=== PATIENT | female | born 1975 | race Caucasian/White ===

== ENCOUNTER → 2016-09-19 | Outpatient (CLI) | payer OTHER ==
--- NOTE | 2016-09-19 12:21 | CT ---
EXAMINATION TYPE: CT abdomen pelvis wo con DATE OF EXAM: 09/19/2016 11:56 AM HISTORY: Lt flank and left lower quadrant pain CT DLP: 2683.7 mGycm. Automated Exposure Control for Dose Reduction was Utilized. TECHNIQUE: CT scan of the abdomen and pelvis is performed without oral or IV contrast. COMPARISON: CT scan of the abdomen and pelvis dated July 28, 2015. FINDINGS: Within the limitations of a non-contrast study, the following observations are made. Exam is slightly suboptimal secondary to patient's large body habitus. LUNG BASES: Dependent atelectasis in both lung bases is present. LIVER/GB: Liver is hypodense consistent with diffuse fatty infiltration. Hepatomegaly is redemonstrat ed. There is interval cholecystectomy with clips now present. PANCREAS: No significant abnormality is seen. SPLEEN: No significant abnormality is seen. ADRENALS: No significant abnormality is seen. KIDNEYS: No renal stones or hydronephrosis is evident bilaterally. Scattered pelvic phleboliths are r edemonstrated. BOWEL: No suspicious small or large bowel dilatation is seen. Normal-appearing appendix is seen from the cecum. Occasional diverticula are identified. There is no convincing CT evidence for acute divert iculitis. GENITAL ORGANS: No gross abnormality seen. LYMPH NODES: No greater than 1cm abdominal or pelvic lymph nodes are appreciated. OSSEOUS STRUCTURES: No significant abnormality is seen. OTHER: Vertical scar from the umbilicus extending inferiorly is redemonstrated. There is suspected sm all to moderate-sized fat-containing umbilical hernia felt stable. Some skin thickening overlying the anterior lower pelvis remains present. IMPRESSION: No renal stones or hydronephrosis is seen bilaterally. No significant new or acute findin g is seen to account for patient's symptoms.
== END | disposition home or self-care (01) ==
LOC: RADCTMAIN 10:59
PROVIDERS: ATTEND Family Medicine
DX: R10.32 Left lower quadrant pain (principal)
CPT/HCPCS: 74176

== ENCOUNTER 2016-12-07 13:43 | Emergency (ER) | payer OTHER ==
[2016-12-07 13:48] VITALS: RESP 20
[2016-12-07] MEDS ORDERED: IPRATROPIUM-ALBUTEROL 3 ML NEB INHALATION STA (15:57)
--- NOTE | 2016-12-07 16:03 | ED ---
General Adult HPI - General Chief complaint: Recheck/Abnormal Lab/Rx Stated complaint: GABBY Time Seen by Provider: 12/07/16 15:35 Source: patient Mode of arrival: ambulatory Limitations: no limitations - History of Present Illness Initial comments: Patient is a 41-year-old female with past medical history of alcohol abuse, oxygen dependent COPD, sleep apnea and uncontrolled diabetes. Patient presents to the emergency department today for evaluation of worsening shortness of breath and productive cough for one week duration. Patient reports she began one week ago with upper respiratory infection symptoms, including congestion and nonproductive cough. Over the course of the week she has developed a worsening productive cough. She reports she has to strain to cough of dark green phlegm. She also reports that she feels short of breath throughout the day and at night despite wearing her CPAP. She reports she has been using her albuterol nebulizer 3 times daily, she reports she doesn't always get in the fourth treatment as prescribed because she sleeping. Patient is on 2 L of oxygen at all times at baseline, she has not increased her oxygen demand but does feel short of breath spite being compliant with wearing her oxygen and CPAP at night. Patient reports that last night she had to sit straight up to sleep because she felt short of breath upon lying down. These symptoms are new to her. Patient has no cardiac history or history of congestive heart failure. She has no history of DVT or PE. Patient also complains of a rash on her buttock for which she saw her primary care doctor recently. She was devised that she has a yeast infection similar to diaper rash and was given a topical cream. Patient reports that despite being compliant with using the cream the rash has continued to worsen. Patient does admit that her diabetes is very poorly controlled her last A1c being greater than 11. However she states that for the past 3 days she's been able to maintain her blood glucose in the 100 level. - Related Data Home Medications Medication Instructions Recorded Confirmed hydrALAZINE HCL [Apresoline] 50 mg PO TID 10/07/13 12/07/16 Atenolol/Chlorthalidone 1 tab PO QAM 06/25/15 12/07/16 [Atenolol-Chlorthalidone 100-25] Divalproex [Depakote] 1,000 mg PO BID 06/25/15 12/07/16 Gabapentin [Neurontin] 300 mg PO TID 06/25/15 12/07/16 Levothyroxine Sodium [Levoxyl] 75 mcg PO QAM 06/25/15 12/07/16 amLODIPine BESYLATE/BENAZEPRIL 1 cap PO QAM 06/26/15 12/07/16 [Lotrel 10-40 mg Capsule] Atorvastatin [Lipitor] 40 mg PO QAM 10/21/15 12/07/16 Cetirizine HCl 10 mg PO HS 10/21/15 12/07/16 Insulin Glargine [Lantus] 80 unit SQ HS 10/21/15 12/07/16 Insulin Glulisine [Apidra Solostar] See Protocol SQ QID 10/21/15 12/07/16 Multivitamins, Thera [Multivitamin 1 tab PO DAILY 10/21/15 12/07/16 (formulary)] metFORMIN HCL [Glucophage] 1,000 mg PO BID-W/MEALS 10/21/15 12/07/16 [place]-3 Fatty Acids/Fish Oil [Fish 2 tab PO BID 12/01/15 12/07/16 Oil 1,000 mg Softgel] Meclizine [Antivert] 25 mg PO DAILY PRN 05/17/16 12/07/16 Nystatin 100,000 Unit/gm Powd 1 applic TOPICAL BID PRN 05/17/16 12/07/16 [Mycostatin Powder] Omeprazole [PriLOSEC] 20 mg PO DAILY 05/17/16 12/07/16 SUMAtriptan SUCCINATE [Imitrex] 100 mg PO BID PRN MDD 200mg 05/17/16 12/07/16 Fenofibrate [Lofibra] 160 mg PO HS 12/07/16 12/07/16 Liraglutide [Victoza 2-Don] 0.6 mg SQ DAILY 12/07/16 12/07/16 Montelukast [Singulair] 10 mg PO HS 12/07/16 12/07/16 Previous Rx's Medication Instructions Recorded Oxymetazoline 0.05% Nasl [place] 2 spray EA NOSTRIL BID PRN 10 Days 05/17/16 [Afrin 0.05% Nasal [place]] Nystatin 100,000 Unit/gm Powd 1 applic TOPICAL BID #30 gm 12/07/16 [Mycostatin Powder] predniSONE 20 mg PO DAILY #5 tab 12/07/16 Allergies Allergy/AdvReac Type Severity Reaction Status Date / Time Iodinated Contrast Media - Allergy Mild Rash/Hives Verified 12/07/16 16:08 Oral and [Iodinated Contrast Media - IV Dye] enalapril Allergy Rash/Hives Verified 12/07/16 16:08 levofloxacin Allergy Rash/Hives Verified 12/07/16 16:08 Review of Systems ROS Statement: Those systems with pertinent positive or pertinent negative responses have been documented in the HPI. ROS Other: All systems not noted in ROS Statement are negative. Constitutional: Denies: fever, chills Eyes: Denies: vision change ENT: Reports: congestion Respiratory: Reports: cough, dyspnea. Denies: wheezes, hemoptysis Cardiovascular: Reports: chest pain, palpitations, dyspnea on exertion, orthopnea, paroxysmal nocturnal dyspnea. Denies: edema Endocrine: Reports: fatigue Gastrointestinal: Reports: nausea, diarrhea (Diarrhea for a number of years). Denies: abdominal pain, vomiting Genitourinary: Denies: urgency, dysuria, frequency Musculoskeletal: Reports: back pain Skin: Reports: rash Neurological: Denies: weakness Psychiatric: Denies: anxiety, depression Hematological/Lymphatic: Denies: easy bleeding, easy bruising Past Medical History Past Medical History: Asthma, COPD, Diabetes Mellitus, Hyperlipidemia, Hypertension, Sleep Apnea/CPAP/BIPAP, Thyroid Disorder Additional Past Medical History / Comment(s): chronic venous insufficiency, neuropathy, migraines, IBS, fatty liver History of Any Multi-Drug Resistant Organisms: None Reported Past Surgical History: Section, Cholecystectomy, Tubal Ligation Additional Past Surgical History / Comment(s): recent colonoscopy Past Anesthesia/Blood Transfusion Reactions: No Reported Reaction Past Psychological History: Bipolar, Depression Smoking Status: Former smoker Past Alcohol Use History: None Reported Past Drug Use History: None Reported - Past Family History Mother Family Medical History: Hypertension Father Family Medical History: Hyperlipidemia General Exam Limitations: no limitations General appearance: alert Head exam: Present: atraumatic, normocephalic Eye exam: Present: normal appearance, PERRL ENT exam: Present: mucous membranes moist Neck exam: Absent: tenderness, full ROM Respiratory exam: Present: wheezes Cardiovascular Exam: Present: regular rate, normal rhythm. Absent: systolic murmur, diastolic murmur, rubs, gallop GI/Abdominal exam: Present: soft. Absent: distended, tenderness, guarding, rebound, rigid Rectal exam: Present: deferred Extremities exam: Present: normal inspection, full ROM, normal capillary refill. Absent: tenderness, pedal edema, joint swelling, calf tenderness Back exam: Present: normal inspection Neurological exam: Present: alert, oriented X3, CN II-XII intact Psychiatric exam: Present: normal affect, normal mood Skin exam: Present: warm, dry, rash (Rash on buttock, erythematous with satellite lesions consistent with candidal infection. Rash has a white cream on top of it. There is no evidence of cellulitis or abscess.) Course Vital Signs 12/07/16 12/07/16 12/07/16 13:45 16:46 16:54 Temperature 97.3 F L Pulse Rate 98 96 97 Respiratory 20 Rate Blood Pressure 143/67 O2 Sat by Pulse 96 Oximetry 12/07/16 17:17 Temperature Pulse Rate 93 Respiratory 20 Rate Blood Pressure 138/63 O2 Sat by Pulse 95 Oximetry - Reevaluation(s) Reevaluation #1: Patient reports feeling significantly better after a DuoNeb. Reports that she feels she can breathe well and that her tightness and discomfort has resolved. She reports she was only using her albuterol nebulizer up to 3 times daily, has not been on steroids recently. 12/07/16 18:39 Medical Decision Making - Medical Decision Making She was seen and evaluated History is obtained from the patient, patient with recent URI and now a productive cough and persistent shortness of breath is concern for pneumonia Physical exam with scant wheezing Physical exam also reveals a severe candidal infection on the buttocks Labs, chest x-ray and urinalysis were ordered Lab with no leukocytosis, no electrolyte abnormalities Chest x-ray no acute findings solid instructions or evidence of pneumonia Patient reports significant improvement after single DuoNeb therapy Physical exam with improvement in wheezing Results were discussed with the patient who states she came here because she wanted an antibiotic but that if she doesn't have pneumonia she doesn't feel like she needs an antibiotic and she feels well enough to go home at this time Was concerned the patient has a COPD exacerbation, IV Solu-Medrol was ordered advised the patient that I will discharge her home with oral steroids for treatment of COPD exacerbation. Discussed with the patient the possibility of steroids were cause hyperglycemia and that she needs to monitor her glucose very closely. Patient expressed understanding of this. Patient has follow-up appointment scheduled with her PCP for the of this month. Advised her to return to the emergency department if she develops any worsening shortness breath, fever, productive cough or any signs or symptoms she finds concerning. All questions pertaining to care were answered to the best of my ability and the patient was discharged home with prescription for prednisone as well as nystatin powder for her perirectal candidiasis. I advised the patient that she should use her albuterol as prescribed - Lab Data Result diagrams: 12/07/16 16:50 12/07/16 16:50 Lab Results 12/07/16 12/07/16 12/07/16 Range/Units 16:50 16:50 16:50 WBC 10.3 (3.8-10.6) k/uL RBC 4.32 (3.80-5.40) m/uL Hgb 12.7 (11.4-16.0) gm/dL Hct 36.4 (34.0-46.0) % MCV 84.2 (80.0-100.0) fL MCH 29.4 (25.0-35.0) pg MCHC 34.8 (31.0-37.0) g/dL RDW 14.2 (11.5-15.5) % Plt Count 271 (150-450) k/uL Neutrophils % 69 % Lymphocytes % 18 % Monocytes % 5 % Eosinophils % 7 % Basophils % 0 % Neutrophils # 7.1 (1.3-7.7) k/uL Lymphocytes # 1.8 (1.0-4.8) k/uL Monocytes # 0.5 (0-1.0) k/uL Eosinophils # 0.7 (0-0.7) k/uL Basophils # 0.0 (0-0.2) k/uL PT 10.5 (9.0-12.0) sec INR 1.0 (<1.1) APTT 18.8 L (22.0-30.0) sec Sodium (137-145) mmol/L Potassium (3.5-5.1) mmol/L Chloride (98-107) mmol/L Carbon Dioxide (22-30) mmol/L Anion Gap mmol/L BUN (7-17) mg/dL Creatinine (0.52-1.04) mg/dL Est GFR (MDRD) Af Amer (>60 ml/min/1.73 sqM) Est GFR (MDRD) Non-Af (>60 ml/min/1.73 sqM) Glucose (74-99) mg/dL Calcium (8.4-10.2) mg/dL Total Bilirubin (0.2-1.3) mg/dL AST (14-36) U/L ALT (9-52) U/L Alkaline Phosphatase (38-126) U/L Troponin I (0.000-0.034) ng/mL NT-Pro-B Natriuret Pep 77 pg/mL Total Protein (6.3-8.2) g/dL Albumin (3.5-5.0) g/dL 12/07/16 12/07/16 Range/Units 16:50 16:50 WBC (3.8-10.6) k/uL RBC (3.80-5.40) m/uL Hgb (11.4-16.0) gm/dL Hct (34.0-46.0) % MCV (80.0-100.0) fL MCH (25.0-35.0) pg MCHC (31.0-37.0) g/dL RDW (11.5-15.5) % Plt Count (150-450) k/uL Neutrophils % % Lymphocytes % % Monocytes % % Eosinophils % % Basophils % % Neutrophils # (1.3-7.7) k/uL Lymphocytes # (1.0-4.8) k/uL Monocytes # (0-1.0) k/uL Eosinophils # (0-0.7) k/uL Basophils # (0-0.2) k/uL PT (9.0-12.0) sec INR (<1.1) APTT (22.0-30.0) sec Sodium 143 (137-145) mmol/L Potassium 4.0 (3.5-5.1) mmol/L Chloride 101 (98-107) mmol/L Carbon Dioxide 26 (22-30) mmol/L Anion Gap 16 mmol/L BUN 12 (7-17) mg/dL Creatinine 0.60 (0.52-1.04) mg/dL Est GFR (MDRD) Af Amer >60 (>60 ml/min/1.73 sqM) Est GFR (MDRD) Non-Af >60 (>60 ml/min/1.73 sqM) Glucose 109 H (74-99) mg/dL Calcium 9.8 (8.4-10.2) mg/dL Total Bilirubin 0.3 (0.2-1.3) mg/dL AST 30 (14-36) U/L ALT 40 (9-52) U/L Alkaline Phosphatase 79 (38-126) U/L Troponin I <0.012 (0.000-0.034) ng/mL NT-Pro-B Natriuret Pep pg/mL Total Protein 7.3 (6.3-8.2) g/dL Albumin 4.5 (3.5-5.0) g/dL Disposition Clinical Impression: COPD exacerbation, Obstructive sleep apnea Disposition: HOME SELF-CARE Condition: Good Instructions: COPD (Chronic Obstructive Pulmonary Disease) (ED) Prescriptions: predniSONE 20 mg PO DAILY #5 tab Referrals: Dany Mcrae MD [Primary Care Provider] - 12/13/16
[2016-12-07 17:02] LABS: Basophils % (A) 0 %; CH 28.8; CHCM 34.4; Eosinophils # (A) 0.7 k/uL (0-0.7); Eosinophils % (A) 7 %; HCT 36.4 % (34.0-46.0); HDW 2.97; HGB 12.7 gm/dL (11.4-16.0); Luc # (Auto) 0.14; Luc % (Auto) 1; Lymphocytes # (A) 1.8 k/uL (1.0-4.8); Lymphocytes % (A) 18 %; MCH 29.4 pg (25.0-35.0); MCHC 34.8 g/dL (31.0-37.0); MCV 84.2 fL (80.0-100.0); Mean Platelet Volume 7.4; Monocytes # (A) 0.5 k/uL (0-1.0); Monocytes % (A) 5 %; Neutrophils # (A) 7.1 k/uL (1.3-7.7); Neutrophils % (A) 69 %; RBC 4.32 m/uL (3.80-5.40); RDW 14.2 % (11.5-15.5); WBC 10.3 k/uL (3.8-10.6); WBC (Perox) 10.84
[2016-12-07 17:17] LABS: Prothrombin Time 10.5 sec (9.0-12.0)
--- NOTE | 2016-12-07 17:23 | XR ---
EXAMINATION TYPE: XR chest 2V DATE OF EXAM: 12/07/2016 COMPARISON: NONE HISTORY: Dyspnea TECHNIQUE: Frontal and lateral views of the chest are obtained. FINDINGS: There is no focal air space opacity, pleural effusion, or pneumothorax seen. The cardiac silhouette size is within normal limits. The osseous structures are intact. IMPRESSION: No acute cardiopulmonary process.
[2016-12-07 17:25] LABS: Partial Thromboplastin Time 18.8 sec (22.0-30.0)
[2016-12-07 17:26] LABS: ALT 40 U/L (9-52); AST 30 U/L (14-36); Alkaline Phosphatase 79 U/L (38-126); Anion Gap 16 mmol/L; Blood Urea Nitrogen 12 mg/dL (7-17); Calcium 9.8 mg/dL (8.4-10.2); Carbon Dioxide 26 mmol/L (22-30); Chloride 101 mmol/L (98-107); Glucose 109 mg/dL (74-99); Non-African American GFR(MDRD) >60 (>60 ml/min/1.73 sqM); Sodium 143 mmol/L (137-145); Total Bilirubin 0.3 mg/dL (0.2-1.3); Total Protein 7.3 g/dL (6.3-8.2)
[2016-12-07] MEDS ORDERED: methylPREDNISolone SOD SUCCI 125 MG/2 ML VIAL IV STA (18:30)
[2016-12-07 19:07] VITALS: BP 142/69; PULSE 100; TEMP 97.8
== END 2016-12-07 19:06 | disposition home or self-care (01) ==
LOC: EC 13:43
DX: J44.1 Chronic obstructive pulmonary disease with (acute) exacerbation (principal); G47.33 Obstructive sleep apnea (adult) (pediatric); I10 Essential (primary) hypertension; E11.9 Type 2 diabetes mellitus without complications; E78.5 Hyperlipidemia, unspecified; E07.9 Disorder of thyroid, unspecified; F31.9 Bipolar disorder, unspecified; Z99.81 Dependence on supplemental oxygen; Z88.1 Allergy status to other antibiotic agents; Z88.8 Allergy status to other drugs, medicaments and biological substances; Z91.041 Radiographic dye allergy status; Z79.4 Long term (current) use of insulin; Z79.84 Long term (current) use of oral hypoglycemic drugs; Z79.899 Other long term (current) drug therapy
CPT/HCPCS: 99285; 96374; 36415; 94640; 93005; 83880; 80053; 84484; 85025; 85610; 85730; 71020; J2930

== ENCOUNTER 2018-07-15 11:23 | Inpatient (IN) | payer OTHER ==
[2018-07-15] MEDS ORDERED: SODIUM CHLORIDE 0.9% 1,000 ML IV ONE (11:57)
--- NOTE | 2018-07-15 11:59 | ED ---
General Adult HPI - General Chief complaint: Upper Respiratory Infection Stated complaint: hyperglycemia and cold/flu symptoms Time Seen by Provider: 07/15/18 11:35 Source: patient, RN notes reviewed Mode of arrival: wheelchair Limitations: no limitations - History of Present Illness Initial comments: This is a 42-year-old female who presents to the emergency department from an urgent care. Patient states she has been having a lot of upper respiratory symptoms recently some congestion as well as a cough with a little bit of sputum production. Patient denies difficult breathing or shortness of breath per patient states her throat a little sore too. Patient states she has had the feeling that she's been warm but has not taken her temperature. Patient denies any chest pain or palpitations. Patient denies any abdominal pain patient is not vomiting diarrhea. Patient states she went to the urgent care and they noted her sugar to be almost 600. Patient states is to be on a sliding scale but she doesn't do it because she doesn't have a meter at home. Patient states received a meter from the urgent care today so she has a meter at this time. - Related Data Home Medications Medication Instructions Recorded Confirmed hydrALAZINE HCL [Apresoline] 50 mg PO TID 10/07/13 07/15/18 Atenolol/Chlorthalidone 1 tab PO QAM 06/25/15 07/15/18 [Atenolol-Chlorthalidone 100-25] Divalproex [Depakote] 1,000 mg PO BID 06/25/15 07/15/18 Gabapentin [Neurontin] 300 mg PO TID 06/25/15 07/15/18 amLODIPine BESYLATE/BENAZEPRIL 1 cap PO QAM 06/26/15 07/15/18 [Lotrel 10-40 MG] Cetirizine HCl 10 mg PO HS 10/21/15 07/15/18 Insulin Glargine [Lantus] 60 unit SQ DAILY 10/21/15 07/15/18 Insulin Glulisine [Apidra Solostar] See Protocol SQ ACHS 10/21/15 07/15/18 Multivitamins, Thera [Multivitamin 1 tab PO DAILY 10/21/15 07/15/18 (formulary)] metFORMIN HCL [Glucophage] 1,000 mg PO BID-W/MEALS 10/21/15 07/15/18 [place]-3 Fatty Acids/Fish Oil [Fish 2 tab PO BID 12/01/15 07/15/18 Oil 1,000 mg Softgel] Meclizine [Antivert] 25 mg PO DAILY PRN 05/17/16 07/15/18 Omeprazole [PriLOSEC] 20 mg PO DAILY 05/17/16 07/15/18 SUMAtriptan SUCCINATE [Imitrex] 100 mg PO BID PRN 05/17/16 07/15/18 Fenofibrate [Lofibra] 160 mg PO HS 12/07/16 07/15/18 Liraglutide [Victoza 2-Don] 1.8 mg SQ DAILY 12/07/16 07/15/18 Montelukast [Singulair] 10 mg PO HS 12/07/16 07/15/18 Albuterol Inhaler [Ventolin Hfa 2 puff INHALATION RT-Q6H PRN 07/15/18 07/15/18 Inhaler] Atorvastatin [Lipitor] 40 mg PO DAILY 07/15/18 07/15/18 Cyclobenzaprine [Flexeril] 10 mg PO TID PRN 07/15/18 07/15/18 Dicyclomine [Bentyl] 20 mg PO QID PRN 07/15/18 07/15/18 Diphenox-Atrop 2.5-0.025 mg 2 tab PO 5XD PRN 07/15/18 07/15/18 [Lomotil] Levothyroxine Sodium [Synthroid] 88 mcg PO DAILY 07/15/18 07/15/18 Topiramate [Topamax] 50 mg PO BID 07/15/18 07/15/18 traMADol HCL [Ultram] 50 - 100 mg PO Q6H PRN 07/15/18 07/15/18 Previous Rx's Medication Instructions Recorded Oxymetazoline 0.05% Nasl [place] 2 spray EA NOSTRIL BID PRN 10 Days 05/17/16 [Afrin 0.05% Nasal [place]] spray Allergies Allergy/AdvReac Type Severity Reaction Status Date / Time Iodinated Contrast- Oral and Allergy Mild Rash/Hives Verified 07/15/18 11:35 IV Dye [Iodinated Contrast Media - IV Dye] enalapril Allergy Rash/Hives Verified 07/15/18 11:35 levofloxacin Allergy Rash/Hives Verified 07/15/18 11:35 Review of Systems ROS Statement: Those systems with pertinent positive or pertinent negative responses have been documented in the HPI. ROS Other: All systems not noted in ROS Statement are negative. Past Medical History Past Medical History: Asthma, COPD, Diabetes Mellitus, Hyperlipidemia, Hypertension, Sleep Apnea/CPAP/BIPAP, Thyroid Disorder Additional Past Medical History / Comment(s): chronic venous insufficiency, neuropathy, migraines, IBS, fatty liver History of Any Multi-Drug Resistant Organisms: None Reported Past Surgical History: Section, Cholecystectomy, Tubal Ligation Additional Past Surgical History / Comment(s): recent colonoscopy Past Anesthesia/Blood Transfusion Reactions: No Reported Reaction Past Psychological History: Bipolar, Depression Smoking Status: Former smoker Past Alcohol Use History: None Reported Past Drug Use History: None Reported - Past Family History Mother Family Medical History: Hypertension Father Family Medical History: Hyperlipidemia General Exam - General Exam Comments Initial Comments: GENERAL: Patient is well-developed and well-nourished. Patient is nontoxic and well- hydrated and is in mild distress. ENT: Neck is soft and supple. No significant lymphadenopathy is noted. Oropharynx is clear. Moist mucous membranes. Neck has full range of motion without eliciting any pain. EYES: The sclera were anicteric and conjunctiva were pink and moist. Extraocular movements were intact and pupils were equal round and reactive to light. Eyelids were unremarkable. PULMONARY: Unlabored respirations. Good breath sounds bilaterally. No audible rales rhonchi or wheezing was noted. CARDIOVASCULAR: There is a regular rate and rhythm without any murmurs gallops or rubs. ABDOMEN: Soft and nontender with normal bowel sounds. SKIN: Skin is clear with no lesions or rashes and otherwise unremarkable. NEUROLOGIC: Patient is alert and oriented x3. Cranial nerves II through XII are grossly intact. Motor and sensory are also intact. Normal speech, volume and content. Symmetrical smile. MUSCULOSKELETAL: Normal extremities with adequate strength and full range of motion. No lower extremity swelling or edema. No calf tenderness. LYMPHATICS: No significant lymphadenopathy is noted PSYCHIATRIC: Normal psychiatric evaluation. Limitations: no limitations Course Vital Signs 07/15/18 07/15/18 07/15/18 11:33 12:12 13:23 Temperature 97.3 F L Pulse Rate 110 H 107 H 77 Respiratory 22 18 18 Rate Blood Pressure 135/83 126/75 O2 Sat by Pulse 95 97 98 Oximetry 07/15/18 14:10 Temperature Pulse Rate 102 H Respiratory 18 Rate Blood Pressure 122/61 O2 Sat by Pulse 99 Oximetry Medical Decision Making - Medical Decision Making Patient's sugar was almost 600. I started patient on an insulin drip as well as given the patient insulin bolus. I also started the patient with some normal saline fluid boluses. I spoke with Dr. Mohsen lopez to admit the patient admitted the patient I wrote admitting orders and I continued the insulin and fluid on the floor. - Lab Data Result diagrams: 07/15/18 12:09 07/15/18 12:09 Lab Results 07/15/18 07/15/18 07/15/18 Range/Units 12:09 12:09 12:09 WBC 8.6 (3.8-10.6) k/uL RBC 4.25 (3.80-5.40) m/uL Hgb 12.8 (11.4-16.0) gm/dL Hct 37.4 (34.0-46.0) % MCV 87.8 (80.0-100.0) fL MCH 30.1 (25.0-35.0) pg MCHC 34.3 (31.0-37.0) g/dL RDW 14.5 (11.5-15.5) % Plt Count 218 (150-450) k/uL Neutrophils % 70 % Lymphocytes % 18 % Monocytes % 6 % Eosinophils % 4 % Basophils % 0 % Neutrophils # 6.0 (1.3-7.7) k/uL Lymphocytes # 1.5 (1.0-4.8) k/uL Monocytes # 0.6 (0-1.0) k/uL Eosinophils # 0.3 (0-0.7) k/uL Basophils # 0.0 (0-0.2) k/uL Sodium 133 L (137-145) mmol/L Potassium 3.9 (3.5-5.1) mmol/L Chloride 91 L (98-107) mmol/L Carbon Dioxide 24 (22-30) mmol/L Anion Gap 18 mmol/L BUN 11 (7-17) mg/dL Creatinine 0.46 L (0.52-1.04) mg/dL Est GFR (CKD-EPI)AfAm >90 (>60 ml/min/1.73 sqM) Est GFR (CKD-EPI)NonAf >90 (>60 ml/min/1.73 sqM) Glucose 567 H* (74-99) mg/dL POC Glucose (mg/dL) (75-99) mg/dL POC Glu Rear Admiral ID Calcium 9.4 (8.4-10.2) mg/dL Total Bilirubin 0.6 (0.2-1.3) mg/dL AST 24 (14-36) U/L ALT 33 (9-52) U/L Alkaline Phosphatase 123 (38-126) U/L NT-Pro-B Natriuret Pep 37 pg/mL Total Protein 7.2 (6.3-8.2) g/dL Albumin 4.0 (3.5-5.0) g/dL Urine Color Urine Appearance (Clear) Urine pH (5.0-8.0) Ur Specific [place] (1.001-1.035) Urine Protein (Negative) Urine Glucose (UA) (Negative) Urine Ketones (Negative) Urine Blood (Negative) Urine Nitrite (Negative) Urine Bilirubin (Negative) Urine Urobilinogen (<2.0) mg/dL Ur Leukocyte Esterase (Negative) Acetone, Qual Positive (Negative) 07/15/18 07/15/18 Range/Units 12:16 13:13 WBC (3.8-10.6) k/uL RBC (3.80-5.40) m/uL Hgb (11.4-16.0) gm/dL Hct (34.0-46.0) % MCV (80.0-100.0) fL MCH (25.0-35.0) pg MCHC (31.0-37.0) g/dL RDW (11.5-15.5) % Plt Count (150-450) k/uL Neutrophils % % Lymphocytes % % Monocytes % % Eosinophils % % Basophils % % Neutrophils # (1.3-7.7) k/uL Lymphocytes # (1.0-4.8) k/uL Monocytes # (0-1.0) k/uL Eosinophils # (0-0.7) k/uL Basophils # (0-0.2) k/uL Sodium (137-145) mmol/L Potassium (3.5-5.1) mmol/L Chloride (98-107) mmol/L Carbon Dioxide (22-30) mmol/L Anion Gap mmol/L BUN (7-17) mg/dL Creatinine (0.52-1.04) mg/dL Est GFR (CKD-EPI)AfAm (>60 ml/min/1.73 sqM) Est GFR (CKD-EPI)NonAf (>60 ml/min/1.73 sqM) Glucose (74-99) mg/dL POC Glucose (mg/dL) 560 H (75-99) mg/dL POC Glu Rear Admiral ID Shannna Esquivel Calcium (8.4-10.2) mg/dL Total Bilirubin (0.2-1.3) mg/dL AST (14-36) U/L ALT (9-52) U/L Alkaline Phosphatase (38-126) U/L NT-Pro-B Natriuret Pep pg/mL Total Protein (6.3-8.2) g/dL Albumin (3.5-5.0) g/dL Urine Color Colorless Urine Appearance Clear (Clear) Urine pH 5.0 (5.0-8.0) Ur Specific [place] 1.028 (1.001-1.035) Urine Protein Negative (Negative) Urine Glucose (UA) 4+ H (Negative) Urine Ketones 1+ H (Negative) Urine Blood Negative (Negative) Urine Nitrite Negative (Negative) Urine Bilirubin Negative (Negative) Urine Urobilinogen <2.0 (<2.0) mg/dL Ur Leukocyte Esterase Negative (Negative) Acetone, Qual (Negative) Critical Care Time Critical Care Time: Yes Total Critical Care Time: 35 Disposition Clinical Impression: DKA (diabetic ketoacidoses), Upper respiratory infection Disposition: ADMITTED IP TO THIS HOSP Referrals: Dany Mcrae MD [Primary Care Provider] - 1-2 days Time of Disposition: 14:51
[2018-07-15 12:18] LABS: Glucose,Whole Blood 560 mg/dL (75-99)
[2018-07-15 12:38] LABS: Basophils % (A) 0 %; Eosinophils # (A) 0.3 k/uL (0-0.7); Eosinophils % (A) 4 %; HCT 37.4 % (34.0-46.0); HGB 12.8 gm/dL (11.4-16.0); Lymphocytes # (A) 1.5 k/uL (1.0-4.8); Lymphocytes % (A) 18 %; MCH 30.1 pg (25.0-35.0); MCHC 34.3 g/dL (31.0-37.0); MCV 87.8 fL (80.0-100.0); Mean Platelet Volume 7.5; Monocytes # (A) 0.6 k/uL (0-1.0); Monocytes % (A) 6 %; Neutrophils % (A) 70 %; Platelet Count 218 k/uL (150-450); RBC 4.25 m/uL (3.80-5.40); RDW 14.5 % (11.5-15.5); WBC 8.6 k/uL (3.8-10.6)
--- NOTE | 2018-07-15 12:52 | XR ---
EXAMINATION TYPE: XR chest 2V DATE OF EXAM: 07/15/2018 COMPARISON: 12/07/2016 HISTORY: 42-year-old female difficulty breathing TECHNIQUE: AP and lateral views FINDINGS: The heart is upper limits of normal in size. Vascular prominence. Hazy lower lung densities related t o overlying soft tissue. There is underpenetration limiting assessment. No tigist consolidation or ple ural effusion seen. IMPRESSION: Portable, under penetrated exam. There is borderline heart size and vascular prominence. Correlate wi th BNP to exclude mild pulmonary vascular congestion.
[2018-07-15 12:55] LABS: ALT 33 U/L (9-52); AST 24 U/L (14-36); Alkaline Phosphatase 123 U/L (38-126); Anion Gap 18 mmol/L; Blood Urea Nitrogen 11 mg/dL (7-17); Calcium 9.4 mg/dL (8.4-10.2); Carbon Dioxide 24 mmol/L (22-30); Chloride 91 mmol/L (98-107); Potassium 3.9 mmol/L (3.5-5.1); Sodium 133 mmol/L (137-145); Total Bilirubin 0.6 mg/dL (0.2-1.3); Total Protein 7.2 g/dL (6.3-8.2)
[2018-07-15 13:04] LABS: Glucose 567 mg/dL (74-99)
[2018-07-15 13:39] LABS: Appearance,Urine Clear (Clear); Bilirubin,Urine Negative (Negative); Blood,Urine Negative (Negative); Color,Urine Colorless; Glucose,Urine (UA) 4+ (Negative); Ketones,Urine 1+ (Negative); Leukocyte Esterase,Urine Negative (Negative); Nitrite,Urine Negative (Negative); Protein,Urine Negative (Negative); Specific Gravity,Urine 1.028 (1.001-1.035); Urobilinogen,Urine <2.0 mg/dL (<2.0)
[2018-07-15] MEDS ORDERED: INSULIN ASPART (NovoLOG) 100 UNIT/ML VIAL SQ ONE (13:54)
[2018-07-15] MEDS ORDERED: INSULIN REGULAR 100 UNIT/ML VIAL IV ONE (13:55)
[2018-07-15] MEDS ORDERED: INSULIN REGULAR 100 UNIT in SODIUM CHLORIDE 0.9% 100 ML IV SCH (14:00)
[2018-07-15 15:17] LABS: Glucose,Whole Blood 398 mg/dL (75-99)
[2018-07-15] MEDS: ALBUTEROL NEBULIZED 2.5 MG/3 ML INHALATION SCH ×2 (16:10→19:25)
[2018-07-15] MEDS: CYCLOBENZAPRINE 10 MG TAB PO PRN (16:38)
[2018-07-15] MEDS: traMADol 50 MG TAB PO SCH ×2 (16:38→23:46)
[2018-07-15] MEDS: SODIUM CHLORIDE 0.9% 1,000 ML IV SCH (16:39)
[2018-07-15 17:07] LABS: Glucose,Whole Blood 317 mg/dL (75-99)
[2018-07-15 17:30] LABS: Anion Gap 13 mmol/L; Blood Urea Nitrogen 9 mg/dL (7-17); Carbon Dioxide 30 mmol/L (22-30); Chloride 93 mmol/L (98-107); Glucose 322 mg/dL (74-99); Potassium 3.3 mmol/L (3.5-5.1); Sodium 136 mmol/L (137-145)
[2018-07-15 18:13] LABS: Glucose,Whole Blood 261 mg/dL (75-99)
[2018-07-15] MEDS ORDERED: OXYMETAZOLINE 0.05% NASL SPRAY 1 SPRAY BOTTLE EA NOSTRIL PRN (18:36)
[2018-07-15] MEDS ORDERED: ALBUTEROL NEBULIZED 2.5 MG/3 ML INHALATION PRN (18:36)
[2018-07-15] MEDS ORDERED: DIPHENOX-ATROP 2.5-0.025 MG 1 EACH TAB PO PRN ×2 (18:36→18:56)
[2018-07-15] MEDS ORDERED: MECLIZINE 25 MG TAB PO PRN (18:36)
[2018-07-15] MEDS ORDERED: SUMAtriptan SUCCINATE 50 MG TAB PO PRN (18:36)
[2018-07-15] MEDS ORDERED: DICYCLOMINE 10 MG CAP PO PRN (18:36)
[2018-07-15] MEDS ORDERED: ALPRAZolam 0.25 MG TAB PO PRN (18:40)
[2018-07-15] MEDS ORDERED: TEMAZEPAM 15 MG CAP PO PRN (18:40)
[2018-07-15] MEDS ORDERED: HYDROmorphone 0.5 MG/0.5 ML SYRINGE IVP PRN (18:40)
[2018-07-15] MEDS ORDERED: HYDROcodone/APAP 5-325MG 1 EACH TAB PO PRN (18:40)
[2018-07-15 18:48] LABS: Glucose,Whole Blood 202 mg/dL (75-99)
[2018-07-15 20:15] LABS: Glucose,Whole Blood 208 mg/dL (75-99)
[2018-07-15] MEDS ORDERED: DEXTROSE IV SCH ×2 (20:30)
[2018-07-15] MEDS ORDERED: NACL IV SCH ×2 (20:30)
[2018-07-15] MEDS: INSULIN REGULAR 100 UNIT in SODIUM CHLORIDE 0.9% 100 ML IV SCH ×3 (20:30→23:30)
[2018-07-15] MEDS ORDERED: D5 IV SCH ×2 (20:30)
[2018-07-15] MEDS ORDERED: KCL IV SCH ×2 (20:30)
[2018-07-15] MEDS ORDERED: OMEGA PO SCH (21:00)
[2018-07-15] MEDS ORDERED: FATTY ACIDS PO SCH (21:00)
[2018-07-15] MEDS ORDERED: FISH OIL PO SCH (21:00)
[2018-07-15 21:16] LABS: Anion Gap 14 mmol/L; Blood Urea Nitrogen 8 mg/dL (7-17); Carbon Dioxide 28 mmol/L (22-30); Chloride 95 mmol/L (98-107); Glucose 209 mg/dL (74-99); Potassium 3.3 mmol/L (3.5-5.1); Sodium 137 mmol/L (137-145)
[2018-07-15 21:58] LABS: Glucose,Whole Blood 214 mg/dL (75-99)
--- NOTE | 2018-07-15 22:39 | HP ---
HISTORY AND PHYSICAL DATE OF SERVICE: 07/15/2018 I I am covering for Dr. Mcrae. CHIEF COMPLAINT: infection, hypoglycemia. HISTORY OF PRESENT ILLNESS: This 42-year-old woman with a past medical history of multiple medical issues including asthma, COPD, diabetes, hypertension, hyperlipidemia, sleep apnea, hypothyroidism, chronic renal insufficiency, being followed by Dr. Mcrae in the outpatient setting. The patient is not feeling well over the past several days with cough and sputum , some diarrhea in the beginning. Patient not having any difficulty in breathing , but the patient was feeling warm also. The patient came to Urgent Care and was noted to have pressures almost 600. Patient taken to [facility] for further evaluation and treatment. Bicarb is normal, but however, ketones noted, early diabetic ketoacidosis suspected. Patient admitted to the hospital for further evaluation and treatment. The patient also had multiple subcutaneous nodules and as well as significant decubitus ulcer in the gluteal region also. There is no history of fever, rigors or chills. No history of headache, loss of consciousness, seizures. PAST MEDICAL HISTORY: History of asthma, COPD, diabetes, hyperlipidemia, hypertension, sleep apnea, thyroidectomy, chronic venous insufficiency. MEDICATIONS: Prior to admission include home medications include: 1. Ultram 50-100 mg q.6h p.r.n. 2. Glucophage 1000 mg b.i.d. with meals. 3. Lotrel 10/41 p.o. q.a.m. 4. Topamax 50 mg b.i.d. 5. Imitrex 100 mg b.i.d. p.r.n. 6. Afrin 0.05% 2 sprays b.i.d. p.r.n. 7. Prilosec 20 mg daily. 8. Fish oil 2 tabs b.i.d. 9. Multivitamins one p.o. daily. 10.Singular 10 mg q.h.s. 11.Antivert 25 mg daily p.r.n. 12.Victoza 1.8 subcu daily. 13.Synthroid 18 mcg p.o. daily. 14.Apidra a.c. and q.h.s. 15.Lantus 60 units subcu daily. 16.Neurontin 300 mg p.o. t.i.d. 17.Lofibra 160 mg q.h.s. 18.Depakote 1000 mg p.o. b.i.d. 19.Lomotil 2 tablets p.o. 5 times daily p.r.n. 20.Bentyl 20 mg p.o. q.i.d. 21.Flexeril 10 mg p.o. t.i.d. 22.Cetirizine 10 mg q.h.s. 23.Lipitor 40 mg p.o. daily. 24.Atenolol/chlorthalidone 1 tablet p.o. q.a.m. 25.Ventolin HFA 2 puffs q.6h p.r.n. ALLERGIES: IODINATED CONTRAST DYE, AND LEVAQUIN. FAMILY HISTORY: History of hypertension in the family. SOCIAL HISTORY: Previous history of smoking. No history of current smoking or alcohol intake. REVIEW OF SYSTEMS: ENT: No diminished hearing or vision. CARDIOVASCULAR: No angina or palpitations. RESPIRATIONS: No cough. GI no nausea or vomiting. : No dysuria. NERVOUS SYSTEM: No numbness or weakness. ALLERGY/IMMUNOLOGY: No asthma or hayfever. Musculoskeletal: As mentioned earlier. HEMATOLOGY/ONCOLOGY: No history of anemia. ENDOCRINE: Diabetes mellitus, hypothyroidism. CONSTITUTIONAL: As mentioned earlier. DERMATOLOGY: Negative. RHEUMATOLOGY: Negative. PSYCHIATRY: As mentioned. PHYSICAL EXAMINATION: Alert and oriented x3. The pulse is 105. Blood pressure: 111/77. Respiratory rate 18. Temperature normal. Pulse ox 100 percent on 3 L. HEENT is conjunctivae normal. Oral mucosa moist. Neck is obese. Cardiovascular System: S1, S2, muffled. Respirations: Breath sounds diminished in the bases. A few scattered rhonchi. No crackles. ABDOMEN: Soft, obese, nontender. No mass palpable. Legs no edema. No swelling. NERVOUS SYSTEM: Higher functions as mentioned earlier. Moves all 4 limbs. No focal motor or sensory deficits. Lymphatics: No lymph nodes palpable in the neck, axillae or groin. Skin: Multiple subcutaneous nodules present and no decubitus in the gluteal region grade 1-2. Some erythema tenderness and drainage also present. LABS: Sodium 130, potassium 3.3. WBC 8.2, hemoglobin 12.8, INR is 3.3. ASSESSMENT: 1. Acute diabetic ketoacidosis. 2. Gluteal decubitus ulcer stage 1-2. 3. Hyponatremia. 4. Hypokalemia. 5. History of asthma/chronic obstructive pulmonary disease. 6. Diabetes mellitus type 2. 7. Hypertension. 8. Hyperlipidemia. 9. Obstructive sleep apnea. 10.Hypothyroidism. 11.Chronic venous insufficiency. 12.History of cholecystectomy. 13.History of tubal ligation. 14.Bipolar depression. 15.Remote history of nicotine dependence. RECOMMENDATIONS AND DISCUSSION: In this 42-year-old woman who presented with multiple medical issues, at this time, I recommend to continue current medications, management and symptomatic treatment. Otherwise, at this time, DKA protocol. Broad-spectrum IV antibiotics. Cultures. Infectious disease evaluation. Supplement potassium. Replacement protocol. Resume the home medications. DVT prophylaxis prophylaxis. Follow the cultures. Guarded prognosis because of multiple complex medical issues. Further recommendations to follow. A copy of dictation being forwarded to Dr. Mcrae who is the primary care physician. MMPARDEEPL / CARLO: [id number] / MTDD
[2018-07-15] MEDS: HEPARIN SODIUM,PORCINE 5,000 UNIT/ML 1 ML VIAL SQ SCH (23:46)
[2018-07-15] MEDS: GABAPENTIN 300 MG CAP PO SCH (23:46)
[2018-07-15 23:48] LABS: Glucose,Whole Blood 204 mg/dL (75-99)
[2018-07-15] MEDS: PIPERACILLIN-TAZOBACTAM 3.375 GM in SODIUM CHLORIDE 0.9% 100 ML IVPB SCH (23:48)
[2018-07-15] MEDS: LORATADINE 10 MG TAB PO SCH (23:48)
[2018-07-15] MEDS: MONTELUKAST 10 MG TAB PO SCH (23:48)
[2018-07-15] MEDS: FENOFIBRATE 160 MG TAB PO SCH (23:49)
[2018-07-15] MEDS: hydrALAZINE HCL 50 MG TAB PO SCH (23:49)
[2018-07-15] MEDS: DIVALPROEX 500 MG TABLET.DR PO SCH (23:49)
[2018-07-15] MEDS: TOPIRAMATE 25 MG TAB PO SCH (23:50)
[2018-07-16 01:09] LABS: Glucose,Whole Blood 183 mg/dL (75-99)
[2018-07-16 02:33] LABS: Glucose,Whole Blood 163 mg/dL (75-99)
[2018-07-16 03:35] LABS: Glucose,Whole Blood 178 mg/dL (75-99)
[2018-07-16] MEDS: PIPERACILLIN-TAZOBACTAM 3.375 GM in SODIUM CHLORIDE 0.9% 100 ML IVPB SCH ×2 (04:27→12:23)
[2018-07-16 04:39] LABS: Glucose,Whole Blood 188 mg/dL (75-99)
[2018-07-16 05:59] LABS: Glucose,Whole Blood 204 mg/dL (75-99)
[2018-07-16 06:30] LABS: Basophils # (A) 0.1 k/uL (0-0.2); Basophils % (A) 1 %; Eosinophils # (A) 0.4 k/uL (0-0.7); Eosinophils % (A) 5 %; HCT 37.3 % (34.0-46.0); HGB 12.5 gm/dL (11.4-16.0); Lymphocytes # (A) 1.8 k/uL (1.0-4.8); Lymphocytes % (A) 21 %; MCH 29.2 pg (25.0-35.0); MCHC 33.4 g/dL (31.0-37.0); MCV 87.3 fL (80.0-100.0); Mean Platelet Volume 6.9; Monocytes # (A) 0.6 k/uL (0-1.0); Monocytes % (A) 7 %; Neutrophils # (A) 5.8 k/uL (1.3-7.7); Neutrophils % (A) 66 %; Platelet Count 225 k/uL (150-450); RBC 4.27 m/uL (3.80-5.40); RDW 14.4 % (11.5-15.5); WBC 8.8 k/uL (3.8-10.6)
[2018-07-16] MEDS: PANTOPRAZOLE 40 MG TABLET PO SCH (06:48)
[2018-07-16] MEDS: LEVOTHYROXINE 88 MCG TAB PO SCH (06:48)
[2018-07-16 07:13] LABS: Glucose,Whole Blood 253 mg/dL (75-99)
[2018-07-16] MEDS ORDERED: PANTOPRAZOLE 40 MG TABLET PO SCH (07:30)
[2018-07-16 07:34] LABS: ALT 30 U/L (9-52); AST 29 U/L (14-36); Albumin 3.7 g/dL (3.5-5.0); Alkaline Phosphatase 105 U/L (38-126); Anion Gap 12 mmol/L; Blood Urea Nitrogen 5 mg/dL (7-17); Calcium 8.7 mg/dL (8.4-10.2); Carbon Dioxide 28 mmol/L (22-30); Chloride 97 mmol/L (98-107); Glucose 196 mg/dL (74-99); Potassium 3.6 mmol/L (3.5-5.1); Sodium 137 mmol/L (137-145); Total Bilirubin 0.4 mg/dL (0.2-1.3); Total Protein 6.8 g/dL (6.3-8.2)
[2018-07-16 08:26] LABS: Glucose,Whole Blood 337 mg/dL (75-99)
[2018-07-16] MEDS: amLODIPine 10 MG TAB PO SCH (08:27)
[2018-07-16] MEDS: traMADol 50 MG TAB PO SCH ×4 (08:28→21:43)
[2018-07-16] MEDS: ATORVASTATIN 40 MG TAB PO SCH (08:28)
[2018-07-16] MEDS: ATENOLOL 50 MG TAB PO SCH (08:28)
[2018-07-16] MEDS: GABAPENTIN 300 MG CAP PO SCH ×3 (08:28→21:42)
[2018-07-16] MEDS: CHLORTHALIDONE 25 MG TAB PO SCH (08:29)
[2018-07-16] MEDS: LISINOPRIL 20 MG TAB PO SCH (08:29)
[2018-07-16] MEDS: TOPIRAMATE 25 MG TAB PO SCH ×2 (08:29→20:29)
[2018-07-16] MEDS: HEPARIN SODIUM,PORCINE 5,000 UNIT/ML 1 ML VIAL SQ SCH ×2 (08:31→20:31)
[2018-07-16] MEDS: DIVALPROEX 500 MG TABLET.DR PO SCH ×2 (08:31→20:30)
[2018-07-16] MEDS: CYCLOBENZAPRINE 10 MG TAB PO PRN ×2 (08:31→21:42)
[2018-07-16] MEDS: hydrALAZINE HCL 50 MG TAB PO SCH ×3 (08:31→21:44)
[2018-07-16] MEDS: INSULIN REGULAR 100 UNIT in SODIUM CHLORIDE 0.9% 100 ML IV SCH ×2 (08:43→15:49)
[2018-07-16 08:46] LABS: Glucose,Whole Blood 335 mg/dL (75-99)
[2018-07-16] MEDS: ALBUTEROL NEBULIZED 2.5 MG/3 ML INHALATION SCH ×4 (08:57→19:54)
[2018-07-16 09:20] LABS: Glucose,Whole Blood 310 mg/dL (75-99)
[2018-07-16 10:29] LABS: Glucose,Whole Blood 276 mg/dL (75-99)
[2018-07-16] MEDS: SODIUM CHLORIDE 0.9% 1,000 ML IV SCH ×2 (10:34→10:35)
[2018-07-16] MEDS ORDERED: D5-0.45% NACL WITH KCL 20MEQ/L 1,000 ML IV SCH (10:36)
[2018-07-16 11:32] LABS: Glucose,Whole Blood 227 mg/dL (75-99)
[2018-07-16] MEDS: MULTIVITAMINS, THERA 1 EACH TAB PO SCH (12:22)
[2018-07-16 12:28] LABS: Glucose,Whole Blood 213 mg/dL (75-99)
[2018-07-16 13:59] LABS: Glucose,Whole Blood 282 mg/dL (75-99)
[2018-07-16 15:47] LABS: Glucose,Whole Blood 377 mg/dL (75-99)
[2018-07-16 16:43] LABS: Glucose,Whole Blood 384 mg/dL (75-99)
[2018-07-16] MEDS ORDERED: CYCLOBENZAPRINE 10 MG TAB PO PRN (16:55)
[2018-07-16] MEDS ORDERED: NON-FORMULARY DRUG (Liraglutide [Victoza 2-Pak] 1.8 MG) SQ SCH (17:00)
[2018-07-16 17:27] LABS: Glucose,Whole Blood 320 mg/dL (75-99)
[2018-07-16] MEDS: AMPICILLIN-SULBACTAM 3 GM in SODIUM CHLORIDE 0.9% 100 ML IVPB SCH ×2 (17:32→23:09)
[2018-07-16] MEDS: INSULIN ASPART (NovoLOG) 100 UNIT/ML VIAL SQ SCH ×2 (17:32→21:44)
[2018-07-16] MEDS: metFORMIN 500 MG TAB PO SCH (17:32)
[2018-07-16] MEDS: INSULIN DETEMIR (LEVEMIR) 100 UNIT/ML SYR SQ SCH (17:36)
[2018-07-16] MEDS: LORATADINE 10 MG TAB PO SCH (20:29)
[2018-07-16] MEDS: MONTELUKAST 10 MG TAB PO SCH (20:29)
[2018-07-16] MEDS: FENOFIBRATE 160 MG TAB PO SCH (20:30)
--- NOTE | 2018-07-16 20:34 | PN ---
PROGRESS NOTE I am covering for Dr. Mcrae. DATE OF SERVICE: 07/16/2018 This 42-year-old woman who was admitted acute diabetic ketoacidosis also had significant The patient is being closely monitored at this time. Blood sugars are still elevated. Multiple consultants are following the patient closely. The cultures are pending at this time. The patient is also started on broad-spectrum IV antibiotics for decubitus also. The patient is on IV Unasyn at this time. Infectious Disease is following the patient closely. Past medical history reviewed. REVIEW OF SYSTEMS: CARDIOVASCULAR SYSTEM: No angina, palpitations. RESPIRATORY SYSTEM: As mentioned earlier. GI: As mentioned earlier. : No dysuria or retention. NERVOUS SYSTEM: No numbness, weakness. CURRENT MEDICATIONS: Reviewed. They include: 1. [place]on 5 mg q.6 p.r.n. 2. Ventolin q.i.d. and p.r.n. 3. Xanax 0.25 t.i.d. 4. Norvasc. 5. Unasyn. 6. Lipitor 40 mg p.o. daily. 7. Hygroton. 8. Flexeril 10 mg. 9. Bentyl. 10.Lomotil. 11.Depakote. 12.Lofibra. 13.Neurontin. 14.Heparin. 15.Apresoline. 16.Dilaudid. 17.Synthroid 88 mcg. 18.Zestril 40 mg. 19.Claritin. 20.Antivert. 21.Multivitamins. 22.Protonix. 23.Imitrex. 24.Restoril. 25.Topamax. 26.Ultram. PHYSICAL EXAMINATION: Patient is alert, oriented x3. The pulse is 83, blood pressure 110/58, respiration 20, temperature 98.1, pulse ox 96% on 2 L. HEENT: Conjunctivae normal. NECK: No jugular venous distention. CARDIOVASCULAR SYSTEM: S1, S2 muffled. RESPIRATORY SYSTEM: Breath sounds diminished at the bases. A few scattered rhonchi and crackles. ABDOMEN: Soft, obese, non-tender. LEGS: No edema. No swelling. NERVOUS SYSTEM: No focal deficit. LABS: Accu-Cheks 377, 384. WBC 8.8, hemoglobin 12.5, and creatinine is 0.44. ASSESSMENT: 1. Acute diabetic ketoacidosis. 2. Gluteal decubitus ulcer, stage I to II. 3. Hyponatremia. 4. Hypokalemia. 5. History of asthma, chronic obstructive pulmonary disease. 6. Diabetes mellitus, type 2. 7. Hypertension. 8. Hyperlipidemia. 9. History of obstructive sleep apnea. 10.Hypothyroidism. 11.Chronic venous insufficiency. 12.History of cholecystectomy. 13.History of tubal ligation. 14.History of bipolar depression. 15.Remote history of nicotine dependence. RECOMMENDATIONS AND DISCUSSION: I recommend to continue current medications, continue with symptomatic treatment , broad- spectrum IV antibiotics. Continue to monitor closely. Continue to monitor the blood sugars. Otherwise, guarded prognosis because of multiple complex medical issues. Further recommendations to follow. See orders for further details. MMODL / IJN: [id number] / ADY
[2018-07-16] MEDS ORDERED: VANCOMYCIN IV PER PHARMACY 1 EACH MISC MISCELLANE PRN (21:00)
--- NOTE | 2018-07-16 21:19 | P.CONS ---
History of Present Illness - Reason for Consult Consult date: 07/16/18 - Chief Complaint upper respiratory infection - History of Present Illness Patient is a superobese 42-year-old female who presents to her primary care provider's office she was not feeling well for several days with an upper respiratory type infection. She was having cough without much sputum production and no hemoptysis. Because she was feeling poorly she did present and was found evidence of blood sugar greater than 600. The patient relates her meter at home was not working and she cannot afford to buy test strips. She relates that she generally feels quite poorly, poor energy level her adult daughter helps her in the home and with most activities. She does not believe she had a high-grade fever chills or rigors. However she's developed difficulty with ulceration to her left leg as well as to her right buttocks for which the infectious diseases consultation was requested. Review of Systems patient feels poorly HEENT:Denies headache or acute visual change. Denies sinus or mouth discomforts. Denies neck stiffness or pain. Denies significant oral cavity pain. Denies difficulty on swallowing. Lungs: Patient has cough but no new shortness of breath productionorhemoptysis Cardiovascular:No new cardiovascular complaints but does have poor exercise tolerance easily develops dyspnea with exertion has orthopnea but no PND. Gastrointestinal:Denies nausea, vomiting, diarrhea, constipation, hematemesis, melena, hematochezia. No no significant change of bowel habit noticed. Musculoskeletal: denies significant myalgias or arthralgias. No new joint swelling. Denies new back pain. Skin: Denies new rash or lesions. No new ulcers or wounds are related.. Neuro: Denies headache or visual change. Denies any new onset weakness or difficulty with ambulation. Denies falls or seizures. Psychiatric:Denies anxiety or depression. Endocrine: chronic fatigue chronic weight gain Past Medical History Past Medical History: Asthma, COPD, Diabetes Mellitus, Hyperlipidemia, Hypertension, Osteoarthritis (OA), Sleep Apnea/CPAP/BIPAP, Thyroid Disorder Additional Past Medical History / Comment(s): chronic venous insufficiency, neuropathy, migraines, IBS, fatty liver History of Any Multi-Drug Resistant Organisms: None Reported Past Surgical History: Section, Cholecystectomy, Tubal Ligation Additional Past Surgical History / Comment(s): recent colonoscopy Past Anesthesia/Blood Transfusion Reactions: No Reported Reaction Past Psychological History: Bipolar, Depression Additional Psychological History / Comment(s): radha adult daughter lives with her. Does not work outside of the home. No international travel. No experience. no animals in the home. No current Smoking Status: Former smoker Past Alcohol Use History: None Reported Additional Past Alcohol Use History / Comment(s): SMOKED UNTIL 2013 FOR 22 YRS, PPD 3 PPD Past Drug Use History: None Reported - Past Family History Mother Family Medical History: Hypertension Father Family Medical History: Hyperlipidemia Medications and Allergies Home Medications and Allergies Comment(s): Current Medications Hydrocodone Bitart/Acetaminophen ([place] 5-325) 1 each PO Q6HR PRN PRN Reason: Pain Albuterol Sulfate (Ventolin Nebulized) 2.5 mg INHALATION RT-Q6H PRN PRN Reason: Shortness Of Breath Last Admin: 07/15/18 21:11 Dose: 2.5 mg Albuterol Sulfate (Ventolin Nebulized) 2.5 mg INHALATION RT-QID [facility] Last Admin: 07/16/18 19:54 Dose: 2.5 mg Alprazolam (Xanax) 0.25 mg PO TID PRN PRN Reason: Anxiety Last Admin: 07/15/18 23:49 Dose: 0.25 mg [facility]mlodipine Bes[facility]) [facility] Admin: 07/16/18 08:27 Dose: 10 mg Atenolol (Tenormin) 100 mg PO QAM [facility] Last Admin: 07/16/18 08:28 Dose: 100 mg Atorvastatin Calcium (Lipitor) 40 mg PO DAILY [facility] Last Admin: 07/16/18 08:28 Dose: 40 mg Chlorthalidone (Hygroton) 25 mg PO QAM [facility] Last Admin: 07/16/18 08:29 Dose: 25 mg Cyclobenzaprine HCl (Flexeril) 10 mg PO TID PRN PRN Reason: Muscle Spasm Last Admin: 07/16/18 08:31 Dose: 10 mg Dicyclomine HCl (Bentyl) 20 mg PO QID PRN PRN Reason: CRAMPS Diphenoxylate HCl/Atropine (Lomotil) 2 each PO QID PRN PRN Reason: Loose Stool Divalproex Sodium (Depakote) 1,000 mg PO BID [facility] Last Admin: 07/16/18 20:30 Dose: 1,000 mg Fenofibrate (Lofibra) 160 mg PO [facility] Last Admin: 07/16/18 20:30 Dose: 160 mg Gabapentin (Neurontin) 300 mg PO TID [facility] Last Admin: 07/16/18 17:31 Dose: 300 mg Heparin Sodium (Porcine) (Heparin) 5,000 unit SQ Q12HR [facility] Last Admin: 07/16/18 20:31 Dose: 5,000 unit Hydralazine HCl (Apresoline) 50 mg PO TID [facility] Last Admin: 07/16/18 17:31 Dose: 50 mg Hydromorphone HCl (Dilaudid) 0.5 mg IVP Q6HR PRN PRN Reason: Severe Pain Ampicillin Sodium/Sulbactam (Sodium 3 gm/ Sodium Chloride) 100 mls @ 200 mls/ hr IVPB Q6HR [facility] Last Admin: 07/16/18 17:32 Dose: 200 mls/hr Vancomycin HCl 2,000 mg/ (Sodium Chloride) 500 mls @ 167 mls/hr IVPB Q8HR [facility] Insulin Aspart (Novolog) 0 unit SQ ACHS [facility]; Protocol Last Admin: 07/16/18 17:32 Dose: 8 unit Insulin Detemir (Levemir) 60 unit SQ DAILY [facility] Last Admin: 07/16/18 17:36 Dose: 60 unit Levothyroxine Sodium (Synthroid) 88 mcg PO DAILY@0630 [facility] Last Admin: 07/16/18 06:48 Dose: 88 mcg Lisinopril (Zestril) 40 mg PO QAM [facility] Last Admin: 07/16/18 08:29 Dose: 40 mg Loratadine (Claritin) 10 mg PO [facility] Last Admin: 07/16/18 20:29 Dose: 10 mg Meclizine HCl (Antivert) 25 mg PO DAILY PRN PRN Reason: Vertigo Metformin HCl (Glucophage) 1,000 mg PO BID-W/MEALS [facility] Last Admin: 07/16/18 17:32 Dose: 1,000 mg Montelukast Sodium (Singulair) 10 mg PO [facility] Last Admin: 07/16/18 20:29 Dose: 10 mg Multivitamins (Theragran) 1 each PO DAILY@1200 [facility] Last Admin: 07/16/18 12:22 Dose: 1 each Oxymetazoline HCl (Afrin 0.05% Nasal [place]) 2 spray EA NOSTRIL BID PRN PRN Reason: Allergy Symptoms Pantoprazole Sodium (Protonix) 40 mg PO AC-BRKFST [facility] Last Admin: 07/16/18 06:48 Dose: 40 mg Sumatriptan Succinate (Imitrex) 100 mg PO BID PRN PRN Reason: Headache Temazepam (Restoril) 15 mg PO HS PRN PRN Reason: Insomnia Last Admin: 07/15/18 23:49 Dose: 15 mg Topiramate (Topamax) 50 mg PO BID [facility] Last Admin: 07/16/18 20:29 Dose: 50 mg Tramadol HCl (Ultram) 100 mg PO QID [facility] Last Admin: 07/16/18 17:31 Dose: 100 mg Home Medications Medication Instructions Recorded Confirmed Type hydrALAZINE HCL [Apresoline] 50 mg PO TID 10/07/13 07/15/18 History Atenolol/Chlorthalidone 1 tab PO QAM 06/25/15 07/15/18 History [Atenolol-Chlorthalidone 100-25] Divalproex [Depakote] 1,000 mg PO BID 06/25/15 07/15/18 History Gabapentin [Neurontin] 300 mg PO TID 06/25/15 07/15/18 History amLODIPine BESYLATE/BENAZEPRIL 1 cap PO QAM 06/26/15 07/15/18 History [Lotrel 10-40 MG] Cetirizine HCl 10 mg PO HS 10/21/15 07/15/18 History Insulin Glargine [Lantus] 60 unit SQ DAILY 10/21/15 07/15/18 History Insulin Glulisine [Apidra Solostar] See Protocol SQ ACHS 10/21/15 07/15/18 History Multivitamins, Thera [Multivitamin 1 tab PO DAILY 10/21/15 07/15/18 History (formulary)] metFORMIN HCL [Glucophage] 1,000 mg PO BID-W/MEALS 10/21/15 07/15/18 History Etta-3 Fatty Acids/Fish Oil [Fish 2 tab PO BID 12/01/15 07/15/18 History Oil 1,000 mg Softgel] Meclizine [Antivert] 25 mg PO DAILY PRN 05/17/16 07/15/18 History Omeprazole [PriLOSEC] 20 mg PO DAILY 05/17/16 07/15/18 History Oxymetazoline 0.05% Nasl [place] 2 spray EA NOSTRIL BID PRN 10 Days 05/17/1607/15 Rx [Afrin 0.05% Nasal [place]] spray SUMAtriptan SUCCINATE [Imitrex] 100 mg PO BID PRN 05/17/16 07/15/18 History Fenofibrate [Lofibra] 160 mg PO HS 12/07/16 07/15/18 History Liraglutide [Victoza 2-Don] 1.8 mg SQ DAILY 12/07/16 07/15/18 History Montelukast [Singulair] 10 mg PO HS 12/07/16 07/15/18 History Albuterol Inhaler [Ventolin Hfa 2 puff INHALATION RT-Q6H PRN 07/15/18 07/15/18 History Inhaler] Atorvastatin [Lipitor] 40 mg PO DAILY 07/15/18 07/15/18 History Cyclobenzaprine [Flexeril] 10 mg PO TID PRN 07/15/18 07/15/18 History Dicyclomine [Bentyl] 20 mg PO QID PRN 07/15/18 07/15/18 History Diphenox-Atrop 2.5-0.025 mg 2 tab PO 5XD PRN 07/15/18 07/15/18 History [Lomotil] Levothyroxine Sodium [Synthroid] 88 mcg PO DAILY 07/15/18 07/15/18 History Topiramate [Topamax] 50 mg PO BID 07/15/18 07/15/18 History traMADol HCL [Ultram] 50 - 100 mg PO Q6H PRN 07/15/18 07/15/18 History Allergies Allergy/AdvReac Type Severity Reaction Status Date / Time Iodinated Contrast- Oral and Allergy Mild Rash/Hives Verified 07/15/18 11:35 IV Dye [Iodinated Contrast Media - IV Dye] enalapril Allergy Rash/Hives Verified 07/15/18 11:35 levofloxacin Allergy Rash/Hives Verified 07/15/18 11:35 Physical Exam Vitals: Vital Signs Temp Pulse Pulse Resp BP Pulse Ox 07/16/18 20:03 82 07/16/18 19:54 80 07/16/18 16:14 82 07/16/18 16:05 80 07/16/18 16:00 98.1 F 83 20 110/58 96 07/16/18 12:06 84 07/16/18 11:57 98.3 F 79 20 110/55 97 07/16/18 11:55 80 07/16/18 09:07 80 07/16/18 08:57 84 07/16/18 08:00 116 H 20 137/75 100 07/16/18 04:00 98.1 F 101 H 18 134/74 94 L 07/16/18 00:00 98.3 F 100 18 132/67 96 07/15/18 21:19 84 07/15/18 21:12 80 Intake and Output 07/16/18 07/16/18 07/16/18 06:59 14:59 22:59 Intake Total 108.792 041.273 8166.59 Output Total 800 400 Balance 108.792 -176.507 8066.59 Intake: IV 118.6 Insulin Regular 100 unit 118.6 In Sodium Chloride 0.9% 100 ml @ 0.1 UNITS/KG/HR 14.15 mls/hr IV .Q7H9M [facility] Rx#:[id number] Intake, IV Titration 108.792 296.632 4289.99 Amount D5-0.45% NaCl with KCl 1200 20Meq/l 1,000 ml @ 75 mls /hr IV .[id number] [facility] Rx#: [id number] Insulin Regular 100 unit 108.792 119.621 18.99 In Sodium Chloride 0.9% 100 ml @ 0.1 UNITS/KG/HR 14.15 mls/hr IV .Q7H9M [facility] Rx#:[id number] Piperacillin-Tazobactam 3 100 .375 gm In Sodium Chloride 0.9% 100 ml @ 25 mls/hr IVPB Q8H [facility] Rx#: [id number] Oral 480 240 Output: Urine 800 400 Other: Voiding Method Toilet # Voids 1 Weight 146.3 kg 146.3 kg 42year-old woman was superobesity HEENT: Anicteric conjunctiva are pink and moist nasal mucosa grossly intact without significant lesions, there is no thrush.dentition is poor Neck: The neck is supple without significant lymphadenopathy or thyromegaly. Lungs: Symmetrical bilateral air entry with expiratory wheezes throughout the lung schulte no dullness or egophony can be noted Heart: Regular rate and rhythm with an audible S1-S2, no S3 no S4. There is no significant murmur click or rub, PMI was nondisplaced. Abdomen: obesePositive bowel sounds soft and nontender without palpable masses or organomegaly. There was no guarding or rebound. Extremities: The upper extremities have excellent pulses they are symmetric, no significant petechiae or telangiectasia. No splinter hemorrhages were noted. Lower extremities evidence of chronic stasis is evidence of the ulceration to the left leg as well as to the right buttocks please see the nursing documentation photography for the exact sizes of these ulcerations. Neuro: Awake alert oriented to person place and time. There are no acute new gross focal sensory motor deficits. Results CBC & Chem 7: 07/16/18 06:01 07/16/18 06:01 Labs: Abnormal Lab Results - Last 24 Hours (Table) 07/15/18 07/15/18 07/15/18 Range/Units 20:14 21:38 23:28 Potassium 3.3 L (3.5-5.1) mmol/L Chloride 95 L (98-107) mmol/L BUN (7-17) mg/dL Creatinine 0.44 L (0.52-1.04) mg/dL Glucose 209 H (74-99) mg/dL POC Glucose (mg/dL) 214 H 204 H (75-99) mg/dL 07/16/18 07/16/18 07/16/18 Range/Units 00:48 02:31 03:34 Potassium (3.5-5.1) mmol/L Chloride (98-107) mmol/L BUN (7-17) mg/dL Creatinine (0.52-1.04) mg/dL Glucose (74-99) mg/dL POC Glucose (mg/dL) 183 H 163 H 178 H (75-99) mg/dL 07/16/18 07/16/18 07/16/18 Range/Units 04:30 05:57 06:01 Potassium (3.5-5.1) mmol/L Chloride 97 L (98-107) mmol/L BUN 5 L (7-17) mg/dL Creatinine 0.44 L (0.52-1.04) mg/dL Glucose 196 H (74-99) mg/dL POC Glucose (mg/dL) 188 H 204 H (75-99) mg/dL 07/16/18 07/16/18 07/16/18 Range/Units 07:11 08:23 08:41 Potassium (3.5-5.1) mmol/L Chloride (98-107) mmol/L BUN (7-17) mg/dL Creatinine (0.52-1.04) mg/dL Glucose (74-99) mg/dL POC Glucose (mg/dL) 253 H 337 H 335 H (75-99) mg/dL 07/16/18 07/16/18 07/16/18 Range/Units 09:19 10:26 11:30 Potassium (3.5-5.1) mmol/L Chloride (98-107) mmol/L BUN (7-17) mg/dL Creatinine (0.52-1.04) mg/dL Glucose (74-99) mg/dL POC Glucose (mg/dL) 310 H 276 H 227 H (75-99) mg/dL 07/16/18 07/16/18 07/16/18 Range/Units 12:26 13:57 15:45 Potassium (3.5-5.1) mmol/L Chloride (98-107) mmol/L BUN (7-17) mg/dL Creatinine (0.52-1.04) mg/dL Glucose (74-99) mg/dL POC Glucose (mg/dL) 213 H 282 H 377 H (75-99) mg/dL 07/16/18 07/16/18 Range/Units 16:41 17:25 Potassium (3.5-5.1) mmol/L Chloride (98-107) mmol/L BUN (7-17) mg/dL Creatinine (0.52-1.04) mg/dL Glucose (74-99) mg/dL POC Glucose (mg/dL) 384 H 320 H (75-99) mg/dL Microbiology - Last 24 Hours (Table) 07/15/18 19:32 Gram Stain - Preliminary Buttock Wound Culture - Preliminary Presumptive MRSA Strep agalactiae - (group b) 07/15/18 13:33 Urine Culture - Preliminary Urine,Voided Laboratory Results WBC 8.8 k/uL (3.8-10.6) 07/16/18 06:01 RBC 4.27 m/uL (3.80-5.40) 07/16/18 06:01 Hgb 12.5 gm/dL (11.4-16.0) 07/16/18 06:01 Hct 37.3 % (34.0-46.0) 07/16/18 06:01 MCV 87.3 fL (80.0-100.0) 07/16/18 06:01 MCH 29.2 pg (25.0-35.0) 07/16/18 06:01 MCHC 33.4 g/dL (31.0-37.0) 07/16/18 06:01 RDW 14.4 % (11.5-15.5) 07/16/18 06:01 Plt Count 225 k/uL (150-450) 07/16/18 06:01 Neutrophils % 66 % 07/16/18 06:01 Lymphocytes % 21 % 07/16/18 06:01 Monocytes % 7 % 07/16/18 06:01 Eosinophils % 5 % 07/16/18 06:01 Basophils % 1 % 07/16/18 06:01 Neutrophils # 5.8 k/uL (1.3-7.7) 07/16/18 06:01 Lymphocytes # 1.8 k/uL (1.0-4.8) 07/16/18 06:01 Monocytes # 0.6 k/uL (0-1.0) 07/16/18 06:01 Eosinophils # 0.4 k/uL (0-0.7) 07/16/18 06:01 Basophils # 0.1 k/uL (0-0.2) 07/16/18 06:01 Sodium 137 mmol/L (137-145) 07/16/18 06:01 Potassium 3.6 mmol/L (3.5-5.1) 07/16/18 06:01 Chloride 97 mmol/L (98-107) L 07/16/18 06:01 Carbon Dioxide 28 mmol/L (22-30) 07/16/18 06:01 Anion Gap 12 mmol/L 07/16/18 06:01 BUN 5 mg/dL (7-17) L 07/16/18 06:01 Creatinine 0.44 mg/dL (0.52-1.04) L 07/16/18 06:01 Est GFR (CKD-EPI)AfAm >90 (>60 ml/min/1.73 sqM) 07/16/18 06:01 Est GFR (CKD-EPI)NonAf >90 (>60 ml/min/1.73 sqM) 07/16/18 06:01 Glucose 196 mg/dL (74-99) H 07/16/18 06:01 POC Glucose (mg/dL) 320 mg/dL (75-99) H 07/16/18 17:25 POC Glu Reporting Process Consultant ID Ekaterina King 07/16/18 17:25 Calcium 8.7 mg/dL (8.4-10.2) 07/16/18 06:01 Phosphorus 4.4 mg/dL (2.5-4.5) 07/15/18 20:14 Total Bilirubin 0.4 mg/dL (0.2-1.3) 07/16/18 06:01 AST 29 U/L (14-36) 07/16/18 06:01 ALT 30 U/L (9-52) 07/16/18 06:01 Alkaline Phosphatase 105 U/L (38-126) 07/16/18 06:01 NT-Pro-B Natriuret Pep 37 pg/mL 07/15/18 12:09 Total Protein 6.8 g/dL (6.3-8.2) 07/16/18 06:01 Albumin 3.7 g/dL (3.5-5.0) 07/16/18 06:01 Urine Color Colorless 07/15/18 13:13 Urine Appearance Clear (Clear) 07/15/18 13:13 Urine pH 5.0 (5.0-8.0) 07/15/18 13:13 Ur Specific [place] 1.028 (1.001-1.035) 07/15/18 13:13 Urine Protein Negative (Negative) 07/15/18 13:13 Urine Glucose (UA) 4+ (Negative) H 07/15/18 13:13 Urine Ketones 1+ (Negative) H 07/15/18 13:13 Urine Blood Negative (Negative) 07/15/18 13:13 Urine Nitrite Negative (Negative) 07/15/18 13:13 Urine Bilirubin Negative (Negative) 07/15/18 13:13 Urine Urobilinogen <2.0 mg/dL (<2.0) 07/15/18 13:13 Ur Leukocyte Esterase Negative (Negative) 07/15/18 13:13 Acetone, Qual Positive (Negative) 07/15/18 12:09 Microbiology 07/15/18 19:32 Buttock Gram Stain - Preliminary 07/15/18 19:32 Buttock Wound Culture - Preliminary Presumptive MRSA Strep agalactiae - (group b) 07/15/18 13:33 Urine,Voided Urine Culture - Preliminary Assessment and Plan (1) DKA (diabetic ketoacidoses) Current Visit: Yes Status: Acute Code(s): E13.10 - OTH DIABETES MELLITUS WITH KETOACIDOSIS WITHOUT COMA SNOMED Code(s): 192704300 (2) Obesity Current Visit: No Status: Acute Code(s): E66.9 - OBESITY, UNSPECIFIED SNOMED Code(s): 382404985 (3) Diabetic ulcer of left lower leg associated with diabetes mellitus due to underlying condition, with fat layer exposed Current Visit: Yes Status: Acute Code(s): E08.622 - DIABETES DUE TO UNDERLYING CONDITION W OTH SKIN ULCER; L97.922 - NON-PRS CHR ULC UNSP PRT OF L LOW LEG W FAT LAYER EXPOSED SNOMED Code(s): 988822133 (4) Pressure ulcer of right buttock, stage 3 Narrative/Plan: 42-year-old female who has a history of superobesity presents hospital not feeling well having difficulties with respiratory infection with shortness of breath at admission. However is noted at the time of her presentation that she had evidence of diabetic ketoacidosis in this pneumaturia with an insulin drip some improvement. However there is notation of the left leg ulceration as well as the buttock ulceration. Cultures are him process. Antibiotic therapy is initiated with vancomycin as well as Unasyn until we have further data. Wound care is with the operative foam dressings to the ulceration. Diabetology and diabetes education have been requested to ensure the patient has access to a meter, test strips and ongoing treatment to prevent further episodes of DKA. Underlying uncontrolled blood glucose is likely the etiology of the ulcerations of her skin. Cultures will help determine final plans for antibiotic therapy at the time of her discharge. Fortunately she has not in severe pain. probiotic therapy with the yogurt can be added also as protein supplement Current Visit: Yes Status: Acute Code(s): L89.313 - PRESSURE ULCER OF RIGHT BUTTOCK, STAGE 3 SNOMED Code(s): 268955004
[2018-07-16 21:34] LABS: Glucose,Whole Blood 349 mg/dL (75-99)
[2018-07-17] MEDS: VANCOMYCIN 2,000 MG in SODIUM CHLORIDE 0.9% 500 ML 500 ML IVPB SCH ×3 (00:23→16:01)
[2018-07-17 02:03] LABS: Hemoglobin A1C 11.3 % (4.0-6.0)
[2018-07-17 06:14] LABS: Glucose,Whole Blood 379 mg/dL (75-99)
[2018-07-17 06:16] LABS: Basophils % (A) 1 %; Eosinophils # (A) 0.5 k/uL (0-0.7); Eosinophils % (A) 6 %; HCT 35.5 % (34.0-46.0); HGB 12.4 gm/dL (11.4-16.0); Lymphocytes # (A) 1.7 k/uL (1.0-4.8); Lymphocytes % (A) 23 %; MCH 31.4 pg (25.0-35.0); MCV 89.9 fL (80.0-100.0); Monocytes # (A) 0.4 k/uL (0-1.0); Monocytes % (A) 6 %; Neutrophils # (A) 4.5 k/uL (1.3-7.7); Neutrophils % (A) 62 %; Platelet Count 235 k/uL (150-450); RBC 3.94 m/uL (3.80-5.40); RDW 14.7 % (11.5-15.5); WBC 7.3 k/uL (3.8-10.6)
[2018-07-17 06:26] LABS: Anion Gap 14 mmol/L; Blood Urea Nitrogen 8 mg/dL (7-17); Calcium 8.7 mg/dL (8.4-10.2); Carbon Dioxide 23 mmol/L (22-30); Chloride 97 mmol/L (98-107); Glucose 350 mg/dL (74-99); Sodium 134 mmol/L (137-145)
[2018-07-17 06:31] LABS: Potassium 4.4 mmol/L (3.5-5.1)
[2018-07-17] MEDS: metFORMIN 500 MG TAB PO SCH ×2 (06:48→17:28)
[2018-07-17] MEDS: LEVOTHYROXINE 88 MCG TAB PO SCH (06:48)
[2018-07-17] MEDS: AMPICILLIN-SULBACTAM 3 GM in SODIUM CHLORIDE 0.9% 100 ML IVPB SCH ×4 (06:48→23:01)
[2018-07-17] MEDS: PANTOPRAZOLE 40 MG TABLET PO SCH (06:48)
[2018-07-17] MEDS: INSULIN ASPART (NovoLOG) 100 UNIT/ML VIAL SQ SCH ×6 (06:52→21:40)
[2018-07-17] MEDS: ALBUTEROL NEBULIZED 2.5 MG/3 ML INHALATION SCH ×4 (07:51→20:06)
[2018-07-17] MEDS: INSULIN DETEMIR (LEVEMIR) 100 UNIT/ML SYR SQ SCH (08:03)
[2018-07-17] MEDS: HEPARIN SODIUM,PORCINE 5,000 UNIT/ML 1 ML VIAL SQ SCH ×2 (08:03→20:01)
[2018-07-17] MEDS: traMADol 50 MG TAB PO SCH ×4 (08:03→21:38)
[2018-07-17] MEDS: ATENOLOL 50 MG TAB PO SCH (08:04)
[2018-07-17] MEDS: TOPIRAMATE 25 MG TAB PO SCH ×2 (08:04→20:00)
[2018-07-17] MEDS: GABAPENTIN 300 MG CAP PO SCH ×3 (08:05→21:38)
[2018-07-17] MEDS: DIVALPROEX 500 MG TABLET.DR PO SCH ×2 (08:05→20:00)
[2018-07-17] MEDS: hydrALAZINE HCL 50 MG TAB PO SCH ×3 (08:05→21:38)
[2018-07-17] MEDS: ATORVASTATIN 40 MG TAB PO SCH (08:05)
[2018-07-17] MEDS: CYCLOBENZAPRINE 10 MG TAB PO PRN ×3 (08:05→21:38)
[2018-07-17] MEDS: amLODIPine 10 MG TAB PO SCH (08:05)
[2018-07-17] MEDS: CHLORTHALIDONE 25 MG TAB PO SCH (08:05)
[2018-07-17] MEDS: LISINOPRIL 20 MG TAB PO SCH (08:05)
[2018-07-17 11:54] LABS: Glucose,Whole Blood 390 mg/dL (75-99)
[2018-07-17] MEDS ORDERED: INSULIN ASPART (NovoLOG) 100 UNIT/ML VIAL SQ ONE (12:00)
[2018-07-17] MEDS: MULTIVITAMINS, THERA 1 EACH TAB PO SCH (12:07)
[2018-07-17 16:45] LABS: Glucose,Whole Blood 331 mg/dL (75-99)
[2018-07-17] MEDS ORDERED: INSULIN DETEMIR (LEVEMIR) 100 UNIT/ML SYR SQ SCH (19:30)
[2018-07-17] MEDS: LORATADINE 10 MG TAB PO SCH (20:00)
[2018-07-17] MEDS: FENOFIBRATE 160 MG TAB PO SCH (20:00)
[2018-07-17] MEDS: MONTELUKAST 10 MG TAB PO SCH (20:01)
[2018-07-17 20:56] LABS: Glucose,Whole Blood 351 mg/dL (75-99)
--- NOTE | 2018-07-17 21:29 | P.PN ---
Subjective Progress Note Date: 07/17/18 Patient is a superobese 42-year-old female who presents to her primary care provider's office she was not feeling well for several days with an upper respiratory type infection. She was having cough without much sputum production and no hemoptysis. Because she was feeling poorly she did present and was found evidence of blood sugar greater than 600. The patient relates her meter at home was not working and she cannot afford to buy test strips. She relates that she generally feels quite poorly, poor energy level her adult daughter helps her in the home and with most activities. She does not believe she had a high-grade fever chills or rigors. However she's developed difficulty with ulceration to her left leg as well as to her right buttocks for which the infectious diseases consultation was requested. 07/17/2018 patient is feeling somewhat better today. Continues to have significant vagueness. Cultures are finalized and MRSA and strep of the nicely. Is related to to discharge she will be going to extended care facility. Objective - Vital Signs Vital signs: Vital Signs Temp 98.8 F 07/17/18 20:00 Pulse 100 07/17/18 20:18 Resp 19 07/17/18 20:00 BP 114/58 07/17/18 20:00 Pulse Ox 93 L 07/17/18 20:00 Intake & Output 07/17/18 07/17/18 07/18/18 06:59 18:59 06:59 Intake Total 1750 480 240 Output Total 900 Balance 1750 -420 240 Weight 148.8 kg Intake: Intake, IV Titration 950 Amount Ampicillin-Sulbactam 3 gm 200 In Sodium Chloride 0.9% 100 ml @ 200 mls/hr IVPB Q6HR [facility] Rx#:[id number] Dextrose 5%-0.45% NaCl 1, 250 000 ml @ 75 mls/hr IV . Q24H [facility] with D5-0.45% NaCl with KCl 20Meq/l 1, 000 ml Rx#:[id number] Vancomycin 2,000 mg In 500 Sodium Chloride 0.9% 500 ml 500 ml @ 167 mls/hr IVPB Q8HR [facility] Rx#: [id number] Oral 800 480 240 Output: Urine 900 Other: Voiding Method Bedside Commode Bedside Commode Bedside Commode # Voids 1 300 # Bowel Movements 1 - Exam 42year-old woman with superobesity HEENT: Anicteric conjunctiva are pink and moist nasal mucosa grossly intact without significant lesions, there is no thrush.dentition is poor Neck: The neck is supple without significant lymphadenopathy or thyromegaly. Lungs: Symmetrical bilateral air entry with expiratory wheezes throughout the lung schulte no dullness or egophony can be noted Heart: Regular rate and rhythm with an audible S1-S2, no S3 no S4. There is no significant murmur click or rub, PMI was nondisplaced. Abdomen: obesePositive bowel sounds soft and nontender without palpable masses or organomegaly. There was no guarding or rebound. Extremities: The upper extremities have excellent pulses they are symmetric, no significant petechiae or telangiectasia. No splinter hemorrhages were noted. Lower extremities evidence of chronic stasis is evidence of the ulceration to the left leg as well as to the right buttocks please see the nursing documentation photography for the exact sizes of these ulcerations. Neuro: Awake alert oriented to person place and time. There are no acute new gross focal sensory motor deficits. - Labs CBC & Chem 7: 07/17/18 05:42 07/17/18 05:42 Labs: Abnormal Lab Results - Last 24 Hours (Table) 07/16/18 07/16/18 07/17/18 Range/Units 16:58 21:34 05:42 Sodium 134 L (137-145) mmol/L Chloride 97 L (98-107) mmol/L Creatinine 0.47 L (0.52-1.04) mg/dL Glucose 350 H (74-99) mg/dL POC Glucose (mg/dL) 349 H (75-99) mg/dL Hemoglobin A1c 11.3 H (4.0-6.0) % 07/17/18 07/17/18 07/17/18 Range/Units 06:13 11:36 16:43 Sodium (137-145) mmol/L Chloride (98-107) mmol/L Creatinine (0.52-1.04) mg/dL Glucose (74-99) mg/dL POC Glucose (mg/dL) 379 H 390 H 331 H (75-99) mg/dL Hemoglobin A1c (4.0-6.0) % 07/17/18 Range/Units 20:54 Sodium (137-145) mmol/L Chloride (98-107) mmol/L Creatinine (0.52-1.04) mg/dL Glucose (74-99) mg/dL POC Glucose (mg/dL) 351 H (75-99) mg/dL Hemoglobin A1c (4.0-6.0) % Microbiology - Last 24 Hours (Table) 07/15/18 19:32 Gram Stain - Preliminary Buttock Wound Culture - Preliminary Methicillin resist S. aureus Strep agalactiae - (group b) Gram Neg Bacilli 07/15/18 13:33 Urine Culture - Final Urine,Voided Strep agalactiae - (group b) 07/15/18 20:14 Blood Culture - Preliminary Blood No Growth after 24 hours Laboratory Results WBC 7.3 k/uL (3.8-10.6) 07/17/18 05:42 RBC 3.94 m/uL (3.80-5.40) 07/17/18 05:42 Hgb 12.4 gm/dL (11.4-16.0) 07/17/18 05:42 Hct 35.5 % (34.0-46.0) 07/17/18 05:42 MCV 89.9 fL (80.0-100.0) 07/17/18 05:42 MCH 31.4 pg (25.0-35.0) 07/17/18 05:42 MCHC 35.0 g/dL (31.0-37.0) 07/17/18 05:42 RDW 14.7 % (11.5-15.5) 07/17/18 05:42 Plt Count 235 k/uL (150-450) 07/17/18 05:42 Neutrophils % 62 % 07/17/18 05:42 Lymphocytes % 23 % 07/17/18 05:42 Monocytes % 6 % 07/17/18 05:42 Eosinophils % 6 % 07/17/18 05:42 Basophils % 1 % 07/17/18 05:42 Neutrophils # 4.5 k/uL (1.3-7.7) 07/17/18 05:42 Lymphocytes # 1.7 k/uL (1.0-4.8) 07/17/18 05:42 Monocytes # 0.4 k/uL (0-1.0) 07/17/18 05:42 Eosinophils # 0.5 k/uL (0-0.7) 07/17/18 05:42 Basophils # 0.0 k/uL (0-0.2) 07/17/18 05:42 Sodium 134 mmol/L (137-145) L 07/17/18 05:42 Potassium 4.4 mmol/L (3.5-5.1) 07/17/18 05:42 Chloride 97 mmol/L (98-107) L 07/17/18 05:42 Carbon Dioxide 23 mmol/L (22-30) 07/17/18 05:42 Anion Gap 14 mmol/L 07/17/18 05:42 BUN 8 mg/dL (7-17) 07/17/18 05:42 Creatinine 0.47 mg/dL (0.52-1.04) L 07/17/18 05:42 Est GFR (CKD-EPI)AfAm >90 (>60 ml/min/1.73 sqM) 07/17/18 05:42 Est GFR (CKD-EPI)NonAf >90 (>60 ml/min/1.73 sqM) 07/17/18 05:42 Glucose 350 mg/dL (74-99) H 07/17/18 05:42 POC Glucose (mg/dL) 351 mg/dL (75-99) H 07/17/18 20:54 POC Glu [employer] Tosha Richardson 07/17/18 20:[address] Glu mg/dL 278 07/16/18 16:58 Hemoglobin A1c 11.3 % (4.0-6.0) H 07/16/18 16:58 Calcium 8.7 mg/dL (8.4-10.2) 07/17/18 05:42 Phosphorus 4.4 mg/dL (2.5-4.5) 07/15/18 20:14 Total Bilirubin 0.4 mg/dL (0.2-1.3) 07/16/18 06:01 AST 29 U/L (14-36) 07/16/18 06:01 ALT 30 U/L (9-52) 07/16/18 06:01 Alkaline Phosphatase 105 U/L (38-126) 07/16/18 06:01 NT-Pro-B Natriuret Pep 37 pg/mL 07/15/18 12:09 Total Protein 6.8 g/dL (6.3-8.2) 07/16/18 06:01 Albumin 3.7 g/dL (3.5-5.0) 07/16/18 06:01 Urine Color Colorless 07/15/18 13:13 Urine Appearance Clear (Clear) 07/15/18 13:13 Urine pH 5.0 (5.0-8.0) 07/15/18 13:13 Ur Specific Spar[place] 1.028 (1.001-1.035) 07/15/18 13:13 Urine Protein Negative (Negative) 07/15/18 13:13 Urine Glucose (UA) 4+ (Negative) H 07/15/18 13:13 Urine Ketones 1+ (Negative) H 07/15/18 13:13 Urine Blood Negative (Negative) 07/15/18 13:13 Urine Nitrite Negative (Negative) 07/15/18 13:13 Urine Bilirubin Negative (Negative) 07/15/18 13:13 Urine Urobilinogen <2.0 mg/dL (<2.0) 07/15/18 13:13 Ur Leukocyte Esterase Negative (Negative) 07/15/18 13:13 Acetone, Qual Positive (Negative) 07/15/18 12:09 Microbiology 07/15/18 19:32 Buttock Gram Stain - Preliminary 07/15/18 19:32 Buttock Wound Culture - Preliminary Methicillin resist S. aureus Strep agalactiae - (group b) Gram Neg Bacilli 07/15/18 13:33 Urine,Voided Urine Culture - Final Strep agalactiae - (group b) 07/15/18 20:14 Blood Blood Culture - Preliminary No Growth after 24 hours Assessment and Plan (1) DKA (diabetic ketoacidoses) Current Visit: Yes Status: Acute Code(s): E13.10 - OTH DIABETES MELLITUS WITH KETOACIDOSIS WITHOUT COMA SNOMED Code(s): 672188418 (2) Obesity Current Visit: No Status: Acute Code(s): E66.9 - OBESITY, UNSPECIFIED SNOMED Code(s): 520395328 (3) Diabetic ulcer of left lower leg associated with diabetes mellitus due to underlying condition, with fat layer exposed Current Visit: Yes Status: Acute Code(s): E08.622 - DIABETES DUE TO UNDERLYING CONDITION W OTH SKIN ULCER; L97.922 - NON-PRS CHR ULC UNSP PRT OF L LOW LEG W FAT LAYER EXPOSED SNOMED Code(s): 491805111 (4) Pressure ulcer of right buttock, stage 3 Narrative/Plan: 42-year-old female who has a history of superobesity presents hospital not feeling well having difficulties with respiratory infection with shortness of breath at admission. However is noted at the time of her presentation that she had evidence of diabetic ketoacidosis in this pneumaturia with an insulin drip some improvement. However there is notation of the left leg ulceration as well as the buttock ulceration. Cultures are him process. Antibiotic therapy is initiated with vancomycin as well as Unasyn until we have further data. Wound care is with the operative foam dressings to the ulceration. Diabetology and diabetes education have been requested to ensure the patient has access to a meter, test strips and ongoing treatment to prevent further episodes of DKA. Underlying uncontrolled blood glucose is likely the etiology of the ulcerations of her skin. Cultures will help determine final plans for antibiotic therapy at the time of her discharge. Fortunately she has not in severe pain. probiotic therapy with the yogurt can be added also as protein supplement 07/17/2018 patient has had some improvement in the last day. The bariatric bed is allowed a major improvement of her study discomforts and is allowing improvement of her pressure ulcerations. Continue local wound care. Antibiotic therapy is currently with vancomycin and Unasyn which should be continued for now and will work with the discharge planners as to the potential course of antibiotic therapy as she transitions to [facility]. Current Visit: Yes Status: Acute Code(s): L89.313 - PRESSURE ULCER OF RIGHT BUTTOCK, STAGE 3 SNOMED Code(s): 599343413
--- NOTE | 2018-07-17 22:44 | PN ---
PROGRESS NOTE I am covering for Dr. Mcrae. DATE OF SERVICE: 07/17/2018 This 42-year-old woman who was admitted with acute diabetic ketoacidosis also had a gluteal decubitus ulcer. The patient is on IV antibiotics. Patient is being closely monitored. Blood sugar is still elevated at this time. The medications are adjusted at this time. PHYSICAL EXAMINATION: The patient is alert, oriented x3. Pulse 86, blood pressure 106/50, respiration 18, temperature normal, pulse ox 94% on 3 L. HEENT: Conjunctivae normal. NECK: No jugular venous distention. CARDIOVASCULAR SYSTEM: S1, S2 muffled. RESPIRATORY SYSTEM: Breath sounds diminished at the bases. Scattered rhonchi. No crackles. ABDOMEN: Soft, non-tender. No mass palpable. LEGS: No edema. No swelling. NERVOUS SYSTEM: No focal deficit. EXAMINATION OF THE GLUTEAL AREA: Decubitus ulcer present. LABS: Accu-Cheks 379, 390 and 331. Hemoglobin A1c is 11.3. ASSESSMENT: 1. Streptococcus agalactiae and presumptive methicillin-resistant Staphylococcus aeruginosa from the cultures. 2. Acute diabetic ketoacidosis. 3. Gluteal decubitus ulcer, stage 2 to 3. 4. Hyponatremia. 5. Hypokalemia. 6. History of asthma, chronic obstructive pulmonary disease. 7. Diabetes mellitus, type 2. 8. Hypertension. 9. Hyperlipidemia. 10.History of obstructive sleep apnea. 11.Hypothyroidism. 12.History of chronic venous insufficiency. 13.History of cholecystectomy. 14.History of tubal ligation. 15.History of bipolar depression. 16.History of nicotine dependence. RECOMMENDATIONS AND DISCUSSION: I recommend to continue current medications, continue with symptomatic treatment, continue with IV antibiotics. Closely follow with Infectious Disease. The most recent culture showed presumptive MRSA and Strep agalactiae. Will continue to monitor. Otherwise, continue with the broad-spectrum IV antibiotics. Closely follow with Infectious Disease and Dr. Mcrae will follow. See orders for further details. MMODL / IJN: [id number] /
[2018-07-18] MEDS: VANCOMYCIN 2,000 MG in SODIUM CHLORIDE 0.9% 500 ML 500 ML IVPB SCH ×3 (00:27→15:38)
[2018-07-18 06:08] LABS: Basophils % (A) 1 %; Eosinophils # (A) 0.5 k/uL (0-0.7); Eosinophils % (A) 6 %; HCT 32.5 % (34.0-46.0); HGB 11.9 gm/dL (11.4-16.0); Lymphocytes # (A) 1.7 k/uL (1.0-4.8); Lymphocytes % (A) 22 %; MCH 32.5 pg (25.0-35.0); MCHC 36.7 g/dL (31.0-37.0); MCV 88.6 fL (80.0-100.0); Mean Platelet Volume 7.1; Monocytes # (A) 0.5 k/uL (0-1.0); Monocytes % (A) 7 %; Neutrophils # (A) 4.4 k/uL (1.3-7.7); Neutrophils % (A) 59 %; Platelet Count 212 k/uL (150-450); RBC 3.67 m/uL (3.80-5.40); RDW 14.7 % (11.5-15.5); WBC 7.5 k/uL (3.8-10.6)
[2018-07-18 06:11] LABS: Anion Gap 14 mmol/L; Blood Urea Nitrogen 6 mg/dL (7-17); Calcium 8.4 mg/dL (8.4-10.2); Carbon Dioxide 26 mmol/L (22-30); Chloride 95 mmol/L (98-107); Glucose 295 mg/dL (74-99); Sodium 135 mmol/L (137-145)
[2018-07-18 06:18] LABS: Glucose,Whole Blood 295 mg/dL (75-99)
[2018-07-18 06:19] LABS: Potassium 4.1 mmol/L (3.5-5.1)
[2018-07-18] MEDS: AMPICILLIN-SULBACTAM 3 GM in SODIUM CHLORIDE 0.9% 100 ML IVPB SCH ×4 (06:58→23:29)
[2018-07-18] MEDS: LEVOTHYROXINE 88 MCG TAB PO SCH (06:58)
[2018-07-18] MEDS: metFORMIN 500 MG TAB PO SCH ×2 (06:58→18:25)
[2018-07-18] MEDS: PANTOPRAZOLE 40 MG TABLET PO SCH (06:59)
[2018-07-18] MEDS: INSULIN ASPART (NovoLOG) 100 UNIT/ML VIAL SQ SCH ×7 (06:59→21:36)
[2018-07-18] MEDS: CYCLOBENZAPRINE 10 MG TAB PO PRN ×2 (07:09→22:32)
[2018-07-18] MEDS: ALBUTEROL NEBULIZED 2.5 MG/3 ML INHALATION SCH ×4 (08:32→21:14)
[2018-07-18] MEDS: TOPIRAMATE 25 MG TAB PO SCH ×2 (09:38→21:35)
[2018-07-18] MEDS: amLODIPine 10 MG TAB PO SCH (09:38)
[2018-07-18] MEDS: CHLORTHALIDONE 25 MG TAB PO SCH (09:38)
[2018-07-18] MEDS: DIVALPROEX 500 MG TABLET.DR PO SCH ×2 (09:38→21:35)
[2018-07-18] MEDS: HEPARIN SODIUM,PORCINE 5,000 UNIT/ML 1 ML VIAL SQ SCH ×2 (09:38→21:36)
[2018-07-18] MEDS: INSULIN DETEMIR (LEVEMIR) 100 UNIT/ML SYR SQ SCH ×2 (09:38→18:49)
[2018-07-18] MEDS: ATORVASTATIN 40 MG TAB PO SCH (09:39)
[2018-07-18] MEDS: traMADol 50 MG TAB PO SCH ×4 (09:39→22:31)
[2018-07-18] MEDS: ATENOLOL 50 MG TAB PO SCH (09:39)
[2018-07-18] MEDS: hydrALAZINE HCL 50 MG TAB PO SCH ×3 (09:39→22:31)
[2018-07-18] MEDS: LISINOPRIL 20 MG TAB PO SCH (09:39)
[2018-07-18] MEDS: GABAPENTIN 300 MG CAP PO SCH ×3 (09:39→22:31)
[2018-07-18] MEDS: MULTIVITAMINS, THERA 1 EACH TAB PO SCH (11:48)
[2018-07-18 12:06] LABS: Glucose,Whole Blood 320 mg/dL (75-99)
[2018-07-18] MEDS ORDERED: VANCOMYCIN TROUGH DUE 1 EACH MISC MISCELLANE ONE (15:00)
[2018-07-18 17:10] LABS: Glucose,Whole Blood 315 mg/dL (75-99)
--- NOTE | 2018-07-18 17:26 | P.PN ---
Subjective Progress Note Date: 07/18/18 Principal diagnosis: Diabetic ketoacidosis, diabetic ulcer to bilateral Patient is awake alert, vital signs are stable. Patient had presented to the hospital with a blood sugar greater than 600 feeling poorly, her, was her meter was not working she could not afford to buy test strips and was waiting on replacement, and her. Wound cultures finalize MRSA and strep currently on vancomycin Objective - Vital Signs Vital signs: Vital Signs Temp 99 F 07/18/18 15:47 Pulse 87 07/18/18 15:52 Resp 16 07/18/18 15:47 BP 111/75 07/18/18 15:47 Pulse Ox 94 L 07/18/18 15:47 Intake & Output 07/17/18 07/18/18 07/18/18 18:59 06:59 18:59 Intake Total 480 1640 1320 Output Total 900 2200 Balance -420 1640 -880 Weight 151.8 kg Intake: Intake, IV Titration 600 600 Amount Ampicillin-Sulbactam 3 gm 100 100 In Sodium Chloride 0.9% 100 ml @ 200 mls/hr IVPB Q6HR [facility] Rx#:[id number] Vancomycin 2,000 mg In 500 500 Sodium Chloride 0.9% 500 ml 500 ml @ 167 mls/hr IVPB Q8HR [facility] Rx#: [id number] Oral 480 1040 720 Output: Urine 900 2200 Other: Voiding Method Bedside Commode Bedside Commode Bedside Commode # Voids 1 # Bowel Movements 1 1 - Exam General: [Patient awake, alert and oriented times 3. Patient in no acute distress.] HEENT: [PERRL. EOMI. No pharyngeal erythema or exudate.] Neck: [No adenopathy.] Cardiac: [Heart regular in rate and rhythm. No S3. No S4. No clicks, rubs. No murmur.] Lungs: [Clear to auscultation bilaterally.] Abdomen: [No mass. No organomegaly. Bowel sounds presnt and normoactive in all 4 quadrants.] Evidence of chronic venous stasis to the left leg as well as to the right buttocks measurements in nursing documentation noted Extremes: [No edema no cyanosis no claudication normal pulses] : Normal female genitalia Musculoskeletal: [No joint erythema, edema or tenderness.] Skin: [No rash.] Neurologic: [No lateralizing deficits. CN II - XII grossly intact.] Lymphatic: [No adenopathy.] - Labs CBC & Chem 7: 07/18/18 05:43 07/18/18 05:43 Labs: Abnormal Lab Results - Last 24 Hours (Table) 07/17/18 07/18/18 07/18/18 Range/Units 20:54 05:43 05:43 RBC 3.67 L (3.80-5.40) m/uL Hct 32.5 L (34.0-46.0) % Sodium 135 L (137-145) mmol/L Chloride 95 L (98-107) mmol/L BUN 6 L (7-17) mg/dL Creatinine 0.46 L (0.52-1.04) mg/dL Glucose 295 H (74-99) mg/dL POC Glucose (mg/dL) 351 H (75-99) mg/dL 07/18/18 07/18/18 Range/Units 06:17 12:03 RBC (3.80-5.40) m/uL Hct (34.0-46.0) % Sodium (137-145) mmol/L Chloride (98-107) mmol/L BUN (7-17) mg/dL Creatinine (0.52-1.04) mg/dL Glucose (74-99) mg/dL POC Glucose (mg/dL) 295 H 320 H (75-99) mg/dL Microbiology - Last 24 Hours (Table) 07/15/18 20:14 Blood Culture - Preliminary Blood No Growth after 48 hours 07/15/18 19:32 Gram Stain - Preliminary Buttock Wound Culture - Preliminary Methicillin resist S. aureus Strep agalactiae - (group b) Gram Neg Bacilli Assessment and Plan (1) DKA (diabetic ketoacidoses) Current Visit: Yes Status: Acute Code(s): E13.10 - OTH DIABETES MELLITUS WITH KETOACIDOSIS WITHOUT COMA SNOMED Code(s): 357024568 (2) Diabetic ulcer of left lower leg associated with diabetes mellitus due to underlying condition, with fat layer exposed Current Visit: Yes Status: Acute Code(s): E08.622 - DIABETES DUE TO UNDERLYING CONDITION W OTH SKIN ULCER; L97.922 - NON-PRS CHR ULC UNSP PRT OF L LOW LEG W FAT LAYER EXPOSED SNOMED Code(s): 515054039 (3) Pressure ulcer of right buttock, stage 3 Current Visit: Yes Status: Acute Code(s): L89.313 - PRESSURE ULCER OF RIGHT BUTTOCK, STAGE 3 SNOMED Code(s): 529732130 (4) Upper respiratory infection Current Visit: Yes Status: Acute Code(s): J06.9 - ACUTE UPPER RESPIRATORY INFECTION, UNSPECIFIED SNOMED Code(s): 02013875 (5) Diabetes mellitus Current Visit: No Status: Acute Code(s): E11.9 - TYPE 2 DIABETES MELLITUS WITHOUT COMPLICATIONS SNOMED Code(s): 16795141 (6) Hypertension, poor control Current Visit: No Status: Acute Code(s): I10 - ESSENTIAL (PRIMARY) HYPERTENSION SNOMED Code(s): 208286182 Plan: #1 diabetic ketoacidosis has improved #2 morbid obesity consultation with dietitian performed #3 diabetic ulcer of lower leg and buttocks consultations with infectious disease Dr. Decker appropriate antibiotic therapy initiated with vancomycin as well as Unasyn #4 uncontrolled diabetes glucose control improved evening dose of the Levemir adjusted to 40 units we'll reevaluate glucose tomorrow #5 we will continue to evaluate and address placement issues tomorrow Time with Patient: Greater than 30
[2018-07-18 20:41] LABS: Glucose,Whole Blood 310 mg/dL (75-99)
[2018-07-18] MEDS: LORATADINE 10 MG TAB PO SCH (21:34)
[2018-07-18] MEDS: FENOFIBRATE 160 MG TAB PO SCH (21:35)
[2018-07-18] MEDS: MONTELUKAST 10 MG TAB PO SCH (21:35)
[2018-07-19] MEDS: VANCOMYCIN 2,250 MG in SODIUM CHLORIDE 0.9% 500 ML 500 ML IVPB SCH ×3 (00:47→17:45)
[2018-07-19] MEDS: PANTOPRAZOLE 40 MG TABLET PO SCH (06:58)
[2018-07-19] MEDS: LEVOTHYROXINE 88 MCG TAB PO SCH (06:58)
[2018-07-19] MEDS: metFORMIN 500 MG TAB PO SCH ×2 (06:58→17:44)
[2018-07-19] MEDS: INSULIN ASPART (NovoLOG) 100 UNIT/ML VIAL SQ SCH ×7 (06:58→23:15)
[2018-07-19] MEDS: AMPICILLIN-SULBACTAM 3 GM in SODIUM CHLORIDE 0.9% 100 ML IVPB SCH ×3 (06:59→17:45)
[2018-07-19 08:14] LABS: Anion Gap 16 mmol/L; Blood Urea Nitrogen 7 mg/dL (7-17); Calcium 8.6 mg/dL (8.4-10.2); Carbon Dioxide 26 mmol/L (22-30); Chloride 95 mmol/L (98-107); Glucose 321 mg/dL (74-99); Sodium 137 mmol/L (137-145)
[2018-07-19 08:16] LABS: Potassium 3.8 mmol/L (3.5-5.1)
[2018-07-19] MEDS: ALBUTEROL NEBULIZED 2.5 MG/3 ML INHALATION SCH ×4 (08:27→19:46)
[2018-07-19 08:34] LABS: Basophils % (A) 0 %; Eosinophils # (A) 0.5 k/uL (0-0.7); Eosinophils % (A) 7 %; HCT 31.2 % (34.0-46.0); Lymphocytes # (A) 1.3 k/uL (1.0-4.8); Lymphocytes % (A) 18 %; Mean Platelet Volume 7.3; Monocytes # (A) 0.4 k/uL (0-1.0); Monocytes % (A) 5 %; Neutrophils # (A) 5.1 k/uL (1.3-7.7); Neutrophils % (A) 69 %; Platelet Count 223 k/uL (150-450); RBC 3.55 m/uL (3.80-5.40); RDW 14.9 % (11.5-15.5); WBC 7.4 k/uL (3.8-10.6)
[2018-07-19 08:35] LABS: MCHC 33.2 g/dL (31.0-37.0)
[2018-07-19 08:36] LABS: HGB 10.4 gm/dL (11.4-16.0)
[2018-07-19] MEDS: hydrALAZINE HCL 50 MG TAB PO SCH ×3 (10:11→23:13)
[2018-07-19] MEDS: GABAPENTIN 300 MG CAP PO SCH ×3 (10:12→23:12)
[2018-07-19] MEDS: MULTIVITAMINS, THERA 1 EACH TAB PO SCH (10:12)
[2018-07-19] MEDS: ATORVASTATIN 40 MG TAB PO SCH (10:12)
[2018-07-19] MEDS: traMADol 50 MG TAB PO SCH ×3 (10:12→17:46)
[2018-07-19] MEDS: DIVALPROEX 500 MG TABLET.DR PO SCH ×2 (10:12→23:12)
[2018-07-19] MEDS: HEPARIN SODIUM,PORCINE 5,000 UNIT/ML 1 ML VIAL SQ SCH ×2 (10:13→23:12)
[2018-07-19] MEDS: LISINOPRIL 20 MG TAB PO SCH (10:13)
[2018-07-19] MEDS: CHLORTHALIDONE 25 MG TAB PO SCH (10:13)
[2018-07-19] MEDS: TOPIRAMATE 25 MG TAB PO SCH ×2 (10:13→23:12)
[2018-07-19] MEDS: ATENOLOL 50 MG TAB PO SCH (10:13)
[2018-07-19] MEDS: INSULIN DETEMIR (LEVEMIR) 100 UNIT/ML SYR SQ SCH ×2 (10:13→17:52)
[2018-07-19] MEDS: amLODIPine 10 MG TAB PO SCH (10:13)
[2018-07-19 12:03] LABS: Glucose,Whole Blood 359 mg/dL (75-99)
[2018-07-19 12:03] LABS: Glucose,Whole Blood 331 mg/dL (75-99)
[2018-07-19 16:39] LABS: Glucose,Whole Blood 292 mg/dL (75-99)
--- NOTE | 2018-07-19 17:42 | P.PN ---
Subjective Progress Note Date: 07/19/18 Principal diagnosis: Diabetic ketoacidosis, diabetic ulcer to bilateral Patient is awake alert, vital signs are stable. Patient had presented to the hospital with a blood sugar greater than 600 feeling poorly, her, was her meter was not working she could not afford to buy test strips and was waiting on replacement, and her. Wound cultures finalize MRSA and strep currently on vancomycin Objective - Vital Signs Vital signs: Vital Signs Temp 98.0 F 07/19/18 14:58 Pulse 83 07/19/18 16:04 Resp 17 07/19/18 15:03 BP 113/53 07/19/18 14:58 Pulse Ox 96 07/19/18 14:58 Intake & Output 07/18/18 07/19/18 07/19/18 18:59 06:59 18:59 Intake Total 1320 1600 760 Output Total 2200 Balance -880 1600 760 Weight 153.768 kg 151.1 kg Intake: IV 20 Invasive Line 4 20 Intake, IV Titration 600 600 Amount Ampicillin-Sulbactam 3 gm 100 100 In Sodium Chloride 0.9% 100 ml @ 200 mls/hr IVPB Q6HR [facility] Rx#:[id number] Vancomycin 2,000 mg In 500 Sodium Chloride 0.9% 500 ml 500 ml @ 167 mls/hr IVPB Q8HR [facility]D Rx#: [id number] Vancomycin 2,250 mg In 500 Sodium Chloride 0.9% 500 ml 500 ml @ 167 mls/hr IVPB Q8HR FORD Rx#: [id number] Oral 720 1000 740 Output: Urine 2200 Other: Voiding Method Bedside Commode Bedside Commode Bedside Commode # Voids 2 1 # Bowel Movements 1 - Exam General: [Patient awake, alert and oriented times 3. Patient in no acute distress.] HEENT: [PERRL. EOMI. No pharyngeal erythema or exudate.] Neck: [No adenopathy.] Cardiac: [Heart regular in rate and rhythm. No S3. No S4. No clicks, rubs. No murmur.] Lungs: [Clear to auscultation bilaterally.] Abdomen: [No mass. No organomegaly. Bowel sounds presnt and normoactive in all 4 quadrants.] Evidence of chronic venous stasis to the left leg as well as to the right buttocks measurements in nursing documentation noted Extremes: [No edema no cyanosis no claudication normal pulses] : Normal female genitalia Musculoskeletal: [No joint erythema, edema or tenderness.] Skin: [No rash.] Neurologic: [No lateralizing deficits. CN II - XII grossly intact.] Lymphatic: [No adenopathy.] - Labs CBC & Chem 7: 07/19/18 07:32 07/19/18 07:32 Labs: Abnormal Lab Results - Last 24 Hours (Table) 07/18/18 07/19/18 07/19/18 Range/Units 20:38 06:27 07:32 RBC 3.55 L (3.80-5.40) m/uL Hgb 10.4 L (11.4-16.0) gm/dL Hct 31.2 L (34.0-46.0) % Chloride (98-107) mmol/L Glucose (74-99) mg/dL POC Glucose (mg/dL) 310 H 331 H (75-99) mg/dL 07/19/18 07/19/18 07/19/18 Range/Units 07:32 11:21 16:34 RBC (3.80-5.40) m/uL Hgb (11.4-16.0) gm/dL Hct (34.0-46.0) % Chloride 95 L (98-107) mmol/L Glucose 321 H (74-99) mg/dL POC Glucose (mg/dL) 359 H 292 H (75-99) mg/dL Microbiology - Last 24 Hours (Table) 07/15/18 20:14 Blood Culture - Preliminary Blood No Growth after 72 hours 07/15/18 19:32 Gram Stain - Final Buttock Wound Culture - Final Methicillin resist S. aureus Strep agalactiae - (group b) Proteus mirabilis Assessment and Plan (1) DKA (diabetic ketoacidoses) Current Visit: Yes Status: Acute Code(s): E13.10 - OTH DIABETES MELLITUS WITH KETOACIDOSIS WITHOUT COMA SNOMED Code(s): 189428953 (2) Diabetic ulcer of left lower leg associated with diabetes mellitus due to underlying condition, with fat layer exposed Current Visit: Yes Status: Acute Code(s): E08.622 - DIABETES DUE TO UNDERLYING CONDITION W OTH SKIN ULCER; L97.922 - NON-PRS CHR ULC UNSP PRT OF L LOW LEG W FAT LAYER EXPOSED SNOMED Code(s): 009068976 (3) Pressure ulcer of right buttock, stage 3 Current Visit: Yes Status: Acute Code(s): L89.313 - PRESSURE ULCER OF RIGHT BUTTOCK, STAGE 3 SNOMED Code(s): 431051326 (4) Upper respiratory infection Current Visit: Yes Status: Acute Code(s): J06.9 - ACUTE UPPER RESPIRATORY INFECTION, UNSPECIFIED SNOMED Code(s): 92579212 (5) Diabetes mellitus Current Visit: No Status: Acute Code(s): E11.9 - TYPE 2 DIABETES MELLITUS WITHOUT COMPLICATIONS SNOMED Code(s): 82662643 (6) Hypertension, poor control Current Visit: No Status: Acute Code(s): I10 - ESSENTIAL (PRIMARY) HYPERTENSION SNOMED Code(s): 931896727 Plan: #1 diabetic ketoacidosis has improved #2 morbid obesity consultation with dietitian performed #3 diabetic ulcer of lower leg and buttocks consultations with infectious disease Dr. Decker appropriate antibiotic therapy initiated with vancomycin as well as Unasyn #4 uncontrolled diabetes glucose control improved evening dose of the Levemir adjusted to 50 units we'll reevaluate glucose tomorrow O2 dependent COPD #5 we will continue to evaluate and address placement issues tomorrow Time with Patient: Greater than 30
[2018-07-19 21:44] LABS: Glucose,Whole Blood 349 mg/dL (75-99)
[2018-07-19] MEDS: LORATADINE 10 MG TAB PO SCH (23:11)
[2018-07-19] MEDS: MONTELUKAST 10 MG TAB PO SCH (23:11)
[2018-07-19] MEDS: FENOFIBRATE 160 MG TAB PO SCH (23:11)
[2018-07-20] MEDS: VANCOMYCIN 2,250 MG in SODIUM CHLORIDE 0.9% 500 ML 500 ML IVPB SCH ×3 (00:30→19:09)
[2018-07-20] MEDS: AMPICILLIN-SULBACTAM 3 GM in SODIUM CHLORIDE 0.9% 100 ML IVPB SCH ×5 (01:00→23:13)
[2018-07-20] MEDS: traMADol 50 MG TAB PO SCH ×5 (04:00→23:07)
[2018-07-20 06:43] LABS: Glucose,Whole Blood 316 mg/dL (75-99)
[2018-07-20 07:07] LABS: Basophils # (A) 0.1 k/uL (0-0.2); Basophils % (A) 1 %; Eosinophils # (A) 0.5 k/uL (0-0.7); Eosinophils % (A) 7 %; HCT 34.1 % (34.0-46.0); HGB 12.1 gm/dL (11.4-16.0); Lymphocytes # (A) 1.6 k/uL (1.0-4.8); Lymphocytes % (A) 20 %; MCH 31.8 pg (25.0-35.0); MCHC 35.4 g/dL (31.0-37.0); MCV 89.8 fL (80.0-100.0); Mean Platelet Volume 8.3; Monocytes # (A) 0.5 k/uL (0-1.0); Monocytes % (A) 7 %; Neutrophils # (A) 5.2 k/uL (1.3-7.7); Neutrophils % (A) 64 %; Platelet Count 200 k/uL (150-450); RDW 14.8 % (11.5-15.5); WBC 8.1 k/uL (3.8-10.6)
[2018-07-20 07:17] LABS: Anion Gap 13 mmol/L; Blood Urea Nitrogen 6 mg/dL (7-17); Calcium 8.5 mg/dL (8.4-10.2); Carbon Dioxide 29 mmol/L (22-30); Chloride 94 mmol/L (98-107); Glucose 296 mg/dL (74-99); Potassium 3.8 mmol/L (3.5-5.1); Sodium 136 mmol/L (137-145)
[2018-07-20] MEDS: ALBUTEROL NEBULIZED 2.5 MG/3 ML INHALATION SCH ×4 (07:53→20:38)
[2018-07-20] MEDS: ATORVASTATIN 40 MG TAB PO SCH (08:45)
[2018-07-20] MEDS: amLODIPine 10 MG TAB PO SCH (08:46)
[2018-07-20] MEDS: GABAPENTIN 300 MG CAP PO SCH ×3 (08:46→23:09)
[2018-07-20] MEDS: DIVALPROEX 500 MG TABLET.DR PO SCH ×2 (08:46→23:07)
[2018-07-20] MEDS: MULTIVITAMINS, THERA 1 EACH TAB PO SCH (08:46)
[2018-07-20] MEDS: TOPIRAMATE 25 MG TAB PO SCH ×2 (08:46→23:08)
[2018-07-20] MEDS: hydrALAZINE HCL 50 MG TAB PO SCH ×3 (08:46→23:09)
[2018-07-20] MEDS: ATENOLOL 50 MG TAB PO SCH (08:46)
[2018-07-20] MEDS: CHLORTHALIDONE 25 MG TAB PO SCH (08:46)
[2018-07-20] MEDS: LISINOPRIL 20 MG TAB PO SCH (08:46)
[2018-07-20 08:47] LABS: Glucose,Whole Blood 288 mg/dL (75-99)
[2018-07-20] MEDS: HEPARIN SODIUM,PORCINE 5,000 UNIT/ML 1 ML VIAL SQ SCH ×2 (08:47→23:09)
[2018-07-20] MEDS: LEVOTHYROXINE 88 MCG TAB PO SCH (08:55)
[2018-07-20] MEDS: INSULIN ASPART (NovoLOG) 100 UNIT/ML VIAL SQ SCH ×7 (08:55→23:10)
[2018-07-20] MEDS: metFORMIN 500 MG TAB PO SCH ×2 (08:56→16:42)
[2018-07-20] MEDS: PANTOPRAZOLE 40 MG TABLET PO SCH (08:56)
--- NOTE | 2018-07-20 11:58 | P.PN ---
Subjective Progress Note Date: 07/20/18 Principal diagnosis: Diabetic ketoacidosis, diabetic ulcer to bilateral Patient is awake alert, vital signs are stable. Patient had presented to the hospital with a blood sugar greater than 600 feeling poorly, her, was her meter was not working she could not afford to buy test strips and was waiting on replacement, and her. Wound cultures finalize MRSA and strep currently on vancomycin anticipate placement medical [place] [facility] on Sunday Objective - Vital Signs Vital signs: Vital Signs Temp 97.2 F L 07/20/18 08:00 Pulse 82 07/20/18 08:04 Resp 17 07/20/18 08:00 BP 132/74 07/20/18 08:00 Pulse Ox 97 07/20/18 08:00 Intake & Output 07/19/18 07/20/18 07/20/18 18:59 06:59 18:59 Intake Total 2760 30 10 Output Total 1800 Balance 2760 -1770 10 Weight 151.1 kg Intake: IV 1220 30 10 Ampicillin-Sulbactam 3 gm 200 In Sodium Chloride 0.9% 100 ml @ 200 mls/hr IVPB Q6HR [facility] Rx#:[id number] Invasive Line 4 20 30 10 Vancomycin 2,250 mg In 1000 Sodium Chloride 0.9% 500 ml 500 ml @ 167 mls/hr IVPB Q8HR [facility] Rx#: [id number] Oral 1540 Output: Urine 1800 Other: Voiding Method Bedside Commode Bedside Commode Bedside Commode # Voids 1 1 - Exam General: [Patient awake, alert and oriented times 3. Patient in no acute distress.] HEENT: [PERRL. EOMI. No pharyngeal erythema or exudate.] Neck: [No adenopathy.] Cardiac: [Heart regular in rate and rhythm. No S3. No S4. No clicks, rubs. No murmur.] Lungs: [Clear to auscultation bilaterally.] Abdomen: [No mass. No organomegaly. Bowel sounds presnt and normoactive in all 4 quadrants.] Evidence of chronic venous stasis to the left leg as well as to the right buttocks measurements in nursing documentation noted Extremes: [No edema no cyanosis no claudication normal pulses] : Normal female genitalia Musculoskeletal: [No joint erythema, edema or tenderness.] Skin: [No rash.] Neurologic: [No lateralizing deficits. CN II - XII grossly intact.] Lymphatic: [No adenopathy.] - Labs CBC & Chem 7: 07/20/18 06:09 07/20/18 06:09 Labs: Abnormal Lab Results - Last 24 Hours (Table) 07/19/18 07/19/18 07/19/18 Range/Units 06:27 11:21 16:34 Sodium (137-145) mmol/L Chloride (98-107) mmol/L BUN (7-17) mg/dL Creatinine (0.52-1.04) mg/dL Glucose (74-99) mg/dL POC Glucose (mg/dL) 331 H 359 H 292 H (75-99) mg/dL 07/19/18 07/20/18 07/20/18 Range/Units 21:26 06:09 06:32 Sodium 136 L (137-145) mmol/L Chloride 94 L (98-107) mmol/L BUN 6 L (7-17) mg/dL Creatinine 0.50 L (0.52-1.04) mg/dL Glucose 296 H (74-99) mg/dL POC Glucose (mg/dL) 349 H 316 H (75-99) mg/dL 07/20/18 Range/Units 08:39 Sodium (137-145) mmol/L Chloride (98-107) mmol/L BUN (7-17) mg/dL Creatinine (0.52-1.04) mg/dL Glucose (74-99) mg/dL POC Glucose (mg/dL) 288 H (75-99) mg/dL Microbiology - Last 24 Hours (Table) 07/15/18 20:14 Blood Culture - Preliminary Blood No Growth after 96 hours Assessment and Plan (1) DKA (diabetic ketoacidoses) Current Visit: Yes Status: Acute Code(s): E13.10 - OTH DIABETES MELLITUS WITH KETOACIDOSIS WITHOUT COMA SNOMED Code(s): 992826168 (2) Diabetic ulcer of left lower leg associated with diabetes mellitus due to underlying condition, with fat layer exposed Current Visit: Yes Status: Acute Code(s): E08.622 - DIABETES DUE TO UNDERLYING CONDITION W OTH SKIN ULCER; L97.922 - NON-PRS CHR ULC UNSP PRT OF L LOW LEG W FAT LAYER EXPOSED SNOMED Code(s): 121405283 (3) Pressure ulcer of right buttock, stage 3 Current Visit: Yes Status: Acute Code(s): L89.313 - PRESSURE ULCER OF RIGHT BUTTOCK, STAGE 3 SNOMED Code(s): 289854951 (4) Upper respiratory infection Current Visit: Yes Status: Acute Code(s): J06.9 - ACUTE UPPER RESPIRATORY INFECTION, UNSPECIFIED SNOMED Code(s): 09367738 (5) Diabetes mellitus Current Visit: No Status: Acute Code(s): E11.9 - TYPE 2 DIABETES MELLITUS WITHOUT COMPLICATIONS SNOMED Code(s): 91592778 (6) Hypertension, poor control Current Visit: No Status: Acute Code(s): I10 - ESSENTIAL (PRIMARY) HYPERTENSION SNOMED Code(s): 059197206 Plan: #1 diabetic ketoacidosis has improved #2 morbid obesity consultation with dietitian performed #3 diabetic ulcer of lower leg and buttocks consultations with infectious disease Dr. Decker appropriate antibiotic therapy initiated with vancomycin as well as Unasyn #4 uncontrolled diabetes glucose control improved evening dose of the Levemir adjusted to 50 units we'll reevaluate glucose tomorrow O2 dependent COPD patient significantly improved #5 anticipate placement medical [place] [facility] Sunday Time with Patient: Greater than 30
[2018-07-20 11:59] LABS: Glucose,Whole Blood 341 mg/dL (75-99)
[2018-07-20] MEDS: INSULIN DETEMIR (LEVEMIR) 100 UNIT/ML SYR SQ SCH (12:01)
[2018-07-20] MEDS ORDERED: VANCOMYCIN TROUGH DUE 1 EACH MISC MISCELLANE ONE (15:00)
[2018-07-20 16:47] LABS: Glucose,Whole Blood 336 mg/dL (75-99)
[2018-07-20] MEDS ORDERED: INSULIN DETEMIR (LEVEMIR) 100 UNIT/ML SYR SQ SCH (17:30)
[2018-07-20 21:39] LABS: Glucose,Whole Blood 343 mg/dL (75-99)
[2018-07-20] MEDS: LORATADINE 10 MG TAB PO SCH (23:07)
[2018-07-20] MEDS: FENOFIBRATE 160 MG TAB PO SCH (23:08)
[2018-07-20] MEDS: MONTELUKAST 10 MG TAB PO SCH (23:09)
[2018-07-21 06:06] LABS: Glucose,Whole Blood 324 mg/dL (75-99)
[2018-07-21] MEDS: VANCOMYCIN 2,250 MG in SODIUM CHLORIDE 0.9% 500 ML 500 ML IVPB SCH ×2 (06:27→12:04)
[2018-07-21] MEDS: LEVOTHYROXINE 88 MCG TAB PO SCH (06:35)
[2018-07-21] MEDS: INSULIN ASPART (NovoLOG) 100 UNIT/ML VIAL SQ SCH ×7 (06:35→21:44)
[2018-07-21] MEDS: PANTOPRAZOLE 40 MG TABLET PO SCH (06:35)
[2018-07-21] MEDS: AMPICILLIN-SULBACTAM 3 GM in SODIUM CHLORIDE 0.9% 100 ML IVPB SCH ×3 (06:35→17:08)
[2018-07-21] MEDS: metFORMIN 500 MG TAB PO SCH ×2 (06:35→17:07)
[2018-07-21 06:46] LABS: Anion Gap 16 mmol/L; Basophils # (A) 0.1 k/uL (0-0.2); Basophils % (A) 1 %; Blood Urea Nitrogen 8 mg/dL (7-17); Calcium 8.9 mg/dL (8.4-10.2); Carbon Dioxide 25 mmol/L (22-30); Chloride 94 mmol/L (98-107); Eosinophils # (A) 0.3 k/uL (0-0.7); Eosinophils % (A) 4 %; Glucose 314 mg/dL (74-99); HCT 37.8 % (34.0-46.0); HGB 13.9 gm/dL (11.4-16.0); Lymphocytes # (A) 1.2 k/uL (1.0-4.8); Lymphocytes % (A) 15 %; MCH 32.6 pg (25.0-35.0); MCHC 36.9 g/dL (31.0-37.0); MCV 88.4 fL (80.0-100.0); Mean Platelet Volume 7.7; Monocytes # (A) 0.4 k/uL (0-1.0); Monocytes % (A) 6 %; Neutrophils # (A) 5.9 k/uL (1.3-7.7); Neutrophils % (A) 74 %; Platelet Count 220 k/uL (150-450); RBC 4.27 m/uL (3.80-5.40); RDW 14.9 % (11.5-15.5); Sodium 135 mmol/L (137-145)
[2018-07-21 07:04] LABS: Potassium 4.4 mmol/L (3.5-5.1)
[2018-07-21] MEDS: ALBUTEROL NEBULIZED 2.5 MG/3 ML INHALATION SCH ×4 (08:48→21:12)
[2018-07-21] MEDS: INSULIN DETEMIR (LEVEMIR) 100 UNIT/ML SYR SQ SCH (09:26)
[2018-07-21] MEDS: ATENOLOL 50 MG TAB PO SCH (09:29)
[2018-07-21] MEDS: CHLORTHALIDONE 25 MG TAB PO SCH (09:29)
[2018-07-21] MEDS: DIVALPROEX 500 MG TABLET.DR PO SCH ×2 (09:29→20:43)
[2018-07-21] MEDS: ATORVASTATIN 40 MG TAB PO SCH (09:29)
[2018-07-21] MEDS: traMADol 50 MG TAB PO SCH ×4 (09:30→21:43)
[2018-07-21] MEDS: LISINOPRIL 20 MG TAB PO SCH (09:30)
[2018-07-21] MEDS: hydrALAZINE HCL 50 MG TAB PO SCH ×3 (09:30→20:44)
[2018-07-21] MEDS: GABAPENTIN 300 MG CAP PO SCH ×3 (09:30→20:44)
[2018-07-21] MEDS: MULTIVITAMINS, THERA 1 EACH TAB PO SCH (09:30)
[2018-07-21] MEDS: amLODIPine 10 MG TAB PO SCH (09:31)
[2018-07-21] MEDS: TOPIRAMATE 25 MG TAB PO SCH ×2 (09:31→20:44)
[2018-07-21] MEDS: HEPARIN SODIUM,PORCINE 5,000 UNIT/ML 1 ML VIAL SQ SCH ×2 (09:31→20:44)
[2018-07-21] MEDS ORDERED: VANCOMYCIN TROUGH DUE 1 EACH MISC MISCELLANE ONE (11:00)
[2018-07-21 11:08] LABS: Glucose,Whole Blood 352 mg/dL (75-99)
--- NOTE | 2018-07-21 14:26 | P.PN ---
Subjective Progress Note Date: 07/21/18 Principal diagnosis: Diabetic ketoacidosis, diabetic ulcer to bilateral Patient is awake alert, vital signs are stable. Patient had presented to the hospital with a blood sugar greater than 600 feeling poorly, her, was her meter was not working she could not afford to buy test strips and was waiting on replacement, and her. Wound cultures finalize MRSA and strep currently on vancomycin anticipate placement medical [place] [facility] on Sunday Objective - Vital Signs Vital signs: Vital Signs Temp 98.2 F 07/21/18 12:00 Pulse 88 07/21/18 12:14 Resp 17 07/21/18 12:00 BP 119/61 07/21/18 12:00 Pulse Ox 96 07/21/18 12:00 Intake & Output 07/20/18 07/21/18 07/21/18 18:59 06:59 18:59 Intake Total 1070 40 1220 Output Total 1200 500 Balance 1070 -1160 720 Weight 154.221 kg Intake: IV 610 40 620 Ampicillin-Sulbactam 3 gm 100 100 In Sodium Chloride 0.9% 100 ml @ 200 mls/hr IVPB Q6HR [facility] Rx#:[id number] Invasive Line 4 10 Invasive Line 7 40 20 Vancomycin 2,250 mg In 500 500 Sodium Chloride 0.9% 500 ml 500 ml @ 167 mls/hr IVPB Q8HR [facility] Rx#: [id number] Oral 460 600 Output: Urine 1200 500 Other: Voiding Method Bedside Commode Bedside Commode Bedside Commode # Voids 4 1 1 - Exam General: [Patient awake, alert and oriented times 3. Patient in no acute distress.] HEENT: [PERRL. EOMI. No pharyngeal erythema or exudate.] Neck: [No adenopathy.] Cardiac: [Heart regular in rate and rhythm. No S3. No S4. No clicks, rubs. No murmur.] Lungs: [Clear to auscultation bilaterally.] Abdomen: [No mass. No organomegaly. Bowel sounds presnt and normoactive in all 4 quadrants.] Evidence of chronic venous stasis to the left leg as well as to the right buttocks measurements in nursing documentation noted Extremes: [No edema no cyanosis no claudication normal pulses] : Normal female genitalia Musculoskeletal: [No joint erythema, edema or tenderness.] Skin: [No rash.] Neurologic: [No lateralizing deficits. CN II - XII grossly intact.] Lymphatic: [No adenopathy.] - Labs CBC & Chem 7: 07/21/18 06:01 07/21/18 06:01 Labs: Abnormal Lab Results - Last 24 Hours (Table) 07/20/18 07/20/18 07/21/18 Range/Units 16:34 21:35 06:01 Sodium 135 L (137-145) mmol/L Chloride 94 L (98-107) mmol/L Creatinine 0.48 L (0.52-1.04) mg/dL Glucose 314 H (74-99) mg/dL POC Glucose (mg/dL) 336 H 343 H (75-99) mg/dL 07/21/18 07/21/18 Range/Units 06:04 10:58 Sodium (137-145) mmol/L Chloride (98-107) mmol/L Creatinine (0.52-1.04) mg/dL Glucose (74-99) mg/dL POC Glucose (mg/dL) 324 H 352 H (75-99) mg/dL Microbiology - Last 24 Hours (Table) 07/15/18 20:14 Blood Culture - Preliminary Blood No Growth after 120 hours Assessment and Plan (1) DKA (diabetic ketoacidoses) Current Visit: Yes Status: Acute Code(s): E13.10 - OTH DIABETES MELLITUS WITH KETOACIDOSIS WITHOUT COMA SNOMED Code(s): 380262361 (2) Diabetic ulcer of left lower leg associated with diabetes mellitus due to underlying condition, with fat layer exposed Current Visit: Yes Status: Acute Code(s): E08.622 - DIABETES DUE TO UNDERLYING CONDITION W OTH SKIN ULCER; L97.922 - NON-PRS CHR ULC UNSP PRT OF L LOW LEG W FAT LAYER EXPOSED SNOMED Code(s): 217351641 (3) Pressure ulcer of right buttock, stage 3 Current Visit: Yes Status: Acute Code(s): L89.313 - PRESSURE ULCER OF RIGHT BUTTOCK, STAGE 3 SNOMED Code(s): 347896625 (4) Upper respiratory infection Current Visit: Yes Status: Acute Code(s): J06.9 - ACUTE UPPER RESPIRATORY INFECTION, UNSPECIFIED SNOMED Code(s): 19974200 (5) Diabetes mellitus Current Visit: No Status: Acute Code(s): E11.9 - TYPE 2 DIABETES MELLITUS WITHOUT COMPLICATIONS SNOMED Code(s): 65865605 (6) Hypertension, poor control Current Visit: No Status: Acute Code(s): I10 - ESSENTIAL (PRIMARY) HYPERTENSION SNOMED Code(s): 890715644 Plan: #1 diabetic ketoacidosis has improved #2 morbid obesity consultation with dietitian performed #3 diabetic ulcer of lower leg and buttocks consultations with infectious disease Dr. Decker appropriate antibiotic therapy initiated with vancomycin as well as Unasyn #4 uncontrolled diabetes glucose control improved evening dose of the Levemir adjusted to 60 units we'll reevaluate glucose tomorrow O2 dependent COPD patient significantly improved #5 anticipate placement medical [place] [facility] Sunday
[2018-07-21 16:36] LABS: Glucose,Whole Blood 345 mg/dL (75-99)
[2018-07-21] MEDS ORDERED: INSULIN DETEMIR (LEVEMIR) 100 UNIT/ML SYR SQ SCH (17:30)
[2018-07-21] MEDS: VANCOMYCIN 2,000 MG in SODIUM CHLORIDE 0.9% 500 ML 500 ML IVPB SCH (19:23)
[2018-07-21] MEDS: LORATADINE 10 MG TAB PO SCH (20:44)
[2018-07-21] MEDS: FENOFIBRATE 160 MG TAB PO SCH (20:44)
[2018-07-21] MEDS: MONTELUKAST 10 MG TAB PO SCH (20:44)
[2018-07-21 21:00] LABS: Glucose,Whole Blood 360 mg/dL (75-99)
[2018-07-22] MEDS: AMPICILLIN-SULBACTAM 3 GM in SODIUM CHLORIDE 0.9% 100 ML IVPB SCH ×5 (00:25→23:55)
[2018-07-22] MEDS ORDERED: VANCOMYCIN TROUGH DUE 1 EACH MISC MISCELLANE ONE (03:00)
[2018-07-22] MEDS: VANCOMYCIN 2,000 MG in SODIUM CHLORIDE 0.9% 500 ML 500 ML IVPB SCH ×3 (04:09→21:28)
[2018-07-22 06:16] LABS: Glucose,Whole Blood 326 mg/dL (75-99)
[2018-07-22] MEDS: PANTOPRAZOLE 40 MG TABLET PO SCH (06:33)
[2018-07-22] MEDS: LEVOTHYROXINE 88 MCG TAB PO SCH (06:33)
[2018-07-22] MEDS: metFORMIN 500 MG TAB PO SCH ×2 (06:33→17:34)
[2018-07-22] MEDS: INSULIN ASPART (NovoLOG) 100 UNIT/ML VIAL SQ SCH ×7 (07:45→21:29)
[2018-07-22] MEDS: ALBUTEROL NEBULIZED 2.5 MG/3 ML INHALATION SCH ×4 (08:07→19:45)
[2018-07-22] MEDS ORDERED: HYDROPHILIC CREAM 180 GM TUBE TOPICAL PRN (09:50)
[2018-07-22] MEDS: traMADol 50 MG TAB PO SCH ×4 (10:57→21:30)
[2018-07-22] MEDS: HEPARIN SODIUM,PORCINE 5,000 UNIT/ML 1 ML VIAL SQ SCH ×2 (10:57→21:29)
[2018-07-22] MEDS: LISINOPRIL 20 MG TAB PO SCH (10:58)
[2018-07-22] MEDS: MULTIVITAMINS, THERA 1 EACH TAB PO SCH (10:58)
[2018-07-22] MEDS: ATORVASTATIN 40 MG TAB PO SCH (10:58)
[2018-07-22] MEDS: DIVALPROEX 500 MG TABLET.DR PO SCH ×2 (10:58→21:29)
[2018-07-22] MEDS: TOPIRAMATE 25 MG TAB PO SCH ×2 (10:59→21:30)
[2018-07-22] MEDS: CHLORTHALIDONE 25 MG TAB PO SCH (10:59)
[2018-07-22] MEDS: ATENOLOL 50 MG TAB PO SCH (10:59)
[2018-07-22] MEDS: GABAPENTIN 300 MG CAP PO SCH ×3 (10:59→21:30)
[2018-07-22] MEDS: hydrALAZINE HCL 50 MG TAB PO SCH ×3 (10:59→21:30)
[2018-07-22] MEDS: amLODIPine 10 MG TAB PO SCH (10:59)
[2018-07-22 11:53] LABS: Glucose,Whole Blood 302 mg/dL (75-99)
[2018-07-22 12:01] VITALS: BMI 63.6
[2018-07-22] MEDS: INSULIN DETEMIR (LEVEMIR) 100 UNIT/ML SYR SQ SCH ×2 (12:31→17:23)
--- NOTE | 2018-07-22 13:13 | P.PN ---
Moises Rea is a morbidly obese WF well known to me. She has uncontrolled DM2 tx with long acting and short acting insulin, along with GLP1 analogue. She has been noncompliatn with accuchecks and GLP1 use. She was dx with DKA, pressure ulcers to buttocks. All are improved. Her sugars remain labile. She denies any CP, SOB, nbausea or vomitting She is oxygen dependent. Objective - Vital Signs Vital signs: Vital Signs Temp 98.2 F 07/22/18 08:00 Pulse 89 07/22/18 11:26 Resp 17 07/22/18 08:00 BP 125/59 07/22/18 08:00 Pulse Ox 96 07/22/18 08:00 Intake & Output 07/21/18 07/22/18 07/22/18 18:59 06:59 18:59 Intake Total 1480 20 240 Output Total 500 Balance 980 20 240 Weight 157.9 kg 157.9 kg Intake: IV 640 20 Ampicillin-Sulbactam 3 gm 100 In Sodium Chloride 0.9% 100 ml @ 200 mls/hr IVPB Q6HR [facility] Rx#:[id number] Invasive Line 5 10 10 Invasive Line 7 30 10 Vancomycin 2,250 mg In 500 Sodium Chloride 0.9% 500 ml 500 ml @ 167 mls/hr IVPB Q8HR [facility] Rx#: [id number] Oral 840 240 Output: Urine 500 Other: Voiding Method Bedside Commode # Voids 3 1 - Constitutional General appearance: Present: morbidly obese - Neck Neck: Absent: lymphadenopathy, thyromegaly Thyroid: bilateral: normal size - Respiratory Respiratory: bilateral: diminished - Cardiovascular Rhythm: regular Heart sounds: normal: S1, S2 - Gastrointestinal General gastrointestinal: Present: normal bowel sounds - Integumentary Integumentary Comment(s): stage III pressure ulcer to each buttock. ~ 2 x 2 cm qith no depth at this time. - Neurologic Neurologic: Present: CNII-XII intact. Absent: focal deficits - Labs CBC & Chem 7: 07/21/18 06:01 07/21/18 06:01 Labs: Abnormal Lab Results - Last 24 Hours (Table) 07/21/18 07/21/18 07/22/18 Range/Units 16:18 20:58 06:15 POC Glucose (mg/dL) 345 H 360 H 326 H (75-99) mg/dL 07/22/18 Range/Units 11:48 POC Glucose (mg/dL) 302 H (75-99) mg/dL Microbiology - Last 24 Hours (Table) 07/15/18 20:14 Blood Culture - Final Blood No Growth after 144 hours Assessment and Plan (1) DKA (diabetic ketoacidoses) Current Visit: Yes Status: Acute Code(s): E13.10 - OTH DIABETES MELLITUS WITH KETOACIDOSIS WITHOUT COMA SNOMED Code(s): 901062802 (2) Oxygen dependent Current Visit: Yes Status: Acute Code(s): Z99.81 - DEPENDENCE ON SUPPLEMENTAL OXYGEN SNOMED Code(s): 946506732614 (3) COPD (chronic obstructive pulmonary disease) Current Visit: Yes Status: Acute Code(s): J44.9 - CHRONIC OBSTRUCTIVE PULMONARY DISEASE, UNSPECIFIED SNOMED Code(s): 99523526 (4) Morbid (severe) obesity due to excess calories Current Visit: Yes Status: Acute Code(s): E66.01 - MORBID (SEVERE) OBESITY DUE TO EXCESS CALORIES SNOMED Code(s): 573321050 (5) Noncompliance Current Visit: Yes Status: Acute Code(s): Z91.19 - PATIENT'S NONCOMPLIANCE W OTH MEDICAL TREATMENT AND REGIMEN SNOMED Code(s): 0886254 (6) Pressure ulcer of right buttock, stage 3 Current Visit: Yes Status: Acute Code(s): L89.313 - PRESSURE ULCER OF RIGHT BUTTOCK, STAGE 3 SNOMED Code(s): 202145096 (7) Upper respiratory infection Current Visit: Yes Status: Acute Code(s): J06.9 - ACUTE UPPER RESPIRATORY INFECTION, UNSPECIFIED SNOMED Code(s): 32513659 Plan: we will adjsut her insulin and restart the GLP1 plan ECF tomorrow repeat labs in am
[2018-07-22 16:56] LABS: Glucose,Whole Blood 331 mg/dL (75-99)
[2018-07-22 21:07] LABS: Glucose,Whole Blood 329 mg/dL (75-99)
[2018-07-22] MEDS: FENOFIBRATE 160 MG TAB PO SCH (21:29)
[2018-07-22] MEDS: MONTELUKAST 10 MG TAB PO SCH (21:30)
[2018-07-22] MEDS: LORATADINE 10 MG TAB PO SCH (21:30)
[2018-07-22] MEDS: CYCLOBENZAPRINE 10 MG TAB PO PRN (21:31)
[2018-07-23] MEDS: VANCOMYCIN 2,000 MG in SODIUM CHLORIDE 0.9% 500 ML 500 ML IVPB SCH ×2 (03:49→12:11)
[2018-07-23 05:46] LABS: Glucose,Whole Blood 313 mg/dL (75-99)
[2018-07-23] MEDS: LEVOTHYROXINE 88 MCG TAB PO SCH (06:49)
[2018-07-23] MEDS: AMPICILLIN-SULBACTAM 3 GM in SODIUM CHLORIDE 0.9% 100 ML IVPB SCH ×2 (06:49→11:54)
[2018-07-23] MEDS: metFORMIN 500 MG TAB PO SCH ×2 (06:49→17:43)
[2018-07-23] MEDS: PANTOPRAZOLE 40 MG TABLET PO SCH (06:49)
[2018-07-23 07:16] LABS: Basophils % (A) 1 %; Eosinophils # (A) 0.6 k/uL (0-0.7); Eosinophils % (A) 7 %; HCT 33.5 % (34.0-46.0); HGB 11.6 gm/dL (11.4-16.0); Lymphocytes # (A) 1.4 k/uL (1.0-4.8); Lymphocytes % (A) 17 %; MCH 30.8 pg (25.0-35.0); MCHC 34.7 g/dL (31.0-37.0); MCV 88.9 fL (80.0-100.0); Mean Platelet Volume 7.6; Monocytes # (A) 0.5 k/uL (0-1.0); Monocytes % (A) 6 %; Neutrophils # (A) 5.8 k/uL (1.3-7.7); Neutrophils % (A) 68 %; Platelet Count 257 k/uL (150-450); RBC 3.77 m/uL (3.80-5.40); RDW 14.5 % (11.5-15.5); WBC 8.5 k/uL (3.8-10.6)
[2018-07-23 07:18] LABS: Anion Gap 13 mmol/L; Blood Urea Nitrogen 8 mg/dL (7-17); Calcium 8.8 mg/dL (8.4-10.2); Carbon Dioxide 27 mmol/L (22-30); Chloride 97 mmol/L (98-107); Glucose 321 mg/dL (74-99); Magnesium 1.1 mg/dL (1.6-2.3); Potassium 3.9 mmol/L (3.5-5.1); Sodium 137 mmol/L (137-145)
[2018-07-23] MEDS: INSULIN ASPART (NovoLOG) 100 UNIT/ML VIAL SQ SCH ×6 (07:29→17:43)
[2018-07-23] MEDS: ALBUTEROL NEBULIZED 2.5 MG/3 ML INHALATION SCH ×4 (08:28→19:54)
[2018-07-23] MEDS ORDERED: INSULIN DETEMIR (LEVEMIR) 100 UNIT/ML SYR SQ SCH (09:00)
[2018-07-23] MEDS ORDERED: MAGNESIUM SULFATE-D5W PMX 1 GM in DEXTROSE/WATER 1 100ML.BAG IVPB ONE (10:00)
[2018-07-23] MEDS: TOPIRAMATE 25 MG TAB PO SCH (10:04)
[2018-07-23] MEDS: hydrALAZINE HCL 50 MG TAB PO SCH ×2 (10:04→15:38)
[2018-07-23] MEDS: traMADol 50 MG TAB PO SCH ×2 (10:04→15:38)
[2018-07-23] MEDS: ATORVASTATIN 40 MG TAB PO SCH (10:05)
[2018-07-23] MEDS: ATENOLOL 50 MG TAB PO SCH (10:05)
[2018-07-23] MEDS: GABAPENTIN 300 MG CAP PO SCH ×2 (10:08→15:37)
[2018-07-23] MEDS: DIVALPROEX 500 MG TABLET.DR PO SCH (10:08)
[2018-07-23] MEDS: HEPARIN SODIUM,PORCINE 5,000 UNIT/ML 1 ML VIAL SQ SCH (10:08)
[2018-07-23 11:29] LABS: Glucose,Whole Blood 318 mg/dL (75-99)
[2018-07-23] MEDS: MULTIVITAMINS, THERA 1 EACH TAB PO SCH (12:11)
[2018-07-23] MEDS: LISINOPRIL 20 MG TAB PO SCH (12:12)
[2018-07-23] MEDS: CHLORTHALIDONE 25 MG TAB PO SCH (12:12)
--- NOTE | 2018-07-23 13:44 | P.DS ---
Providers Date of admission: 07/15/18 14:59 Expected date of discharge: 07/23/18 Attending physician: Dany Mcrae Consults: 07/15/18 18:38 Consult Physician Routine Consulting Provider: Griffin Decker Consult Reason/Comments: decubitus Do you want consulting provider notified?: Yes Primary care physician: Dany Mcrae - Discharge Diagnosis(es) (1) DKA (diabetic ketoacidoses) Current Visit: Yes Status: Acute (2) Oxygen dependent Current Visit: Yes Status: Acute (3) COPD (chronic obstructive pulmonary disease) Current Visit: Yes Status: Acute (4) Morbid (severe) obesity due to excess calories Current Visit: Yes Status: Acute (5) Noncompliance Current Visit: Yes Status: Acute (6) Pressure ulcer of right buttock, stage 3 Current Visit: Yes Status: Acute (7) Upper respiratory infection Current Visit: Yes Status: Acute (8) Debility Current Visit: Yes Status: Acute Hospital Course: Rona is a superobese 42-year-old female who presented to the office s not feeling well for several days with an upper respiratory type infection. She was having cough without much sputum production and no hemoptysis. She was found to have a blood sugar greater than 600. The patient stated her meter at home was not working and she cannot afford to buy test strips. She relates that she generally feels quite poorly, She denied fever chills or rigors. However she's developed ulceration to her left leg as well as to her right buttocks recently. She has uncontrolled DM2 tx with long acting and short acting insulin, along with GLP1 analogue. She has been Noncompliant with her Accu-Cheks and with her GLP-1 use. On admission, she was dx with DKA, pressure ulcers to buttocks. she improved with treatment of her diabetes with an insulin drip and then subq. Her sugars remain in the low 300's. A GLP-1 analog is unavailable while she is inpatient. Her insulin has been ncreased as well as cheduled plus scale fast acting insulin. her buttock ulcers are much improved and she has been transitioned to [facility] to the area. We will be sent to [facility] for rehabilitation. We'll see her in the office upon discharge from there. Patient Condition at Discharge: Fair Plan - Discharge Summary Discharge Rx Participant: No New Discharge Prescriptions: New Albuterol Nebulized [Ventolin Nebulized] 2.5 mg INHALATION RT-QID nebu ALPRAZolam [Xanax] 0.25 mg PO TID PRN #60 tab PRN Reason: Anxiety HYDROcodone/APAP 5-325MG [Mchenry 5-325] 1 each PO Q6HR PRN #60 tab PRN Reason: Pain Hydrophilic Cream [[facility] Cream] 1 applic TOPICAL QID PRN applic PRN Reason: STAGE 2 INSULIN ASPART (NovoLOG) [NovoLOG (formulary)] 0 unit SQ ACHS vial Insulin Lispro [Admelog] See Protocol SQ BID #3 vial Insulin Lispro [Admelog] 10 unit SQ TID #3 vial Continue hydrALAZINE HCL [Apresoline] 50 mg PO TID Atenolol/Chlorthalidone [Atenolol-Chlorthalidone 100-25] 1 tab PO QAM Gabapentin [Neurontin] 300 mg PO TID Divalproex [Depakote] 1,000 mg PO BID amLODIPine BESYLATE/BENAZEPRIL [Lotrel 10-40 MG] 1 cap PO QAM metFORMIN HCL [Glucophage] 1,000 mg PO BID-W/MEALS Insulin Glulisine [Apidra Solostar] See Protocol SQ ACHS Cetirizine HCl 10 mg PO HS Multivitamins, Thera [Multivitamin (formulary)] 1 tab PO DAILY Tofte-3 Fatty Acids/Fish Oil [Fish Oil 1,000 mg Softgel] 2 tab PO BID Omeprazole [PriLOSEC] 20 mg PO DAILY Meclizine [Antivert] 25 mg PO DAILY PRN PRN Reason: Vertigo SUMAtriptan SUCCINATE [Imitrex] 100 mg PO BID PRN PRN Reason: Headache Oxymetazoline 0.05% Nasl [place] [Afrin 0.05% Nasal [place]] 2 spray EA NOSTRIL BID PRN 10 Days spray PRN Reason: Allergy Symptoms Montelukast [Singulair] 10 mg PO HS Fenofibrate [Lofibra] 160 mg PO HS Albuterol Inhaler [Ventolin Hfa Inhaler] 2 puff INHALATION RT-Q6H PRN PRN Reason: Shortness Of Breath Atorvastatin [Lipitor] 40 mg PO DAILY Cyclobenzaprine [Flexeril] 10 mg PO TID PRN PRN Reason: Muscle Spasm Dicyclomine [Bentyl] 20 mg PO QID PRN PRN Reason: CRAMPS Levothyroxine Sodium [Synthroid] 88 mcg PO DAILY Topiramate [Topamax] 50 mg PO BID Changed Insulin Glargine [Lantus] 60 unit SQ BID #0 Liraglutide [Victoza 2-Don] 1.2 mg SQ DAILY #0 Discontinued Diphenox-Atrop 2.5-0.025 mg [Lomotil] 2 tab PO 5XD PRN PRN Reason: Loose Stool traMADol HCL [Ultram] 50 - 100 mg PO Q6H PRN PRN Reason: Pain Discharge Medication List hydrALAZINE HCL [Apresoline] 50 mg PO TID 10/07/13 [History] Atenolol/Chlorthalidone [Atenolol-Chlorthalidone 100-25] 1 tab PO QAM 06/25/15 [ History] Divalproex [Depakote] 1,000 mg PO BID 06/25/15 [History] Gabapentin [Neurontin] 300 mg PO TID 06/25/15 [History] amLODIPine BESYLATE/BENAZEPRIL [Lotrel 10-40 MG] 1 cap PO QAM 06/26/15 [History] Cetirizine HCl 10 mg PO HS 10/21/15 [History] Insulin Glulisine [Apidra Solostar] See Protocol SQ ACHS 10/21/15 [History] Multivitamins, Thera [Multivitamin (formulary)] 1 tab PO DAILY 10/21/15 [History ] metFORMIN HCL [Glucophage] 1,000 mg PO BID-W/MEALS 10/21/15 [History] Tofte-3 Fatty Acids/Fish Oil [Fish Oil 1,000 mg Softgel] 2 tab PO BID 12/01/15 [ History] Meclizine [Antivert] 25 mg PO DAILY PRN 05/17/16 [History] Omeprazole [PriLOSEC] 20 mg PO DAILY 05/17/16 [History] Oxymetazoline 0.05% Nasl [place] [Afrin 0.05% Nasal [place]] 2 spray EA NOSTRIL BID PRN 10 Days spray 05/17/16 [Rx] SUMAtriptan SUCCINATE [Imitrex] 100 mg PO BID PRN 05/17/16 [History] Fenofibrate [Lofibra] 160 mg PO HS 12/07/16 [History] Montelukast [Singulair] 10 mg PO HS 12/07/16 [History] Albuterol Inhaler [Ventolin Hfa Inhaler] 2 puff INHALATION RT-Q6H PRN 07/15/18 [ History] Atorvastatin [Lipitor] 40 mg PO DAILY 07/15/18 [History] Cyclobenzaprine [Flexeril] 10 mg PO TID PRN 07/15/18 [History] Dicyclomine [Bentyl] 20 mg PO QID PRN 07/15/18 [History] Levothyroxine Sodium [Synthroid] 88 mcg PO DAILY 07/15/18 [History] Topiramate [Topamax] 50 mg PO BID 07/15/18 [History] ALPRAZolam [Xanax] 0.25 mg PO TID PRN #60 tab 07/23/18 [Rx] Albuterol Nebulized [Ventolin Nebulized] 2.5 mg INHALATION RT-QID nebu [Rx] HYDROcodone/APAP 5-325MG [Mchenry 5-325] 1 each PO Q6HR PRN #60 tab 07/23/18 [Rx] Hydrophilic Cream [[facility] Cream] 1 applic TOPICAL QID PRN applic 07/23/18 [Rx] INSULIN ASPART (NovoLOG) [NovoLOG (formulary)] 0 unit SQ ACHS vial 07/23/18 [Rx ] Insulin Glargine [Lantus] 60 unit SQ BID #0 07/23/18 [Rx] Insulin Lispro [Admelog] 10 unit SQ TID #3 vial 07/23/18 [Rx] Insulin Lispro [Admelog] See Protocol SQ BID #3 vial 07/23/18 [Rx] Liraglutide [Victoza 2-Don] 1.2 mg SQ DAILY #0 07/23/18 [Rx] Follow up Appointment(s)/Referral(s): Dany Mcrae MD [Primary Care Provider] - 1-2 days Activity/Diet/Wound Care/Special Instructions: Foreign [facility] Discharge Disposition: TRANSFER TO [facility]
[2018-07-23 15:37] VITALS: BP 133/64; RESP 20; TEMP 98.3
[2018-07-23] MEDS: amLODIPine 10 MG TAB PO SCH (15:37)
[2018-07-23 16:04] VITALS: PULSE 92
[2018-07-23 16:44] LABS: Glucose,Whole Blood 327 mg/dL (75-99)
[2018-07-23] MEDS: INSULIN DETEMIR (LEVEMIR) 100 UNIT/ML SYR SQ SCH (18:14)
[2018-07-24] MEDS ORDERED: VANCOMYCIN TROUGH DUE 1 EACH MISC MISCELLANE ONE (03:00)
--- NOTE | 2018-07-25 10:23 | CDI ---
Documentation Clarification Form Date: 07/25/2018 10:17:00 AM From: Soraida Misha Diamante Morales, Director Of Medical Review Hours-8:30 am & 5 pm M-F Admit Date: 07/15/2018 2:59:00 PM Patient Name: Rona Malave Visit Number: [id number] Discharge Date: 07/23/2018 8:02:00 PM ATTENTION: The Clinical Documentation Specialists (CDI) and [facility] Coding Staff appreciate your assistance in clarifying documentation. Please respond to the clarification below the line at the bottom and electronically sign. The CDI & [facility] Coding staff will review the response and follow-up if needed. Please note: Queries are made part of the Legal Health Record. If you have any questions, please contact the author of this message via ITS. Dr. Dany Mcrae Conflicting documentation has been found in the medical record: The nursing wound assessment documents stage II pressure ulcer of right buttock. The consult, PNs 07/17, 07/18, 07/19, 07/20, 07/21, 07/23 & DS document stage III pressure ulcer of right buttock. The H&P documents gluteal decubitus ulcer stage 1-2. History/Risk Factors: DKA II Treatment: wound care instructions optifoam border Q5D In your opinion, what is the most clinically appropriate diagnosis for this patient? Stage II pressure ulcer of right buttock Stage III pressure ulcer of right buttock Stage II pressure ulcer progressing to stage III of right buttock during this admission Other explanation of clinical findings Unable to determine (no explanation for clinical findings) __Stage III pressure ulcer right and left buttock, MTDD
== END 2018-07-23 20:02 | DRG 637 ==
LOC: EC 11:23 → 3SCARD 14:59
PROVIDERS: ADMIT Family Medicine; ATTEND Family Medicine
PROC: 5A09557 Assistance with Respiratory Ventilation, Greater than 96 Consecutive Hours, Continuous Positive Airway Pressure (ICD-10-PCS; principal; 2018-07-17)
DX: E11.10 Type 2 diabetes mellitus with ketoacidosis without coma (principal); L89.313 Pressure ulcer of right buttock, stage 3; E87.1 Hypo-osmolality and hyponatremia; L97.922 Non-pressure chronic ulcer of unspecified part of left lower leg with fat layer exposed; F31.30 Bipolar disorder, current episode depressed, mild or moderate severity, unspecified; Z68.44 Body mass index [BMI] 60.0-69.9, adult; L89.322 Pressure ulcer of left buttock, stage 2; E66.01 Morbid (severe) obesity due to excess calories; E11.40 Type 2 diabetes mellitus with diabetic neuropathy, unspecified; E11.622 Type 2 diabetes mellitus with other skin ulcer; K76.0 Fatty (change of) liver, not elsewhere classified; E87.6 Hypokalemia; J06.9 Acute upper respiratory infection, unspecified; E78.5 Hyperlipidemia, unspecified; M19.90 Unspecified osteoarthritis, unspecified site; J44.9 Chronic obstructive pulmonary disease, unspecified; G47.33 Obstructive sleep apnea (adult) (pediatric); I87.2 Venous insufficiency (chronic) (peripheral); G43.909 Migraine, unspecified, not intractable, without status migrainosus; Z79.4 Long term (current) use of insulin; Z79.890 Hormone replacement therapy; Z79.899 Other long term (current) drug therapy; Z99.81 Dependence on supplemental oxygen; Z91.19 Patient's noncompliance with other medical treatment and regimen; Z99.89 Dependence on other enabling machines and devices; Z71.3 Dietary counseling and surveillance; Z87.891 Personal history of nicotine dependence; Z98.51 Tubal ligation status; Z98.891 History of uterine scar from previous surgery; Z90.49 Acquired absence of other specified parts of digestive tract; Z88.8 Allergy status to other drugs, medicaments and biological substances; Z88.1 Allergy status to other antibiotic agents; Z91.041 Radiographic dye allergy status; Z82.49 Family history of ischemic heart disease and other diseases of the circulatory system; Z83.49 Family history of other endocrine, nutritional and metabolic diseases; E89.0 Postprocedural hypothyroidism; I12.9 Hypertensive chronic kidney disease with stage 1 through stage 4 chronic kidney disease, or unspecified chronic kidney disease; N18.9 Chronic kidney disease, unspecified; E11.22 Type 2 diabetes mellitus with diabetic chronic kidney disease; K58.9 Irritable bowel syndrome, unspecified
CPT/HCPCS: 36415; 71046; 80048; 80051; 80053; 80202; 81003; 82009; 82565; 82947; 83036; 83735; 83880; 84100; 84520; 85025; 87040; 87070; 87077; 87086; 87186; 87205; 94640; 94760; 96360; 96361; 99285

== ENCOUNTER → 2019-03-10 | Outpatient (CLI) | payer OTHER ==
--- NOTE | 2019-03-11 10:55 | MM ---
Reason for exam: screening (asymptomatic). History: Family history of breast cancer in maternal grandmother. Physical Findings: A clinical breast exam by your physician is recommended on an annual basis and results should be correlated with mammographic findings. MG Screening Mammo w CAD Bilateral CC and MLO view(s) were taken. XCCL view(s) were taken of the left breast. No prior studies available for comparison. There are scattered fibroglandular densities. Benign appearing bilateral calcifications. No suspicious abnormality. ASSESSMENT: Benign, BI-RAD 2 RECOMMENDATION: Routine screening mammogram of both breasts in 1 year. Exam somewhat limited as the patient was difficult to position.
== END | disposition home or self-care (01) ==
LOC: RADMAMWWP 09:54
PROVIDERS: ATTEND Family Medicine
DX: Z12.31 Encounter for screening mammogram for malignant neoplasm of breast (principal); Z80.3 Family history of malignant neoplasm of breast
CPT/HCPCS: 77067

== ENCOUNTER 2020-04-15 12:51 | Inpatient (IN) | payer MEDICARE, OTHER ==
[2020-04-15] MEDS ORDERED: ACETAMINOPHEN TAB 325 MG TAB PO STA (13:14)
--- NOTE | 2020-04-15 13:38 | ED ---
SOB HPI <Mohit Naik - Last Filed: 04/15/20 16:19> - General Source: patient Mode of arrival: wheelchair Limitations: no limitations <Patti Anne - Last Filed: 04/17/20 10:24> - General Chief Complaint: Shortness of Breath Stated Complaint: COVID Symptoms? Time Seen by Provider: 04/15/20 12:59 - History of Present Illness Initial Comments: 44-year-old female history of diabetes, hypertension, COPD on home oxygen, obstructive sleep apnea presenting to the emergency department today for chief complaint of shortness of breath congestion cough concern for covid 19 infection. Patient states she has had congestion cough and worsening weakness and shortness of breath for the past 3-4 days. Patient states that she is concerned about covid. She denies leg swelling, hemoptysis. Patient states she feels like she has a fever but has not recorded one.Denies vomiting, admits to nausea, diarrhea. Patietn denies abdominal pain. Denies back pain or chest pain/pressure. Patient appears fatigued (not quite lethargic) on arrival. (Patti Anne) - Related Data Home Medications Medication Instructions Recorded Confirmed hydrALAZINE HCL [Apresoline] 50 mg PO TID 10/07/13 04/15/20 Atenolol/Chlorthalidone 1 tab PO QAM 06/25/15 04/15/20 [Atenolol-Chlorthalidone 100-25] Divalproex [Depakote] 1,000 mg PO BID 06/25/15 04/15/20 Gabapentin [Neurontin] 300 mg PO TID 06/25/15 04/15/20 amLODIPine BESYLATE/BENAZEPRIL 1 cap PO QAM 06/26/15 04/15/20 [Lotrel 10-40 MG] Cetirizine HCl 10 mg PO HS 10/21/15 04/15/20 Multivitamins, Thera [Multivitamin 1 tab PO DAILY 10/21/15 04/15/20 (formulary)] metFORMIN HCL [Glucophage] 1,000 mg PO BID-W/MEALS 10/21/15 04/15/20 [place]-3 Fatty Acids/Fish Oil [Fish 2 tab PO BID 12/01/15 04/15/20 Oil 1,000 mg Softgel] SUMAtriptan SUCCINATE [Imitrex] 100 mg PO BID PRN 05/17/16 04/15/20 Fenofibrate [Lofibra] 160 mg PO HS 12/07/16 04/15/20 Atorvastatin [Lipitor] 40 mg PO DAILY 07/15/18 04/15/20 Cyclobenzaprine [Flexeril] 10 mg PO TID PRN 07/15/18 04/15/20 Levothyroxine Sodium [Synthroid] 88 mcg PO DAILY 07/15/18 04/15/20 Topiramate [Topamax] 50 mg PO BID 07/15/18 04/15/20 Albuterol Sulfate [Ventolin HFA] 1 - 2 puff INHALATION RT-Q6H PRN 04/15/20 04/15/20 Ascorbic Acid [Vitamin C] 1,000 mg PO DAILY 04/15/20 04/15/20 Glucos Sul 2Kcl/MSM/Chond/C/Mn 2 cap PO DAILY 04/15/20 04/15/20 [Glucosamine Chondroitin Cap] Ibuprofen 600 mg PO Q8H PRN 04/15/20 04/15/20 Insulin Glargine,Hum.rec.anlog 60 unit SQ BID 04/15/20 04/15/20 [Basaglar Kwikpen U-100] Insulin Lispro [Admelog] 15 unit SQ AC-TID 04/15/20 04/16/20 Insulin Lispro [Admelog] See Protocol SQ ACHS PRN 04/15/20 04/15/20 Ipratropium-Albuterol Nebulize 3 ml INHALATION RT-QID PRN 04/15/20 04/15/20 [Duoneb 0.5 mg-3 mg/3 ml Soln] Omeprazole 40 mg PO BID 04/15/20 04/15/20 Sertraline [Zoloft] 100 mg PO DAILY 04/15/20 04/15/20 traMADol HCL 50 mg PO Q8H PRN 04/15/20 04/15/20 Allergies Allergy/AdvReac Type Severity Reaction Status Date / Time Iodinated Contrast Media Allergy Mild Rash/Hives Verified 04/15/20 15:23 [Iodinated Contrast Media - IV Dye] enalapril Allergy Rash/Hives Verified 04/15/20 15:23 levofloxacin Allergy Rash/Hives Verified 04/15/20 15:23 Review of Systems ROS Other: All systems not noted in ROS Statement are negative. <Mohit Naik - Last Filed: 04/15/20 16:19> ROS Other: All systems not noted in ROS Statement are negative. <Patti Anne - Last Filed: 04/17/20 10:24> ROS Statement: Those systems with pertinent positive or pertinent negative responses have been documented in the HPI. Past Medical History Past Medical History: Asthma, COPD, Diabetes Mellitus, Hyperlipidemia, Hypertension, Osteoarthritis (OA), Sleep Apnea/CPAP/BIPAP, Thyroid Disorder Additional Past Medical History / Comment(s): chronic venous insufficiency, neuropathy, migraines, IBS, fatty liver History of Any Multi-Drug Resistant Organisms: MRSA Date of last positivie culture/infection: 07/15/18 MDRO Source:: MRSA BUTTOCK Past Surgical History: Section, Cholecystectomy, Tubal Ligation Additional Past Surgical History / Comment(s): recent colonoscopy Past Anesthesia/Blood Transfusion Reactions: No Reported Reaction Past Psychological History: Bipolar, Depression Smoking Status: Never smoker Past Alcohol Use History: None Reported Past Drug Use History: None Reported - Past Family History Mother Family Medical History: Hypertension Father Family Medical History: Hyperlipidemia <Patti Anne - Last Filed: 04/17/20 10:24> General Exam Limitations: no limitations <Patti Anne - Last Filed: 04/17/20 10:24> Course <Patti Anne - Last Filed: 04/17/20 10:24> Vital Signs 04/15/20 04/15/20 04/15/20 12:54 15:55 17:13 Temperature 101.9 F H 100.6 F H Pulse Rate 134 H 120 H 120 H Respiratory 28 H 16 16 Rate Blood Pressure 144/79 125/64 118/79 O2 Sat by Pulse 97 92 L 92 L Oximetry 04/15/20 04/15/20 18:59 19:00 Temperature 98.9 F Pulse Rate 119 H 116 H Respiratory 18 20 Rate Blood Pressure 160/98 132/78 O2 Sat by Pulse 92 L 92 L Oximetry - Reevaluation(s) Reevaluation #1: SIgned out to Dr. Naik at 2:15 pending labs/imaging 04/15/20 (Patti Anne) Medical Decision Making - Lab Data Result diagrams: 04/15/20 13:30 04/15/20 13:30 <Mohit Naik - Last Filed: 04/15/20 16:19> - Lab Data Result diagrams: 04/17/20 07:12 04/17/20 07:12 <Patti Anne - Last Filed: 04/17/20 10:24> - Medical Decision Making EKG shows sinus tachycardia at 126 bpm IN interval is on a 36 dresses 78 QT interval 312 QTC is 451. Patient's EKG shows no ST segment elevation or depression. Chest x-ray shows bilateral pneumonia consistent with COVID. Patient has no positive Apley patient's DKA so started the patient on insulin drip after I gave the patient insulin bolus. I also gave the patient a fluid bolus as well. (Mohit Naik) - Lab Data Lab Results 04/15/20 04/15/20 04/15/20 Range/Units 13:30 13:30 13:30 WBC 5.5 (3.8-10.6) k/uL RBC 4.24 (3.80-5.40) m/uL Hgb 12.5 (11.4-16.0) gm/dL Hct 36.2 (34.0-46.0) % MCV 85.4 (80.0-100.0) fL MCH 29.4 (25.0-35.0) pg MCHC 34.4 (31.0-37.0) g/dL RDW 14.4 (11.5-15.5) % Plt Count 171 (150-450) k/uL MPV 8.6 Neutrophils % 79 % Lymphocytes % 11 % Monocytes % 5 % Eosinophils % 2 % Basophils % 2 % Neutrophils # 4.3 (1.3-7.7) k/uL Lymphocytes # 0.6 L (1.0-4.8) k/uL Monocytes # 0.3 (0-1.0) k/uL Eosinophils # 0.1 (0-0.7) k/uL Basophils # 0.1 (0-0.2) k/uL PT 9.6 (9.0-12.0) sec INR 0.9 (<1.2) APTT 25.4 (22.0-30.0) sec D-Dimer 0.27 (<0.60) mg/L FEU Sodium 131 L (137-145) mmol/L Potassium 3.9 (3.5-5.1) mmol/L Chloride 85 L (98-107) mmol/L Carbon Dioxide 32 H (22-30) mmol/L Anion Gap 14 mmol/L BUN 11 (7-17) mg/dL Creatinine 0.55 (0.52-1.04) mg/dL Est GFR (CKD-EPI)AfAm >90 (>60 ml/min/1.73 sqM) Est GFR (CKD-EPI)NonAf >90 (>60 ml/min/1.73 sqM) Glucose 370 H (74-99) mg/dL POC Glucose (mg/dL) (75-99) mg/dL POC Glu Mold Closer ID Estimated Ave Glu mg/dL Hemoglobin A1c (4.0-6.0) % Plasma Lactic Acid Willie (0.7-2.0) mmol/L Calcium 8.4 (8.4-10.2) mg/dL Magnesium 1.4 L (1.6-2.3) mg/dL Ferritin 282.4 (10.0-291.0) ng/mL Total Bilirubin 0.5 (0.2-1.3) mg/dL AST 97 H (14-36) U/L ALT 47 H (4-34) U/L Alkaline Phosphatase 115 (38-126) U/L Lactate Dehydrogenase 846 H (313-618) U/L C-Reactive Protein 53.1 H (<10.0) mg/L Total Protein 7.4 (6.3-8.2) g/dL Albumin 4.2 (3.5-5.0) g/dL Procalcitonin (0.02-0.09) ng/mL Urine Color Urine Appearance (Clear) Urine pH (5.0-8.0) Ur Specific [place] (1.001-1.035) Urine Protein (Negative) Urine Glucose (UA) (Negative) Urine Ketones (Negative) Urine Blood (Negative) Urine Nitrite (Negative) Urine Bilirubin (Negative) Urine Urobilinogen (<2.0) mg/dL Ur Leukocyte Esterase (Negative) Urine RBC (0-5) /hpf Urine WBC (0-5) /hpf Ur Squamous Epith Cells (0-4) /hpf Urine Mucus (None) /hpf Acetone, Qual Positive (Negative) Coronavirus (PCR) (Not Detectd) 04/15/20 04/15/20 04/15/20 Range/Units 13:30 13:30 13:30 WBC (3.8-10.6) k/uL RBC (3.80-5.40) m/uL Hgb (11.4-16.0) gm/dL Hct (34.0-46.0) % MCV (80.0-100.0) fL MCH (25.0-35.0) pg MCHC (31.0-37.0) g/dL RDW (11.5-15.5) % Plt Count (150-450) k/uL MPV Neutrophils % % Lymphocytes % % Monocytes % % Eosinophils % % Basophils % % Neutrophils # (1.3-7.7) k/uL Lymphocytes # (1.0-4.8) k/uL Monocytes # (0-1.0) k/uL Eosinophils # (0-0.7) k/uL Basophils # (0-0.2) k/uL PT (9.0-12.0) sec INR (<1.2) APTT (22.0-30.0) sec D-Dimer (<0.60) mg/L FEU Sodium (137-145) mmol/L Potassium (3.5-5.1) mmol/L Chloride (98-107) mmol/L Carbon Dioxide (22-30) mmol/L Anion Gap mmol/L BUN (7-17) mg/dL Creatinine (0.52-1.04) mg/dL Est GFR (CKD-EPI)AfAm (>60 ml/min/1.73 sqM) Est GFR (CKD-EPI)NonAf (>60 ml/min/1.73 sqM) Glucose (74-99) mg/dL POC Glucose (mg/dL) (75-99) mg/dL POC Glu Mold Closer ID Estimated Ave Glu mg/dL Hemoglobin A1c (4.0-6.0) % Plasma Lactic Acid [place] 1.7 (0.7-2.0) mmol/L Calcium (8.4-10.2) mg/dL Magnesium (1.6-2.3) mg/dL Ferritin (10.0-291.0) ng/mL Total Bilirubin (0.2-1.3) mg/dL AST (14-36) U/L ALT (4-34) U/L Alkaline Phosphatase (38-126) U/L Lactate Dehydrogenase (313-618) U/L C-Reactive Protein (<10.0) mg/L Total Protein (6.3-8.2) g/dL Albumin (3.5-5.0) g/dL Procalcitonin 0.12 H (0.02-0.09) ng/mL Urine Color Urine Appearance (Clear) Urine pH (5.0-8.0) Ur Specific [place] (1.001-1.035) Urine Protein (Negative) Urine Glucose (UA) (Negative) Urine Ketones (Negative) Urine Blood (Negative) Urine Nitrite (Negative) Urine Bilirubin (Negative) Urine Urobilinogen (<2.0) mg/dL Ur Leukocyte Esterase (Negative) Urine RBC (0-5) /hpf Urine WBC (0-5) /hpf Ur Squamous Epith Cells (0-4) /hpf Urine Mucus (None) /hpf Acetone, Qual (Negative) Coronavirus (PCR) Detected A (Not Detectd) 04/15/20 04/15/20 04/15/20 Range/Units 13:30 14:20 15:54 WBC (3.8-10.6) k/uL RBC (3.80-5.40) m/uL Hgb (11.4-16.0) gm/dL Hct (34.0-46.0) % MCV (80.0-100.0) fL MCH (25.0-35.0) pg MCHC (31.0-37.0) g/dL RDW (11.5-15.5) % Plt Count (150-450) k/uL MPV Neutrophils % % Lymphocytes % % Monocytes % % Eosinophils % % Basophils % % Neutrophils # (1.3-7.7) k/uL Lymphocytes # (1.0-4.8) k/uL Monocytes # (0-1.0) k/uL Eosinophils # (0-0.7) k/uL Basophils # (0-0.2) k/uL PT (9.0-12.0) sec INR (<1.2) APTT (22.0-30.0) sec D-Dimer (<0.60) mg/L FEU Sodium (137-145) mmol/L Potassium (3.5-5.1) mmol/L Chloride (98-107) mmol/L Carbon Dioxide (22-30) mmol/L Anion Gap mmol/L BUN (7-17) mg/dL Creatinine (0.52-1.04) mg/dL Est GFR (CKD-EPI)AfAm (>60 ml/min/1.73 sqM) Est GFR (CKD-EPI)NonAf (>60 ml/min/1.73 sqM) Glucose (74-99) mg/dL POC Glucose (mg/dL) 358 H (75-99) mg/dL POC Glu Mold Closer ID Miriam Raman Estimated [address] Glu mg/dL 309 Hemoglobin A1c 12.4 H (4.0-6.0) % Plasma Lactic Acid Willie (0.7-2.0) mmol/L Calcium (8.4-10.2) mg/dL Magnesium (1.6-2.3) mg/dL Ferritin (10.0-291.0) ng/mL Total Bilirubin (0.2-1.3) mg/dL AST (14-36) U/L ALT (4-34) U/L Alkaline Phosphatase (38-126) U/L Lactate Dehydrogenase (313-618) U/L C-Reactive Protein (<10.0) mg/L Total Protein (6.3-8.2) g/dL Albumin (3.5-5.0) g/dL Procalcitonin (0.02-0.09) ng/mL Urine Color Yellow Urine Appearance Clear (Clear) Urine pH 6.5 (5.0-8.0) Ur Specific [place] 1.021 (1.001-1.035) Urine Protein 2+ H (Negative) Urine Glucose (UA) 4+ H (Negative) Urine Ketones 2+ H (Negative) Urine Blood Negative (Negative) Urine Nitrite Negative (Negative) Urine Bilirubin Negative (Negative) Urine Urobilinogen <2.0 (<2.0) mg/dL Ur Leukocyte Esterase Negative (Negative) Urine RBC <1 (0-5) /hpf Urine WBC 1 (0-5) /hpf Ur Squamous Epith Cells <1 (0-4) /hpf Urine Mucus Rare H (None) /hpf Acetone, Qual (Negative) Coronavirus (PCR) (Not Detectd) Critical Care Time Critical Care Time: Yes Total Critical Care Time: 35 <Mohit Naik - Last Filed: 04/15/20 16:19> Disposition Time of Disposition: 16:22 <Mohit Naik - Last Filed: 04/15/20 16:19> <Patti Anne - Last Filed: 04/17/20 10:24> Clinical Impression: Pneumonia due to COVID-19 virus, DKA (diabetic ketoacidoses) Disposition: ADMITTED IP TO THIS HOSP
[2020-04-15 14:21] LABS: Glucose,Whole Blood 358 mg/dL (75-99)
[2020-04-15 14:44] LABS: Basophils # (A) 0.1 k/uL (0-0.2); Basophils % (A) 2 %; Eosinophils # (A) 0.1 k/uL (0-0.7); Eosinophils % (A) 2 %; HCT 36.2 % (34.0-46.0); HGB 12.5 gm/dL (11.4-16.0); Lymphocytes # (A) 0.6 k/uL (1.0-4.8); Lymphocytes % (A) 11 %; MCH 29.4 pg (25.0-35.0); MCHC 34.4 g/dL (31.0-37.0); MCV 85.4 fL (80.0-100.0); Mean Platelet Volume 8.6; Monocytes # (A) 0.3 k/uL (0-1.0); Monocytes % (A) 5 %; Neutrophils # (A) 4.3 k/uL (1.3-7.7); Neutrophils % (A) 79 %; Platelet Count 171 k/uL (150-450); RBC 4.24 m/uL (3.80-5.40); RDW 14.4 % (11.5-15.5); WBC 5.5 k/uL (3.8-10.6)
[2020-04-15 14:56] LABS: ALT 47 U/L (4-34); AST 97 U/L (14-36); African American GFR (CKD) >90 (>60 ml/min/1.73 sqM); Albumin 4.2 g/dL (3.5-5.0); Alkaline Phosphatase 115 U/L (38-126); Anion Gap 14 mmol/L; Blood Urea Nitrogen 11 mg/dL (7-17); C Reactive Protein 53.1 mg/L (<10.0); Calcium 8.4 mg/dL (8.4-10.2); Carbon Dioxide 32 mmol/L (22-30); Chloride 85 mmol/L (98-107); Glucose 370 mg/dL (74-99); LDH 846 U/L (313-618); Magnesium 1.4 mg/dL (1.6-2.3); Non-African American GFR(CKD) >90 (>60 ml/min/1.73 sqM); Potassium 3.9 mmol/L (3.5-5.1); Sodium 131 mmol/L (137-145); Total Bilirubin 0.5 mg/dL (0.2-1.3); Total Protein 7.4 g/dL (6.3-8.2)
[2020-04-15 15:03] LABS: D-Dimer 0.27 mg/L FEU (<0.60); INR 0.9 (<1.2); Partial Thromboplastin Time 25.4 sec (22.0-30.0); Prothrombin Time 9.6 sec (9.0-12.0)
--- NOTE | 2020-04-15 15:14 | XR ---
EXAMINATION TYPE: XR chest 1V portable DATE OF EXAM: 04/15/2020 COMPARISON: Prior chest x-ray 07/15/2018 HISTORY: Cough, shortness of breath, suspected Covid pneumonia TECHNIQUE: Single frontal view of the chest is obtained. FINDINGS: Patient is rotated. Bilateral airspace disease is present. Lung volumes are low. No eviden t pneumothorax or pleural effusion. Heart size is likely stable accounting for differences in techniq ue. IMPRESSION: Findings may represent bilateral pneumonia, correlate. Edema and congestive heart failur e are within the differential.
[2020-04-15 16:07] LABS: Appearance,Urine Clear (Clear); Bilirubin,Urine Negative (Negative); Blood,Urine Negative (Negative); Color,Urine Yellow; Glucose,Urine (UA) 4+ (Negative); Leukocyte Esterase,Urine Negative (Negative); Mucus,Urine Rare /hpf; Nitrite,Urine Negative (Negative); PH, Urine 6.5 (5.0-8.0); Protein,Urine 2+ (Negative); RBC,Urine <1 /hpf (0-5); Specific Gravity,Urine 1.021 (1.001-1.035); Squamous Epithelial Cell,Urine <1 /hpf (0-4); Urobilinogen,Urine <2.0 mg/dL (<2.0); WBC,Urine 1 /hpf (0-5)
[2020-04-15] MEDS ORDERED: INSULIN REGULAR BOLUS (FROM DRIP BAG) IV ONE (16:12)
[2020-04-15] MEDS ORDERED: MAGNESIUM SULFATE-D5W PMX 1 GM in DEXTROSE/WATER 1 100ML.BAG IVPB ONE (16:17)
[2020-04-15] MEDS ORDERED: dexAMETHasone 2 MG TAB PO STA (16:21)
[2020-04-15 16:22] LABS: Ketones,Urine 2+ (Negative)
[2020-04-15] MEDS ORDERED: SODIUM CHLORIDE 0.9% 500 ML 500 ML IV ONE (16:22)
[2020-04-15] MEDS ORDERED: SODIUM CHLORIDE 0.9% 1,000 ML IV ONE (16:22)
[2020-04-15] MEDS: INSULIN REGULAR 100 UNIT in SODIUM CHLORIDE 0.9% 100 ML IV SCH (16:34)
[2020-04-15] MEDS: SODIUM CHLORIDE 0.9% 1,000 ML IV SCH ×4 (16:37→20:04)
[2020-04-15 17:41] LABS: Glucose,Whole Blood 320 mg/dL (75-99)
--- NOTE | 2020-04-15 17:50 | P.CNPUL ---
History of Present Illness Consult date: 04/15/20 Reason for consult: pneumonia Chief complaint: COVID 19 pneumonia History of present illness: 44-year-old female patient, morbidly obese a BMI of 54.9, also known to have COPD on home oxygen at 2-3 L per minute nasal cannula, obstructive sleep apnea diabetes mellitus and hypertension. The patient came into the ED with worsening shortness of breath and she was concerned about coronavirus, 19 infection. The patient has been having a congested cough with worsening shortness of breath over the past few days. She was also feeling weak and tired and fatigued. The patient had a white cell count of 5.5, she did have lymphopenia with a lymphocyte count of 0.6, the patient's LDH was 846, CRP was 53, d-dimer was at 0.27, and she checked positive for covid 19. The patient's chest x-ray showed bilateral pneumonia along with cardiomegaly. The patient's pulse ox is currently on 92% on 4 liters NC and the patient is currently afebrile with a T- max of 101.9 in the emergency department. She has been given 1.5 liters od NSS in the ED and she is on a maintenance of 200 cc/hr and she is on insulin drip at 13 U/hr for BS control. She was started on oral Decadron. Most recent blood sugar is at 358. Review of Systems Constitutional: Reports chills, Reports fatigue, Reports fever, Reports weakness Eyes: denies as per HPI, denies blurred vision, denies bulging eye, denies decreased vision, denies diplopia, denies discharge, denies dry eye, denies irritation, denies itching, denies pain, denies photophobia, denies loss of peripheral vision, denies loss of vision, denies tunnel vision/blind spots Ears: deny: decreased hearing, ear discharge, earache, tinnitus Ears, nose, mouth and throat: Reports as per HPI Breasts: absent: as per HPI, change in shape, gynecomastia, masses, nipple discharge, pain, skin changes, swelling Cardiovascular: Reports decreased exercise tolerance, Reports dyspnea on exertion Respiratory: Reports congestion, Reports cough, Reports dyspnea, Reports sleep apnea Gastrointestinal: Reports as per HPI Genitourinary: Reports as per HPI Menstruation: Reports as per HPI Musculoskeletal: Reports as per HPI Musculoskeletal: absent: ankle pain, ankle stiffness, ankle swelling Integumentary: Reports as per HPI Neurological: Reports as per HPI Psychiatric: Reports as per HPI Endocrine: Reports as per HPI Allergic/Immunologic: Reports as per HPI Past Medical History Past Medical History: Asthma, COPD, Diabetes Mellitus, Hyperlipidemia, Hypertension, Osteoarthritis (OA), Sleep Apnea/CPAP/BIPAP, Thyroid Disorder Additional Past Medical History / Comment(s): chronic venous insufficiency, neuropathy, migraines, IBS, fatty liver History of Any Multi-Drug Resistant Organisms: MRSA Date of last positivie culture/infection: 07/15/18 MDRO Source:: MRSA BUTTOCK Past Surgical History: Section, Cholecystectomy, Tubal Ligation Additional Past Surgical History / Comment(s): recent colonoscopy Past Anesthesia/Blood Transfusion Reactions: No Reported Reaction Past Psychological History: Bipolar, Depression Smoking Status: Never smoker Past Alcohol Use History: None Reported Past Drug Use History: None Reported - Past Family History Mother Family Medical History: Hypertension Father Family Medical History: Hyperlipidemia Medications and Allergies Home Medications Medication Instructions Recorded Confirmed Type hydrALAZINE HCL [Apresoline] 50 mg PO TID 10/07/13 04/15/20 History Atenolol/Chlorthalidone 1 tab PO QAM 06/25/15 04/15/20 History [Atenolol-Chlorthalidone 100-25] Divalproex [Depakote] 1,000 mg PO BID 06/25/15 04/15/20 History Gabapentin [Neurontin] 300 mg PO TID 06/25/15 04/15/20 History amLODIPine BESYLATE/BENAZEPRIL 1 cap PO QAM 06/26/15 04/15/20 History [Lotrel 10-40 MG] Cetirizine HCl 10 mg PO HS 10/21/15 04/15/20 History Multivitamins, Thera [Multivitamin 1 tab PO DAILY 10/21/15 04/15/20 History (formulary)] metFORMIN HCL [Glucophage] 1,000 mg PO BID-W/MEALS 10/21/15 04/15/20 History [place]-3 Fatty Acids/Fish Oil [Fish 2 tab PO BID 12/01/15 04/15/20 History Oil 1,000 mg Softgel] SUMAtriptan SUCCINATE [Imitrex] 100 mg PO BID PRN 05/17/16 04/15/20 History Fenofibrate [Lofibra] 160 mg PO HS 12/07/16 04/15/20 History Atorvastatin [Lipitor] 40 mg PO DAILY 07/15/18 04/15/20 History Cyclobenzaprine [Flexeril] 10 mg PO TID PRN 07/15/18 04/15/20 History Levothyroxine Sodium [Synthroid] 88 mcg PO DAILY 07/15/18 04/15/20 History Topiramate [Topamax] 50 mg PO BID 07/15/18 04/15/20 History Albuterol Sulfate [Ventolin HFA] 1 - 2 puff INHALATION RT-Q6H PRN 04/15/20 04/15/20 History Ascorbic Acid [Vitamin C] 1,000 mg PO DAILY 04/15/20 04/15/20 History Glucos Sul 2Kcl/MSM/Chond/C/Mn 2 cap PO DAILY 04/15/20 04/15/20 History [Glucosamine Chondroitin Cap] Ibuprofen 600 mg PO Q8H PRN 04/15/20 04/15/20 History Insulin Glargine,Hum.rec.anlog 60 unit SQ BID 04/15/20 04/15/20 History [Basaglar Kwikpen U-100] Insulin Glargine/Lixisenatide 15 units SQ DAILY 04/15/20 04/15/20 History [[place] 100 Unit-33 Mcg/ml Pen] Insulin Glargine/Lixisenatide See Protocol SQ DAILY PRN 04/15/20 04/15/20 History [[place] 100 Unit-33 Mcg/ml Pen] Insulin Lispro [Admelog] 20 unit SQ ACHS 04/15/20 04/15/20 History Insulin Lispro [Admelog] See Protocol SQ ACHS PRN 04/15/20 04/15/20 History Ipratropium-Albuterol Nebulize 3 ml INHALATION RT-QID PRN 04/15/20 04/15/20 History [Duoneb 0.5 mg-3 mg/3 ml Soln] Omeprazole 40 mg PO BID 04/15/20 04/15/20 History Sertraline [Zoloft] 100 mg PO DAILY 04/15/20 04/15/20 History traMADol HCL 50 mg PO Q8H PRN 04/15/20 04/15/20 History Allergies Allergy/AdvReac Type Severity Reaction Status Date / Time Iodinated Contrast Media Allergy Mild Rash/Hives Verified 04/15/20 15:23 [Iodinated Contrast Media - IV Dye] enalapril Allergy Rash/Hives Verified 04/15/20 15:23 levofloxacin Allergy Rash/Hives Verified 04/15/20 15:23 Physical Exam Vitals: Vital Signs Temp Pulse Resp BP Pulse Ox 04/15/20 15:55 100.6 F H 120 H 16 125/64 92 L 04/15/20 12:54 101.9 F H 134 H 28 H 144/79 97 Intake and Output 04/15/20 04/15/20 04/15/20 06:59 14:59 22:59 Other: Weight 136.078 kg morbidly obese, with a BMI of 54.9, calm comfortable not in acute respiratory distress. Not using excessive muscle breathing. She is currently on 4liters by nasal cannula. Head exam was generally normal. There was no scleral icterus or corneal arcus. Mucous membranes were moist. Neck was supple and without jugular venous distension, thyromegaly, or carotid bruits. Carotids were easily palpable bilaterally. There was no adenopathy.Mallampati class IV Lung sounds are diminished and overall breath sounds are quite distant and the examination is limited because of her morbid obesity. Cardiac exam revealed the PMI to be normally situated and sized. The rhythm was regular and no extrasystoles were noted during several minutes of auscultation. The first and second heart sounds were normal and physiologic splitting of the second heart sound was noted. There were no murmurs, rubs, clicks, or gallops. Abdominal exam revealed normal bowel sounds. The abdomen was soft, non-tender, and without masses, organomegaly, or appreciable enlargement of the abdominal aorta.Abdominal organs cannot be accurately palpated and the patient is no direct tenderness rebound tensile guarding. Examination of the extremities revealed easily palpable radial, femoral and pedal pulses. There was no cyanosis, clubbing or edema. Examination of the skin revealed no evidence of significant rashes, suspicious appearing nevi or other concerning lesions. Neurologically, the patient is awake and alert and the patient does not have any focal neurological deficit. Cranial nerves are essentially intact. Results - Laboratory Findings CBC and BMP: 04/15/20 13:30 04/15/20 13:30 PT/INR, D-dimer PT 9.6 sec (9.0-12.0) 04/15/20 13:30 INR 0.9 (<1.2) 04/15/20 13:30 D-Dimer 0.27 mg/L FEU (<0.60) 04/15/20 13:30 Abnormal lab findings: Abnormal Labs 04/15/20 04/15/20 04/15/20 13:30 13:30 13:30 Lymphocytes # 0.6 L Sodium 131 L Chloride 85 L Carbon Dioxide 32 H Glucose 370 H POC Glucose (mg/dL) Magnesium 1.4 L AST 97 H ALT 47 H Lactate Dehydrogenase 846 H C-Reactive Protein 53.1 H Urine Protein Urine Glucose (UA) Urine Ketones Urine Mucus Coronavirus (PCR) Detected A 04/15/20 04/15/20 14:20 15:54 Lymphocytes # Sodium Chloride Carbon Dioxide Glucose POC Glucose (mg/dL) 358 H Magnesium AST ALT Lactate Dehydrogenase C-Reactive Protein Urine Protein 2+ H Urine Glucose (UA) 4+ H Urine Ketones 2+ H Urine Mucus Rare H Coronavirus (PCR) - Diagnostic Findings Chest x-ray: image reviewed Assessment and Plan Plan: 1 acute Covid 19 related pneumonia with bilateral pulmonary infiltrates and worsening shortness of breath. Symptoms started few days back and the patient comes in with fever and worsening dyspnea in addition to constitutions symptoms. 2 acute on top of chronic hypoxic respiratory failure, currently on 4 L of oxygen by nasal cannula 3 chronic dyspnea 4 morbid obesity with a BMI of 54.9 along with component of obstructive sleep apnea and obesity hypoventilation syndrome 5 chronic metabolic alkalosis probably related to chronic hypercapnic respiratory failure 6 diabetes mellitus, insulin-dependent, with quite elevated blood sugars and currently the patient on insulin drip for blood sugar control. 7 hypertension 8 hyperlipidemia 9 hypothyroidism 10 chronic venous insufficiency 11 peripheral neuropathy 12 migraines 13. Irritable bowel syndrome 14 fatty liver related to obesity plan Continue IV fluids Insulin drip for blood sugar control Decadron 6 mg by mouth daily Start the patient on Remdesivir per protocol add supplements including vitamin C, vitamin D, melatonin and Pepcid and zinc Resume home medications we'll continue to follow
[2020-04-15] MEDS ORDERED: REMDESIVIR (EUA) 200 MG in SODIUM CHLORIDE 0.9% 250 ML IVPB ONE (18:00)
[2020-04-15 18:53] LABS: Glucose,Whole Blood 283 mg/dL (75-99)
[2020-04-15 20:03] LABS: Glucose,Whole Blood 240 mg/dL (75-99)
[2020-04-15] MEDS: ENOXAPARIN 40 MG/0.4 ML SYRINGE SQ SCH (20:04)
[2020-04-15] MEDS: traMADol 50 MG TAB PO PRN (20:04)
[2020-04-15] MEDS: CYCLOBENZAPRINE 10 MG TAB PO PRN (20:05)
[2020-04-15] MEDS: metFORMIN 500 MG TAB PO SCH (20:05)
[2020-04-15] MEDS: FENOFIBRATE 160 MG TAB PO SCH (20:16)
[2020-04-15] MEDS: DIVALPROEX 500 MG TABLET.DR PO SCH (20:17)
[2020-04-15] MEDS: TOPIRAMATE 25 MG TAB PO SCH (20:17)
[2020-04-15 21:30] LABS: Glucose,Whole Blood 228 mg/dL (75-99)
[2020-04-15 22:19] LABS: African American GFR (CKD) >90 (>60 ml/min/1.73 sqM); Anion Gap 10 mmol/L; Blood Urea Nitrogen 10 mg/dL (7-17); Carbon Dioxide 34 mmol/L (22-30); Chloride 89 mmol/L (98-107); Glucose 242 mg/dL (74-99); Non-African American GFR(CKD) >90 (>60 ml/min/1.73 sqM); Phosphorus 2.5 mg/dL (2.5-4.5); Potassium 3.9 mmol/L (3.5-5.1); Sodium 133 mmol/L (137-145)
[2020-04-15 23:39] LABS: Glucose,Whole Blood 339 mg/dL (75-99)
[2020-04-16] MEDS: GABAPENTIN 300 MG CAP PO SCH ×4 (00:09→21:36)
[2020-04-16 00:25] LABS: Glucose,Whole Blood 347 mg/dL (75-99)
[2020-04-16] MEDS: INSULIN REGULAR 100 UNIT in SODIUM CHLORIDE 0.9% 100 ML IV SCH ×2 (00:25→04:12)
[2020-04-16 00:53] LABS: African American GFR (CKD) >90 (>60 ml/min/1.73 sqM); Anion Gap 11 mmol/L; Blood Urea Nitrogen 10 mg/dL (7-17); Carbon Dioxide 34 mmol/L (22-30); Chloride 87 mmol/L (98-107); Glucose 337 mg/dL (74-99); Non-African American GFR(CKD) >90 (>60 ml/min/1.73 sqM); Phosphorus 2.7 mg/dL (2.5-4.5); Potassium 3.4 mmol/L (3.5-5.1); Sodium 132 mmol/L (137-145)
[2020-04-16 01:25] LABS: Glucose,Whole Blood 296 mg/dL (75-99)
[2020-04-16 02:20] LABS: Glucose,Whole Blood 272 mg/dL (75-99)
[2020-04-16 03:28] LABS: Glucose,Whole Blood 235 mg/dL (75-99)
[2020-04-16] MEDS: SODIUM CHLORIDE 0.9% 1,000 ML IV SCH ×6 (04:14→14:41)
[2020-04-16 04:27] LABS: Glucose,Whole Blood 206 mg/dL (75-99)
[2020-04-16 04:41] LABS: Ferritin 282.4 ng/mL (10.0-291.0)
[2020-04-16 05:11] LABS: Glucose,Whole Blood 177 mg/dL (75-99)
[2020-04-16] MEDS: LEVOTHYROXINE 88 MCG TAB PO SCH (06:14)
[2020-04-16 06:17] LABS: Glucose,Whole Blood 144 mg/dL (75-99)
[2020-04-16 06:40] LABS: Basophils # (A) 0.1 k/uL (0-0.2); Basophils % (A) 1 %; Eosinophils % (A) 0 %; HCT 35.3 % (34.0-46.0); Lymphocytes # (A) 0.9 k/uL (1.0-4.8); Lymphocytes % (A) 20 %; MCV 85.5 fL (80.0-100.0); Mean Platelet Volume 8.1; Monocytes # (A) 0.5 k/uL (0-1.0); Monocytes % (A) 10 %; Neutrophils # (A) 2.9 k/uL (1.3-7.7); Neutrophils % (A) 66 %; Platelet Count 166 k/uL (150-450); RBC 4.14 m/uL (3.80-5.40); RDW 14.5 % (11.5-15.5); WBC 4.4 k/uL (3.8-10.6)
[2020-04-16 06:50] LABS: Phosphorus 2.3 mg/dL (2.5-4.5)
[2020-04-16 06:52] LABS: ALT 40 U/L (4-34); AST 69 U/L (14-36); African American GFR (CKD) >90 (>60 ml/min/1.73 sqM); Albumin 3.8 g/dL (3.5-5.0); Alkaline Phosphatase 90 U/L (38-126); Anion Gap 6 mmol/L; Blood Urea Nitrogen 8 mg/dL (7-17); C Reactive Protein 62.6 mg/L (<10.0); Carbon Dioxide 39 mmol/L (22-30); Chloride 91 mmol/L (98-107); Glucose 144 mg/dL (74-99); LDH 767 U/L (313-618); Magnesium 1.7 mg/dL (1.6-2.3); Non-African American GFR(CKD) >90 (>60 ml/min/1.73 sqM); Potassium 3.3 mmol/L (3.5-5.1); Sodium 136 mmol/L (137-145); Total Bilirubin 0.4 mg/dL (0.2-1.3)
[2020-04-16] MEDS ORDERED: D5-0.45% NACL WITH KCL 20MEQ/L 1,000 ML IV SCH (07:30)
[2020-04-16 07:44] LABS: Glucose,Whole Blood 163 mg/dL (75-99)
[2020-04-16] MEDS ORDERED: Potassium Replacement Protocol 1 EACH MISC MISCELLANE PRN ×2 (07:52→08:56)
[2020-04-16] MEDS ORDERED: Magnesium Replacement Protocol 1 EACH MISC MISCELLANE PRN (07:53)
[2020-04-16] MEDS ORDERED: Phosphorus Replacement Protoco 1 EACH MISC MISCELLANE PRN (07:53)
[2020-04-16] MEDS ORDERED: INSULIN DETEMIR (LEVEMIR) 100 UNIT/ML SYR SQ SCH ×3 (08:00→21:00)
[2020-04-16] MEDS: MAGNESIUM SULFATE-D5W PMX 1 GM in DEXTROSE/WATER 1 100ML.BAG IVPB SCH ×2 (08:40→12:45)
[2020-04-16] MEDS: ENOXAPARIN 40 MG/0.4 ML SYRINGE SQ SCH (08:41)
[2020-04-16] MEDS: TOPIRAMATE 25 MG TAB PO SCH ×2 (08:41→21:36)
[2020-04-16] MEDS: ASCORBIC ACID 500 MG TAB PO SCH (08:41)
[2020-04-16] MEDS: CYCLOBENZAPRINE 10 MG TAB PO PRN ×2 (08:41→17:33)
[2020-04-16] MEDS: amLODIPine 10 MG TAB PO SCH (08:41)
[2020-04-16] MEDS: DIVALPROEX 500 MG TABLET.DR PO SCH ×2 (08:42→21:35)
[2020-04-16] MEDS: atenoloL 50 MG TAB PO SCH (08:42)
[2020-04-16] MEDS: traMADol 50 MG TAB PO PRN (08:43)
[2020-04-16] MEDS: metFORMIN 500 MG TAB PO SCH ×2 (08:43→17:34)
[2020-04-16] MEDS: lisinopriL 20 MG TAB PO SCH (08:44)
[2020-04-16] MEDS: dexAMETHasone 2 MG TAB PO SCH (08:44)
[2020-04-16] MEDS: POTASSIUM CHLORIDE ER 20 MEQ TAB.ER PO SCH (08:44)
[2020-04-16] MEDS: SERTRALINE 100 MG TAB PO SCH (08:44)
[2020-04-16] MEDS: ATORVASTATIN 40 MG TAB PO SCH (08:44)
[2020-04-16 08:51] LABS: Glucose,Whole Blood 241 mg/dL (75-99)
[2020-04-16] MEDS: CHLORTHALIDONE 25 MG TAB PO SCH (09:00)
[2020-04-16] MEDS: INSULIN ASPART (NovoLOG) 100 UNIT/ML VIAL SQ SCH ×4 (09:13→21:37)
[2020-04-16 09:34] LABS: Ferritin 272.6 ng/mL (10.0-291.0)
[2020-04-16 12:18] LABS: Glucose,Whole Blood 362 mg/dL (75-99)
--- NOTE | 2020-04-16 12:43 | P.HPIM ---
History of Present Illness H&P Date: 04/16/20 Chief Complaint: Worsening shortness This is a 44-year-old female with past medical history of chronic intermittent asthma, COPD, diabetes mellitus, hyperlipidemia, hypertension, osteoarthritis, obstructive sleep apneawears CPAP, chronic hypoxic respiratory failure-wears 2-3 L nasal cannula at home hypothyroidism, morbid obesity, bipolar, depression, former nicotine dependence, history of MRSA of buttock ulcer presented to the ER with worsening shortness of breath, concerned about possibly having Covid infection. The patient reports that she had been feeling quite fatigued with congestion,mostley nonproductive cough in addition to worsening shortness of breath. Denies chest pain, palpitations, nausea or vomiting. On admission patient was febrile, T-max 101.9, tachycardic, heart rate in the 130s, respiratory rate up to 28, maintaining O2 sats of mid to high 90s on 3 L nasal cannula, blood pressure stable. WBC 4.4, hemoglobin 12, platelets 166, lymphocytes 0.9., Sodium 132, potassium 3.4, chloride 87, carbon dioxide 34, anion gap 11, BUN 10, creatinine 0.59, blood sugar 337. Chest x-ray reportingany bilateral pneumonia, cardiomegaly. Covid test reported positive. LDH was 846, CRP 53, d-dimer 0.27, ferritin 282.4. Pro-calcitonin mildly elevated 0.12 . T bili within normal limits, mildly elevated AST/ALT. UA reported negative leukocytes negative nitrates 1 WBC +2 ketones plus for glucose +2 protein.Positive acetone. Received 1.5 L of fluid resuscitation, then placed on maintenance IV along with insulin drip. Anticoagulated on Lovenox. Decadron ,Remdesivir initiated. Blood sugars currently 240, labs pending. Review of Systems ROS Statement: Those systems with pertinent positive or pertinent negative responses have been documented in the HPI. ROS Other: All systems not noted in ROS Statement are negative. Past Medical History Past Medical History: Asthma, COPD, Diabetes Mellitus, Hyperlipidemia, Hypertension, Osteoarthritis (OA), Sleep Apnea/CPAP/BIPAP, Thyroid Disorder Additional Past Medical History / Comment(s): chronic venous insufficiency, neuropathy, migraines, IBS, fatty liver History of Any Multi-Drug Resistant Organisms: MRSA Date of last positivie culture/infection: 07/15/18 MDRO Source:: MRSA BUTTOCK Past Surgical History: Section, Cholecystectomy, Tubal Ligation Additional Past Surgical History / Comment(s): recent colonoscopy Past Anesthesia/Blood Transfusion Reactions: No Reported Reaction Past Psychological History: Bipolar, Depression Additional Psychological History / Comment(s): radha adult daughter lives with her. Does not work outside of the home. No international travel. No experience. no animals in the home. No current Smoking Status: Former smoker Past Alcohol Use History: None Reported Additional Past Alcohol Use History / Comment(s): SMOKED UNTIL 2013 FOR 22 YRS, PPD 3 PPD; quit drinking at same time as stopped smoking Past Drug Use History: None Reported - Past Family History Mother Family Medical History: Hypertension Father Family Medical History: Hyperlipidemia Medications and Allergies Home Medications Medication Instructions Recorded Confirmed Type hydrALAZINE HCL [Apresoline] 50 mg PO TID 10/07/13 04/15/20 History Atenolol/Chlorthalidone 1 tab PO QAM 06/25/15 04/15/20 History [Atenolol-Chlorthalidone 100-25] Divalproex [Depakote] 1,000 mg PO BID 06/25/15 04/15/20 History Gabapentin [Neurontin] 300 mg PO TID 06/25/15 04/15/20 History amLODIPine BESYLATE/BENAZEPRIL 1 cap PO QAM 06/26/15 04/15/20 History [Lotrel 10-40 MG] Cetirizine HCl 10 mg PO HS 10/21/15 04/15/20 History Multivitamins, Thera [Multivitamin 1 tab PO DAILY 10/21/15 04/15/20 History (formulary)] metFORMIN HCL [Glucophage] 1,000 mg PO BID-W/MEALS 10/21/15 04/15/20 History [place]-3 Fatty Acids/Fish Oil [Fish 2 tab PO BID 12/01/15 04/15/20 History Oil 1,000 mg Softgel] SUMAtriptan SUCCINATE [Imitrex] 100 mg PO BID PRN 05/17/16 04/15/20 History Fenofibrate [Lofibra] 160 mg PO HS 12/07/16 04/15/20 History Atorvastatin [Lipitor] 40 mg PO DAILY 07/15/18 04/15/20 History Cyclobenzaprine [Flexeril] 10 mg PO TID PRN 07/15/18 04/15/20 History Levothyroxine Sodium [Synthroid] 88 mcg PO DAILY 07/15/18 04/15/20 History Topiramate [Topamax] 50 mg PO BID 07/15/18 04/15/20 History Albuterol Sulfate [Ventolin HFA] 1 - 2 puff INHALATION RT-Q6H PRN 04/15/20 04/15/20 History Ascorbic Acid [Vitamin C] 1,000 mg PO DAILY 04/15/20 04/15/20 History Glucos Sul 2Kcl/MSM/Chond/C/Mn 2 cap PO DAILY 04/15/20 04/15/20 History [Glucosamine Chondroitin Cap] Ibuprofen 600 mg PO Q8H PRN 04/15/20 04/15/20 History Insulin Glargine,Hum.rec.anlog 60 unit SQ BID 04/15/20 04/15/20 History [Basaglar Kwikpen U-100] Insulin Lispro [Admelog] 15 unit SQ AC-TID 04/15/20 04/16/20 History Insulin Lispro [Admelog] See Protocol SQ ACHS PRN 04/15/20 04/15/20 History Ipratropium-Albuterol Nebulize 3 ml INHALATION RT-QID PRN 04/15/20 04/15/20 History [Duoneb 0.5 mg-3 mg/3 ml Soln] Omeprazole 40 mg PO BID 04/15/20 04/15/20 History Sertraline [Zoloft] 100 mg PO DAILY 04/15/20 04/15/20 History traMADol HCL 50 mg PO Q8H PRN 04/15/20 04/15/20 History Allergies Allergy/AdvReac Type Severity Reaction Status Date / Time Iodinated Contrast Media Allergy Mild Rash/Hives Verified 04/15/20 15:23 [Iodinated Contrast Media - IV Dye] enalapril Allergy Rash/Hives Verified 04/15/20 15:23 levofloxacin Allergy Rash/Hives Verified 04/15/20 15:23 Physical Exam Vitals: Vital Signs Temp Pulse Pulse Resp BP BP Pulse Ox 04/16/20 08:50 110 H 20 04/16/20 04:00 98.5 F 110 H 20 144/74 90 L 04/15/20 23:00 98.4 F 116 H 22 141/81 91 L 04/15/20 19:00 98.9 F 116 H 20 132/78 92 L 04/15/20 18:59 119 H 18 160/98 92 L 04/15/20 17:13 120 H 16 118/79 92 L 04/15/20 15:55 100.6 F H 120 H 16 125/64 92 L 04/15/20 12:54 101.9 F H 134 H 28 H 144/79 97 Intake and Output 04/15/20 04/16/20 04/16/20 22:59 06:59 14:59 Intake Total 523.908 141.145 400 Output Total 200 Balance 523.908 -58.855 400 Intake: Intake, IV Titration 73.908 141.145 400 Amount Insulin Regular 100 unit 73.908 141.145 In Sodium Chloride 0.9% 100 ml @ 0.1 UNITS/KG/HR 13.744 mls/hr IV .Q7H21M [facility] Rx#:[id number] Magnesium Sulfate-D5w Pmx 200 1 gm In Dextrose/Water 1 100ml.bag @ 100 mls/hr IVPB Q1H [facility] Rx#: [id number] Sodium Chloride 0.9% 1, 200 000 ml @ 200 mls/hr IV . Q5H [facility] Rx#:[id number] Oral 450 Output: Urine 200 Other: Voiding Method Indwelling Catheter Indwelling Catheter # Bowel Movements 1 Weight 141.2 kg PHYSICAL EXAM: VITAL SIGNS: As above GENERAL: Obese, Sitting up in bed, no acute distress HEENT: Conjunctivae normal. eyes normal. NECK: Supple, unable to evaluate JVD. CARDIOVASCULAR: S1, S2 regular.No murmur RESPIRATION: Breath sounds diminished in the bases. No rhonchi or crackles. ABDOMEN: Soft, nontender . No guarding. no masses palpable. Bowel sounds heard. LEGS: Mild nonpitting edema. no calf tenderness. PSYCHIATRY: Alert and oriented X3, mood and affect normal. NERVOUS SYSTEM: Cranial N 2-12 grossly normal. Moves all 4 limbs. Diffuse weakness No focal deficits. Strength and sensation grossly intact.. Skin: Mid coccyx ulcer, Refer to nursing documentation/pictures for specific size/depth, no rash. Lymphatic system. No LN neck axilla. Results CBC & Chem 7: 04/16/20 06:20 04/16/20 06:20 Labs: Abnormal Lab Results - Last 24 Hours (Table) 04/15/20 04/15/20 04/15/20 Range/Units 13:30 13:30 13:30 Lymphocytes # 0.6 L (1.0-4.8) k/uL Sodium 131 L (137-145) mmol/L Potassium (3.5-5.1) mmol/L Chloride 85 L (98-107) mmol/L Carbon Dioxide 32 H (22-30) mmol/L Creatinine (0.52-1.04) mg/dL Glucose 370 H (74-99) mg/dL POC Glucose (mg/dL) (75-99) mg/dL Calcium (8.4-10.2) mg/dL Phosphorus (2.5-4.5) mg/dL Magnesium 1.4 L (1.6-2.3) mg/dL AST 97 H (14-36) U/L ALT 47 H (4-34) U/L Lactate Dehydrogenase 846 H (313-618) U/L C-Reactive Protein 53.1 H (<10.0) mg/L Procalcitonin 0.12 H (0.02-0.09) ng/mL Urine Protein (Negative) Urine Glucose (UA) (Negative) Urine Ketones (Negative) Urine Mucus (None) /hpf Coronavirus (PCR) (Not Detectd) 04/15/20 04/15/20 04/15/20 Range/Units 13:30 14:20 15:54 Lymphocytes # (1.0-4.8) k/uL Sodium (137-145) mmol/L Potassium (3.5-5.1) mmol/L Chloride (98-107) mmol/L Carbon Dioxide (22-30) mmol/L Creatinine (0.52-1.04) mg/dL Glucose (74-99) mg/dL POC Glucose (mg/dL) 358 H (75-99) mg/dL Calcium (8.4-10.2) mg/dL Phosphorus (2.5-4.5) mg/dL Magnesium (1.6-2.3) mg/dL AST (14-36) U/L ALT (4-34) U/L Lactate Dehydrogenase (313-618) U/L C-Reactive Protein (<10.0) mg/L Procalcitonin (0.02-0.09) ng/mL Urine Protein 2+ H (Negative) Urine Glucose (UA) 4+ H (Negative) Urine Ketones 2+ H (Negative) Urine Mucus Rare H (None) /hpf Coronavirus (PCR) Detected A (Not Detectd) 04/15/20 04/15/20 04/15/20 Range/Units 17:40 18:52 20:02 Lymphocytes # (1.0-4.8) k/uL Sodium (137-145) mmol/L Potassium (3.5-5.1) mmol/L Chloride (98-107) mmol/L Carbon Dioxide (22-30) mmol/L Creatinine (0.52-1.04) mg/dL Glucose (74-99) mg/dL POC Glucose (mg/dL) 320 H 283 H 240 H (75-99) mg/dL Calcium (8.4-10.2) mg/dL Phosphorus (2.5-4.5) mg/dL Magnesium (1.6-2.3) mg/dL AST (14-36) U/L ALT (4-34) U/L Lactate Dehydrogenase (313-618) U/L C-Reactive Protein (<10.0) mg/L Procalcitonin (0.02-0.09) ng/mL Urine Protein (Negative) Urine Glucose (UA) (Negative) Urine Ketones (Negative) Urine Mucus (None) /hpf Coronavirus (PCR) (Not Detectd) 04/15/20 04/15/20 04/15/20 Range/Units 20:55 21:28 23:36 Lymphocytes # (1.0-4.8) k/uL Sodium 133 L (137-145) mmol/L Potassium (3.5-5.1) mmol/L Chloride 89 L (98-107) mmol/L Carbon Dioxide 34 H (22-30) mmol/L Creatinine 0.50 L (0.52-1.04) mg/dL Glucose 242 H (74-99) mg/dL POC Glucose (mg/dL) 228 H 339 H (75-99) mg/dL Calcium (8.4-10.2) mg/dL Phosphorus (2.5-4.5) mg/dL Magnesium (1.6-2.3) mg/dL AST (14-36) U/L ALT (4-34) U/L Lactate Dehydrogenase (313-618) U/L C-Reactive Protein (<10.0) mg/L Procalcitonin (0.02-0.09) ng/mL Urine Protein (Negative) Urine Glucose (UA) (Negative) Urine Ketones (Negative) Urine Mucus (None) /hpf Coronavirus (PCR) (Not Detectd) 04/16/20 04/16/20 04/16/20 Range/Units 00:23 00:23 01:24 Lymphocytes # (1.0-4.8) k/uL Sodium 132 L (137-145) mmol/L Potassium 3.4 L (3.5-5.1) mmol/L Chloride 87 L (98-107) mmol/L Carbon Dioxide 34 H (22-30) mmol/L Creatinine (0.52-1.04) mg/dL Glucose 337 H (74-99) mg/dL POC Glucose (mg/dL) 347 H 296 H (75-99) mg/dL Calcium (8.4-10.2) mg/dL Phosphorus (2.5-4.5) mg/dL Magnesium (1.6-2.3) mg/dL AST (14-36) U/L ALT (4-34) U/L Lactate Dehydrogenase (313-618) U/L C-Reactive Protein (<10.0) mg/L Procalcitonin (0.02-0.09) ng/mL Urine Protein (Negative) Urine Glucose (UA) (Negative) Urine Ketones (Negative) Urine Mucus (None) /hpf Coronavirus (PCR) (Not Detectd) 04/16/20 04/16/20 04/16/20 Range/Units 02:00 03:04 04:15 Lymphocytes # (1.0-4.8) k/uL Sodium (137-145) mmol/L Potassium (3.5-5.1) mmol/L Chloride (98-107) mmol/L Carbon Dioxide (22-30) mmol/L Creatinine (0.52-1.04) mg/dL Glucose (74-99) mg/dL POC Glucose (mg/dL) 272 H 235 H 206 H (75-99) mg/dL Calcium (8.4-10.2) mg/dL Phosphorus (2.5-4.5) mg/dL Magnesium (1.6-2.3) mg/dL AST (14-36) U/L ALT (4-34) U/L Lactate Dehydrogenase (313-618) U/L C-Reactive Protein (<10.0) mg/L Procalcitonin (0.02-0.09) ng/mL Urine Protein (Negative) Urine Glucose (UA) (Negative) Urine Ketones (Negative) Urine Mucus (None) /hpf Coronavirus (PCR) (Not Detectd) 04/16/20 04/16/20 04/16/20 Range/Units 05:09 06:16 06:20 Lymphocytes # 0.9 L (1.0-4.8) k/uL Sodium (137-145) mmol/L Potassium (3.5-5.1) mmol/L Chloride (98-107) mmol/L Carbon Dioxide (22-30) mmol/L Creatinine (0.52-1.04) mg/dL Glucose (74-99) mg/dL POC Glucose (mg/dL) 177 H 144 H (75-99) mg/dL Calcium (8.4-10.2) mg/dL Phosphorus (2.5-4.5) mg/dL Magnesium (1.6-2.3) mg/dL AST (14-36) U/L ALT (4-34) U/L Lactate Dehydrogenase (313-618) U/L C-Reactive Protein (<10.0) mg/L Procalcitonin (0.02-0.09) ng/mL Urine Protein (Negative) Urine Glucose (UA) (Negative) Urine Ketones (Negative) Urine Mucus (None) /hpf Coronavirus (PCR) (Not Detectd) 04/16/20 04/16/20 04/16/20 Range/Units 06:20 06:20 07:24 Lymphocytes # (1.0-4.8) k/uL Sodium 136 L (137-145) mmol/L Potassium 3.3 L (3.5-5.1) mmol/L Chloride 91 L (98-107) mmol/L Carbon Dioxide 39 H (22-30) mmol/L Creatinine (0.52-1.04) mg/dL Glucose 144 H (74-99) mg/dL POC Glucose (mg/dL) 163 H (75-99) mg/dL Calcium 8.0 L (8.4-10.2) mg/dL Phosphorus 2.3 L (2.5-4.5) mg/dL Magnesium (1.6-2.3) mg/dL AST 69 H (14-36) U/L ALT 40 H (4-34) U/L Lactate Dehydrogenase 767 H (313-618) U/L C-Reactive Protein 62.6 H (<10.0) mg/L Procalcitonin (0.02-0.09) ng/mL Urine Protein (Negative) Urine Glucose (UA) (Negative) Urine Ketones (Negative) Urine Mucus (None) /hpf Coronavirus (PCR) (Not Detectd) 04/16/20 Range/Units 08:50 Lymphocytes # (1.0-4.8) k/uL Sodium (137-145) mmol/L Potassium (3.5-5.1) mmol/L Chloride (98-107) mmol/L Carbon Dioxide (22-30) mmol/L Creatinine (0.52-1.04) mg/dL Glucose (74-99) mg/dL POC Glucose (mg/dL) 241 H (75-99) mg/dL Calcium (8.4-10.2) mg/dL Phosphorus (2.5-4.5) mg/dL Magnesium (1.6-2.3) mg/dL AST (14-36) U/L ALT (4-34) U/L Lactate Dehydrogenase (313-618) U/L C-Reactive Protein (<10.0) mg/L Procalcitonin (0.02-0.09) ng/mL Urine Protein (Negative) Urine Glucose (UA) (Negative) Urine Ketones (Negative) Urine Mucus (None) /hpf Coronavirus (PCR) (Not Detectd) Assessment and Plan Assessment: Possible sepsis secondary to Acute Covid pneumonia Acute on chronic hypoxic hypercapnic respiratory failure DKA Mid coccyx ulcer, chronic, patient states uses metahoney , staging/size-refer to nursing documentation. History of MRSA of buttock Hypokalemia Hypomagnesemia COPD Chronic intermittent asthma Hypertension Hyperlipidemia Osteoarthritis Obstructive sleep apnea, wears CPAP Hypothyroidism Chronic venous insufficiency Bipolar Depression Former nicotine dependence Morbid obesity, BMI 56.9 Plan: Continue on current medication regime ,monitoring and symptomatic treatment. Patient has been transitioned off insulin drip/DKA protocol, long- acting insulin dose increased. Close monitoring of Accu-Cheks. Hemoglobin A1c ordered. Continue on Remdesivir, Decadron, vitamin C, vitamin D, zinc IV fluid hydration. DVT prophylaxis with Lovenox. Electrolyte replacement protocols in place. Follow closely with pulmonary. PT/OT. Prognosis guarded given multiple complex medical issues. The impression and plan of care has been dictated as directed. : I performed a history and examination of this patient, discussed the same with the dictator. I agree with the dictator's note ,documented as a scribe. Any additional findings or plans will be noted.
[2020-04-16] MEDS: CHOLECALCIFEROL 1,000 UNIT TAB PO SCH (12:45)
[2020-04-16] MEDS: ZINC SULFATE 220 MG CAP PO SCH (12:45)
[2020-04-16 12:53] VITALS: BMI 56.9
[2020-04-16] MEDS ORDERED: TIOTROPIUM 18 MCG/PUFF INHALER INHALATION PRN (12:53)
[2020-04-16] MEDS ORDERED: SUMAtriptan succinate 50 MG TAB PO PRN (12:58)
--- NOTE | 2020-04-16 13:00 | P.CONS ---
History of Present Illness - Reason for Consult Consult date: 04/16/20 wound care - History of Present Illness this is a 44-year-old patient of Dr. Mcrae been seen by the wound care clinic for a nonhealing ulceration to the sacrum. Patient states that she's had the ulceration for a few months and has been utilizing honey gel. Patient states that the ulceration was healed about a week ago however she noticed drainage when she went. Patient's past medical history significant for chronic venous insufficiency, mononeuropathy, diabetes mellitus, hyperlipidemia, hypertension, COPD, asthma Review of Systems Review Of Systems: Constitutional: No fever, no chills, no night sweats. No weight change. No weakness, fatigue or lethargy. No daytime sleepiness. Integumentary:reports wounds, no lesions. No rash or pruritus. No unusual bruising. No change in hair or nails. Past Medical History Past Medical History: Asthma, COPD, Diabetes Mellitus, Hyperlipidemia, Hypertension, Osteoarthritis (OA), Sleep Apnea/CPAP/BIPAP, Thyroid Disorder Additional Past Medical History / Comment(s): chronic venous insufficiency, neuropathy, migraines, IBS, fatty liver History of Any Multi-Drug Resistant Organisms: MRSA Year Discovered:: 07/15/18 MDRO Source:: MRSA BUTTOCK Past Surgical History: Section, Cholecystectomy, Tubal Ligation Additional Past Surgical History / Comment(s): recent colonoscopy Past Anesthesia/Blood Transfusion Reactions: No Reported Reaction Past Psychological History: Bipolar, Depression Additional Psychological History / Comment(s): radha adult daughter lives with her. Does not work outside of the home. No international travel. No experience. no animals in the home. No current Smoking Status: Former smoker Past Alcohol Use History: None Reported Additional Past Alcohol Use History / Comment(s): SMOKED UNTIL 2013 FOR 22 YRS, PPD 3 PPD; quit drinking at same time as stopped smoking Past Drug Use History: None Reported - Past Family History Mother Family Medical History: Hypertension Father Family Medical History: Hyperlipidemia Medications and Allergies Home Medications Medication Instructions Recorded Confirmed Type hydrALAZINE HCL [Apresoline] 50 mg PO TID 10/07/13 04/15/20 History Atenolol/Chlorthalidone 1 tab PO QAM 06/25/15 04/15/20 History [Atenolol-Chlorthalidone 100-25] Divalproex [Depakote] 1,000 mg PO BID 06/25/15 04/15/20 History Gabapentin [Neurontin] 300 mg PO TID 06/25/15 04/15/20 History amLODIPine BESYLATE/BENAZEPRIL 1 cap PO QAM 06/26/15 04/15/20 History [Lotrel 10-40 MG] Cetirizine HCl 10 mg PO HS 10/21/15 04/15/20 History Multivitamins, Thera [Multivitamin 1 tab PO DAILY 10/21/15 04/15/20 History (formulary)] metFORMIN HCL [Glucophage] 1,000 mg PO BID-W/MEALS 10/21/15 04/15/20 History Clay-3 Fatty Acids/Fish Oil [Fish 2 tab PO BID 12/01/15 04/15/20 History Oil 1,000 mg Softgel] SUMAtriptan SUCCINATE [Imitrex] 100 mg PO BID PRN 05/17/16 04/15/20 History Fenofibrate [Lofibra] 160 mg PO HS 12/07/16 04/15/20 History Atorvastatin [Lipitor] 40 mg PO DAILY 07/15/18 04/15/20 History Cyclobenzaprine [Flexeril] 10 mg PO TID PRN 07/15/18 04/15/20 History Levothyroxine Sodium [Synthroid] 88 mcg PO DAILY 07/15/18 04/15/20 History Topiramate [Topamax] 50 mg PO BID 07/15/18 04/15/20 History Albuterol Sulfate [Ventolin HFA] 1 - 2 puff INHALATION RT-Q6H PRN 04/15/20 04/15/20 History Ascorbic Acid [Vitamin C] 1,000 mg PO DAILY 04/15/20 04/15/20 History Glucos Sul 2Kcl/MSM/Chond/C/Mn 2 cap PO DAILY 04/15/20 04/15/20 History [Glucosamine Chondroitin Cap] Ibuprofen 600 mg PO Q8H PRN 04/15/20 04/15/20 History Insulin Glargine,Hum.rec.anlog 60 unit SQ BID 04/15/20 04/15/20 History [Basaglar Kwikpen U-100] Insulin Lispro [Admelog] 15 unit SQ AC-TID 04/15/20 04/16/20 History Insulin Lispro [Admelog] See Protocol SQ ACHS PRN 04/15/20 04/15/20 History Ipratropium-Albuterol Nebulize 3 ml INHALATION RT-QID PRN 04/15/20 04/15/20 History [Duoneb 0.5 mg-3 mg/3 ml Soln] Omeprazole 40 mg PO BID 04/15/20 04/15/20 History Sertraline [Zoloft] 100 mg PO DAILY 04/15/20 04/15/20 History traMADol HCL 50 mg PO Q8H PRN 04/15/20 04/15/20 History Allergies Allergy/AdvReac Type Severity Reaction Status Date / Time Iodinated Contrast Media Allergy Mild Rash/Hives Verified 04/15/20 15:23 [Iodinated Contrast Media - IV Dye] enalapril Allergy Rash/Hives Verified 04/15/20 15:23 levofloxacin Allergy Rash/Hives Verified 04/15/20 15:23 Physical Exam Vitals: Vital Signs Temp Pulse Pulse Resp BP BP Pulse Ox 04/16/20 08:50 110 H 20 04/16/20 04:00 98.5 F 110 H 20 144/74 90 L 04/15/20 23:00 98.4 F 116 H 22 141/81 91 L 04/15/20 19:00 98.9 F 116 H 20 132/78 92 L 04/15/20 18:59 119 H 18 160/98 92 L 04/15/20 17:13 120 H 16 118/79 92 L 04/15/20 15:55 100.6 F H 120 H 16 125/64 92 L Intake and Output 04/15/20 04/16/20 04/16/20 22:59 06:59 14:59 Intake Total 523.908 141.145 400 Output Total 200 3000 Balance 523.908 -58.855 -2600 Intake: Intake, IV Titration 73.908 141.145 400 Amount Insulin Regular 100 unit 73.908 141.145 In Sodium Chloride 0.9% 100 ml @ 0.1 UNITS/KG/HR 13.744 mls/hr IV .Q7H21M [facility] Rx#:[id number] Magnesium Sulfate-D5w Pmx 200 1 gm In Dextrose/Water 1 100ml.bag @ 100 mls/hr IVPB Q1H [facility] Rx#: [id number] Sodium Chloride 0.9% 1, 200 000 ml @ 200 mls/hr IV . Q5H [facility] Rx#:[id number] Oral 450 Output: Urine 200 3000 Other: Voiding Method Indwelling Catheter Indwelling Catheter # Bowel Movements 1 Weight 141.2 kg 141.2 kg Physical exam: General Appearance: Alert, cooperative, no distress, appears stated age. Skin: ull thickness pressure ulcer to the right gluteus. A fat layer exposure. Maceration to the wound noted. all other Skin color, texture, tugor normal, no rashes or lesions. Neurologic: Alert oriented x3 Results CBC & Chem 7: 04/16/20 06:20 04/16/20 06:20 Labs: Abnormal Lab Results - Last 24 Hours (Table) 04/15/20 04/15/20 04/15/20 Range/Units 13:30 13:30 13:30 Lymphocytes # 0.6 L (1.0-4.8) k/uL Sodium 131 L (137-145) mmol/L Potassium (3.5-5.1) mmol/L Chloride 85 L (98-107) mmol/L Carbon Dioxide 32 H (22-30) mmol/L Creatinine (0.52-1.04) mg/dL Glucose 370 H (74-99) mg/dL POC Glucose (mg/dL) (75-99) mg/dL Calcium (8.4-10.2) mg/dL Phosphorus (2.5-4.5) mg/dL Magnesium 1.4 L (1.6-2.3) mg/dL AST 97 H (14-36) U/L ALT 47 H (4-34) U/L Lactate Dehydrogenase 846 H (313-618) U/L C-Reactive Protein 53.1 H (<10.0) mg/L Procalcitonin 0.12 H (0.02-0.09) ng/mL Urine Protein (Negative) Urine Glucose (UA) (Negative) Urine Ketones (Negative) Urine Mucus (None) /hpf Coronavirus (PCR) (Not Detectd) 04/15/20 04/15/20 04/15/20 Range/Units 13:30 14:20 15:54 Lymphocytes # (1.0-4.8) k/uL Sodium (137-145) mmol/L Potassium (3.5-5.1) mmol/L Chloride (98-107) mmol/L Carbon Dioxide (22-30) mmol/L Creatinine (0.52-1.04) mg/dL Glucose (74-99) mg/dL POC Glucose (mg/dL) 358 H (75-99) mg/dL Calcium (8.4-10.2) mg/dL Phosphorus (2.5-4.5) mg/dL Magnesium (1.6-2.3) mg/dL AST (14-36) U/L ALT (4-34) U/L Lactate Dehydrogenase (313-618) U/L C-Reactive Protein (<10.0) mg/L Procalcitonin (0.02-0.09) ng/mL Urine Protein 2+ H (Negative) Urine Glucose (UA) 4+ H (Negative) Urine Ketones 2+ H (Negative) Urine Mucus Rare H (None) /hpf Coronavirus (PCR) Detected A (Not Detectd) 04/15/20 04/15/20 04/15/20 Range/Units 17:40 18:52 20:02 Lymphocytes # (1.0-4.8) k/uL Sodium (137-145) mmol/L Potassium (3.5-5.1) mmol/L Chloride (98-107) mmol/L Carbon Dioxide (22-30) mmol/L Creatinine (0.52-1.04) mg/dL Glucose (74-99) mg/dL POC Glucose (mg/dL) 320 H 283 H 240 H (75-99) mg/dL Calcium (8.4-10.2) mg/dL Phosphorus (2.5-4.5) mg/dL Magnesium (1.6-2.3) mg/dL AST (14-36) U/L ALT (4-34) U/L Lactate Dehydrogenase (313-618) U/L C-Reactive Protein (<10.0) mg/L Procalcitonin (0.02-0.09) ng/mL Urine Protein (Negative) Urine Glucose (UA) (Negative) Urine Ketones (Negative) Urine Mucus (None) /hpf Coronavirus (PCR) (Not Detectd) 04/15/20 04/15/20 04/15/20 Range/Units 20:55 21:28 23:36 Lymphocytes # (1.0-4.8) k/uL Sodium 133 L (137-145) mmol/L Potassium (3.5-5.1) mmol/L Chloride 89 L (98-107) mmol/L Carbon Dioxide 34 H (22-30) mmol/L Creatinine 0.50 L (0.52-1.04) mg/dL Glucose 242 H (74-99) mg/dL POC Glucose (mg/dL) 228 H 339 H (75-99) mg/dL Calcium (8.4-10.2) mg/dL Phosphorus (2.5-4.5) mg/dL Magnesium (1.6-2.3) mg/dL AST (14-36) U/L ALT (4-34) U/L Lactate Dehydrogenase (313-618) U/L C-Reactive Protein (<10.0) mg/L Procalcitonin (0.02-0.09) ng/mL Urine Protein (Negative) Urine Glucose (UA) (Negative) Urine Ketones (Negative) Urine Mucus (None) /hpf Coronavirus (PCR) (Not Detectd) 04/16/20 04/16/20 04/16/20 Range/Units 00:23 00:23 01:24 Lymphocytes # (1.0-4.8) k/uL Sodium 132 L (137-145) mmol/L Potassium 3.4 L (3.5-5.1) mmol/L Chloride 87 L (98-107) mmol/L Carbon Dioxide 34 H (22-30) mmol/L Creatinine (0.52-1.04) mg/dL Glucose 337 H (74-99) mg/dL POC Glucose (mg/dL) 347 H 296 H (75-99) mg/dL Calcium (8.4-10.2) mg/dL Phosphorus (2.5-4.5) mg/dL Magnesium (1.6-2.3) mg/dL AST (14-36) U/L ALT (4-34) U/L Lactate Dehydrogenase (313-618) U/L C-Reactive Protein (<10.0) mg/L Procalcitonin (0.02-0.09) ng/mL Urine Protein (Negative) Urine Glucose (UA) (Negative) Urine Ketones (Negative) Urine Mucus (None) /hpf Coronavirus (PCR) (Not Detectd) 04/16/20 04/16/20 04/16/20 Range/Units 02:00 03:04 04:15 Lymphocytes # (1.0-4.8) k/uL Sodium (137-145) mmol/L Potassium (3.5-5.1) mmol/L Chloride (98-107) mmol/L Carbon Dioxide (22-30) mmol/L Creatinine (0.52-1.04) mg/dL Glucose (74-99) mg/dL POC Glucose (mg/dL) 272 H 235 H 206 H (75-99) mg/dL Calcium (8.4-10.2) mg/dL Phosphorus (2.5-4.5) mg/dL Magnesium (1.6-2.3) mg/dL AST (14-36) U/L ALT (4-34) U/L Lactate Dehydrogenase (313-618) U/L C-Reactive Protein (<10.0) mg/L Procalcitonin (0.02-0.09) ng/mL Urine Protein (Negative) Urine Glucose (UA) (Negative) Urine Ketones (Negative) Urine Mucus (None) /hpf Coronavirus (PCR) (Not Detectd) 04/16/20 04/16/20 04/16/20 Range/Units 05:09 06:16 06:20 Lymphocytes # 0.9 L (1.0-4.8) k/uL Sodium (137-145) mmol/L Potassium (3.5-5.1) mmol/L Chloride (98-107) mmol/L Carbon Dioxide (22-30) mmol/L Creatinine (0.52-1.04) mg/dL Glucose (74-99) mg/dL POC Glucose (mg/dL) 177 H 144 H (75-99) mg/dL Calcium (8.4-10.2) mg/dL Phosphorus (2.5-4.5) mg/dL Magnesium (1.6-2.3) mg/dL AST (14-36) U/L ALT (4-34) U/L Lactate Dehydrogenase (313-618) U/L C-Reactive Protein (<10.0) mg/L Procalcitonin (0.02-0.09) ng/mL Urine Protein (Negative) Urine Glucose (UA) (Negative) Urine Ketones (Negative) Urine Mucus (None) /hpf Coronavirus (PCR) (Not Detectd) 04/16/20 04/16/20 04/16/20 Range/Units 06:20 06:20 07:24 Lymphocytes # (1.0-4.8) k/uL Sodium 136 L (137-145) mmol/L Potassium 3.3 L (3.5-5.1) mmol/L Chloride 91 L (98-107) mmol/L Carbon Dioxide 39 H (22-30) mmol/L Creatinine (0.52-1.04) mg/dL Glucose 144 H (74-99) mg/dL POC Glucose (mg/dL) 163 H (75-99) mg/dL Calcium 8.0 L (8.4-10.2) mg/dL Phosphorus 2.3 L (2.5-4.5) mg/dL Magnesium (1.6-2.3) mg/dL AST 69 H (14-36) U/L ALT 40 H (4-34) U/L Lactate Dehydrogenase 767 H (313-618) U/L C-Reactive Protein 62.6 H (<10.0) mg/L Procalcitonin (0.02-0.09) ng/mL Urine Protein (Negative) Urine Glucose (UA) (Negative) Urine Ketones (Negative) Urine Mucus (None) /hpf Coronavirus (PCR) (Not Detectd) 04/16/20 04/16/20 Range/Units 08:50 12:13 Lymphocytes # (1.0-4.8) k/uL Sodium (137-145) mmol/L Potassium (3.5-5.1) mmol/L Chloride (98-107) mmol/L Carbon Dioxide (22-30) mmol/L Creatinine (0.52-1.04) mg/dL Glucose (74-99) mg/dL POC Glucose (mg/dL) 241 H 362 H (75-99) mg/dL Calcium (8.4-10.2) mg/dL Phosphorus (2.5-4.5) mg/dL Magnesium (1.6-2.3) mg/dL AST (14-36) U/L ALT (4-34) U/L Lactate Dehydrogenase (313-618) U/L C-Reactive Protein (<10.0) mg/L Procalcitonin (0.02-0.09) ng/mL Urine Protein (Negative) Urine Glucose (UA) (Negative) Urine Ketones (Negative) Urine Mucus (None) /hpf Coronavirus (PCR) (Not Detectd) Assessment and Plan (1) Diabetes mellitus with skin ulcer Current Visit: Yes Status: Acute Code(s): E11.622 - TYPE 2 DIABETES MELLITUS WITH OTHER SKIN ULCER; L98.499 - NON-PRESSURE CHRONIC ULCER OF SKIN OF SITES W UNSP SEVERITY SNOMED Code(s): 34569391 (2) Pressure ulcer of right buttock, stage 2 Current Visit: Yes Status: Acute Code(s): L89.312 - PRESSURE ULCER OF RIGHT BUTTOCK, STAGE 2 SNOMED Code(s): 117211069 Plan: apply triad daily. Utilize a waffle cushion for sitting. Thank you consultation any cautious with contact the wound care center DNP note has been reviewed and discussed with Dr. Escobar and the impression and plan of care has been directed as dictated.
[2020-04-16] MEDS ORDERED: BISMUTH SUBSALICYLATE 4,192 MG/240 ML BOTTLE PO PRN (13:58)
[2020-04-16] MEDS: PANTOPRAZOLE 40 MG TABLET PO SCH ×2 (14:01→17:07)
--- NOTE | 2020-04-16 14:01 | P.PN ---
Subjective Progress Note Date: 04/16/20 Principal diagnosis: Acute CoVID 19 related to pneumonia 44-year-old female patient, morbidly obese a BMI of 54.9, also known to have COPD on home oxygen at 2-3 L per minute nasal cannula, obstructive sleep apnea diabetes mellitus and hypertension. The patient came into the ED with worsening shortness of breath and she was concerned about coronavirus, 19 infection. The patient has been having a congested cough with worsening shortness of breath over the past few days. She was also feeling weak and tired and fatigued. The patient had a white cell count of 5.5, she did have lymphopenia with a lymphocyte count of 0.6, the patient's LDH was 846, CRP was 53, d-dimer was at 0.27, and she checked positive for covid 19. The patient's chest x-ray showed bilateral pneumonia along with cardiomegaly. The patient's pulse ox is currently on 92% on 4 liters NC and the patient is currently afebrile with a T- max of 101.9 in the emergency department. She has been given 1.5 liters od NSS in the ED and she is on a maintenance of 200 cc/hr and she is on insulin drip at 13 U/hr for BS control. She was started on oral Decadron. Most recent blood sugar is at 358. The patient is seen today 04/16/2020 in follow-up on the selective care unit. She was seen and evaluated in consultation yesterday. She was found have CoVID 19 pneumonia. She is currently sitting up in a chair at the bedside. Awake and alert in no acute distress. Maintaining O2 saturation in the low 90s on 5 L/m per nasal cannula. She's been afebrile. Slightly tachycardic. Blood pressure stable. White count 4.4. Hemoglobin 12.0. Lymphocytes 0.9. Sodium 136. Potassium 3.3. Creatinine 0.55. LDH 767. C-reactive protein 62.6. She is on day 2 of Remdesivir. Continued on Protonix, Lovenox, dexamethasone, vitamin C, vitamin D, zinc. Objective - Vital Signs Vital signs: Vital Signs Temp 98.5 F 04/16/20 04:00 Pulse 110 H 04/16/20 08:50 Resp 20 04/16/20 08:50 BP 144/74 04/16/20 04:00 Pulse Ox 90 L 04/16/20 04:00 Intake & Output 04/15/20 04/16/20 04/16/20 18:59 06:59 18:59 Intake Total 32.984 632.069 400 Output Total 200 3000 Balance 32.984 432.069 -2600 Weight 136.078 kg 141.2 kg 141.2 kg Intake: Intake, IV Titration 32.984 182.069 400 Amount Insulin Regular 100 unit 32.984 182.069 In Sodium Chloride 0.9% 100 ml @ 0.1 UNITS/KG/HR 13.744 mls/hr IV .Q7H21M [facility] Rx#:[id number] Magnesium Sulfate-D5w Pmx 200 1 gm In Dextrose/Water 1 100ml.bag @ 100 mls/hr IVPB Q1H [facility] Rx#: [id number] Sodium Chloride 0.9% 1, 200 000 ml @ 200 mls/hr IV . Q5H [facility] Rx#:[id number] Oral 450 Output: Urine 200 3000 Other: Voiding Method Indwelling Catheter Indwelling Catheter # Bowel Movements 1 - Exam 44-year-old female patient, morbidly obese, with a BMI of 54.9, calm comfortable not in acute respiratory distress. On 5 L nasal cannula. Not using excessive muscle breathing. Head exam was generally normal. There was no scleral icterus or corneal arcus. Mucous membranes were moist. Neck was supple and without jugular venous distension, thyromegaly, or carotid bruits. Carotids were easily palpable bilaterally. There was no adenopathy.Mallampati class IV Lung sounds are diminished and overall breath sounds are quite distant and the examination is limited because of her morbid obesity. Cardiac exam revealed the PMI to be normally situated and sized. The rhythm was regular and no extrasystoles were noted during several minutes of auscultation. The first and second heart sounds were normal and physiologic splitting of the second heart sound was noted. There were no murmurs, rubs, clicks, or gallops. Abdominal exam revealed normal bowel sounds. The abdomen was soft, non-tender, and without masses, organomegaly, or appreciable enlargement of the abdominal aorta.Abdominal organs cannot be accurately palpated and the patient is no direct tenderness rebound tensile guarding. Examination of the extremities revealed easily palpable radial, femoral and pedal pulses. There was no cyanosis, clubbing or edema. Examination of the skin revealed no evidence of significant rashes, suspicious appearing nevi or other concerning lesions. Neurologically, the patient is awake and alert and the patient does not have any focal neurological deficit. Cranial nerves are essentially intact. - Labs CBC & Chem 7: 04/16/20 06:20 04/16/20 06:20 Labs: Abnormal Lab Results - Last 24 Hours (Table) 04/15/20 04/15/20 04/15/20 Range/Units 13:30 13:30 13:30 Lymphocytes # 0.6 L (1.0-4.8) k/uL Sodium 131 L (137-145) mmol/L Potassium (3.5-5.1) mmol/L Chloride 85 L (98-107) mmol/L Carbon Dioxide 32 H (22-30) mmol/L Creatinine (0.52-1.04) mg/dL Glucose 370 H (74-99) mg/dL POC Glucose (mg/dL) (75-99) mg/dL Calcium (8.4-10.2) mg/dL Phosphorus (2.5-4.5) mg/dL Magnesium 1.4 L (1.6-2.3) mg/dL AST 97 H (14-36) U/L ALT 47 H (4-34) U/L Lactate Dehydrogenase 846 H (313-618) U/L C-Reactive Protein 53.1 H (<10.0) mg/L Procalcitonin 0.12 H (0.02-0.09) ng/mL Urine Protein (Negative) Urine Glucose (UA) (Negative) Urine Ketones (Negative) Urine Mucus (None) /hpf Coronavirus (PCR) (Not Detectd) 04/15/20 04/15/20 04/15/20 Range/Units 13:30 14:20 15:54 Lymphocytes # (1.0-4.8) k/uL Sodium (137-145) mmol/L Potassium (3.5-5.1) mmol/L Chloride (98-107) mmol/L Carbon Dioxide (22-30) mmol/L Creatinine (0.52-1.04) mg/dL Glucose (74-99) mg/dL POC Glucose (mg/dL) 358 H (75-99) mg/dL Calcium (8.4-10.2) mg/dL Phosphorus (2.5-4.5) mg/dL Magnesium (1.6-2.3) mg/dL AST (14-36) U/L ALT (4-34) U/L Lactate Dehydrogenase (313-618) U/L C-Reactive Protein (<10.0) mg/L Procalcitonin (0.02-0.09) ng/mL Urine Protein 2+ H (Negative) Urine Glucose (UA) 4+ H (Negative) Urine Ketones 2+ H (Negative) Urine Mucus Rare H (None) /hpf Coronavirus (PCR) Detected A (Not Detectd) 04/15/20 04/15/20 04/15/20 Range/Units 17:40 18:52 20:02 Lymphocytes # (1.0-4.8) k/uL Sodium (137-145) mmol/L Potassium (3.5-5.1) mmol/L Chloride (98-107) mmol/L Carbon Dioxide (22-30) mmol/L Creatinine (0.52-1.04) mg/dL Glucose (74-99) mg/dL POC Glucose (mg/dL) 320 H 283 H 240 H (75-99) mg/dL Calcium (8.4-10.2) mg/dL Phosphorus (2.5-4.5) mg/dL Magnesium (1.6-2.3) mg/dL AST (14-36) U/L ALT (4-34) U/L Lactate Dehydrogenase (313-618) U/L C-Reactive Protein (<10.0) mg/L Procalcitonin (0.02-0.09) ng/mL Urine Protein (Negative) Urine Glucose (UA) (Negative) Urine Ketones (Negative) Urine Mucus (None) /hpf Coronavirus (PCR) (Not Detectd) 04/15/20 04/15/20 04/15/20 Range/Units 20:55 21:28 23:36 Lymphocytes # (1.0-4.8) k/uL Sodium 133 L (137-145) mmol/L Potassium (3.5-5.1) mmol/L Chloride 89 L (98-107) mmol/L Carbon Dioxide 34 H (22-30) mmol/L Creatinine 0.50 L (0.52-1.04) mg/dL Glucose 242 H (74-99) mg/dL POC Glucose (mg/dL) 228 H 339 H (75-99) mg/dL Calcium (8.4-10.2) mg/dL Phosphorus (2.5-4.5) mg/dL Magnesium (1.6-2.3) mg/dL AST (14-36) U/L ALT (4-34) U/L Lactate Dehydrogenase (313-618) U/L C-Reactive Protein (<10.0) mg/L Procalcitonin (0.02-0.09) ng/mL Urine Protein (Negative) Urine Glucose (UA) (Negative) Urine Ketones (Negative) Urine Mucus (None) /hpf Coronavirus (PCR) (Not Detectd) 04/16/20 04/16/20 04/16/20 Range/Units 00:23 00:23 01:24 Lymphocytes # (1.0-4.8) k/uL Sodium 132 L (137-145) mmol/L Potassium 3.4 L (3.5-5.1) mmol/L Chloride 87 L (98-107) mmol/L Carbon Dioxide 34 H (22-30) mmol/L Creatinine (0.52-1.04) mg/dL Glucose 337 H (74-99) mg/dL POC Glucose (mg/dL) 347 H 296 H (75-99) mg/dL Calcium (8.4-10.2) mg/dL Phosphorus (2.5-4.5) mg/dL Magnesium (1.6-2.3) mg/dL AST (14-36) U/L ALT (4-34) U/L Lactate Dehydrogenase (313-618) U/L C-Reactive Protein (<10.0) mg/L Procalcitonin (0.02-0.09) ng/mL Urine Protein (Negative) Urine Glucose (UA) (Negative) Urine Ketones (Negative) Urine Mucus (None) /hpf Coronavirus (PCR) (Not Detectd) 04/16/20 04/16/20 04/16/20 Range/Units 02:00 03:04 04:15 Lymphocytes # (1.0-4.8) k/uL Sodium (137-145) mmol/L Potassium (3.5-5.1) mmol/L Chloride (98-107) mmol/L Carbon Dioxide (22-30) mmol/L Creatinine (0.52-1.04) mg/dL Glucose (74-99) mg/dL POC Glucose (mg/dL) 272 H 235 H 206 H (75-99) mg/dL Calcium (8.4-10.2) mg/dL Phosphorus (2.5-4.5) mg/dL Magnesium (1.6-2.3) mg/dL AST (14-36) U/L ALT (4-34) U/L Lactate Dehydrogenase (313-618) U/L C-Reactive Protein (<10.0) mg/L Procalcitonin (0.02-0.09) ng/mL Urine Protein (Negative) Urine Glucose (UA) (Negative) Urine Ketones (Negative) Urine Mucus (None) /hpf Coronavirus (PCR) (Not Detectd) 04/16/20 04/16/20 04/16/20 Range/Units 05:09 06:16 06:20 Lymphocytes # 0.9 L (1.0-4.8) k/uL Sodium (137-145) mmol/L Potassium (3.5-5.1) mmol/L Chloride (98-107) mmol/L Carbon Dioxide (22-30) mmol/L Creatinine (0.52-1.04) mg/dL Glucose (74-99) mg/dL POC Glucose (mg/dL) 177 H 144 H (75-99) mg/dL Calcium (8.4-10.2) mg/dL Phosphorus (2.5-4.5) mg/dL Magnesium (1.6-2.3) mg/dL AST (14-36) U/L ALT (4-34) U/L Lactate Dehydrogenase (313-618) U/L C-Reactive Protein (<10.0) mg/L Procalcitonin (0.02-0.09) ng/mL Urine Protein (Negative) Urine Glucose (UA) (Negative) Urine Ketones (Negative) Urine Mucus (None) /hpf Coronavirus (PCR) (Not Detectd) 04/16/20 04/16/20 04/16/20 Range/Units 06:20 06:20 07:24 Lymphocytes # (1.0-4.8) k/uL Sodium 136 L (137-145) mmol/L Potassium 3.3 L (3.5-5.1) mmol/L Chloride 91 L (98-107) mmol/L Carbon Dioxide 39 H (22-30) mmol/L Creatinine (0.52-1.04) mg/dL Glucose 144 H (74-99) mg/dL POC Glucose (mg/dL) 163 H (75-99) mg/dL Calcium 8.0 L (8.4-10.2) mg/dL Phosphorus 2.3 L (2.5-4.5) mg/dL Magnesium (1.6-2.3) mg/dL AST 69 H (14-36) U/L ALT 40 H (4-34) U/L Lactate Dehydrogenase 767 H (313-618) U/L C-Reactive Protein 62.6 H (<10.0) mg/L Procalcitonin (0.02-0.09) ng/mL Urine Protein (Negative) Urine Glucose (UA) (Negative) Urine Ketones (Negative) Urine Mucus (None) /hpf Coronavirus (PCR) (Not Detectd) 04/16/20 04/16/20 Range/Units 08:50 12:13 Lymphocytes # (1.0-4.8) k/uL Sodium (137-145) mmol/L Potassium (3.5-5.1) mmol/L Chloride (98-107) mmol/L Carbon Dioxide (22-30) mmol/L Creatinine (0.52-1.04) mg/dL Glucose (74-99) mg/dL POC Glucose (mg/dL) 241 H 362 H (75-99) mg/dL Calcium (8.4-10.2) mg/dL Phosphorus (2.5-4.5) mg/dL Magnesium (1.6-2.3) mg/dL AST (14-36) U/L ALT (4-34) U/L Lactate Dehydrogenase (313-618) U/L C-Reactive Protein (<10.0) mg/L Procalcitonin (0.02-0.09) ng/mL Urine Protein (Negative) Urine Glucose (UA) (Negative) Urine Ketones (Negative) Urine Mucus (None) /hpf Coronavirus (PCR) (Not Detectd) Assessment and Plan Assessment: 1 acute Covid 19 related pneumonia with bilateral pulmonary infiltrates and worsening shortness of breath. Symptoms started few days back and the patient comes in with fever and worsening dyspnea in addition to constitutions symptoms. 2 acute on top of chronic hypoxic respiratory failure, currently on 5 L of oxygen by nasal cannula 3 chronic dyspnea 4 morbid obesity with a BMI of 54.9 along with component of obstructive sleep apnea and obesity hypoventilation syndrome 5 chronic metabolic alkalosis probably related to chronic hypercapnic respiratory failure 6 diabetes mellitus, insulin-dependent, with quite elevated blood sugars and currently the patient on insulin drip for blood sugar control. 7 hypertension 8 hyperlipidemia 9 hypothyroidism 10 chronic venous insufficiency 11 peripheral neuropathy 12 migraines 13. Irritable bowel syndrome 14 fatty liver related to obesity plan The patient was seen and evaluated by Dr. Martin Labs reviewed Continue Remdesivir Continue current medications Titrate down the FiO2 as tolerated We'll continue to follow I, the cosigning physician, performed a history & physical examination of the patient. Lungs sounds are clear, diminished. Maintaining good O2 saturations in the 90s on 5 L/m per nasal cannula. I discussed the assessment and plan of care with my nurse practitioner, Bonnie Guevara. I attest to the above note as dictated by her.
[2020-04-16] MEDS: BISMUTH SUBSALICYLATE 4,192 MG/240 ML BOTTLE PO SCH ×3 (14:02→21:35)
[2020-04-16] MEDS: HYDROPHILIC CREAM 180 GM TUBE TOPICAL SCH (14:03)
[2020-04-16] MEDS ORDERED: VANCOMYCIN IV PER PHARMACY 1 EACH MISC MISCELLANE PRN (14:59)
[2020-04-16] MEDS ORDERED: SODIUM PHOSPHATE 10 MMOL in SODIUM CHLORIDE 0.9% 250 ML IVPB ONE (15:30)
[2020-04-16] MEDS: VANCOMYCIN 2,000 MG in SODIUM CHLORIDE 0.9% 500 ML 500 ML IVPB SCH (17:33)
[2020-04-16] MEDS: hydrALAZINE HCL 50 MG TAB PO SCH ×2 (17:34→21:36)
[2020-04-16 17:40] LABS: Glucose,Whole Blood 370 mg/dL (75-99)
[2020-04-16] MEDS: REMDESIVIR (EUA) 100 MG in SODIUM CHLORIDE 0.9% 250 ML IVPB SCH (18:04)
[2020-04-16 20:50] LABS: Glucose,Whole Blood 403 mg/dL (75-99)
[2020-04-16] MEDS ORDERED: NON FORMULARY DRUG (Omega-3 Fatty Acids/Fish Oil [Fish Oil 1,000 Mg Softgel] 1 EACH Capsul PO SCH (21:00)
[2020-04-16] MEDS: FENOFIBRATE 160 MG TAB PO SCH (21:35)
[2020-04-16] MEDS: INSULIN DETEMIR (LEVEMIR) 100 UNIT/ML SYR SQ SCH (21:37)
[2020-04-16 21:56] LABS: Hemoglobin A1C 12.4 % (4.0-6.0)
[2020-04-17 00:50] LABS: Glucose,Whole Blood 343 mg/dL (75-99)
[2020-04-17] MEDS: VANCOMYCIN 2,000 MG in SODIUM CHLORIDE 0.9% 500 ML 500 ML IVPB SCH (03:20)
[2020-04-17] MEDS: INSULIN DETEMIR (LEVEMIR) 100 UNIT/ML SYR SQ SCH ×2 (06:27→21:26)
[2020-04-17] MEDS: LEVOTHYROXINE 88 MCG TAB PO SCH (06:27)
[2020-04-17] MEDS: metFORMIN 500 MG TAB PO SCH ×2 (06:27→16:50)
[2020-04-17] MEDS: PANTOPRAZOLE 40 MG TABLET PO SCH ×2 (06:27→16:50)
[2020-04-17] MEDS: BISMUTH SUBSALICYLATE 4,192 MG/240 ML BOTTLE PO SCH ×4 (06:27→19:59)
[2020-04-17] MEDS: INSULIN ASPART (NovoLOG) 100 UNIT/ML VIAL SQ SCH ×4 (06:27→21:26)
[2020-04-17 06:33] LABS: Glucose,Whole Blood 310 mg/dL (75-99)
[2020-04-17] MEDS ORDERED: INSULIN DETEMIR (LEVEMIR) 100 UNIT/ML SYR SQ SCH ×2 (07:00)
--- NOTE | 2020-04-17 07:21 | CONS ---
CONSULTATION DATE OF SERVICE: 04/16/2020 REASON FOR CONSULTATION: 1. COVID pneumonia. 2. Right gluteal pressure ulcer. 3. Bacteremia. HISTORY OF PRESENT ILLNESS: The patient is a 44-year-old morbidly obese female, past medical history of diabetes, hypertension, COPD on home O2, presenting to the ER at [facility] yesterday for evaluation of increasing shortness of breath and cough which has been getting worse for 2-3 days before presentation to the hospital. The patient denies having any URI symptoms. The patient denies having any chest pain. She did have shortness of breath on minimal exertion and even at rest. The patient did have a cough of moderate intensity, not bringing up any sputum. No hemoptysis. No chest pain. No nausea, vomiting or diarrhea. On arrival to the ER, patient did have a fever of 101.9 degrees Fahrenheit. The patient was hypoxic with sats of 92% on room air. Subsequently did have supplemental nasal cannula oxygen. The patient did have a normal white count with no lymphopenia. D-dimer was normal. Patient's creatinine was normal. Liver enzymes were elevated. CRP was 53. was elevated to 0.12 as well. Urine negative. Pace PCR came back positive. The patient did have a chest x-ray that was reported as bilateral pneumonia. The patient did have blood cultures drawn which came positive with gram-positive cocci that prompted this infectious disease consultation. REVIEW OF SYSTEMS: Positive points have been mentioned in HPI. Rest of the systems are negative. PAST MEDICAL HISTORY: Significant for asthma, COPD, diabetes mellitus, hypertension, hyperlipidemia, hypothyroidism, sleep apnea, osteoarthritis. PAST SURGICAL HISTORY: , cholecystectomy, tubal ligation. SOCIAL HISTORY: No history of smoking, drinking or drug use. FAMILY HISTORY: Mother has history of hypertension. ALLERGIES: CONTRAST DYE and LEVAQUIN. MEDICATIONS: Include the patient is currently on zinc sulfate, Remdesivir, Zestril, Levemir, Lipitor, Tenormin. Vancomycin has been started. PHYSICAL EXAMINATION: Blood pressure 110/63 with a pulse of 78, temperature 97.8. She is 91% on 5 L nasal cannula. General description is a middle-aged female up in the chair in no distress. No tachypnea or accessory muscles of respiration use. HEENT: Examination shows no pallor or scleral icterus. Oral mucous membrane is dry. No pharyngeal erythema or thrush. NECK: Trachea central. No thyromegaly. LUNGS: Unlabored breathing, decreased intensity of breath sounds. No wheeze or crackle. HEART: S1, S2. Regular rate and rhythm. ABDOMEN: Soft, no tenderness. No guarding or rigidity. EXTREMITIES: Some diffuse swelling noted. The right posterior thigh and gluteal area did have a stage III pressure ulcer with no cellulitis. NEUROLOGICAL: Patient is awake, alert, oriented x3. Affect normal. LABS: Hemoglobin is 12, white count 4.4, BUN of 11, creatinine 0.55, , CRP and procalcitonin were elevated. Urine was negative. DIAGNOSTIC IMPRESSION: 1. Patient admitted to the hospital with increasing shortness of breath and cough, fever, and this patient has been diagnosed with acute COVID-19 pneumonia. 2. Patient with a positive blood culture with gram-positive cocci. Will await for the final ID of this pathogen. The patient did have a history of infected wound to the right gluteal area with MRSA. However, this wound currently looks clean with no significant slough tissue or surrounding cellulitis. PLAN: 1. Blood cultures will be repeated to document clearance of bacteremia. 2. Vancomycin with Pharmacy to dose, Monitor kidney function closely. 3. Patient to continue with Remdesivir, Lovenox, dexamethasone for COVID-19 pneumonia along with respiratory support. 4. We will follow on clinical condition and further adjust medication if needed. Thank you for this consultation. Will follow this patient along with you. MMODL / IJN: [id number] /
[2020-04-17] MEDS: ALBUTEROL HFA INHALER INHALATION PRN ×2 (07:56→15:59)
[2020-04-17 08:03] LABS: Basophils % (A) 1 %; Eosinophils % (A) 0 %; HCT 35.7 % (34.0-46.0); HGB 11.8 gm/dL (11.4-16.0); Lymphocytes # (A) 1.5 k/uL (1.0-4.8); Lymphocytes % (A) 24 %; MCH 29.1 pg (25.0-35.0); MCHC 32.9 g/dL (31.0-37.0); MCV 88.2 fL (80.0-100.0); Mean Platelet Volume 8.7; Monocytes # (A) 0.4 k/uL (0-1.0); Monocytes % (A) 7 %; Neutrophils # (A) 4.2 k/uL (1.3-7.7); Neutrophils % (A) 67 %; Platelet Count 193 k/uL (150-450); RBC 4.04 m/uL (3.80-5.40); RDW 14.6 % (11.5-15.5); WBC 6.2 k/uL (3.8-10.6)
[2020-04-17 08:10] LABS: Potassium 3.6 mmol/L (3.5-5.1)
[2020-04-17 08:11] LABS: ALT 34 U/L (4-34); AST 48 U/L (14-36); African American GFR (CKD) >90 (>60 ml/min/1.73 sqM); Albumin 3.7 g/dL (3.5-5.0); Alkaline Phosphatase 80 U/L (38-126); Anion Gap 9 mmol/L; Blood Urea Nitrogen 14 mg/dL (7-17); C Reactive Protein 36.4 mg/L (<10.0); Carbon Dioxide 36 mmol/L (22-30); Chloride 92 mmol/L (98-107); Glucose 262 mg/dL (74-99); LDH 750 U/L (313-618); Magnesium 2.1 mg/dL (1.6-2.3); Non-African American GFR(CKD) >90 (>60 ml/min/1.73 sqM); Sodium 137 mmol/L (137-145); Total Bilirubin 0.4 mg/dL (0.2-1.3); Total Protein 6.7 g/dL (6.3-8.2)
[2020-04-17] MEDS: SERTRALINE 100 MG TAB PO SCH (08:36)
[2020-04-17] MEDS: lisinopriL 20 MG TAB PO SCH (08:36)
[2020-04-17] MEDS: dexAMETHasone 2 MG TAB PO SCH (08:36)
[2020-04-17] MEDS: ATORVASTATIN 40 MG TAB PO SCH (08:36)
[2020-04-17] MEDS: TOPIRAMATE 25 MG TAB PO SCH ×2 (08:36→19:59)
[2020-04-17] MEDS: atenoloL 50 MG TAB PO SCH (08:36)
[2020-04-17] MEDS: ZINC SULFATE 220 MG CAP PO SCH (08:36)
[2020-04-17] MEDS: GABAPENTIN 300 MG CAP PO SCH ×3 (08:36→19:59)
[2020-04-17] MEDS: CHLORTHALIDONE 25 MG TAB PO SCH (08:37)
[2020-04-17] MEDS: hydrALAZINE HCL 50 MG TAB PO SCH ×3 (08:37→19:59)
[2020-04-17] MEDS: MULTIVITAMINS, THERA 1 EACH TAB PO SCH (08:37)
[2020-04-17] MEDS: DIVALPROEX 500 MG TABLET.DR PO SCH ×2 (08:37→19:59)
[2020-04-17] MEDS: amLODIPine 10 MG TAB PO SCH (08:37)
[2020-04-17] MEDS: ENOXAPARIN 40 MG/0.4 ML SYRINGE SQ SCH (08:37)
[2020-04-17] MEDS: ASCORBIC ACID 500 MG TAB PO SCH (08:37)
[2020-04-17] MEDS: CHOLECALCIFEROL 1,000 UNIT TAB PO SCH (08:37)
[2020-04-17] MEDS: SODIUM CHLORIDE 0.9% 1,000 ML IV SCH (08:38)
[2020-04-17] MEDS: HYDROPHILIC CREAM 180 GM TUBE TOPICAL SCH (08:41)
[2020-04-17] MEDS ORDERED: NON FORMULARY DRUG (Glucos Sul 2kcl/Msm/Chond/C/Mn [Glucosamine Chondroitin Cap] 1 EACH Ca PO SCH (09:00)
[2020-04-17] MEDS: traMADol 50 MG TAB PO PRN (09:43)
[2020-04-17] MEDS: CYCLOBENZAPRINE 10 MG TAB PO PRN (09:44)
--- NOTE | 2020-04-17 11:43 | P.PN ---
Subjective Progress Note Date: 04/17/20 Principal diagnosis: Worsening shortness of breath 44-year-old obese female with past medical history of chronic intermittent asthma, COPD, diabetes myelitis, hyperlipidemia, hypertension, osteoarthritis, obstructive sleep apnea and wears CPAP, chronic hypoxic respiratory failure, utilizes 2-3 L nasal cannula at home, hypothyroidism, bipolar, depression, noted former nicotine dependence, history of MRSA of buttocks. She presented emergency room with worsening shortness of breath and had concerns of COVID at that time in which she was found to be positive. Currently she is sitting up in chair resting comfortably and denies any pain at this time. She does complain of some shortness of breath. Most recent set of vitals she is 98.8 axillary pulse rate 76 respiratory rate of 20 with nonlabored respirations, blood pressure 140/71, satting 93% on 3 L nasal cannula. Chemistry reveals sodium 137, potassium 3.6, PARVEEN of 14, creatinine of 0.60, leukocyte and that was 262 w ith [id number] glucose of 310. She has magnesium level of 2.1, AST of 48, ELT of 34 which both are trending down. LDH is trending down to 750 as well as her C-reactive protein is coming down to 36.4. She is currently tolerating her diet although she mentions that she has lost most of her taste but not smell at this time. She denies headache, nausea/vomiting, abdominal pain, diarrhea, fevers, chills and malaise, and/or headache at this time. She is currently on day 3 Remdesivir. Objective - Vital Signs Vital signs: Vital Signs Temp 98.8 F 04/17/20 08:00 Pulse 76 04/17/20 08:00 Resp 20 04/17/20 08:00 BP 140/71 04/17/20 08:00 Pulse Ox 93 L 04/17/20 08:00 Intake & Output 04/16/20 04/17/20 04/17/20 18:59 06:59 18:59 Intake Total 400 4100 Output Total 3000 2500 500 Balance -2600 1600 -500 Weight 141.2 kg Intake: Intake, IV Titration 400 1250 Amount Magnesium Sulfate-D5w Pmx 200 1 gm In Dextrose/Water 1 100ml.bag @ 100 mls/hr IVPB Q1H [facility] Rx#: [id number] Remdesivir (Eua) 100 mg 250 In Sodium Chloride 0.9% 250 ml @ 250 mls/hr IVPB Q24H [facility] Rx#:[id number] Sodium Chloride 0.9% 1, 200 000 ml @ 200 mls/hr IV . Q5H [facility] Rx#:[id number] Sodium Chloride 0.9% 1, 250 000 ml @ 50 mls/hr IV . Q20H [facility] Rx#:[id number] Sodium Phosphate 10 mmol 250 In Sodium Chloride 0.9% 250 ml @ 125 mls/hr IVPB ONCE ONE Rx#:[id number] Vancomycin 2,000 mg In 500 Sodium Chloride 0.9% 500 ml 500 ml @ 167 mls/hr IVPB Q12H [facility] Rx#: [id number] Oral 2850 Output: Urine 3000 2500 500 Other: Voiding Method Indwelling Catheter Indwelling Catheter Indwelling Catheter # Bowel Movements 1 1 - Exam GENERAL: Obese female, well-nourished and in no acute distress. On 5 L nasal cannula sitting in chair. HEAD: Atraumatic, normocephalic. EYES: Pupils equal round and reactive to light, extraocular movements intact, sclera anicteric, conjunctiva are normal. ENT:nares patent, oropharynx clear without exudates. Moist mucous membranes. NECK: Normal range of motion, supple without lymphadenopathy or JVD, no thyromegaly LUNGS: Breath sounds clear and diminished to auscultation bilaterally and equal. No wheezes rales or rhonchi. HEART: Regular rate and rhythm without murmurs, rubs or gallops.S1S2 Normal ABDOMEN: Soft, nontender, normoactive bowel sounds. No guarding, no rebound. No masses appreciated. EXTREMITIES: Normal range of motion, no pitting or edema. No clubbing or cyanosis. NEUROLOGICAL: Cranial nerves II through XII grossly intact. Normal speech, normal gait. PSYCH: Normal mood, normal affect. SKIN: Warm, Dry, normal turgor, no rashes, stage II pressure ulcer on the right buttocks (present on admission). - Labs CBC & Chem 7: 04/17/20 07:12 04/17/20 07:12 Labs: Abnormal Lab Results - Last 24 Hours (Table) 04/15/20 04/16/20 04/16/20 Range/Units 13:30 12:13 17:38 Chloride (98-107) mmol/L Carbon Dioxide (22-30) mmol/L Glucose (74-99) mg/dL POC Glucose (mg/dL) 362 H 370 H (75-99) mg/dL Hemoglobin A1c 12.4 H (4.0-6.0) % Calcium (8.4-10.2) mg/dL AST (14-36) U/L Lactate Dehydrogenase (313-618) U/L C-Reactive Protein (<10.0) mg/L 04/16/20 04/17/20 04/17/20 Range/Units 20:37 00:29 06:05 Chloride (98-107) mmol/L Carbon Dioxide (22-30) mmol/L Glucose (74-99) mg/dL POC Glucose (mg/dL) 403 H 343 H 310 H (75-99) mg/dL Hemoglobin A1c (4.0-6.0) % Calcium (8.4-10.2) mg/dL AST (14-36) U/L Lactate Dehydrogenase (313-618) U/L C-Reactive Protein (<10.0) mg/L 04/17/20 Range/Units 07:12 Chloride 92 L (98-107) mmol/L Carbon Dioxide 36 H (22-30) mmol/L Glucose 262 H (74-99) mg/dL POC Glucose (mg/dL) (75-99) mg/dL Hemoglobin A1c (4.0-6.0) % Calcium 8.0 L (8.4-10.2) mg/dL AST 48 H (14-36) U/L Lactate Dehydrogenase 750 H (313-618) U/L C-Reactive Protein 36.4 H (<10.0) mg/L Microbiology - Last 24 Hours (Table) 04/15/20 11:30 Blood Culture Gram Stain - Preliminary Blood Blood Culture - Preliminary Coagulase Negative Staph 04/15/20 13:30 Blood Culture - Final Blood Assessment and Plan (1) Pneumonia due to COVID-19 virus Current Visit: Yes Status: Acute Code(s): U07.1 - COVID-19; J12.89 - OTHER VIRAL PNEUMONIA SNOMED Code(s): 391959412197774148 (2) Acute and chronic respiratory failure Current Visit: Yes Status: Acute Code(s): J96.20 - ACUTE AND CHR RESP FAILURE, UNSP W HYPOXIA OR HYPERCAPNIA SNOMED Code(s): 98208881 (3) Obstructive sleep apnea on CPAP Current Visit: Yes Status: Acute Code(s): G47.33 - OBSTRUCTIVE SLEEP APNEA (ADULT) (PEDIATRIC); Z99.89 - DEPENDENCE ON OTHER ENABLING MACHINES AND DEVICES SNOMED Code(s): 57577977 (4) COPD (chronic obstructive pulmonary disease) Current Visit: No Status: Acute Code(s): J44.9 - CHRONIC OBSTRUCTIVE PULMONARY DISEASE, UNSPECIFIED SNOMED Code(s): 71791367 (5) Diabetes mellitus with skin ulcer Current Visit: Yes Status: Acute Code(s): E11.622 - TYPE 2 DIABETES MELLITUS WITH OTHER SKIN ULCER; L98.499 - NON-PRESSURE CHRONIC ULCER OF SKIN OF SITES W UNSP SEVERITY SNOMED Code(s): 82074143 (6) Morbid (severe) obesity due to excess calories Current Visit: No Status: Acute Code(s): E66.01 - MORBID (SEVERE) OBESITY DUE TO EXCESS CALORIES SNOMED Code(s): 120942272 (7) Hypokalemia Current Visit: Yes Status: Acute Code(s): E87.6 - HYPOKALEMIA SNOMED Code(s): 51590436 (8) Bipolar 1 disorder Current Visit: Yes Status: Acute Code(s): F31.9 - BIPOLAR DISORDER, UNSPECIFIED SNOMED Code(s): 505779008 (9) Depression Current Visit: Yes Status: Acute Code(s): F32.9 - MAJOR DEPRESSIVE DISORDER, SINGLE EPISODE, UNSPECIFIED SNOMED Code(s): 90490479 Plan: 1. We'll continue current COVID treatment protocol. 2. We'll titrate oxygen to maintain sats greater than 92%. 3. Continue to use CPAP at night. 4. Monitor labs daily. 5. We'll continue mental vital signs and treat accordingly. 6. Order chest x-ray for a.m. 7. We'll continue to follow with pulmonary and infectious disease recommendations. 8. We'll continue to monitor blood glucose levels and adjust meds accordingly. 9. We will follow closely and reevaluate again tomorrow. Time with Patient: Greater than 30
[2020-04-17 11:59] LABS: Glucose,Whole Blood 286 mg/dL (75-99)
--- NOTE | 2020-04-17 14:19 | P.PN ---
Subjective Progress Note Date: 04/17/20 Principal diagnosis: Acute CoVID 19 related to pneumonia 44-year-old female patient, morbidly obese a BMI of 54.9, also known to have COPD on home oxygen at 2-3 L per minute nasal cannula, obstructive sleep apnea diabetes mellitus and hypertension. The patient came into the ED with worsening shortness of breath and she was concerned about coronavirus, 19 infection. The patient has been having a congested cough with worsening shortness of breath over the past few days. She was also feeling weak and tired and fatigued. The patient had a white cell count of 5.5, she did have lymphopenia with a lymphocyte count of 0.6, the patient's LDH was 846, CRP was 53, d-dimer was at 0.27, and she checked positive for covid 19. The patient's chest x-ray showed bilateral pneumonia along with cardiomegaly. The patient's pulse ox is currently on 92% on 4 liters NC and the patient is currently afebrile with a T- max of 101.9 in the emergency department. She has been given 1.5 liters od NSS in the ED and she is on a maintenance of 200 cc/hr and she is on insulin drip at 13 U/hr for BS control. She was started on oral Decadron. Most recent blood sugar is at 358. The patient is seen today 04/16/2020 in follow-up on the selective care unit. She was seen and evaluated in consultation yesterday. She was found have CoVID 19 pneumonia. She is currently sitting up in a chair at the bedside. Awake and alert in no acute distress. Maintaining O2 saturation in the low 90s on 5 L/m per nasal cannula. She's been afebrile. Slightly tachycardic. Blood pressure stable. White count 4.4. Hemoglobin 12.0. Lymphocytes 0.9. Sodium 136. Potassium 3.3. Creatinine 0.55. LDH 767. C-reactive protein 62.6. She is on day 2 of Remdesivir. Continued on Protonix, Lovenox, dexamethasone, vitamin C, vitamin D, zinc. The patient is seen today 04/17/2020 in follow-up on the selective care unit. She is currently resting comfortably in bed. Awake and alert in no acute di stress. She is down to 3 L/m per nasal cannula to maintain O2 saturation in the 90s. Her inflammatory markers are on the decline. This is day #3 of her Remdesivir. She remains on vitamin C, vitamin D, Lovenox, Topamax, Decadron, zinc. White count 6.2. Hemoglobin 11.8. Sodium 137. Potassium 3.6. Creatinine 0.60. LDH 750. C-reactive protein 36. Objective - Vital Signs Vital signs: Vital Signs Temp 98.8 F 04/17/20 12:09 Pulse 74 04/17/20 12:09 Resp 18 04/17/20 12:09 BP 122/64 04/17/20 12:09 Pulse Ox 92 L 04/17/20 12:09 Intake & Output 04/16/20 04/17/20 04/17/20 18:59 06:59 18:59 Intake Total 400 4100 Output Total 3000 2500 500 Balance -2600 1600 -500 Weight 141.2 kg Intake: Intake, IV Titration 400 1250 Amount Magnesium Sulfate-D5w Pmx 200 1 gm In Dextrose/Water 1 100ml.bag @ 100 mls/hr IVPB Q[facility]H [facility] Rx#: [id number] Remdesivir (Eua) 100 mg 250 In Sodium Chloride 0.9% 250 ml @ 250 mls/hr IVPB Q24H [facility] Rx#:[id number] Sodium Chloride 0.9% 1, 200 000 ml @ 200 mls/hr IV . Q5H [facility] Rx#:[id number] Sodium Chloride 0.9% 1, 250 000 ml @ 50 mls/hr IV . Q20H [facility] Rx#:[id number] Sodium Phosphate 10 mmol 250 In Sodium Chloride 0.9% 250 ml @ 125 mls/hr IVPB ONCE ONE Rx#:[id number] Vancomycin 2,000 mg In 500 Sodium Chloride 0.9% 500 ml 500 ml @ 167 mls/hr IVPB Q12H [facility] Rx#: [id number] Oral 2850 Output: Urine 3000 2500 500 Other: Voiding Method Indwelling Catheter Indwelling Catheter Indwelling Catheter # Bowel Movements 1 1 - Exam 44-year-old female patient, morbidly obese, with a BMI of 54.9, calm comfortable not in acute respiratory distress. On 3 L nasal cannula. Not using excessive muscle breathing. Head exam was generally normal. There was no scleral icterus or corneal arcus. Mucous membranes were moist. Neck was supple and without jugular venous distension, thyromegaly, or carotid bruits. Carotids were easily palpable bilaterally. There was no adenopathy.Mallampati class IV Lung sounds are diminished and overall breath sounds are quite distant and the examination is limited because of her morbid obesity. Cardiac exam revealed the PMI to be normally situated and sized. The rhythm was regular and no extrasystoles were noted during several minutes of auscultation. The first and second heart sounds were normal and physiologic splitting of the second heart sound was noted. There were no murmurs, rubs, clicks, or gallops. Abdominal exam revealed normal bowel sounds. The abdomen was soft, non-tender, and without masses, organomegaly, or appreciable enlargement of the abdominal aorta.Abdominal organs cannot be accurately palpated and the patient is no direct tenderness rebound tensile guarding. Examination of the extremities revealed easily palpable radial, femoral and pedal pulses. There was no cyanosis, clubbing or edema. Examination of the skin revealed no evidence of significant rashes, suspicious appearing nevi or other concerning lesions. Neurologically, the patient is awake and alert and the patient does not have any focal neurological deficit. Cranial nerves are essentially intact. - Labs CBC & Chem 7: 04/17/20 07:12 04/17/20 07:12 Labs: Abnormal Lab Results - Last 24 Hours (Table) 04/15/20 04/16/20 04/16/20 Range/Units 13:30 17:38 20:37 Chloride (98-107) mmol/L Carbon Dioxide (22-30) mmol/L Glucose (74-99) mg/dL POC Glucose (mg/dL) 370 H 403 H (75-99) mg/dL Hemoglobin A1c 12.4 H (4.0-6.0) % Calcium (8.4-10.2) mg/dL AST (14-36) U/L Lactate Dehydrogenase (313-618) U/L C-Reactive Protein (<10.0) mg/L 04/17/20 04/17/20 04/17/20 Range/Units 00:29 06:05 07:12 Chloride 92 L (98-107) mmol/L Carbon Dioxide 36 H (22-30) mmol/L Glucose 262 H (74-99) mg/dL POC Glucose (mg/dL) 343 H 310 H (75-99) mg/dL Hemoglobin A1c (4.0-6.0) % Calcium 8.0 L (8.4-10.2) mg/dL AST 48 H (14-36) U/L Lactate Dehydrogenase 750 H (313-618) U/L C-Reactive Protein 36.4 H (<10.0) mg/L 04/17/20 Range/Units 11:56 Chloride (98-107) mmol/L Carbon Dioxide (22-30) mmol/L Glucose (74-99) mg/dL POC Glucose (mg/dL) 286 H (75-99) mg/dL Hemoglobin A1c (4.0-6.0) % Calcium (8.4-10.2) mg/dL AST (14-36) U/L Lactate Dehydrogenase (313-618) U/L C-Reactive Protein (<10.0) mg/L Microbiology - Last 24 Hours (Table) 04/15/20 11:30 Blood Culture Gram Stain - Preliminary Blood Blood Culture - Preliminary Coagulase Negative Staph 04/15/20 13:30 Blood Culture - Final Blood Assessment and Plan Assessment: 1 acute Covid 19 related pneumonia with bilateral pulmonary infiltrates and worsening shortness of breath. Symptoms started few days back and the patient comes in with fever and worsening dyspnea in addition to constitutions symptoms. 2 acute on top of chronic hypoxic respiratory failure, currently on 3L of oxygen by nasal cannula 3 chronic dyspnea 4 morbid obesity with a BMI of 54.9 along with component of obstructive sleep apnea and obesity hypoventilation syndrome 5 chronic metabolic alkalosis probably related to chronic hypercapnic respiratory failure 6 diabetes mellitus, insulin-dependent, with quite elevated blood sugars and currently the patient on insulin drip for blood sugar control. 7 hypertension 8 hyperlipidemia 9 hypothyroidism 10 chronic venous insufficiency 11 peripheral neuropathy 12 migraines 13. Irritable bowel syndrome 14 fatty liver related to obesity plan The patient was seen and evaluated by Dr. Martin Labs reviewed Continue Remdesivir, day #3 Continue current medications Titrate down the FiO2 as tolerated, currently down to 3 L/m per nasal cannula Repeat a chest x-ray in the a.m. We'll continue to follow I, the cosigning physician, performed a history & physical examination of the patient. Lungs sounds are clear, diminished. Maintaining good O2 saturations in the 90s on 3 L/m per nasal cannula. I discussed the assessment and plan of care with my nurse practitioner, Bonnie Guevara. I attest to the above note as dictated by her.
[2020-04-17 16:25] LABS: Glucose,Whole Blood 363 mg/dL (75-99)
[2020-04-17] MEDS: REMDESIVIR (EUA) 100 MG in SODIUM CHLORIDE 0.9% 250 ML IVPB SCH (18:31)
[2020-04-17] MEDS: IBUPROFEN 600 MG TAB PO PRN (18:45)
[2020-04-17] MEDS: FENOFIBRATE 160 MG TAB PO SCH (19:59)
[2020-04-17 20:34] LABS: Glucose,Whole Blood 438 mg/dL (75-99)
[2020-04-17 22:12] LABS: Glucose,Whole Blood 360 mg/dL (75-99)
[2020-04-17] MEDS: INSULIN REGULAR 100 UNIT in SODIUM CHLORIDE 0.9% 100 ML IV SCH (22:21)
[2020-04-17 22:57] LABS: Glucose,Whole Blood 359 mg/dL (75-99)
--- NOTE | 2020-04-17 23:15 | PN ---
PROGRESS NOTE DATE OF SERVICE: 04/17/2020 REASON FOR FOLLOWUP: 1. Positive blood culture. 2. Covid-19. 3. Right gluteal pressure ulcer. INTERVAL HISTORY: Patient is currently afebrile. The patient is breathing slightly comfortably though still complains of shortness of breath on minimal exertion. Did have a cough, not bringing any sputum. No nausea. No vomiting. No abdominal pain. No worsening pain to the right gluteal wound area. PHYSICAL EXAMINATION: Blood pressure 132/68 with a pulse of 87, temperature 98. She is 92% on 2 L nasal cannula. General description is a middle-aged female up in the chair in no distress. Respiratory system: Unlabored breathing, decreased breath sounds. No wheeze. HEART: S1, S2. Regular rate and rhythm. Abdomen soft, no tenderness. LABS: Hemoglobin 11.8, white count 6.2, BUN of 14, creatinine 0.60. Blood culture with Coagulase Negative Staph. Blood culture repeat has been negative so far. DIAGNOSTIC IMPRESSION/PLAN: 1. Patient with a positive blood culture with coagulase negative Staph likely skin contaminant. Vancomycin discontinued. Follow-up blood culture negative. 2. Right gluteal wound. Local wound care to continue with Aquacel Silver dressing. 3. Patient with COVID-19 pneumonia, being treated with Dexamethasone, Lovenox . 4. Continue and monitor clinical course closely. MMODL / IJN: [id number] /
[2020-04-17 23:35] LABS: Glucose,Whole Blood 307 mg/dL (75-99)
[2020-04-17 23:54] LABS: Glucose,Whole Blood 328 mg/dL (75-99)
[2020-04-18 00:43] LABS: Glucose,Whole Blood 279 mg/dL (75-99)
[2020-04-18 00:56] LABS: Glucose,Whole Blood 236 mg/dL (75-99)
[2020-04-18] MEDS: INSULIN REGULAR 100 UNIT in SODIUM CHLORIDE 0.9% 100 ML IV SCH ×2 (01:55→19:58)
[2020-04-18 03:13] LABS: Glucose,Whole Blood 173 mg/dL (75-99)
[2020-04-18] MEDS: SODIUM CHLORIDE 0.9% 1,000 ML IV SCH ×2 (04:59→21:25)
[2020-04-18 05:34] LABS: Glucose,Whole Blood 145 mg/dL (75-99)
[2020-04-18] MEDS: INSULIN DETEMIR (LEVEMIR) 100 UNIT/ML SYR SQ SCH ×2 (05:57→21:16)
[2020-04-18] MEDS: INSULIN ASPART (NovoLOG) 100 UNIT/ML VIAL SQ SCH ×4 (05:58→21:25)
[2020-04-18 06:09] LABS: Glucose,Whole Blood 151 mg/dL (75-99)
[2020-04-18] MEDS: BISMUTH SUBSALICYLATE 4,192 MG/240 ML BOTTLE PO SCH ×4 (06:16→21:26)
[2020-04-18] MEDS: LEVOTHYROXINE 88 MCG TAB PO SCH (06:16)
[2020-04-18] MEDS: metFORMIN 500 MG TAB PO SCH ×2 (06:16→17:28)
[2020-04-18] MEDS: PANTOPRAZOLE 40 MG TABLET PO SCH ×2 (06:25→17:28)
[2020-04-18 07:18] LABS: Glucose,Whole Blood 133 mg/dL (75-99)
[2020-04-18 07:51] LABS: Basophils % (A) 0 %; Eosinophils # (A) 0.1 k/uL (0-0.7); Eosinophils % (A) 1 %; HGB 11.1 gm/dL (11.4-16.0); Lymphocytes # (A) 1.8 k/uL (1.0-4.8); Lymphocytes % (A) 31 %; MCH 28.4 pg (25.0-35.0); MCHC 32.6 g/dL (31.0-37.0); MCV 87.1 fL (80.0-100.0); Mean Platelet Volume 8.5; Monocytes # (A) 0.4 k/uL (0-1.0); Monocytes % (A) 6 %; Neutrophils # (A) 3.4 k/uL (1.3-7.7); Neutrophils % (A) 59 %; Platelet Count 218 k/uL (150-450); RDW 14.9 % (11.5-15.5); WBC 5.8 k/uL (3.8-10.6)
[2020-04-18 08:04] LABS: ALT 30 U/L (4-34); AST 40 U/L (14-36); African American GFR (CKD) >90 (>60 ml/min/1.73 sqM); Albumin 3.5 g/dL (3.5-5.0); Alkaline Phosphatase 75 U/L (38-126); Anion Gap 7 mmol/L; Blood Urea Nitrogen 17 mg/dL (7-17); Calcium 8.5 mg/dL (8.4-10.2); Carbon Dioxide 39 mmol/L (22-30); Chloride 92 mmol/L (98-107); Glucose 132 mg/dL (74-99); LDH 801 U/L (313-618); Non-African American GFR(CKD) >90 (>60 ml/min/1.73 sqM); Phosphorus 4.1 mg/dL (2.5-4.5); Potassium 3.4 mmol/L (3.5-5.1); Sodium 138 mmol/L (137-145); Total Bilirubin 0.4 mg/dL (0.2-1.3); Total Protein 6.5 g/dL (6.3-8.2)
[2020-04-18] MEDS: ALBUTEROL HFA INHALER INHALATION PRN ×2 (08:13→15:44)
[2020-04-18] MEDS: dexAMETHasone 2 MG TAB PO SCH (08:51)
[2020-04-18] MEDS: atenoloL 50 MG TAB PO SCH (08:51)
[2020-04-18] MEDS: CHLORTHALIDONE 25 MG TAB PO SCH (08:51)
[2020-04-18] MEDS: amLODIPine 10 MG TAB PO SCH (08:51)
[2020-04-18] MEDS: CYCLOBENZAPRINE 10 MG TAB PO PRN (08:51)
[2020-04-18] MEDS: lisinopriL 20 MG TAB PO SCH (08:51)
[2020-04-18] MEDS: CHOLECALCIFEROL 1,000 UNIT TAB PO SCH (08:51)
[2020-04-18] MEDS: MULTIVITAMINS, THERA 1 EACH TAB PO SCH (08:51)
[2020-04-18] MEDS: DIVALPROEX 500 MG TABLET.DR PO SCH ×2 (08:51→21:24)
[2020-04-18] MEDS: ASCORBIC ACID 500 MG TAB PO SCH (08:51)
[2020-04-18] MEDS: hydrALAZINE HCL 50 MG TAB PO SCH ×3 (08:51→21:25)
[2020-04-18] MEDS: TOPIRAMATE 25 MG TAB PO SCH ×2 (08:51→21:24)
[2020-04-18] MEDS: traMADol 50 MG TAB PO PRN (08:52)
[2020-04-18] MEDS: ENOXAPARIN 40 MG/0.4 ML SYRINGE SQ SCH (08:52)
[2020-04-18] MEDS: GABAPENTIN 300 MG CAP PO SCH ×3 (08:52→21:24)
[2020-04-18] MEDS: SERTRALINE 100 MG TAB PO SCH (08:52)
[2020-04-18] MEDS: ZINC SULFATE 220 MG CAP PO SCH (08:52)
[2020-04-18] MEDS: ATORVASTATIN 40 MG TAB PO SCH (08:52)
[2020-04-18] MEDS: HYDROPHILIC CREAM 180 GM TUBE TOPICAL SCH (08:53)
[2020-04-18 08:57] LABS: Glucose,Whole Blood 141 mg/dL (75-99)
[2020-04-18] MEDS ORDERED: BENZONATATE 100 MG CAP PO PRN (09:33)
[2020-04-18] MEDS ORDERED: BENZOCAINE/MENTHOL LOZENG 1 EACH LOZENGE MUCOUS MEM PRN (09:33)
[2020-04-18] MEDS: POTASSIUM CHLORIDE ER 20 MEQ TAB.ER PO SCH ×2 (09:48→11:24)
--- NOTE | 2020-04-18 11:14 | P.PN ---
Subjective Progress Note Date: 04/18/20 Principal diagnosis: Worsening shortness of breath 44-year-old obese female with past medical history of chronic intermittent asthma, COPD, diabetes myelitis, hyperlipidemia, hypertension, osteoarthritis, obstructive sleep apnea and wears CPAP, chronic hypoxic respiratory failure, utilizes 2-3 L nasal cannula at home, hypothyroidism, bipolar, depression, noted former nicotine dependence, history of MRSA of buttocks. She presented emergency room with worsening shortness of breath and had concerns of COVID at that time in which she was found to be positive. Currently she is sitting up in chair resting comfortably and denies any pain at this time. She does complain of some shortness of breath. Most recent set of vitals she is 98.8 axillary pulse rate 76 respiratory rate of 20 with nonlabored respirations, blood pressure 140/71, satting 93% on 3 L nasal cannula. Chemistry reveals sodium 137, potassium 3.6, PARVEEN of 14, creatinine of 0.60, leukocyte and that was 262 w ith [id number] glucose of 310. She has magnesium level of 2.1, AST of 48, ELT of 34 which both are trending down. LDH is trending down to 750 as well as her C-reactive protein is coming down to 36.4. She is currently tolerating her diet although she mentions that she has lost most of her taste but not smell at this time. She denies headache, nausea/vomiting, abdominal pain, diarrhea, fevers, chills and malaise, and/or headache at this time. She is currently on day 3 Remdesivir. 04/18/2020 patient sitting up and resting comfortably in chair. She is currently on 5 L nasal cannula satting in the low 90s. Does not appear to be in acute distress and denies pain or difficulty breathing at this time. She does mention that she has had intermittent periods of shortness of breath. Most recent set of vitals are her she is afebrile 98.4 orally, pulse rate of 64, respiratory rate of 20, blood pressure 133/72, 91% of 5 L nasal cannula. Chemistry reveals potassium 3.4 and was treated per protocol B1 is 17, creatinine 0.73, blood glucose of 132 and she has been placed on an insulin drip as of 1800 yesterday. Transaminitis is resolving AST is down to 40 and ELT is 30 her LDH has increased 801 and her C-reactive protein has decreased to 31. Awaiting results for chest x-ray from this morning. Objective - Vital Signs Vital signs: Vital Signs Temp 98.4 F 04/18/20 08:00 Pulse 64 04/18/20 08:00 Resp 20 04/18/20 08:00 BP 133/72 04/18/20 08:00 Pulse Ox 97 04/18/20 04:00 Intake & Output 04/17/20 04/18/20 04/18/20 18:59 06:59 18:59 Intake Total 1740 93.416 248.753 Output Total 500 1850 Balance 1240 -1756.584 248.753 Weight 139.6 kg Intake: Intake, IV Titration 1500 93.416 8.753 Amount Insulin Regular 100 unit 93.416 8.753 In Sodium Chloride 0.9% 100 ml @ Titrate IV .Q0M [facility] Rx#:[id number] Sodium Chloride 0.9% 1, 1500 000 ml @ 50 mls/hr IV . Q20H [facility] Rx#:[id number] Oral 240 240 Output: Urine 500 1850 Other: Voiding Method Indwelling Catheter Indwelling Catheter Indwelling Catheter # Bowel Movements 1 - Exam GENERAL: Obese female, well-nourished and in no acute distress. On 5 L nasal cannula sitting in chair. HEAD: Atraumatic, normocephalic. EYES: Pupils equal round and reactive to light, extraocular movements intact, sclera anicteric, conjunctiva are normal. ENT:nares patent, oropharynx clear without exudates. Moist mucous membranes. NECK: Normal range of motion, supple without lymphadenopathy or JVD, no thyromegaly LUNGS: Breath sounds with bilateral scattered rhonchi and expiratory wheezes. HEART: Regular rate and rhythm without murmurs, rubs or gallops.S1S2 Normal ABDOMEN: Soft, nontender, normoactive bowel sounds. No guarding, no rebound. No masses appreciated. EXTREMITIES: Normal range of motion, no pitting or edema. No clubbing or cyanosis. NEUROLOGICAL: Cranial nerves II through XII grossly intact. Normal speech, normal gait. PSYCH: Normal mood, normal affect. SKIN: Warm, Dry, normal turgor, no rashes, stage II pressure ulcer on the right buttocks (present on admission). - Labs CBC & Chem 7: 11/22/20 07:01 04/18/20 07:01 Labs: Abnormal Lab Results - Last 24 Hours (Table) 04/17/20 04/17/20 04/17/20 Range/Units 11:56 16:23 20:30 Hgb (11.4-16.0) gm/dL Potassium (3.5-5.1) mmol/L Chloride (98-107) mmol/L Carbon Dioxide (22-30) mmol/L Glucose (74-99) mg/dL POC Glucose (mg/dL) 286 H 363 H 438 H (75-99) mg/dL AST (14-36) U/L Lactate Dehydrogenase (313-618) U/L C-Reactive Protein (<10.0) mg/L 04/17/20 04/17/20 04/17/20 Range/Units 22:11 22:54 23:24 Hgb (11.4-16.0) gm/dL Potassium (3.5-5.1) mmol/L Chloride (98-107) mmol/L Carbon Dioxide (22-30) mmol/L Glucose (74-99) mg/dL POC Glucose (mg/dL) 360 H 359 H 307 H (75-99) mg/dL AST (14-36) U/L Lactate Dehydrogenase (313-618) U/L C-Reactive Protein (<10.0) mg/L 04/17/20 04/18/20 04/18/20 Range/Units 23:53 00:22 00:54 Hgb (11.4-16.0) gm/dL Potassium (3.5-5.1) mmol/L Chloride (98-107) mmol/L Carbon Dioxide (22-30) mmol/L Glucose (74-99) mg/dL POC Glucose (mg/dL) 328 H 279 H 236 H (75-99) mg/dL AST (14-36) U/L Lactate Dehydrogenase (313-618) U/L C-Reactive Protein (<10.0) mg/L 04/18/20 04/18/20 04/18/20 Range/Units 03:10 05:32 06:08 Hgb (11.4-16.0) gm/dL Potassium (3.5-5.1) mmol/L Chloride (98-107) mmol/L Carbon Dioxide (22-30) mmol/L Glucose (74-99) mg/dL POC Glucose (mg/dL) 173 H 145 H 151 H (75-99) mg/dL AST (14-36) U/L Lactate Dehydrogenase (313-618) U/L C-Reactive Protein (<10.0) mg/L 04/18/20 04/18/20 04/18/20 Range/Units 07:01 07:01 07:17 Hgb 11.1 L (11.4-16.0) gm/dL Potassium 3.4 L (3.5-5.1) mmol/L Chloride 92 L (98-107) mmol/L Carbon Dioxide 39 H (22-30) mmol/L Glucose 132 H (74-99) mg/dL POC Glucose (mg/dL) 133 H (75-99) mg/dL AST 40 H (14-36) U/L Lactate Dehydrogenase 801 H (313-618) U/L C-Reactive Protein 31.0 H (<10.0) mg/L 04/18/20 Range/Units 08:56 Hgb (11.4-16.0) gm/dL Potassium (3.5-5.1) mmol/L Chloride (98-107) mmol/L Carbon Dioxide (22-30) mmol/L Glucose (74-99) mg/dL POC Glucose (mg/dL) 141 H (75-99) mg/dL AST (14-36) U/L Lactate Dehydrogenase (313-618) U/L C-Reactive Protein (<10.0) mg/L Microbiology - Last 24 Hours (Table) 04/16/20 15:51 Blood Culture - Preliminary Blood No Growth after 24 hours Assessment and Plan (1) Pneumonia due to COVID-19 virus Current Visit: Yes Status: Acute Code(s): U07.1 - COVID-19; J12.89 - OTHER VIRAL PNEUMONIA SNOMED Code(s): 216085835784716686 (2) Acute and chronic respiratory failure Current Visit: Yes Status: Acute Code(s): J96.20 - ACUTE AND CHR RESP FAILURE, UNSP W HYPOXIA OR HYPERCAPNIA SNOMED Code(s): 56115703 (3) Obstructive sleep apnea on CPAP Current Visit: Yes Status: Acute Code(s): G47.33 - OBSTRUCTIVE SLEEP APNEA (ADULT) (PEDIATRIC); Z99.89 - DEPENDENCE ON OTHER ENABLING MACHINES AND DEVICES SNOMED Code(s): 09413667 (4) COPD (chronic obstructive pulmonary disease) Current Visit: No Status: Acute Code(s): J44.9 - CHRONIC OBSTRUCTIVE PULMONARY DISEASE, UNSPECIFIED SNOMED Code(s): 32687512 (5) Diabetes mellitus with skin ulcer Current Visit: Yes Status: Acute Code(s): E11.622 - TYPE 2 DIABETES MELLITUS WITH OTHER SKIN ULCER; L98.499 - NON-PRESSURE CHRONIC ULCER OF SKIN OF SITES W UNSP SEVERITY SNOMED Code(s): 84216212 (6) Morbid (severe) obesity due to excess calories Current Visit: No Status: Acute Code(s): E66.01 - MORBID (SEVERE) OBESITY DUE TO EXCESS CALORIES SNOMED Code(s): 427935716 (7) Hypokalemia Current Visit: Yes Status: Acute Code(s): E87.6 - HYPOKALEMIA SNOMED Code(s): 28549939 (8) Bipolar 1 disorder Current Visit: Yes Status: Acute Code(s): F31.9 - BIPOLAR DISORDER, UNSPECIFIED SNOMED Code(s): 212450353 (9) Depression Current Visit: Yes Status: Acute Code(s): F32.9 - MAJOR DEPRESSIVE DISORDER, SINGLE EPISODE, UNSPECIFIED SNOMED Code(s): 91780737 Plan: 1. We'll continue current COVID treatment protocol. 2. We'll titrate oxygen to maintain sats greater than 92%. 3. Continue to use CPAP at night. 4. Monitor labs daily. 5. We'll continue to monitor vital signs and treat accordingly. 6. Chest x-ray in a.m. 7. We'll continue to follow with pulmonary and infectious disease recommendations. 8. We'll continue to monitor blood glucose levels and adjust meds accordingly. 9. We will follow closely and reevaluate again tomorrow. Time with Patient: Greater than 30
[2020-04-18 11:20] LABS: Glucose,Whole Blood 130 mg/dL (75-99)
--- NOTE | 2020-04-18 12:07 | XR ---
EXAMINATION TYPE: XR chest 1V portable DATE OF EXAM: 04/18/2020 COMPARISON: 04/15/2020. HISTORY: Follow-up shortness of breath. TECHNIQUE: Single frontal view of the chest is obtained. FINDINGS: There is unchanged bilateral diffuse patchy airspace opacities predominantly in the mid to lower lungs. No significant pleural effusion, or pneumothorax seen. Stable cardiomediastinal silhoue tte. The osseous structures are intact. IMPRESSION: No significant interval change.
[2020-04-18 13:03] LABS: Glucose,Whole Blood 158 mg/dL (75-99)
--- NOTE | 2020-04-18 14:14 | P.PN ---
Subjective Progress Note Date: 04/18/20 Principal diagnosis: Acute CoVID 19 related to pneumonia 44-year-old female patient, morbidly obese a BMI of 54.9, also known to have COPD on home oxygen at 2-3 L per minute nasal cannula, obstructive sleep apnea diabetes mellitus and hypertension. The patient came into the ED with worsening shortness of breath and she was concerned about coronavirus, 19 infection. The patient has been having a congested cough with worsening shortness of breath over the past few days. She was also feeling weak and tired and fatigued. The patient had a white cell count of 5.5, she did have lymphopenia with a lymphocyte count of 0.6, the patient's LDH was 846, CRP was 53, d-dimer was at 0.27, and she checked positive for covid 19. The patient's chest x-ray showed bilateral pneumonia along with cardiomegaly. The patient's pulse ox is currently on 92% on 4 liters NC and the patient is currently afebrile with a T- max of 101.9 in the emergency department. She has been given 1.5 liters od NSS in the ED and she is on a maintenance of 200 cc/hr and she is on insulin drip at 13 U/hr for BS control. She was started on oral Decadron. Most recent blood sugar is at 358. The patient is seen today 04/16/2020 in follow-up on the selective care unit. She was seen and evaluated in consultation yesterday. She was found have CoVID 19 pneumonia. She is currently sitting up in a chair at the bedside. Awake and alert in no acute distress. Maintaining O2 saturation in the low 90s on 5 L/m per nasal cannula. She's been afebrile. Slightly tachycardic. Blood pressure stable. White count 4.4. Hemoglobin 12.0. Lymphocytes 0.9. Sodium 136. Potassium 3.3. Creatinine 0.55. LDH 767. C-reactive protein 62.6. She is on day 2 of Remdesivir. Continued on Protonix, Lovenox, dexamethasone, vitamin C, vitamin D, zinc. The patient is seen today 04/17/2020 in follow-up on the selective care unit. She is currently resting comfortably in bed. Awake and alert in no acute di stress. She is down to 3 L/m per nasal cannula to maintain O2 saturation in the 90s. Her inflammatory markers are on the decline. This is day #3 of her Remdesivir. She remains on vitamin C, vitamin D, Lovenox, Topamax, Decadron, zinc. White count 6.2. Hemoglobin 11.8. Sodium 137. Potassium 3.6. Creatinine 0.60. LDH 750. C-reactive protein 36. The patient is seen today 04/18/2020 in follow-up on the selective care unit. He is currently sitting up in a chair at the bedside. Awake and alert in no acute distress. Eriberto quite dyspneic with minimal exertion. She is currently on 5 L nasal cannula to maintain O2 saturations in the 90s. She did utilize CPAP last night. She's been afebrile. Hemodynamically stable. White count 5.8. Hemoglobin 11.1. Sodium 138. Potassium 3.4. Creatinine 0.73. LDH 81 C- reactive protein 31. She is receiving her fourth dose of Remdesivir today. 0.9 normal saline at MLS per hour. Tessalkristen Perles for her cough. Objective - Vital Signs Vital signs: Vital Signs Temp 98.4 F 04/18/20 11:49 Pulse 64 04/18/20 11:49 Resp 18 04/18/20 11:49 BP 118/64 04/18/20 11:49 Pulse Ox 90 L 04/18/20 11:49 Intake & Output 04/17/20 04/18/20 04/18/20 18:59 06:59 18:59 Intake Total 1740 93.416 799.830 Output Total 500 1850 1800 Balance 1240 -1756.584 -1000.170 Weight 139.6 kg Intake: Intake, IV Titration 1500 93.416 19.830 Amount Insulin Regular 100 unit 93.416 19.830 In Sodium Chloride 0.9% 100 ml @ Titrate IV .Q0M FORD Rx#:[id number] Sodium Chloride 0.9% 1, 1500 000 ml @ 50 mls/hr IV . Q20H FORD Rx#:[id number] Oral 240 780 Output: Urine 500 1850 1800 Other: Voiding Method Indwelling Catheter Indwelling Catheter Indwelling Catheter # Bowel Movements 1 - Exam General appearance. Awake alert 44-year-old female patient, morbidly obese, with a BMI of 54.9, calm comfortable not in acute respiratory distress. On 5 L nasal cannula. Not using excessive muscle breathing. Head exam was generally normal. There was no scleral icterus or corneal arcus. Mucous membranes were moist. Neck was supple and without jugular venous distension, thyromegaly, or carotid bruits. Carotids were easily palpable bilaterally. There was no adenopathy.Mallampati class IV Lung sounds are diminished and overall breath sounds are quite distant and the examination is limited because of her morbid obesity. Cardiac exam revealed the PMI to be normally situated and sized. The rhythm was regular and no extrasystoles were noted during several minutes of auscultation. The first and second heart sounds were normal and physiologic splitting of the second heart sound was noted. There were no murmurs, rubs, clicks, or gallops. Abdominal exam revealed normal bowel sounds. The abdomen was soft, non-tender, and without masses, organomegaly, or appreciable enlargement of the abdominal aorta.Abdominal organs cannot be accurately palpated and the patient is no direct tenderness rebound tensile guarding. Examination of the extremities revealed easily palpable radial, femoral and pedal pulses. There was no cyanosis, clubbing or edema. Examination of the skin revealed no evidence of significant rashes, suspicious appearing nevi or other concerning lesions. Neurologically, the patient is awake and alert and the patient does not have any focal neurological deficit. Cranial nerves are essentially intact. - Labs CBC & Chem 7: 04/18/20 07:01 04/18/20 07:01 Labs: Abnormal Lab Results - Last 24 Hours (Table) 04/17/20 04/17/20 04/17/20 Range/Units 16:23 20:30 22:11 Hgb (11.4-16.0) gm/dL Potassium (3.5-5.1) mmol/L Chloride (98-107) mmol/L Carbon Dioxide (22-30) mmol/L Glucose (74-99) mg/dL POC Glucose (mg/dL) 363 H 438 H 360 H (75-99) mg/dL AST (14-36) U/L Lactate Dehydrogenase (313-618) U/L C-Reactive Protein (<10.0) mg/L 04/17/20 04/17/20 04/17/20 Range/Units 22:54 23:24 23:53 Hgb (11.4-16.0) gm/dL Potassium (3.5-5.1) mmol/L Chloride (98-107) mmol/L Carbon Dioxide (22-30) mmol/L Glucose (74-99) mg/dL POC Glucose (mg/dL) 359 H 307 H 328 H (75-99) mg/dL AST (14-36) U/L Lactate Dehydrogenase (313-618) U/L C-Reactive Protein (<10.0) mg/L 04/18/20 04/18/20 04/18/20 Range/Units 00:22 00:54 03:10 Hgb (11.4-16.0) gm/dL Potassium (3.5-5.1) mmol/L Chloride (98-107) mmol/L Carbon Dioxide (22-30) mmol/L Glucose (74-99) mg/dL POC Glucose (mg/dL) 279 H 236 H 173 H (75-99) mg/dL AST (14-36) U/L Lactate Dehydrogenase (313-618) U/L C-Reactive Protein (<10.0) mg/L 04/18/20 04/18/20 04/18/20 Range/Units 05:32 06:08 07:01 Hgb 11.1 L (11.4-16.0) gm/dL Potassium (3.5-5.1) mmol/L Chloride (98-107) mmol/L Carbon Dioxide (22-30) mmol/L Glucose (74-99) mg/dL POC Glucose (mg/dL) 145 H 151 H (75-99) mg/dL AST (14-36) U/L Lactate Dehydrogenase (313-618) U/L C-Reactive Protein (<10.0) mg/L 04/18/20 04/18/20 04/18/20 Range/Units 07:01 07:17 08:56 Hgb (11.4-16.0) gm/dL Potassium 3.4 L (3.5-5.1) mmol/L Chloride 92 L (98-107) mmol/L Carbon Dioxide 39 H (22-30) mmol/L Glucose 132 H (74-99) mg/dL POC Glucose (mg/dL) 133 H 141 H (75-99) mg/dL AST 40 H (14-36) U/L Lactate Dehydrogenase 801 H (313-618) U/L C-Reactive Protein 31.0 H (<10.0) mg/L 04/18/20 04/18/20 Range/Units 11:19 13:01 Hgb (11.4-16.0) gm/dL Potassium (3.5-5.1) mmol/L Chloride (98-107) mmol/L Carbon Dioxide (22-30) mmol/L Glucose (74-99) mg/dL POC Glucose (mg/dL) 130 H 158 H (75-99) mg/dL AST (14-36) U/L Lactate Dehydrogenase (313-618) U/L C-Reactive Protein (<10.0) mg/L Microbiology - Last 24 Hours (Table) 04/15/20 11:30 Blood Culture Gram Stain - Final Blood Blood Culture - Final Coagulase Negative Staph 04/16/20 15:51 Blood Culture - Preliminary Blood No Growth after 24 hours Assessment and Plan Assessment: 1 acute Covid 19 related pneumonia with bilateral pulmonary infiltrates and worsening shortness of breath. Today's chest x-ray today reveals unchanged bilateral diffuse airspace opacities 2 acute on top of chronic hypoxic respiratory failure, currently on 5L of oxygen by nasal cannula 3 chronic dyspnea 4 morbid obesity with a BMI of 54.9 along with component of obstructive sleep apnea and obesity hypoventilation syndrome 5 chronic metabolic alkalosis probably related to chronic hypercapnic respiratory failure 6 diabetes mellitus, insulin-dependent, with quite elevated blood sugars and currently the patient on insulin drip for blood sugar control. 7 hypertension 8 hyperlipidemia 9 hypothyroidism 10 chronic venous insufficiency 11 peripheral neuropathy 12 migraines 13. Irritable bowel syndrome 14 fatty liver related to obesity plan The patient was seen and evaluated by Dr. Martin Chest x-ray and labs reviewed Continue Remdesivir, day #4 Continue current medications Titrate down the FiO2 as tolerated, currently at 5 L/m per nasal cannula We'll continue to follow I, the cosigning physician, performed a history & physical examination of the patient. Lungs sounds are clear, diminished. Maintaining good O2 saturations in the 90s on 5 L/m per nasal cannula. I discussed the assessment and plan of care with my nurse practitioner, Bonnie Guevara. I attest to the above note as dictated by her.
[2020-04-18 15:07] LABS: Glucose,Whole Blood 234 mg/dL (75-99)
[2020-04-18 17:02] LABS: Glucose,Whole Blood 246 mg/dL (75-99)
[2020-04-18] MEDS: REMDESIVIR (EUA) 100 MG in SODIUM CHLORIDE 0.9% 250 ML IVPB SCH (17:28)
[2020-04-18 19:08] LABS: Glucose,Whole Blood 237 mg/dL (75-99)
[2020-04-18 20:50] LABS: Glucose,Whole Blood 272 mg/dL (75-99)
[2020-04-18] MEDS: FENOFIBRATE 160 MG TAB PO SCH (21:24)
[2020-04-18 23:07] LABS: Glucose,Whole Blood 244 mg/dL (75-99)
--- NOTE | 2020-04-19 00:45 | PN ---
PROGRESS NOTE DATE OF SERVICE: 04/18/2020 REASON FOR FOLLOWUP: 1. Positive blood culture. 2. COVID-19 infection. 3. gluteal pressure ulcer. INTERVAL HISTORY: The patient is currently afebrile. The patient is still complaining of shortness of breath, requiring high-flow oxygen. The patient denies having any chest pain. Cough, but no worsening. No abdominal pain. No diarrhea. PHYSICAL EXAMINATION: Blood pressure 134/70 with a pulse of 67, temperature 98. She is 90% on 5 L nasal cannula. General description is a middle-aged female up in the in no bed in no distress. RESPIRATORY SYSTEM: Unlabored breathing, decreased intensity of breath sounds. No wheeze. HEART: S1, S2. Regular rate and rhythm. ABDOMEN: Soft, no tenderness. LABS: Chest x-ray with no significant interval change. Blood culture repeat has been negative so far. DIAGNOSTIC IMPRESSION AND PLAN: 1. Patient with positive blood culture with coagulase-negative Staph likely skin contaminant. No clinical disease to go along with it. Follow-up blood culture negative. The patient is currently off vancomycin. 2. Patient with acute COVID-19 pneumonia, currently being treated with Lovenox, remdesivir, zinc sulfate and dexamethasone to continue and monitor respiratory status closely. 3. Right gluteal pressure ulcer. Continue with Aquacel Silver dressing. Keep the area off the pressure. MMODL / IJN: [id number] /
[2020-04-19 00:49] LABS: Glucose,Whole Blood 216 mg/dL (75-99)
[2020-04-19 02:20] LABS: HCT 33.4 % (34.0-46.0); MCH 28.3 pg (25.0-35.0); MCHC 32.8 g/dL (31.0-37.0); MCV 86.1 fL (80.0-100.0); Mean Platelet Volume 8.3; Platelet Count 244 k/uL (150-450); RBC 3.88 m/uL (3.80-5.40); RDW 14.3 % (11.5-15.5)
[2020-04-19 02:34] LABS: African American GFR (CKD) >90 (>60 ml/min/1.73 sqM); Anion Gap 10 mmol/L; Blood Urea Nitrogen 16 mg/dL (7-17); Calcium 8.9 mg/dL (8.4-10.2); Carbon Dioxide 32 mmol/L (22-30); Chloride 94 mmol/L (98-107); Glucose 195 mg/dL (74-99); Magnesium 1.4 mg/dL (1.6-2.3); Non-African American GFR(CKD) >90 (>60 ml/min/1.73 sqM); Potassium 3.8 mmol/L (3.5-5.1); Sodium 136 mmol/L (137-145)
[2020-04-19 03:02] LABS: Glucose,Whole Blood 206 mg/dL (75-99)
[2020-04-19] MEDS: MAGNESIUM SULFATE-D5W PMX 1 GM in DEXTROSE/WATER 1 100ML.BAG IVPB SCH ×3 (03:16→05:25)
[2020-04-19] MEDS: traMADol 50 MG TAB PO PRN ×2 (03:18→11:31)
[2020-04-19 04:57] LABS: Glucose,Whole Blood 192 mg/dL (75-99)
[2020-04-19] MEDS: INSULIN REGULAR 100 UNIT in SODIUM CHLORIDE 0.9% 100 ML IV SCH ×2 (05:26→19:49)
[2020-04-19] MEDS: INSULIN DETEMIR (LEVEMIR) 100 UNIT/ML SYR SQ SCH ×3 (06:40→20:55)
[2020-04-19 06:47] LABS: Glucose,Whole Blood 189 mg/dL (75-99)
[2020-04-19] MEDS: INSULIN ASPART (NovoLOG) 100 UNIT/ML VIAL SQ SCH ×4 (06:47→20:55)
[2020-04-19] MEDS: PANTOPRAZOLE 40 MG TABLET PO SCH ×2 (06:47→17:13)
[2020-04-19] MEDS: BISMUTH SUBSALICYLATE 4,192 MG/240 ML BOTTLE PO SCH ×4 (06:47→20:46)
[2020-04-19] MEDS: metFORMIN 500 MG TAB PO SCH ×2 (06:47→17:12)
[2020-04-19] MEDS: LEVOTHYROXINE 88 MCG TAB PO SCH (06:47)
[2020-04-19] MEDS: amLODIPine 10 MG TAB PO SCH (08:55)
[2020-04-19] MEDS: ASCORBIC ACID 500 MG TAB PO SCH (08:55)
[2020-04-19] MEDS: atenoloL 50 MG TAB PO SCH (08:56)
[2020-04-19] MEDS: ENOXAPARIN 40 MG/0.4 ML SYRINGE SQ SCH (08:56)
[2020-04-19] MEDS: ATORVASTATIN 40 MG TAB PO SCH (08:56)
[2020-04-19] MEDS: DIVALPROEX 500 MG TABLET.DR PO SCH ×2 (08:56→20:55)
[2020-04-19] MEDS: dexAMETHasone 2 MG TAB PO SCH (08:56)
[2020-04-19] MEDS: CHOLECALCIFEROL 1,000 UNIT TAB PO SCH (08:56)
[2020-04-19] MEDS: CHLORTHALIDONE 25 MG TAB PO SCH (08:56)
[2020-04-19] MEDS: SERTRALINE 100 MG TAB PO SCH (08:57)
[2020-04-19] MEDS: TOPIRAMATE 25 MG TAB PO SCH ×2 (08:57→20:55)
[2020-04-19] MEDS: hydrALAZINE HCL 50 MG TAB PO SCH ×3 (08:57→20:55)
[2020-04-19] MEDS: MULTIVITAMINS, THERA 1 EACH TAB PO SCH (08:57)
[2020-04-19] MEDS: lisinopriL 20 MG TAB PO SCH (08:57)
[2020-04-19] MEDS: GABAPENTIN 300 MG CAP PO SCH ×3 (08:57→20:55)
[2020-04-19] MEDS: ZINC SULFATE 220 MG CAP PO SCH (08:59)
[2020-04-19 09:21] LABS: Glucose,Whole Blood 150 mg/dL (75-99)
[2020-04-19] MEDS: HYDROPHILIC CREAM 180 GM TUBE TOPICAL SCH (09:30)
[2020-04-19 11:20] LABS: Glucose,Whole Blood 164 mg/dL (75-99)
[2020-04-19] MEDS: CYCLOBENZAPRINE 10 MG TAB PO PRN (11:31)
[2020-04-19 12:24] LABS: Glucose,Whole Blood 165 mg/dL (75-99)
--- NOTE | 2020-04-19 12:31 | P.PN ---
Subjective Progress Note Date: 04/19/20 This is a 44-year-old female with past medical history of chronic intermittent asthma, COPD, diabetes mellitus, hyperlipidemia, hypertension, osteoarthritis, obstructive sleep apneawears CPAP, chronic hypoxic respiratory failure-wears 2- 3 L nasal cannula at home hypothyroidism, morbid obesity, bipolar, depression, former nicotine dependence, history of MRSA of buttock ulcer presented to the ER with worsening shortness of breath, concerned about possibly having Covid infection. The patient reports that she had been feeling quite fatigued with congestion,mostley nonproductive cough in addition to worsening shortness of breath. Denies chest pain, palpitations, nausea or vomiting. On admission cristian ent was febrile, T-max 101.9, tachycardic, heart rate in the 130s, respiratory rate up to 28, maintaining O2 sats of mid to high 90s on 3 L nasal cannula, blood pressure stable. WBC 4.4, hemoglobin 12, platelets 166, lymphocytes 0.9., Sodium 132, potassium 3.4, chloride 87, carbon dioxide 34, anion gap 11, BUN 10, creatinine 0.59, blood sugar 337. Chest x-ray reportingany bilateral pneumonia, cardiomegaly. Covid test reported positive. LDH was 846, CRP 53, d- dimer 0.27, ferritin 282.4. Pro-calcitonin mildly elevated 0.12 . T bili within normal limits, mildly elevated AST/ALT. UA reported negative leukocytes negative nitrates 1 WBC +2 ketones plus for glucose +2 protein.Positive acetone. Received 1.5 L of fluid resuscitation, then placed on maintenance IV along with insulin drip. Anticoagulated on Lovenox. Decadron ,Remdesivir initiated. Blood sugars currently 240, labs pending. 04/19/2020 chest x-ray yesterday reported no significant interval change. O2 requirement increased up to 6 L to maintain O2 sats in the 90s. Blood sugars controlled on Insulin drip. Denies nausea or vomiting. Reports diarrhea - several episodes .Multiple pauses throughout the night, up to 4.1 seconds, cardiology consulted. Afebrile, repeat blood cultures in progress. Objective - Vital Signs Vital signs: Vital Signs Temp 98.2 F 04/19/20 08:00 Pulse 77 04/19/20 08:00 Resp 18 04/19/20 08:00 BP 148/79 04/19/20 08:00 Pulse Ox 90 L 04/19/20 08:00 Intake & Output 04/18/20 04/19/20 04/19/20 18:59 06:59 18:59 Intake Total 1066.406 345.219 382.523 Output Total 1800 2010 800 Balance -733.594 -1664.781 -417.477 Weight 144.5 kg Intake: Intake, IV Titration 46.406 105.219 22.523 Amount Insulin Regular 100 unit 46.406 105.219 22.523 In Sodium Chloride 0.9% 100 ml @ Titrate IV .Q0M FORD Rx#:[id number] Oral 1020 240 360 Output: Urine 1800 1510 800 Stool 500 Other: Voiding Method Indwelling Catheter Indwelling Catheter Indwelling Catheter # Bowel Movements 1 - Exam PHYSICAL EXAM: VITAL SIGNS: As above GENERAL: Obese, Sitting up in bed, no acute distress HEENT: Conjunctivae normal. eyes normal. NECK: Supple, unable to evaluate JVD. CARDIOVASCULAR: S1, S2 regular.No murmur RESPIRATION: Breath sounds diminished in the bases. Coarse rhonchi scattered, no crackles or wheezes ABDOMEN: Soft, nontender . No guarding. no masses palpable. Bowel sounds heard. LEGS: Mild nonpitting edema. no calf tenderness. PSYCHIATRY: Alert and oriented X3, mood and affect normal. NERVOUS SYSTEM: Cranial N 2-12 grossly normal. Moves all 4 limbs. Diffuse weakness No focal deficits. Strength and sensation grossly intact.. Skin: right Buttock ulcer, stage II dressing clean dry and intact Lymphatic system. No LN neck axilla. - Labs CBC & Chem 7: 04/19/20 02:08 04/19/20 02:08 Labs: Abnormal Lab Results - Last 24 Hours (Table) 04/18/20 04/18/20 04/18/20 Range/Units 11:19 13:01 15:05 Hgb (11.4-16.0) gm/dL Hct (34.0-46.0) % Sodium (137-145) mmol/L Chloride (98-107) mmol/L Carbon Dioxide (22-30) mmol/L Glucose (74-99) mg/dL POC Glucose (mg/dL) 130 H 158 H 234 H (75-99) mg/dL Magnesium (1.6-2.3) mg/dL 04/18/20 04/18/20 04/18/20 Range/Units 17:01 19:06 20:49 Hgb (11.4-16.0) gm/dL Hct (34.0-46.0) % Sodium (137-145) mmol/L Chloride (98-107) mmol/L Carbon Dioxide (22-30) mmol/L Glucose (74-99) mg/dL POC Glucose (mg/dL) 246 H 237 H 272 H (75-99) mg/dL Magnesium (1.6-2.3) mg/dL 04/18/20 04/19/20 04/19/20 Range/Units 22:56 00:46 02:08 Hgb 11.0 L (11.4-16.0) gm/dL Hct 33.4 L (34.0-46.0) % Sodium (137-145) mmol/L Chloride (98-107) mmol/L Carbon Dioxide (22-30) mmol/L Glucose (74-99) mg/dL POC Glucose (mg/dL) 244 H 216 H (75-99) mg/dL Magnesium (1.6-2.3) mg/dL 04/19/20 04/19/20 04/19/20 Range/Units 02:08 03:00 04:56 Hgb (11.4-16.0) gm/dL Hct (34.0-46.0) % Sodium 136 L (137-145) mmol/L Chloride 94 L (98-107) mmol/L Carbon Dioxide 32 H (22-30) mmol/L Glucose 195 H (74-99) mg/dL POC Glucose (mg/dL) 206 H 192 H (75-99) mg/dL Magnesium 1.4 L (1.6-2.3) mg/dL 04/19/20 04/19/20 Range/Units 06:46 09:06 Hgb (11.4-16.0) gm/dL Hct (34.0-46.0) % Sodium (137-145) mmol/L Chloride (98-107) mmol/L Carbon Dioxide (22-30) mmol/L Glucose (74-99) mg/dL POC Glucose (mg/dL) 189 H 150 H (75-99) mg/dL Magnesium (1.6-2.3) mg/dL Microbiology - Last 24 Hours (Table) 04/16/20 15:51 Blood Culture - Preliminary Blood No Growth after 48 hours 04/15/20 11:30 Blood Culture Gram Stain - Final Blood Blood Culture - Final Coagulase Negative Staph Assessment and Plan Assessment: Possible sepsis secondary to Acute Covid pneumonia Acute on chronic hypoxic hypercapnic respiratory failure DKA, resolved DM insulin-dependent, hyperglycemic, hemoglobin A1c 12.4 Right buttock pressure ulcer, stage II , present on admission, with coagulase- negative staph, repeat culture pending . History of MRSA of buttock Bacteremia, gram-positive cocci, likely a contaminant, repeat cultures in progress Pauses up to 4.1 seconds Hypokalemia Hypomagnesemia COPD Chronic intermittent asthma Hypertension Hyperlipidemia Osteoarthritis Obstructive sleep apnea, wears CPAP Hypothyroidism Chronic venous insufficiency Bipolar Depression Former nicotine dependence Morbid obesity, BMI 56.9 Plan: Continue on current medication regime ,monitoring and symptomatic treatment. Stool culture for C. difficile colitis ordered .Completed Remdesivir .maintain Decadron, vitamin C, vitamin D, zinc,.Cardiology consulted regarding multiple pauses throughout the night .beta jay placed on hold.Levemir resumed. Close monitoring of Accu-Cheks. DVT prophylaxis with Lovenox. Evaluated by PT, recommending home care at [place] The impression and plan of care has been dictated as directed. : I performed a history and examination of this patient, discussed the same with the dictator. I agree with the dictator's note ,documented as a scribe. Any additional findings or plans will be noted.
--- NOTE | 2020-04-19 13:35 | P.CRDCN ---
<Mildred Slater - Last Filed: 04/19/20 13:04> History of Present Illness History of present illness: HISTORY OF PRESENTING ILLNESS This is a pleasant 44-year-old female past medical history significant for COPD, diabetes mellitus, hypertension, dyslipidemia, obstuctuve sleep apnea and morbid obesity. She is currently being treated for COVID 19. She has followed in the office with Dr. Madison in the past but hasn't been to the office since 2017. We have been asked to see in consultation for pauses on telemetry while sleeping. Telemetry tracings reviewed, last night while sleeping she had multiple episodes of sinus pauses noted. The longest one being 4 seconds. She is sleeping and asymptomatic at the time. She does however complain of frequent palpitations and feeling light headed when she changes positions. She denies chest pain or shortness of breath. DIAGNOSTICS EKG reveals sinus tachycardia on admission with a heart rate of 126. Chest xray performed yesterday reveals unchanged bilateral diffuse patchy airspace opacity is. Laboratory reviewed, TSH 1.17, magnesium 2.1, potassium 3.8, creatinine 0.59, WBC 7, hemoglobin 11 and platelets 244. Yesterday her magnesium was 1.4 and she received supplementation. Current cardiac medications include atenolol/chlorthalidone 100/25 mg daily, amlodipine/benazapril 10/40 mg, hydralazine 50 mg TID. Echocardiogram obtained 2016 reveals preserved LV systolic function with EF 60- 65%. REVIEW OF SYSTEMS At the time of my exam: CONSTITUTIONAL: Denies fever or chills. CARDIOVASCULAR: Denies chest pain, shortness of breath, orthopnea, PND or palpitations. RESPIRATORY: Denies cough. GASTROINTESTINAL: Denies abdominal pain, diarrhea, constipation, nausea or vomiting. MUSCULOSKELETAL: Denies myalgias. NEUROLOGIC: Denies numbness, tingling or weakness. ENDOCRINE: Denies fatigue, weight change, polydipsia or polyurina. GENITOURINARY: Denies burning, hematuria or urgency with micturation. HEMATOLOGIC: Denies history of anemia or bleeding. PHYSICAL EXAMINATION Blood pressure 138/76 heart rate 69 afebrile and maintaining oxygen saturation on nasal cannula. CONSTITUTIONAL: No apparent distress. HEENT: Head is normocephalic. Pupils are equal, round. Sclerae anicteric. Mucous membranes of the mouth are moist. No JVD. No carotid bruit. CHEST EXAMINATION: Scattered rhonchi, no wheezes or rales. No chest wall tenderness is noted on palpation or with deep breathing. HEART EXAMINATION: Regular rate and rhythm. S1, S2 heard. No murmurs, gallops or rub. ABDOMEN: Soft, nontender. Positive bowel sounds. EXTREMITIES: 2+ peripheral pulses, no lower extremity edema and no calf tenderness. NEUROLOGIC EXAMINATION: Patient is awake, alert and oriented x3. ASSESSMENT Sinus bradycardia while sleeping, asymptomatic Obstuctive sleep apnea COVID 19 Hypomagnesema, replaced and now therapeutic Hypertension Diabetes mellitus Dyslipidemia PLAN Sinus bradycardia with sinus pause likely secondary to combination of sleep apnea and high dose beta jay use. Recommend discontinueation of beta blockers and ongoing telemetry monitoring. Obtain 2D echocardiogram and doppler study to assess cardiac structure and function. Further work-up with outpatient heart monitoring will be handled in the office with Dr. Madison after discharge and COVID 19 resolution. Thank you kindly for this consultation. Nurse Practitioner note has been reviewed, I agree with a documented findings and plan of care. Patient was seen and examined. Past Medical History Past Medical History: Asthma, COPD, Diabetes Mellitus, Hyperlipidemia, Hypertension, Osteoarthritis (OA), Sleep Apnea/CPAP/BIPAP, Thyroid Disorder Additional Past Medical History / Comment(s): chronic venous insufficiency, neuropathy, migraines, IBS, fatty liver History of Any Multi-Drug Resistant Organisms: MRSA Date of last positivie culture/infection: 07/15/18 MDRO Source:: MRSA BUTTOCK Past Surgical History: Section, Cholecystectomy, Tubal Ligation Additional Past Surgical History / Comment(s): recent colonoscopy Past Anesthesia/Blood Transfusion Reactions: No Reported Reaction Past Psychological History: Bipolar, Depression Smoking Status: Never smoker Past Alcohol Use History: None Reported Past Drug Use History: None Reported - Past Family History Mother Family Medical History: Hypertension Father Family Medical History: Hyperlipidemia Medications and Allergies Home Medications Medication Instructions Recorded Confirmed Type hydrALAZINE HCL [Apresoline] 50 mg PO TID 10/07/13 04/15/20 History Atenolol/Chlorthalidone 1 tab PO QAM 06/25/15 04/15/20 History [Atenolol-Chlorthalidone 100-25] Divalproex [Depakote] 1,000 mg PO BID 06/25/15 04/15/20 History Gabapentin [Neurontin] 300 mg PO TID 06/25/15 04/15/20 History amLODIPine BESYLATE/BENAZEPRIL 1 cap PO QAM 06/26/15 04/15/20 History [Lotrel 10-40 MG] Cetirizine HCl 10 mg PO HS 10/21/15 04/15/20 History Multivitamins, Thera [Multivitamin 1 tab PO DAILY 10/21/15 04/15/20 History (formulary)] metFORMIN HCL [Glucophage] 1,000 mg PO BID-W/MEALS 10/21/15 04/15/20 History [place]-3 Fatty Acids/Fish Oil [Fish 2 tab PO BID 12/01/15 04/15/20 History Oil 1,000 mg Softgel] SUMAtriptan SUCCINATE [Imitrex] 100 mg PO BID PRN 05/17/16 04/15/20 History Fenofibrate [Lofibra] 160 mg PO HS 12/07/16 04/15/20 History Atorvastatin [Lipitor] 40 mg PO DAILY 07/15/18 04/15/20 History Cyclobenzaprine [Flexeril] 10 mg PO TID PRN 07/15/18 04/15/20 History Levothyroxine Sodium [Synthroid] 88 mcg PO DAILY 07/15/18 04/15/20 History Topiramate [Topamax] 50 mg PO BID 07/15/18 04/15/20 History Albuterol Sulfate [Ventolin HFA] 1 - 2 puff INHALATION RT-Q6H PRN 04/15/20 04/15/20 History Ascorbic Acid [Vitamin C] 1,000 mg PO DAILY 04/15/20 04/15/20 History Glucos Sul 2Kcl/MSM/Chond/C/Mn 2 cap PO DAILY 04/15/20 04/15/20 History [Glucosamine Chondroitin Cap] Ibuprofen 600 mg PO Q8H PRN 04/15/20 04/15/20 History Insulin Glargine,Hum.rec.anlog 60 unit SQ BID 04/15/20 04/15/20 History [Basaglar Kwikpen U-100] Insulin Lispro [Admelog] 15 unit SQ AC-TID 04/15/20 04/16/20 History Insulin Lispro [Admelog] See Protocol SQ ACHS PRN 04/15/20 04/15/20 History Ipratropium-Albuterol Nebulize 3 ml INHALATION RT-QID PRN 04/15/20 04/15/20 History [Duoneb 0.5 mg-3 mg/3 ml Soln] Omeprazole 40 mg PO BID 04/15/20 04/15/20 History Sertraline [Zoloft] 100 mg PO DAILY 04/15/20 04/15/20 History traMADol HCL 50 mg PO Q8H PRN 04/15/20 04/15/20 History Allergies Allergy/AdvReac Type Severity Reaction Status Date / Time Iodinated Contrast Media Allergy Mild Rash/Hives Verified 04/15/20 15:23 [Iodinated Contrast Media - IV Dye] enalapril Allergy Rash/Hives Verified 04/15/20 15:23 levofloxacin Allergy Rash/Hives Verified 04/15/20 15:23 Physical Exam Vitals: Vital Signs Temp Pulse Resp BP Pulse Ox 04/19/20 11:54 69 16 04/19/20 11:52 97.9 F 69 16 138/76 90 L 04/19/20 08:00 98.2 F 77 18 148/79 90 L 04/19/20 04:00 97.7 F 61 18 104/62 91 L 04/19/20 00:00 97.9 F 62 18 123/65 90 L 04/18/20 20:00 97.9 F 71 20 106/64 94 L 04/18/20 16:00 98 F 67 18 134/70 89 L Intake and Output 04/18/20 04/19/20 04/19/20 22:59 06:59 14:59 Intake Total 424.376 67.419 390.515 Output Total 1000 1010 800 Balance -575.624 -942.581 -409.485 Intake: Intake, IV Titration 64.376 67.419 30.515 Amount Insulin Regular 100 unit 64.376 67.419 30.515 In Sodium Chloride 0.9% 100 ml @ Titrate IV .Q0M [facility] Rx#:[id number] Oral 360 360 Output: Urine 500 1010 800 Stool 500 Other: Voiding Method Indwelling Catheter Indwelling Catheter Indwelling Catheter # Bowel Movements 1 1 Weight 144.5 kg Results 04/19/20 02:08 04/19/20 02:08 CBC 04/19/20 Range/Units 02:08 WBC 7.0 (3.8-10.6) k/uL RBC 3.88 (3.80-5.40) m/uL Hgb 11.0 L (11.4-16.0) gm/dL Hct 33.4 L (34.0-46.0) % Plt Count 244 (150-450) k/uL Comprehensive Metabolic Panel 04/19/20 Range/Units 02:08 Sodium 136 L (137-145) mmol/L Potassium 3.8 (3.5-5.1) mmol/L Chloride 94 L (98-107) mmol/L Carbon Dioxide 32 H (22-30) mmol/L BUN 16 (7-17) mg/dL Creatinine 0.59 (0.52-1.04) mg/dL Glucose 195 H (74-99) mg/dL Calcium 8.9 (8.4-10.2) mg/dL Current Medications Generic Name Dose Route Start Last Admin Trade Name Freq PRN Reason Stop Dose Admin Albuterol Sulfate 1 - 2 puff 04/16/20 12:53 04/18/20 15:44 Albuterol Hfa Inhaler INHALATION 2 puff RT-Q6H PRN Administration Shortness Of Breath Amlodipine Besylate 10 mg 04/16/20 09:00 04/19/20 08:55 Amlodipine 10 Mg Tab PO 10 mg QAM [facility] Administration Ascorbic Acid 1,000 mg 04/16/20 09:00 04/19/20 08:55 Ascorbic Acid 500 Mg Tab PO 1,000 mg DAILY [facility] Administration Atorvastatin Calcium 40 mg 04/16/20 09:00 04/19/20 08:56 Atorvastatin 40 Mg Tab PO 40 mg DAILY [facility] Administration Benzocaine/Menthol 1 each 04/18/20 09:33 04/18/20 09:48 Benzocaine/Menthol Lozeng 1 Each Lozenge MUCOUS MEM 1 each Q4HR PRN Administration Cough Benzonatate 100 mg 04/18/20 09:33 04/18/20 09:48 Benzonatate 100 Mg Cap PO 100 mg TID PRN Administration Cough Bismuth Subsalicylate 524 mg 04/16/20 17:30 04/19/20 11:31 Bismuth Subsalicylate 4,192 Mg/240 Ml Bottle PO 524 mg ACHS [facility] Administration Bismuth Subsalicylate 524 mg 04/16/20 13:58 Bismuth Subsalicylate 4,192 Mg/240 Ml Bottle PO Q1HR PRN Diarrhea Chlorthalidone 25 mg 04/16/20 09:00 04/19/20 08:56 Chlorthalidone 25 Mg Tab PO 25 mg QAM [facility] Administration Cholecalciferol 2,000 unit 04/16/20 12:15 04/19/20 08:56 Cholecalciferol 1,000 Unit Tab PO 2,000 unit DAILY [facility] Administration Cyclobenzaprine HCl 10 mg 04/15/20 17:03 04/19/20 11:31 Cyclobenzaprine 10 Mg Tab PO 10 mg TID PRN Administration Muscle Spasm Dexamethasone 6 mg 04/16/20 09:00 04/19/20 08:56 Dexamethasone 2 Mg Tab PO 6 mg DAILY [facility] Administration Divalproex Sodium 1,000 mg 04/15/20 21:00 04/19/20 08:56 Divalproex 500 Mg Tablet.Dr PO 1,000 mg BID [facility] Administration Enoxaparin Sodium 40 mg 04/15/20 17:15 04/19/20 08:56 Enoxaparin 40 Mg/0.4 Ml Syringe SQ 40 mg Q24HR [facility]D Administration Fenofibrate 160 mg 04/15/20 21:00 04/18/20 21:24 Fenofibrate 160 Mg Tab PO 160 mg HS FORD Administration Gabapentin 300 mg 04/15/20 22:00 04/19/20 08:57 Gabapentin 300 Mg Cap PO 300 mg TID FORD Administration Hydralazine HCl 50 mg 04/16/20 16:00 04/19/20 08:57 Hydralazine Hcl 50 Mg Tab PO 50 mg TID FORD Administration Remdesivir 100 mg/ Sodium 250 mls @ 250 mls/hr 04/16/20 18:00 04/18/20 17:28 Chloride IVPB 04/19/20 18:59 250 mls/hr Q24H [facility] Administration Sodium Chloride 1,000 mls @ 50 mls/hr 04/16/20 10:30 04/18/20 21:25 Saline 0.9% IV 50 mls/hr .Q20H [facility] Administration Insulin Human Regular 100 unit 101 mls @ 0 mls/hr 04/17/20 22:00 04/19/20 11:26 / Sodium Chloride IV 4.5 units/hr .Q0M [facility] 4.545 mls/hr Titration Protocol Titrate Ibuprofen 600 mg 04/16/20 12:53 04/17/20 18:45 Ibuprofen 600 Mg Tab PO 600 mg Q8H PRN Administration Pain Insulin Aspart 0 unit 04/16/20 07:30 04/19/20 11:36 Insulin Aspart (Novolog) 100 Unit/Ml Vial SQ 2 unit ACHS FORD Administration Protocol Insulin Detemir 60 unit 04/16/20 21:00 04/19/20 09:09 Insulin Detemir (Levemir) 100 Unit/Ml Syr SQ 60 unit BID@0700,2100 [facility] Administration Levothyroxine Sodium 88 mcg 04/16/20 06:30 04/19/20 06:47 Levothyroxine 88 Mcg Tab PO 88 mcg DAILY@0630 [facility] Administration Lisinopril 40 mg 04/16/20 09:00 04/19/20 08:57 Lisinopril 20 Mg Tab PO 40 mg QAM [facility] Administration Metformin HCl 1,000 mg 04/15/20 17:30 04/19/20 06:47 Metformin 500 Mg Tab PO 1,000 mg BID-W/MEALS [facility] Administration Miscellaneous Information 1 each 04/16/20 07:52 Potassium Replacement Protocol 1 Each Misc MISCELLANE DAILY PRN Per Protocol Protocol Miscellaneous Information 1 each 04/16/20 07:53 Magnesium Replacement Protocol 1 Each Misc MISCELLANE DAILY PRN Per Protocol Protocol Miscellaneous Information 1 each 04/16/20 07:53 Phosphorus Replacement Protoco 1 Each Misc MISCELLANE DAILY PRN Per Protocol Protocol Multi-Ingred Cream/Lotion/Oil/Oint 1 applic 04/16/20 13:00 04/19/20 09:30 Hydrophilic Cream 180 Gm Tube TOPICAL 1 applic DAILY [facility] Administration Multivitamins 1 each 04/17/20 09:00 04/19/20 08:57 Multivitamins, Thera 1 Each Tab PO 1 each DAILY [facility] Administration Pantoprazole Sodium 40 mg 04/16/20 12:45 04/19/20 06:47 Pantoprazole 40 Mg Tablet PO 40 mg AC-BID [facility] Administration Sertraline HCl 100 mg 04/16/20 09:00 04/19/20 08:57 Sertraline 100 Mg Tab PO 100 mg DAILY [facility] Administration Sumatriptan Succinate 100 mg 04/16/20 12:58 Sumatriptan Succinate 50 Mg Tab PO BID PRN Headache Tiotropium [place] 1 puff 04/16/20 12:53 Tiotropium 18 Mcg/Puff Inhaler INHALATION RT-DAILY PRN Shortness Of Breath Or Wheezin Topiramate 50 mg 04/15/20 21:00 04/19/20 08:57 Topiramate 25 Mg Tab PO 50 mg BID [facility] Administration Tramadol HCl 50 mg 04/15/20 17:03 04/19/20 11:31 Tramadol 50 Mg Tab PO 50 mg Q8H PRN Administration Pain Zinc Sulfate 220 mg 04/16/20 12:15 04/19/20 08:59 Zinc Sulfate 220 Mg Cap PO 220 mg DAILY FORD Administration Intake and Output 04/18/20 04/19/20 04/19/20 22:59 06:59 14:59 Intake Total 424.376 67.419 390.515 Output Total 1000 1010 800 Balance -575.624 -942.581 -409.485 Intake: Intake, IV Titration 64.376 67.419 30.515 Amount Insulin Regular 100 unit 64.376 67.419 30.515 In Sodium Chloride 0.9% 100 ml @ Titrate IV .Q0M [facility] Rx#:[id number] Oral 360 360 Output: Urine 500 1010 800 Stool 500 Other: Voiding Method Indwelling Catheter Indwelling Catheter Indwelling Catheter # Bowel Movements 1 1 Weight 144.5 kg 04/19/20 02:08 04/19/20 02:08 <Saeid Alvarado - Last Filed: 04/19/20 15:33> History of Present Illness History of present illness: Atypical symptoms of palpitations, lightheadedness when standing, chest pain (only lasting for a few seconds and then resolving) which can occur at rest of when active. Prior history of syncope approximately 10 years ago however she does not recall prior events. Hold Bblocker and monitor. Suspect related to PRISCILA and vagal tone at night. Outpt followup with likely event monitor for other symptoms when recovered from Covid. Saeid Alvarado, Physical Exam Vitals: Vital Signs Temp Pulse Resp BP Pulse Ox 04/19/20 11:54 69 16 04/19/20 11:52 97.9 F 69 16 138/76 90 L 04/19/20 08:00 98.2 F 77 18 148/79 90 L 04/19/20 04:00 97.7 F 61 18 104/62 91 L 04/19/20 00:00 97.9 F 62 18 123/65 90 L 04/18/20 20:00 97.9 F 71 20 106/64 94 L 04/18/20 16:00 98 F 67 18 134/70 89 L Intake and Output 04/19/20 04/19/20 04/19/20 06:59 14:59 22:59 Intake Total 67.419 390.515 Output Total 1010 1400 Balance -942.581 -1009.485 Intake: Intake, IV Titration 67.419 30.515 Amount Insulin Regular 100 unit 67.419 30.515 In Sodium Chloride 0.9% 100 ml @ Titrate IV .Q0M [facility] Rx#:[id number] Oral 360 Output: Urine 1010 1400 Other: Voiding Method Indwelling Catheter Indwelling Catheter # Bowel Movements 1 Weight 144.5 kg Results 04/19/20 02:08 04/19/20 02:08 CBC 04/19/20 Range/Units 02:08 WBC 7.0 (3.8-10.6) k/uL RBC 3.88 (3.80-5.40) m/uL Hgb 11.0 L (11.4-16.0) gm/dL Hct 33.4 L (34.0-46.0) % Plt Count 244 (150-450) k/uL Comprehensive Metabolic Panel 04/19/20 Range/Units 02:08 Sodium 136 L (137-145) mmol/L Potassium 3.8 (3.5-5.1) mmol/L Chloride 94 L (98-107) mmol/L Carbon Dioxide 32 H (22-30) mmol/L BUN 16 (7-17) mg/dL Creatinine 0.59 (0.52-1.04) mg/dL Glucose 195 H (74-99) mg/dL Calcium 8.9 (8.4-10.2) mg/dL Current Medications Generic Name Dose Route Start Last Admin Trade Name Freq PRN Reason Stop Dose Admin Albuterol Sulfate 1 - 2 puff 04/16/20 12:53 04/18/20 15:44 Albuterol Hfa Inhaler INHALATION 2 puff RT-Q6H PRN Administration Shortness Of Breath Amlodipine Besylate 10 mg 04/16/20 09:00 04/19/20 08:55 Amlodipine 10 Mg Tab PO 10 mg QAM [facility] Administration Ascorbic Acid 1,000 mg 04/16/20 09:00 04/19/20 08:55 Ascorbic Acid 500 Mg Tab PO 1,000 mg DAILY [facility] Administration Atorvastatin Calcium 40 mg 04/16/20 09:00 04/19/20 08:56 Atorvastatin 40 Mg Tab PO 40 mg DAILY [facility] Administration Benzocaine/Menthol 1 each 04/18/20 09:33 04/18/20 09:48 Benzocaine/Menthol Lozeng 1 Each Lozenge MUCOUS MEM 1 each Q4HR PRN Administration Cough Benzonatate 100 mg 04/18/20 09:33 04/18/20 09:48 Benzonatate 100 Mg Cap PO 100 mg TID PRN Administration Cough Bismuth Subsalicylate 524 mg 04/16/20 17:30 04/19/20 11:31 Bismuth Subsalicylate 4,192 Mg/240 Ml Bottle PO 524 mg ACHS FORD Administration Bismuth Subsalicylate 524 mg 04/16/20 13:58 Bismuth Subsalicylate 4,192 Mg/240 Ml Bottle PO Q1HR PRN Diarrhea Chlorthalidone 25 mg 04/16/20 09:00 04/19/20 08:56 Chlorthalidone 25 Mg Tab PO 25 mg QAM [facility] Administration Cholecalciferol 2,000 unit 04/16/20 12:15 04/19/20 08:56 Cholecalciferol 1,000 Unit Tab PO 2,000 unit DAILY [facility] Administration Cyclobenzaprine HCl 10 mg 04/15/20 17:03 04/19/20 11:31 Cyclobenzaprine 10 Mg Tab PO 10 mg TID PRN Administration Muscle Spasm Dexamethasone 6 mg 04/16/20 09:00 04/19/20 08:56 Dexamethasone 2 Mg Tab PO 6 mg DAILY [facility] Administration Divalproex Sodium 1,000 mg 04/15/20 21:00 04/19/20 08:56 Divalproex 500 Mg Tablet.Dr PO 1,000 mg BID [facility] Administration Enoxaparin Sodium 40 mg 04/15/20 17:15 04/19/20 08:56 Enoxaparin 40 Mg/0.4 Ml Syringe SQ 40 mg Q24HR [facility] Administration Fenofibrate 160 mg 04/15/20 21:00 04/18/20 21:24 Fenofibrate 160 Mg Tab PO 160 mg HS FORD Administration Gabapentin 300 mg 04/15/20 22:00 04/19/20 08:57 Gabapentin 300 Mg Cap PO 300 mg TID [facility] Administration Hydralazine HCl 50 mg 04/16/20 16:00 04/19/20 08:57 Hydralazine Hcl 50 Mg Tab PO 50 mg TID [facility] Administration Remdesivir 100 mg/ Sodium 250 mls @ 250 mls/hr 04/16/20 18:00 04/18/20 17:28 Chloride IVPB 04/19/20 18:59 250 mls/hr Q24H [facility] Administration Sodium Chloride 1,000 mls @ 50 mls/hr 04/16/20 10:30 04/18/20 21:25 Saline 0.9% IV 50 mls/hr .Q20H [facility] Administration Insulin Human Regular 100 unit 101 mls @ 0 mls/hr 04/17/20 22:00 04/19/20 11:26 / Sodium Chloride IV 4.5 units/hr .Q0M [facility] 4.545 mls/hr Titration Protocol Titrate Ibuprofen 600 mg 04/16/20 12:53 04/17/20 18:45 Ibuprofen 600 Mg Tab PO 600 mg Q8H PRN Administration Pain Insulin Aspart 0 unit 04/16/20 07:30 04/19/20 11:36 Insulin Aspart (Novolog) 100 Unit/Ml Vial SQ 2 unit ACHS [facility]D Administration Protocol Insulin Detemir 60 unit 04/16/20 21:00 04/19/20 09:09 Insulin Detemir (Levemir) 100 Unit/Ml Syr SQ 60 unit BID@0700,2100 [facility] Administration Levothyroxine Sodium 88 mcg 04/16/20 06:30 04/19/20 06:47 Levothyroxine 88 Mcg Tab PO 88 mcg DAILY@0630 [facility] Administration Lisinopril 40 mg 04/16/20 09:00 04/19/20 08:57 Lisinopril 20 Mg Tab PO 40 mg QAM [facility] Administration Metformin HCl 1,000 mg 04/15/20 17:30 04/19/20 06:47 Metformin 500 Mg Tab PO 1,000 mg BID-W/MEALS [facility] Administration Miscellaneous Information 1 each 04/16/20 07:52 Potassium Replacement Protocol 1 Each Misc MISCELLANE DAILY PRN Per Protocol Protocol Miscellaneous Information 1 each 04/16/20 07:53 Magnesium Replacement Protocol 1 Each Misc MISCELLANE DAILY PRN Per Protocol Protocol Miscellaneous Information 1 each 04/16/20 07:53 Phosphorus Replacement Protoco 1 Each Misc MISCELLANE DAILY PRN Per Protocol Protocol Multi-Ingred Cream/Lotion/Oil/Oint 1 applic 04/16/20 13:00 04/19/20 09:30 Hydrophilic Cream 180 Gm Tube TOPICAL 1 applic DAILY [facility] Administration Multivitamins 1 each 04/17/20 09:00 04/19/20 08:57 Multivitamins, Thera 1 Each Tab PO 1 each DAILY [facility] Administration Pantoprazole Sodium 40 mg 04/16/20 12:45 04/19/20 06:47 Pantoprazole 40 Mg Tablet PO 40 mg AC-BID [facility] Administration Sertraline HCl 100 mg 04/16/20 09:00 04/19/20 08:57 Sertraline 100 Mg Tab PO 100 mg DAILY [facility] Administration Sumatriptan Succinate 100 mg 04/16/20 12:58 Sumatriptan Succinate 50 Mg Tab PO BID PRN Headache Tiotropium [place] 1 puff 04/16/20 12:53 Tiotropium 18 Mcg/Puff Inhaler INHALATION RT-DAILY PRN Shortness Of Breath Or Wheezin Topiramate 50 mg 04/15/20 21:00 04/19/20 08:57 Topiramate 25 Mg Tab PO 50 mg BID [facility] Administration Tramadol HCl 50 mg 04/15/20 17:03 04/19/20 11:31 Tramadol 50 Mg Tab PO 50 mg Q8H PRN Administration Pain Zinc Sulfate 220 mg 04/16/20 12:15 04/19/20 08:59 Zinc Sulfate 220 Mg Cap PO 220 mg DAILY [facility] Administration Intake and Output 04/19/20 04/19/20 04/19/20 06:59 14:59 22:59 Intake Total 67.419 390.515 Output Total 1010 1400 Balance -942.581 -1009.485 Intake: Intake, IV Titration 67.419 30.515 Amount Insulin Regular 100 unit 67.419 30.515 In Sodium Chloride 0.9% 100 ml @ Titrate IV .Q0M [facility] Rx#:[id number] Oral 360 Output: Urine 1010 1400 Other: Voiding Method Indwelling Catheter Indwelling Catheter # Bowel Movements 1 Weight 144.5 kg 04/19/20 02:08 04/19/20 02:08
[2020-04-19 15:07] LABS: Glucose,Whole Blood 250 mg/dL (75-99)
--- NOTE | 2020-04-19 16:41 | P.PN ---
Subjective Progress Note Date: 04/19/20 Principal diagnosis: Acute COVID19 related pneumonia 44-year-old female patient, morbidly obese a BMI of 54.9, also known to have COPD on home oxygen at 2-3 L per minute nasal cannula, obstructive sleep apnea diabetes mellitus and hypertension. The patient came into the ED with worsening shortness of breath and she was concerned about coronavirus, 19 infection. The patient has been having a congested cough with worsening shortness of breath over the past few days. She was also feeling weak and tired and fatigued. The patient had a white cell count of 5.5, she did have lymphopenia with a lymphocyte count of 0.6, the patient's LDH was 846, CRP was 53, d-dimer was at 0.27, and she checked positive for covid 19. The patient's chest x-ray showed bilateral pneumonia along with cardiomegaly. The patient's pulse ox is currently on 92% on 4 liters NC and the patient is currently afebrile with a T- max of 101.9 in the emergency department. She has been given 1.5 liters od NSS in the ED and she is on a maintenance of 200 cc/hr and she is on insulin drip at 13 U/hr for BS control. She was started on oral Decadron. Most recent blood sugar is at 358. The patient is seen today 04/16/2020 in follow-up on the selective care unit. She was seen and evaluated in consultation yesterday. She was found have CoVID 19 pneumonia. She is currently sitting up in a chair at the bedside. Awake and alert in no acute distress. Maintaining O2 saturation in the low 90s on 5 L/m per nasal cannula. She's been afebrile. Slightly tachycardic. Blood pressure stable. White count 4.4. Hemoglobin 12.0. Lymphocytes 0.9. Sodium 136. Potassium 3.3. Creatinine 0.55. LDH 767. C-reactive protein 62.6. She is on day 2 of Remdesivir. Continued on Protonix, Lovenox, dexamethasone, vitamin C, vitamin D, zinc. The patient is seen today 04/17/2020 in follow-up on the selective care unit. She is currently resting comfortably in bed. Awake and alert in no acute distre ss. She is down to 3 L/m per nasal cannula to maintain O2 saturation in the 90s. Her inflammatory markers are on the decline. This is day #3 of her Remdesivir. She remains on vitamin C, vitamin D, Lovenox, Topamax, Decadron, zinc. White count 6.2. Hemoglobin 11.8. Sodium 137. Potassium 3.6. Creatinine 0.60. LDH 750. C-reactive protein 36. The patient is seen today 04/18/2020 in follow-up on the selective care unit. He is currently sitting up in a chair at the bedside. Awake and alert in no acute distress. Eriberto quite dyspneic with minimal exertion. She is currently on 5 L nasal cannula to maintain O2 saturations in the 90s. She did utilize CPAP last night. She's been afebrile. Hemodynamically stable. White count 5.8. Hemoglobin 11.1. Sodium 138. Potassium 3.4. Creatinine 0.73. LDH 81 C- reactive protein 31. She is receiving her fourth dose of Remdesivir today. 0.9 normal saline at MLS per hour. Tesleandra Perles for her cough. On 04/19/2020 patient seen in follow-up on selective care unit, she is awake and alert, she remains on 6 L supplemental oxygen, with a pulse ox of 91%, he is completing her course of Remdesivir today, she remains on oral Decadron, vitamin C, zinc supplement. Patient has developed a steroid-induced hyperglycemia, and she is now on insulin infusion at 3 units per hour, 0.9 normal saline at a rate of 50 ML per hour, reports diarrhea, several episodes. No nausea or vomiting. Patient was having multiple pauses throughout the night, up to 4.1 seconds, and cardiology was consulted. Reports no worsening dyspnea, she has been afebrile. Less chest x-ray was done yesterday showing no significant change in appearance of bilateral diffuse patchy airspace opacities. Labs have been reviewed, showing the blood cell count of 7.0, hemoglobin of 11, d-dimer was 0.21, potassium 3.8, sodium was 136, chloride was 94, CO2 was 32, renal profile was unremarkable, no new set of inflammatory markers on today's labs, but on yesterday's labs LDH and CRP were down from admission. Objective - Vital Signs Vital signs: Vital Signs Temp 97.9 F 04/19/20 11:52 Pulse 69 04/19/20 11:54 Resp 16 04/19/20 11:54 BP 138/76 04/19/20 11:52 Pulse Ox 90 L 04/19/20 11:52 Intake & Output 04/18/20 04/19/20 04/19/20 18:59 06:59 18:59 Intake Total 1066.406 345.219 769.907 Output Total 1800 2010 1400 Balance -733.594 -1664.781 -630.093 Weight 144.5 kg Intake: Intake, IV Titration 46.406 105.219 49.907 Amount Insulin Regular 100 unit 46.406 105.219 49.907 In Sodium Chloride 0.9% 100 ml @ Titrate IV .Q0M FORD Rx#:[id number] Oral 1020 240 720 Output: Urine 1800 1510 1400 Stool 500 Other: Voiding Method Indwelling Catheter Indwelling Catheter Indwelling Catheter # Bowel Movements 1 2 - Exam GENERAL EXAM: Alert, [id number] white female, pulse ox 90% comfortable in no apparent distress. HEAD: Normocephalic/atraumatic. EYES: Normal reaction of pupils, equal size. Conjunctiva pink, sclera white. NOSE: Clear with pink turbinates. THROAT: No erythema or exudates. NECK: No masses, no JVD, no thyroid enlargement, no adenopathy. CHEST: No chest wall deformity. Symmetrical expansion. LUNGS: Equal air entry with no crackles, wheeze, rhonchi or dullness. CVS: Regular rate and rhythm, normal S1 and S2, no gallops, no murmurs, no rubs ABDOMEN: Soft, nontender. No hepatosplenomegaly, normal bowel sounds, no guarding or rigidity. EXTREMITIES: No clubbing, no edema, no cyanosis, 2+ pulses and upper and lower extremities. MUSCULOSKELETAL: Muscle strength and tone normal. SPINE: No scoliosis or deformity SKIN: No rashes CENTRAL NERVOUS SYSTEM: Alert and oriented -3. No focal deficits, tone is normal in all 4 extremities. PSYCHIATRIC: Alert and oriented -3. Appropriate affect. Intact judgment and insight. - Labs CBC & Chem 7: 04/19/20 02:08 04/19/20 02:08 Labs: Abnormal Lab Results - Last 24 Hours (Table) 04/18/20 04/18/20 04/18/20 Range/Units 17:01 19:06 20:49 Hgb (11.4-16.0) gm/dL Hct (34.0-46.0) % Sodium (137-145) mmol/L Chloride (98-107) mmol/L Carbon Dioxide (22-30) mmol/L Glucose (74-99) mg/dL POC Glucose (mg/dL) 246 H 237 H 272 H (75-99) mg/dL Magnesium (1.6-2.3) mg/dL 04/18/20 04/19/20 04/19/20 Range/Units 22:56 00:46 02:08 Hgb 11.0 L (11.4-16.0) gm/dL Hct 33.4 L (34.0-46.0) % Sodium (137-145) mmol/L Chloride (98-107) mmol/L Carbon Dioxide (22-30) mmol/L Glucose (74-99) mg/dL POC Glucose (mg/dL) 244 H 216 H (75-99) mg/dL Magnesium (1.6-2.3) mg/dL 04/19/20 04/19/20 04/19/20 Range/Units 02:08 03:00 04:56 Hgb (11.4-16.0) gm/dL Hct (34.0-46.0) % Sodium 136 L (137-145) mmol/L Chloride 94 L (98-107) mmol/L Carbon Dioxide 32 H (22-30) mmol/L Glucose 195 H (74-99) mg/dL POC Glucose (mg/dL) 206 H 192 H (75-99) mg/dL Magnesium 1.4 L (1.6-2.3) mg/dL 04/19/20 04/19/20 04/19/20 Range/Units 06:46 09:06 11:18 Hgb (11.4-16.0) gm/dL Hct (34.0-46.0) % Sodium (137-145) mmol/L Chloride (98-107) mmol/L Carbon Dioxide (22-30) mmol/L Glucose (74-99) mg/dL POC Glucose (mg/dL) 189 H 150 H 164 H (75-99) mg/dL Magnesium (1.6-2.3) mg/dL 04/19/20 04/19/20 Range/Units 12:20 15:00 Hgb (11.4-16.0) gm/dL Hct (34.0-46.0) % Sodium (137-145) mmol/L Chloride (98-107) mmol/L Carbon Dioxide (22-30) mmol/L Glucose (74-99) mg/dL POC Glucose (mg/dL) 165 H 250 H (75-99) mg/dL Magnesium (1.6-2.3) mg/dL Microbiology - Last 24 Hours (Table) 04/16/20 15:51 Blood Culture - Preliminary Blood No Growth after 48 hours 04/15/20 11:30 Blood Culture Gram Stain - Final Blood Blood Culture - Final Coagulase Negative Staph Assessment and Plan Plan: Assessment: 1 acute Covid 19 related pneumonia with bilateral pulmonary infiltrates and worsening shortness of breath. Today's chest x-ray today reveals unchanged bilateral diffuse airspace opacities 2 acute on top of chronic hypoxic respiratory failure, currently on 5L of oxygen by nasal cannula 3 chronic dyspnea 4 morbid obesity with a BMI of 54.9 along with component of obstructive sleep ap isra and obesity hypoventilation syndrome 5 chronic metabolic alkalosis probably related to chronic hypercapnic respiratory failure 6 diabetes mellitus, insulin-dependent, with quite elevated blood sugars and currently the patient on insulin drip for blood sugar control. 7 hypertension 8 hyperlipidemia 9 hypothyroidism 10 chronic venous insufficiency 11 peripheral neuropathy 12 migraines 13. Irritable bowel syndrome 14 fatty liver related to obesity 15 sinus pauses, related to sinus bradycardia, asymptomatic Plan: Continue current medical treatment, she is finishing her dose of Remdesivir, continue with current dose of Lovenox, continue Decadron, will follow inflammatory markers, continue monitoring oxygenation pattern, titrate oxygen to maintain O2 saturation of 90. Echocardiogram is pending. We'll continue to follow I performed a history & physical examination of the patient and discussed their management with my nurse practitioner, Wendi Aponte. I reviewed the nurse practitioner's note and agree with the documented findings and plan of care. Lung sounds are positive for bibasilar crackles The findings and the impression was discussed with the patient. I attest to the documentation by the nurse practitioner. Time with Patient: Less than 30
[2020-04-19 17:00] LABS: Glucose,Whole Blood 297 mg/dL (75-99)
[2020-04-19] MEDS: REMDESIVIR (EUA) 100 MG in SODIUM CHLORIDE 0.9% 250 ML IVPB SCH (17:13)
[2020-04-19 19:04] LABS: Glucose,Whole Blood 308 mg/dL (75-99)
[2020-04-19] MEDS: SODIUM CHLORIDE 0.9% 1,000 ML IV SCH (19:16)
[2020-04-19 20:49] LABS: Glucose,Whole Blood 255 mg/dL (75-99)
[2020-04-19] MEDS: FENOFIBRATE 160 MG TAB PO SCH (20:55)
[2020-04-19] MEDS: ALBUTEROL HFA INHALER INHALATION PRN (21:29)
[2020-04-19 23:02] LABS: Glucose,Whole Blood 251 mg/dL (75-99)
--- NOTE | 2020-04-19 23:17 | PN ---
PROGRESS NOTE DATE OF SERVICE: 04/19/2020 REASON FOR FOLLOWUP: 1. Acute COVID-19 pneumonia. 2. Positive blood culture. 3. Right gluteal pressure ulcer. INTERVAL HISTORY: The patient is currently afebrile. The patient is breathing more comfortably, still requiring 6 L nasal cannula. Denies any chest pain. Some cough. No nausea, no vomiting. No diarrhea. PHYSICAL EXAMINATION: Blood pressure 111/56, pulse of 70, temperature 97.7. She is 93% on 6 L nasal cannula. General description is a middle-aged female up in the chair in no distress. RESPIRATORY SYSTEM: Unlabored breathing, decreased intensity of breath sounds. No wheeze. HEART: S1, S2. Regular rate and rhythm. ABDOMEN: Soft, no tenderness. LABS: Hemoglobin is 11, white count 7.0, BUN of 16, creatinine 0.59. DIAGNOSTIC IMPRESSION AND PLAN: 1. Patient with positive blood culture with coagulase negative staph likely skin contamination. Repeat blood culture has been negative. 2. COVID-19 pneumonia covered with remdesivir where the patient has completed her 5- day course today along with zinc sulfate and Lovenox to continue along with respiratory support. MMODL / IJN: [id number] /
[2020-04-20 00:58] LABS: Glucose,Whole Blood 200 mg/dL (75-99)
[2020-04-20 02:58] LABS: Glucose,Whole Blood 182 mg/dL (75-99)
[2020-04-20 05:05] LABS: Glucose,Whole Blood 160 mg/dL (75-99)
[2020-04-20] MEDS: INSULIN REGULAR 100 UNIT in SODIUM CHLORIDE 0.9% 100 ML IV SCH (05:07)
[2020-04-20] MEDS: LEVOTHYROXINE 88 MCG TAB PO SCH (06:50)
[2020-04-20] MEDS: PANTOPRAZOLE 40 MG TABLET PO SCH ×2 (06:50→17:22)
[2020-04-20] MEDS: metFORMIN 500 MG TAB PO SCH ×2 (06:50→17:22)
[2020-04-20] MEDS: INSULIN DETEMIR (LEVEMIR) 100 UNIT/ML SYR SQ SCH ×2 (06:51→21:17)
[2020-04-20] MEDS: BISMUTH SUBSALICYLATE 4,192 MG/240 ML BOTTLE PO SCH ×4 (06:51→21:18)
[2020-04-20 06:53] LABS: Glucose,Whole Blood 122 mg/dL (75-99)
[2020-04-20] MEDS: INSULIN ASPART (NovoLOG) 100 UNIT/ML VIAL SQ SCH ×4 (06:53→21:17)
[2020-04-20 09:13] LABS: Glucose,Whole Blood 139 mg/dL (75-99)
[2020-04-20] MEDS: DIVALPROEX 500 MG TABLET.DR PO SCH ×2 (09:19→21:16)
[2020-04-20] MEDS: ATORVASTATIN 40 MG TAB PO SCH (09:19)
[2020-04-20] MEDS: MULTIVITAMINS, THERA 1 EACH TAB PO SCH (09:19)
[2020-04-20] MEDS: TOPIRAMATE 25 MG TAB PO SCH ×2 (09:19→21:16)
[2020-04-20] MEDS: ENOXAPARIN 40 MG/0.4 ML SYRINGE SQ SCH (09:19)
[2020-04-20] MEDS: dexAMETHasone 2 MG TAB PO SCH (09:19)
[2020-04-20] MEDS: CHOLECALCIFEROL 1,000 UNIT TAB PO SCH (09:19)
[2020-04-20] MEDS: amLODIPine 10 MG TAB PO SCH (09:19)
[2020-04-20] MEDS: CHLORTHALIDONE 25 MG TAB PO SCH (09:19)
[2020-04-20] MEDS: lisinopriL 20 MG TAB PO SCH (09:20)
[2020-04-20] MEDS: ZINC SULFATE 220 MG CAP PO SCH (09:20)
[2020-04-20] MEDS: SERTRALINE 100 MG TAB PO SCH (09:20)
[2020-04-20] MEDS: hydrALAZINE HCL 50 MG TAB PO SCH ×3 (09:20→21:16)
[2020-04-20] MEDS: GABAPENTIN 300 MG CAP PO SCH ×3 (09:20→21:17)
[2020-04-20] MEDS: ASCORBIC ACID 500 MG TAB PO SCH (09:21)
[2020-04-20] MEDS: HYDROPHILIC CREAM 180 GM TUBE TOPICAL SCH (09:21)
[2020-04-20 10:08] LABS: Basophils # (A) 0.1 k/uL (0-0.2); Basophils % (A) 2 %; Eosinophils % (A) 0 %; HCT 36.4 % (34.0-46.0); HGB 11.9 gm/dL (11.4-16.0); Lymphocytes # (A) 2.4 k/uL (1.0-4.8); Lymphocytes % (A) 28 %; MCH 28.4 pg (25.0-35.0); MCHC 32.7 g/dL (31.0-37.0); MCV 86.8 fL (80.0-100.0); Mean Platelet Volume 7.8; Monocytes # (A) 0.5 k/uL (0-1.0); Monocytes % (A) 6 %; Neutrophils # (A) 5.2 k/uL (1.3-7.7); Neutrophils % (A) 61 %; Platelet Count 330 k/uL (150-450); RDW 14.6 % (11.5-15.5); WBC 8.5 k/uL (3.8-10.6)
[2020-04-20 10:24] LABS: African American GFR (CKD) >90 (>60 ml/min/1.73 sqM); Anion Gap 10 mmol/L; Blood Urea Nitrogen 18 mg/dL (7-17); C Reactive Protein 29.6 mg/L (<10.0); Calcium 9.2 mg/dL (8.4-10.2); Carbon Dioxide 34 mmol/L (22-30); Chloride 94 mmol/L (98-107); Glucose 139 mg/dL (74-99); LDH 833 U/L (313-618); Magnesium 1.2 mg/dL (1.6-2.3); Non-African American GFR(CKD) >90 (>60 ml/min/1.73 sqM); Potassium 4.2 mmol/L (3.5-5.1); Sodium 138 mmol/L (137-145)
[2020-04-20] MEDS ORDERED: Magnesium Replacement Protocol 1 EACH MISC MISCELLANE PRN (10:25)
--- NOTE | 2020-04-20 11:00 | ECHOF ---
Referral Reason:sinus pauses sleep apnea MEASUREMENTS -------- HEIGHT: 157.5 cm WEIGHT: 144.2 kg BP: IVSd: 0.9 cm (0.6 - 1.1) LVIDd: 5.4 cm (3.9 - 5.3) LVPWd: 1.0 cm (0.6 - 1.1) EDV(Teich): 142 ml IVSs: 1.6 cm LVIDs: 3.2 cm LVPWs: 1.7 cm %IVS Thck: 78 % ESV(Teich): 41 ml EF(Teich): 71 % %FS: 41 % SV(Teich): 100 ml LA Diam: 3.4 cm (2.7 - 3.8) RVIDd: 2.6 cm (< 3.3) Ao Diam: 2.8 cm (2.0 - 3.7) AV Cusp: 1.5 cm (1.5 - 2.6) EPSS: 0.7 cm MV E Alan: 1.20 m/s MV DecT: 212 ms MV Dec Castro: 5.7 m/s MV A Alan: 0.82 m/s MV E/A Ratio: 1.47 MV PHT: 61 ms AV Vmax: 1.75 m/s AV maxP.25 mmHg TR Vmax: 2.69 m/s TR maxP.95 mmHg RAP: 5.00 mmHg RVSP: 33.95 mmHg MV EF SLOPE: 84.63 mm/s (70 - 150) MV EXCURSION: 11.80 mm (> 18.000) FINDINGS -------- Sinus rhythm. This was a technically adequate study. The left ventricle is mildly dilated. Left ventricular wall thickness is normal. Overall left igor tricular systolic function is normal with, an EF between 60 - 65 %. The right ventricle is normal in size. The left atrial size is normal. The right atrium is normal in size. The aortic valve is trileaflet and appears structurally normal. The mitral valve is normal. Mild tricuspid regurgitation present. There is borderline pulmonary hypertension. The right ventr icular systolic pressure, as measured by Doppler, is 33.95mmHg. The pulmonic valve was not well visualized. The aortic root size is normal. IVC Not well visulized. There is no pericardial effusion. CONCLUSIONS -------- 1. The left ventricle is mildly dilated. 2. Left ventricular wall thickness is normal. 3. Overall left ventricular systolic function is normal with, an EF between 60 - 65 %. 4. Mild tricuspid regurgitation present. 5. There is borderline pulmonary hypertension. 6. The right ventricular systolic pressure, as measured by Doppler, is 33.95mmHg. 7. There is no pericardial effusion. SENIOR ARCHITECTURAL DESIGNER: Corine José RDCS
[2020-04-20 11:10] LABS: Glucose,Whole Blood 136 mg/dL (75-99)
[2020-04-20] MEDS: MAGNESIUM SULFATE-D5W PMX 1 GM in DEXTROSE/WATER 1 100ML.BAG IVPB SCH ×3 (11:28→15:11)
[2020-04-20] MEDS: SODIUM CHLORIDE 0.9% 1,000 ML IV SCH (11:29)
[2020-04-20 13:17] LABS: Glucose,Whole Blood 162 mg/dL (75-99)
[2020-04-20 15:03] LABS: Appearance,Urine Cloudy (Clear); Bacteria,Urine Few /hpf; Bilirubin,Urine Negative (Negative); Blood,Urine Small (Negative); Color,Urine Yellow; Glucose,Urine (UA) Negative (Negative); Hyaline Casts,Urine 1 /lpf (0-2); Ketones,Urine Negative (Negative); Leukocyte Esterase,Urine Large (Negative); Mucus,Urine Occasional /hpf; Nitrite,Urine Positive (Negative); PH, Urine 8.5 (5.0-8.0); Protein,Urine 1+ (Negative); RBC,Urine 114 /hpf (0-5); Specific Gravity,Urine 1.018 (1.001-1.035); Squamous Epithelial Cell,Urine <1 /hpf (0-4); Triple Phosphate Crystal,Urine Rare /hpf; Urobilinogen,Urine <2.0 mg/dL (<2.0); WBC,Urine 11 /hpf (0-5)
--- NOTE | 2020-04-20 15:13 | P.PN ---
Subjective Progress Note Date: 04/20/20 This is a 44-year-old female with past medical history of chronic intermittent asthma, COPD, diabetes mellitus, hyperlipidemia, hypertension, osteoarthritis, obstructive sleep apneawears CPAP, chronic hypoxic respiratory failure-wears 2- 3 L nasal cannula at home hypothyroidism, morbid obesity, bipolar, depression, former nicotine dependence, history of MRSA of buttock ulcer presented to the ER with worsening shortness of breath, concerned about possibly having Covid infection. The patient reports that she had been feeling quite fatigued with congestion,mostley nonproductive cough in addition to worsening shortness of breath. Denies chest pain, palpitations, nausea or vomiting. On admission cristian ent was febrile, T-max 101.9, tachycardic, heart rate in the 130s, respiratory rate up to 28, maintaining O2 sats of mid to high 90s on 3 L nasal cannula, blood pressure stable. WBC 4.4, hemoglobin 12, platelets 166, lymphocytes 0.9., Sodium 132, potassium 3.4, chloride 87, carbon dioxide 34, anion gap 11, BUN 10, creatinine 0.59, blood sugar 337. Chest x-ray reportingany bilateral pneumonia, cardiomegaly. Covid test reported positive. LDH was 846, CRP 53, d- dimer 0.27, ferritin 282.4. Pro-calcitonin mildly elevated 0.12 . T bili within normal limits, mildly elevated AST/ALT. UA reported negative leukocytes negative nitrates 1 WBC +2 ketones plus for glucose +2 protein.Positive acetone. Received 1.5 L of fluid resuscitation, then placed on maintenance IV along with insulin drip. Anticoagulated on Lovenox. Decadron ,Remdesivir initiated. Blood sugars currently 240, labs pending. 04/19/2020 chest x-ray yesterday reported no significant interval change. O2 requirement increased up to 6 L to maintain O2 sats in the 90s. Blood sugars controlled on Insulin drip. Denies nausea or vomiting. Reports diarrhea - several episodes .Multiple pauses throughout the night, up to 4.1 seconds, cardiology consulted. Afebrile, repeat blood cultures in progress. 04/20/2020 had another pause of approximately 3.1 seconds early this morning while sleeping. Beta jay remains on hold with further follow-up outpatient with cardiology recommended. Oxygen has been weaned down to 5 L nasal cannula, maintaining O2 sats in the 90s. Blood sugars controlled and insulin drip weaned off. Magnesium 1.2, receiving supplementation. LDH trending up, CRP trending down. Objective - Vital Signs Vital signs: Vital Signs Temp 97.7 F 04/20/20 08:00 Pulse 93 04/20/20 08:00 Resp 16 04/20/20 08:00 BP 120/74 04/20/20 08:00 Pulse Ox 97 04/20/20 08:00 Intake & Output 04/19/20 04/20/20 04/20/20 18:59 06:59 18:59 Intake Total 1025.208 665.444 0 Output Total 2250 1150 Balance -1224.792 -484.556 0 Weight 148 kg Intake: Intake, IV Titration 65.208 125.444 0 Amount Insulin Regular 100 unit 65.208 125.444 0 In Sodium Chloride 0.9% 100 ml @ Titrate IV .Q0M FORD Rx#:[id number] Oral 960 540 Output: Urine 2250 1150 Other: Voiding Method Indwelling Catheter Indwelling Catheter Indwelling Catheter # Bowel Movements 2 - Exam PHYSICAL EXAM: VITAL SIGNS: As above GENERAL: Obese, Sitting up in bed, no acute distress HEENT: Conjunctivae normal. eyes normal. Oral mucosa moist NECK: Supple, unable to evaluate JVD. CARDIOVASCULAR: S1, S2 regular.No murmur RESPIRATION: Breath sounds diminished in the bases. Coarse rhonchi scattered throughout. ABDOMEN: Soft, nontender . No guarding. no masses palpable. Bowel sounds heard. LEGS: Mild nonpitting edema. no calf tenderness. PSYCHIATRY: Alert and oriented X3, mood and affect normal. NERVOUS SYSTEM: Cranial N 2-12 grossly normal. Moves all 4 limbs. No focal deficits. Strength and sensation grossly intact.. Skin: right Buttock ulcer, stage II dressing clean dry and intact - Labs CBC & Chem 7: 04/20/20 09:26 04/20/20 09:26 Labs: Abnormal Lab Results - Last 24 Hours (Table) 04/19/20 04/19/20 04/19/20 Range/Units 11:18 12:20 15:00 Chloride (98-107) mmol/L Carbon Dioxide (22-30) mmol/L BUN (7-17) mg/dL Glucose (74-99) mg/dL POC Glucose (mg/dL) 164 H 165 H 250 H (75-99) mg/dL Magnesium (1.6-2.3) mg/dL Lactate Dehydrogenase (313-618) U/L C-Reactive Protein (<10.0) mg/L 04/19/20 04/19/20 04/19/20 Range/Units 16:55 19:03 20:48 Chloride (98-107) mmol/L Carbon Dioxide (22-30) mmol/L BUN (7-17) mg/dL Glucose (74-99) mg/dL POC Glucose (mg/dL) 297 H 308 H 255 H (75-99) mg/dL Magnesium (1.6-2.3) mg/dL Lactate Dehydrogenase (313-618) U/L C-Reactive Protein (<10.0) mg/L 04/19/20 04/20/20 04/20/20 Range/Units 23:01 00:56 02:56 Chloride (98-107) mmol/L Carbon Dioxide (22-30) mmol/L BUN (7-17) mg/dL Glucose (74-99) mg/dL POC Glucose (mg/dL) 251 H 200 H 182 H (75-99) mg/dL Magnesium (1.6-2.3) mg/dL Lactate Dehydrogenase (313-618) U/L C-Reactive Protein (<10.0) mg/L 04/20/20 04/20/20 04/20/20 Range/Units 05:04 06:52 09:11 Chloride (98-107) mmol/L Carbon Dioxide (22-30) mmol/L BUN (7-17) mg/dL Glucose (74-99) mg/dL POC Glucose (mg/dL) 160 H 122 H 139 H (75-99) mg/dL Magnesium (1.6-2.3) mg/dL Lactate Dehydrogenase (313-618) U/L C-Reactive Protein (<10.0) mg/L 04/20/20 04/20/20 Range/Units 09:26 11:08 Chloride 94 L (98-107) mmol/L Carbon Dioxide 34 H (22-30) mmol/L BUN 18 H (7-17) mg/dL Glucose 139 H (74-99) mg/dL POC Glucose (mg/dL) 136 H (75-99) mg/dL Magnesium 1.2 L (1.6-2.3) mg/dL Lactate Dehydrogenase 833 H (313-618) U/L C-Reactive Protein 29.6 H (<10.0) mg/L Microbiology - Last 24 Hours (Table) 04/16/20 15:51 Blood Culture - Preliminary Blood No Growth after 72 hours Assessment and Plan Assessment: Possible sepsis secondary to Acute Covid pneumonia Acute on chronic hypoxic hypercapnic respiratory failure DKA, resolved DM insulin-dependent, hyperglycemic, hemoglobin A1c 12.4 Right buttock pressure ulcer, stage II , present on admission, with coagulase- negative staph, repeat culture pending . History of MRSA of buttock Bacteremia, gram-positive cocci, likely a contaminant, repeat cultures in progress Pauses up to 4.1 seconds Hypokalemia Hypomagnesemia COPD Chronic intermittent asthma Hypertension Hyperlipidemia Osteoarthritis Obstructive sleep apnea, wears CPAP Hypothyroidism Chronic venous insufficiency Bipolar Depression Former nicotine dependence Morbid obesity, BMI 56.9 Plan: Continue on current medication regime ,monitoring and symptomatic treatment. Magnesium supplementation ordered. UA with micro-/culture ordered. Echo pending .Continue holding beta jay with further follow-up with ca rdiology outpatient recommended. Continue on Covid regimen ;Decadron, vitamin C, vitamin D, zinc,.close monitoring of Accu-Cheks, insulin drip weaned off. The impression and plan of care has been dictated as directed. : I performed a history and examination of this patient, discussed the same with the dictator. I agree with the dictator's note ,documented as a scribe. Any additional findings or plans will be noted.
[2020-04-20 16:29] LABS: Ferritin 183.4 ng/mL (10.0-291.0)
[2020-04-20 17:00] LABS: Glucose,Whole Blood 287 mg/dL (75-99)
--- NOTE | 2020-04-20 17:18 | P.PN ---
Subjective Progress Note Date: 04/20/20 Principal diagnosis: Acute hypoxic respiratory failure secondary to covid 19 pneumonitis. 44-year-old female patient, morbidly obese a BMI of 54.9, also known to have COPD on home oxygen at 2-3 L per minute nasal cannula, obstructive sleep apnea diabetes mellitus and hypertension. The patient came into the ED with worsening shortness of breath and she was concerned about coronavirus, 19 infection. The patient has been having a congested cough with worsening shortness of breath over the past few days. She was also feeling weak and tired and fatigued. The patient had a white cell count of 5.5, she did have lymphopenia with a lymphocyte count of 0.6, the patient's LDH was 846, CRP was 53, d-dimer was at 0.27, and she checked positive for covid 19. The patient's chest x-ray showed bilateral pneumonia along with cardiomegaly. The patient's pulse ox is currently on 92% on 4 liters NC and the patient is currently afebrile with a T- max of 101.9 in the emergency department. She has been given 1.5 liters od NSS in the ED and she is on a maintenance of 200 cc/hr and she is on insulin drip at 13 U/hr for BS control. She was started on oral Decadron. Most recent blood sugar is at 358. The patient is seen today 04/16/2020 in follow-up on the selective care unit. She was seen and evaluated in consultation yesterday. She was found have CoVID 19 pneumonia. She is currently sitting up in a chair at the bedside. Awake and alert in no acute distress. Maintaining O2 saturation in the low 90s on 5 L/m per nasal cannula. She's been afebrile. Slightly tachycardic. Blood pressure stable. White count 4.4. Hemoglobin 12.0. Lymphocytes 0.9. Sodium 136. Potassium 3.3. Creatinine 0.55. LDH 767. C-reactive protein 62.6. She is on day 2 of Remdesivir. Continued on Protonix, Lovenox, dexamethasone, vitamin C, vitamin D, zinc. The patient is seen today 04/17/2020 in follow-up on the selective care unit. She is currently resting comfortably in bed. Awake and alert in no acute distress. She is down to 3 L/m per nasal cannula to maintain O2 saturation in the 90s. Her inflammatory markers are on the decline. This is day #3 of her Remdesivir. She remains on vitamin C, vitamin D, Lovenox, Topamax, Decadron, zinc. White count 6.2. Hemoglobin 11.8. Sodium 137. Potassium 3.6. Creatinine 0.60. LDH 750. C-reactive protein 36. The patient is seen today 04/18/2020 in follow-up on the selective care unit. He is currently sitting up in a chair at the bedside. Awake and alert in no acute distress. Eriberto quite dyspneic with minimal exertion. She is currently on 5 L nasal cannula to maintain O2 saturations in the 90s. She did utilize CPAP last night. She's been afebrile. Hemodynamically stable. White count 5.8. Hemoglobin 11.1. Sodium 138. Potassium 3.4. Creatinine 0.73. LDH 81 C- reactive protein 31. She is receiving her fourth dose of Remdesivir today. 0.9 normal saline at MLS per hour. Tesleandra Parkes for her cough. On 04/19/2020 patient seen in follow-up on selective care unit, she is awake and alert, she remains on 6 L supplemental oxygen, with a pulse ox of 91%, he is completing her course of Remdesivir today, she remains on oral Decadron, vitamin C, zinc supplement. Patient has developed a steroid-induced hyperglycemia, and she is now on insulin infusion at 3 units per hour, 0.9 normal saline at a rate of 50 ML per hour, reports diarrhea, several episodes. No nausea or vomiting. Patient was having multiple pauses throughout the night, up to 4.1 seconds, and cardiology was consulted. Reports no worsening dyspnea, she has been afebrile. Less chest x-ray was done yesterday showing no significant change in appearance of bilateral diffuse patchy airspace opacities. Labs have been reviewed, s howing the blood cell count of 7.0, hemoglobin of 11, d-dimer was 0.21, potassium 3.8, sodium was 136, chloride was 94, CO2 was 32, renal profile was unremarkable, no new set of inflammatory markers on today's labs, but on yesterday's labs LDH and CRP were down from admission. Reevaluated today on 04/16/20, patient is on 5 L nasal cannula, seems to be doing better, breathing easier, echocardiogram showed ejection fraction of 60- 65%. Patient is on beta blockers for her sinus tachycardia, and we were able to wean the oxygen down to 5 L. Patient is off insulin drip, and overall definitely better. CBC today is relatively unremarkable. The left was are normal renal profile is normal Objective - Vital Signs Vital signs: Vital Signs Temp 97.3 F L 04/20/20 15:33 Pulse 67 04/20/20 15:38 Resp 18 04/20/20 15:38 BP 108/90 04/20/20 15:33 Pulse Ox 95 04/20/20 15:33 Intake & Output 04/19/20 04/20/20 04/20/20 18:59 06:59 18:59 Intake Total 1025.208 949.998 9336.8 Output Total 2250 1150 1800 Balance -1224.792 -484.556 -367.2 Weight 148 kg Intake: Intake, IV Titration 65.208 125.444 952.8 Amount Insulin Regular 100 unit 65.208 125.444 2.8 In Sodium Chloride 0.9% 100 ml @ Titrate IV .Q0M FORD Rx#:[id number] Magnesium Sulfate-D5w Pmx 200 1 gm In Dextrose/Water 1 100ml.bag @ 100 mls/hr IVPB Q1H FORD Rx#: [id number] Sodium Chloride 0.9% 1, 750 000 ml @ 50 mls/hr IV . Q20H FORD Rx#:[id number] Oral 960 540 480 Output: Urine 2250 1150 1800 Other: Voiding Method Indwelling Catheter Indwelling Catheter Indwelling Catheter # Voids 0 # Bowel Movements 2 0 - Exam GENERAL: Obese, Sitting up in bed, no acute distress HEENT: Conjunctivae normal. eyes normal. Oral mucosa moist NECK: Supple, unable to evaluate JVD. CARDIOVASCULAR: S1, S2 regular.No murmur RESPIRATION: Breath sounds diminished in the bases. Coarse rhonchi scattered throughout. ABDOMEN: Soft, nontender . No guarding. no masses palpable. Bowel sounds heard. LEGS: Mild nonpitting edema. no calf tenderness. PSYCHIATRY: Alert and oriented X3, mood and affect normal. NERVOUS SYSTEM: Cranial N 2-12 grossly normal. Moves all 4 limbs. No focal def icits. Strength and sensation grossly intact.. Skin: right Buttock ulcer, stage II dressing clean dry and intact - Labs CBC & Chem 7: 04/20/20 09:26 04/20/20 09:26 Labs: Abnormal Lab Results - Last 24 Hours (Table) 04/19/20 04/19/20 04/19/20 Range/Units 19:03 20:48 23:01 Chloride (98-107) mmol/L Carbon Dioxide (22-30) mmol/L BUN (7-17) mg/dL Glucose (74-99) mg/dL POC Glucose (mg/dL) 308 H 255 H 251 H (75-99) mg/dL Magnesium (1.6-2.3) mg/dL Lactate Dehydrogenase (313-618) U/L C-Reactive Protein (<10.0) mg/L Urine Appearance (Clear) Urine pH (5.0-8.0) Urine Protein (Negative) Urine Blood (Negative) Urine Nitrite (Negative) Ur Leukocyte Esterase (Negative) Urine RBC (0-5) /hpf Urine WBC (0-5) /hpf Triple Phos Crystals (None) /hpf Urine Bacteria (None) /hpf Urine Mucus (None) /hpf 04/20/20 04/20/20 04/20/20 Range/Units 00:56 02:56 05:04 Chloride (98-107) mmol/L Carbon Dioxide (22-30) mmol/L BUN (7-17) mg/dL Glucose (74-99) mg/dL POC Glucose (mg/dL) 200 H 182 H 160 H (75-99) mg/dL Magnesium (1.6-2.3) mg/dL Lactate Dehydrogenase (313-618) U/L C-Reactive Protein (<10.0) mg/L Urine Appearance (Clear) Urine pH (5.0-8.0) Urine Protein (Negative) Urine Blood (Negative) Urine Nitrite (Negative) Ur Leukocyte Esterase (Negative) Urine RBC (0-5) /hpf Urine WBC (0-5) /hpf Triple Phos Crystals (None) /hpf Urine Bacteria (None) /hpf Urine Mucus (None) /hpf 04/20/20 04/20/20 04/20/20 Range/Units 06:52 09:11 09:26 Chloride 94 L (98-107) mmol/L Carbon Dioxide 34 H (22-30) mmol/L BUN 18 H (7-17) mg/dL Glucose 139 H (74-99) mg/dL POC Glucose (mg/dL) 122 H 139 H (75-99) mg/dL Magnesium 1.2 L (1.6-2.3) mg/dL Lactate Dehydrogenase 833 H (313-618) U/L C-Reactive Protein 29.6 H (<10.0) mg/L Urine Appearance (Clear) Urine pH (5.0-8.0) Urine Protein (Negative) Urine Blood (Negative) Urine Nitrite (Negative) Ur Leukocyte Esterase (Negative) Urine RBC (0-5) /hpf Urine WBC (0-5) /hpf Triple Phos Crystals (None) /hpf Urine Bacteria (None) /hpf Urine Mucus (None) /hpf 04/20/20 04/20/20 04/20/20 Range/Units 11:08 11:53 13:14 Chloride (98-107) mmol/L Carbon Dioxide (22-30) mmol/L BUN (7-17) mg/dL Glucose (74-99) mg/dL POC Glucose (mg/dL) 136 H 162 H (75-99) mg/dL Magnesium (1.6-2.3) mg/dL Lactate Dehydrogenase (313-618) U/L C-Reactive Protein (<10.0) mg/L Urine Appearance Cloudy H (Clear) Urine pH 8.5 H (5.0-8.0) Urine Protein 1+ H (Negative) Urine Blood Small H (Negative) Urine Nitrite Positive H (Negative) Ur Leukocyte Esterase Large H (Negative) Urine RBC 114 H (0-5) /hpf Urine WBC 11 H (0-5) /hpf Triple Phos Crystals Rare H (None) /hpf Urine Bacteria Few H (None) /hpf Urine Mucus Occasional H (None) /hpf 04/20/20 Range/Units 16:56 Chloride (98-107) mmol/L Carbon Dioxide (22-30) mmol/L BUN (7-17) mg/dL Glucose (74-99) mg/dL POC Glucose (mg/dL) 287 H (75-99) mg/dL Magnesium (1.6-2.3) mg/dL Lactate Dehydrogenase (313-618) U/L C-Reactive Protein (<10.0) mg/L Urine Appearance (Clear) Urine pH (5.0-8.0) Urine Protein (Negative) Urine Blood (Negative) Urine Nitrite (Negative) Ur Leukocyte Esterase (Negative) Urine RBC (0-5) /hpf Urine WBC (0-5) /hpf Triple Phos Crystals (None) /hpf Urine Bacteria (None) /hpf Urine Mucus (None) /hpf Microbiology - Last 24 Hours (Table) 04/16/20 15:51 Blood Culture - Preliminary Blood No Growth after 72 hours Assessment and Plan Assessment: 1 acute Covid 19 related pneumonia with bilateral pulmonary infiltrates and worsening shortness of breath. Today's chest x-ray today reveals unchanged bilateral diffuse airspace opacities 2 acute on top of chronic hypoxic respiratory failure, currently on 5L of oxygen by nasal cannula 3 chronic dyspnea 4 morbid obesity with a BMI of 54.9 along with component of obstructive sleep apnea and obesity hypoventilation syndrome 5 chronic metabolic alkalosis probably related to chronic hypercapnic respiratory failure 6 diabetes mellitus, insulin-dependent, with quite elevated blood sugars and currently the patient on insulin drip for blood sugar control. 7 hypertension 8 hyperlipidemia 9 hypothyroidism 10 chronic venous insufficiency 11 peripheral neuropathy 12 migraines 13. Irritable bowel syndrome 14 fatty liver related to obesity 15 sinus pauses, related to sinus bradycardia, asymptomatic Recommendation: Continue present treatment plan including Lovenox, Decadron, and finish up remdesivir we'll continue to follow Time with Patient: Less than 30
[2020-04-20 20:09] LABS: Glucose,Whole Blood 312 mg/dL (75-99)
[2020-04-20] MEDS: ALBUTEROL HFA INHALER INHALATION PRN (20:12)
[2020-04-20] MEDS: FENOFIBRATE 160 MG TAB PO SCH (21:17)
--- NOTE | 2020-04-20 22:52 | PN ---
PROGRESS NOTE DATE OF SERVICE: 04/20/2020 REASON FOR FOLLOWUP: 1. COVID-19 infection. 2. Positive blood culture. 3. Right gluteal pressure ulcer. INTERVAL HISTORY: The patient is currently afebrile. The patient is breathing slightly comfortably. The patient's cough has decreased in intensity. No nausea, vomiting, abdominal pain or diarrhea. PHYSICAL EXAMINATION: Blood pressure 108/90 with a pulse of 67, temperature 97.3. She is 95% on 5 L nasal cannula. General description is a middle-aged female lying in bed in no distress. RESPIRATORY SYSTEM: Unlabored breathing with decreased intensity of breath sounds. No wheeze. HEART: S1, S2. Regular rate and rhythm. ABDOMEN: Soft. No tenderness. LABS: Hemoglobin is 11.9, white count 8.5, BUN of 18, creatinine 0.77. She did have a positive UA but it is mostly hematuria; white count 11. DIAGNOSTIC IMPRESSION AND PLAN: 1. Patient with acute COVID-19 pneumonia in this patient covered with vitamin C, dexamethasone, Lovenox and remdesivir along with respiratory support. 2. Patient with positive blood culture, likely skin contamination. 3. Positive urinalysis; positive hematuria. Rocephin has been added. Continue with supportive care. MMODL / IJN: [id number] /
[2020-04-21 06:55] LABS: Glucose,Whole Blood 154 mg/dL (75-99)
[2020-04-21] MEDS: INSULIN DETEMIR (LEVEMIR) 100 UNIT/ML SYR SQ SCH ×2 (06:58→21:44)
[2020-04-21] MEDS: INSULIN ASPART (NovoLOG) 100 UNIT/ML VIAL SQ SCH ×4 (06:58→21:44)
[2020-04-21] MEDS: metFORMIN 500 MG TAB PO SCH ×2 (06:59→18:43)
[2020-04-21] MEDS: PANTOPRAZOLE 40 MG TABLET PO SCH ×2 (06:59→18:44)
[2020-04-21] MEDS: BISMUTH SUBSALICYLATE 4,192 MG/240 ML BOTTLE PO SCH ×4 (06:59→21:45)
[2020-04-21] MEDS: LEVOTHYROXINE 88 MCG TAB PO SCH (06:59)
[2020-04-21] MEDS: IBUPROFEN 600 MG TAB PO PRN (07:08)
--- NOTE | 2020-04-21 07:25 | XR ---
EXAMINATION TYPE: XR chest 1V portable DATE OF EXAM: 04/21/2020 CLINICAL HISTORY: Cough and shortness of breath progress study. Covid 19 TECHNIQUE: Single AP portable upright view of the chest is obtained. COMPARISON: Chest x-ray from 3 days earlier and older studies. FINDINGS: Some improved aeration in bilateral multifocal opacities. Cardiac silhouette size stable a nd mildly enlarged. No pleural effusion or pneumothorax seen bilaterally. Osseous structures are inta ct. Overlying EKG leads are present. IMPRESSION: Improving bilateral multifocal acute infiltrates.
[2020-04-21] MEDS: ALBUTEROL HFA INHALER INHALATION PRN (08:40)
[2020-04-21 09:47] LABS: African American GFR (CKD) >90 (>60 ml/min/1.73 sqM); Anion Gap 7 mmol/L; Blood Urea Nitrogen 20 mg/dL (7-17); Calcium 8.9 mg/dL (8.4-10.2); Carbon Dioxide 33 mmol/L (22-30); Chloride 94 mmol/L (98-107); Glucose 154 mg/dL (74-99); Magnesium 1.4 mg/dL (1.6-2.3); Non-African American GFR(CKD) >90 (>60 ml/min/1.73 sqM); Potassium 4.3 mmol/L (3.5-5.1); Sodium 134 mmol/L (137-145)
--- NOTE | 2020-04-21 10:11 | P.PN ---
Subjective Progress Note Date: 04/21/20 This is a 44-year-old female with past medical history of chronic intermittent asthma, COPD, diabetes mellitus, hyperlipidemia, hypertension, osteoarthritis, obstructive sleep apneawears CPAP, chronic hypoxic respiratory failure-wears 2- 3 L nasal cannula at home hypothyroidism, morbid obesity, bipolar, depression, former nicotine dependence, history of MRSA of buttock ulcer presented to the ER with worsening shortness of breath, concerned about possibly having Covid infection. The patient reports that she had been feeling quite fatigued with congestion,mostley nonproductive cough in addition to worsening shortness of breath. Denies chest pain, palpitations, nausea or vomiting. On admission cristian ent was febrile, T-max 101.9, tachycardic, heart rate in the 130s, respiratory rate up to 28, maintaining O2 sats of mid to high 90s on 3 L nasal cannula, blood pressure stable. WBC 4.4, hemoglobin 12, platelets 166, lymphocytes 0.9., Sodium 132, potassium 3.4, chloride 87, carbon dioxide 34, anion gap 11, BUN 10, creatinine 0.59, blood sugar 337. Chest x-ray reportingany bilateral pneumonia, cardiomegaly. Covid test reported positive. LDH was 846, CRP 53, d- dimer 0.27, ferritin 282.4. Pro-calcitonin mildly elevated 0.12 . T bili within normal limits, mildly elevated AST/ALT. UA reported negative leukocytes negative nitrates 1 WBC +2 ketones plus for glucose +2 protein.Positive acetone. Received 1.5 L of fluid resuscitation, then placed on maintenance IV along with insulin drip. Anticoagulated on Lovenox. Decadron ,Remdesivir initiated. Blood sugars currently 240, labs pending. 04/19/2020 chest x-ray yesterday reported no significant interval change. O2 requirement increased up to 6 L to maintain O2 sats in the 90s. Blood sugars controlled on Insulin drip. Denies nausea or vomiting. Reports diarrhea - several episodes .Multiple pauses throughout the night, up to 4.1 seconds, cardiology consulted. Afebrile, repeat blood cultures in progress. 04/20/2020 had another pause of approximately 3.1 seconds early this morning while sleeping. Beta jay remains on hold with further follow-up outpatient with cardiology recommended. Oxygen has been weaned down to 5 L nasal cannula, maintaining O2 sats in the 90s. Blood sugars controlled and insulin drip weaned off. Magnesium 1.2, receiving supplementation. LDH trending up, CRP trending down. 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 BiPAP at night. Chest x-ray reporting improving bilateral multifocal acute infiltrates. Echo reported normal LV function, EF 60-65%, borderline pulmonary hypertension. Completely weaned off of insulin drip yesterday, blood sugars elevated through the night, better controlled this morning. UA positive yesterday, Rocephin added. Urine culture pending. Maintaining O2 sats in the 90s on 5 L high flow nasal cannula. Magnesium 1.4. Afebrile. Denies nausea vomiting. Denies abdominal pain. Objective - Vital Signs Vital signs: Vital Signs Temp 97.6 F 04/21/20 04:00 Pulse 64 04/21/20 04:00 Resp 17 04/21/20 04:00 BP 113/75 04/21/20 04:00 Pulse Ox 94 L 04/21/20 04:00 Intake & Output 04/20/20 04/21/20 04/21/20 18:59 06:59 18:59 Intake Total 1432.8 Output Total 8611 310 4386 Balance -367.2 Weight 150 kg Intake: Intake, IV Titration 952.8 Amount Insulin Regular 100 unit 2.8 In Sodium Chloride 0.9% 100 ml @ Titrate IV .Q0M [facility] Rx#:[id number] Magnesium Sulfate-D5w Pmx 200 1 gm In Dextrose/Water 1 100ml.bag @ 100 mls/hr IVPB Q1H [facility] Rx#: [id number] Sodium Chloride 0.9% 1, 750 000 ml @ 50 mls/hr IV . Q20H [facility]D Rx#:[id number] Oral 480 Output: Urine 4580 033 2017 Other: Voiding Method Indwelling Catheter Indwelling Catheter # Voids 0 # Bowel Movements 0 - Exam PHYSICAL EXAM: VITAL SIGNS: As above GENERAL: Sitting up in bed,NAD HEENT: Conjunctivae normal. eyes normal. Oral mucosa moist NECK: Supple, no JVD. CARDIOVASCULAR: S1, S2 regular.No murmur RESPIRATION: Breath sounds diminished in the bases. Coarse rhonchi scattered throughout. ABDOMEN: Soft, nontender . No guarding. no masses palpable. Bowel sounds heard. LEGS: Mild nonpitting edema. no calf tenderness. PSYCHIATRY: Alert and oriented X3, mood and affect normal. NERVOUS SYSTEM: Cranial N 2-12 grossly normal. No focal deficits. Strength and sensation grossly intact.. Skin: right Buttock ulcer, stage II dressing clean dry and intact, Microbiology 04/16/20 15:51 Blood Blood Culture - Preliminary No Growth after 96 hours 04/20/20 11:53 Urine,Catheterized Urine Culture - Preliminary 04/15/20 11:30 Blood Blood Culture Gram Stain - Final 04/15/20 11:30 Blood Blood Culture - Final Coagulase Negative Staph 04/15/20 13:30 Blood Blood Culture - Final - Labs CBC & Chem 7: 04/20/20 09:26 04/21/20 07:28 Labs: Abnormal Lab Results - Last 24 Hours (Table) 04/20/20 04/20/20 04/20/20 Range/Units 09:26 11:08 11:53 Sodium (137-145) mmol/L Chloride 94 L (98-107) mmol/L Carbon Dioxide 34 H (22-30) mmol/L BUN 18 H (7-17) mg/dL Glucose 139 H (74-99) mg/dL POC Glucose (mg/dL) 136 H (75-99) mg/dL Magnesium 1.2 L (1.6-2.3) mg/dL Lactate Dehydrogenase 833 H (313-618) U/L C-Reactive Protein 29.6 H (<10.0) mg/L Urine Appearance Cloudy H (Clear) Urine pH 8.5 H (5.0-8.0) Urine Protein 1+ H (Negative) Urine Blood Small H (Negative) Urine Nitrite Positive H (Negative) Ur Leukocyte Esterase Large H (Negative) Urine RBC 114 H (0-5) /hpf Urine WBC 11 H (0-5) /hpf Triple Phos Crystals Rare H (None) /hpf Urine Bacteria Few H (None) /hpf Urine Mucus Occasional H (None) /hpf 04/20/20 04/20/20 04/20/20 Range/Units 13:14 16:56 20:08 Sodium (137-145) mmol/L Chloride (98-107) mmol/L Carbon Dioxide (22-30) mmol/L BUN (7-17) mg/dL Glucose (74-99) mg/dL POC Glucose (mg/dL) 162 H 287 H 312 H (75-99) mg/dL Magnesium (1.6-2.3) mg/dL Lactate Dehydrogenase (313-618) U/L C-Reactive Protein (<10.0) mg/L Urine Appearance (Clear) Urine pH (5.0-8.0) Urine Protein (Negative) Urine Blood (Negative) Urine Nitrite (Negative) Ur Leukocyte Esterase (Negative) Urine RBC (0-5) /hpf Urine WBC (0-5) /hpf Triple Phos Crystals (None) /hpf Urine Bacteria (None) /hpf Urine Mucus (None) /hpf 04/21/20 04/21/20 Range/Units 06:53 07:28 Sodium 134 L (137-145) mmol/L Chloride 94 L (98-107) mmol/L Carbon Dioxide 33 H (22-30) mmol/L BUN 20 H (7-17) mg/dL Glucose 154 H (74-99) mg/dL POC Glucose (mg/dL) 154 H (75-99) mg/dL Magnesium 1.4 L (1.6-2.3) mg/dL Lactate Dehydrogenase (313-618) U/L C-Reactive Protein (<10.0) mg/L Urine Appearance (Clear) Urine pH (5.0-8.0) Urine Protein (Negative) Urine Blood (Negative) Urine Nitrite (Negative) Ur Leukocyte Esterase (Negative) Urine RBC (0-5) /hpf Urine WBC (0-5) /hpf Triple Phos Crystals (None) /hpf Urine Bacteria (None) /hpf Urine Mucus (None) /hpf Microbiology - Last 24 Hours (Table) 04/16/20 15:51 Blood Culture - Preliminary Blood No Growth after 96 hours 04/20/20 11:53 Urine Culture - Preliminary Urine,Catheterized Assessment and Plan Assessment: Possible sepsis secondary to Acute Covid pneumonia Acute on chronic hypoxic hypercapnic respiratory failure Borderline pulmonary hypertension Possible acute UTI, cultures pending DKA, resolved DM insulin-dependent, hyperglycemic, hemoglobin A1c 12.4 Right buttock pressure ulcer, stage II , present on admission, with coagulase-negative staph, repeat culture pending . History of MRSA of buttock Positive blood culture, likely skin contaminant. Sinus Pauses up to 4.1 seconds, asymptomatic, beta jay on hold Hypokalemia Hypomagnesemia COPD Chronic intermittent asthma Hypertension Hyperlipidemia Osteoarthritis Obstructive sleep apnea, wears CPAP Hypothyroidism Chronic venous insufficiency Bipolar Depression Former nicotine dependence Morbid obesity, BMI 60 Plan: Continue on current medication regime ,monitoring and symptomatic treatment. Maintain Rocephin, cultures pending. Magnesium supplementation as p er replacement protocol-discussed with RN. Beta jay remains on hold. Continue on Covid regime. The impression and plan of care has been dictated as directed. : I performed a history and examination of this patient, discussed the same with the dictator. I agree with the dictator's note ,documented as a scribe. Any additional findings or plans will be noted.
[2020-04-21] MEDS: HYDROPHILIC CREAM 180 GM TUBE TOPICAL SCH (10:28)
[2020-04-21] MEDS: GABAPENTIN 300 MG CAP PO SCH ×3 (10:28→21:44)
[2020-04-21] MEDS: lisinopriL 20 MG TAB PO SCH (10:28)
[2020-04-21] MEDS: DIVALPROEX 500 MG TABLET.DR PO SCH ×2 (10:28→21:44)
[2020-04-21] MEDS: hydrALAZINE HCL 50 MG TAB PO SCH ×3 (10:28→21:44)
[2020-04-21] MEDS: ATORVASTATIN 40 MG TAB PO SCH (10:29)
[2020-04-21] MEDS: MULTIVITAMINS, THERA 1 EACH TAB PO SCH (10:29)
[2020-04-21] MEDS: ASCORBIC ACID 500 MG TAB PO SCH (10:29)
[2020-04-21] MEDS: amLODIPine 10 MG TAB PO SCH (10:29)
[2020-04-21] MEDS: SERTRALINE 100 MG TAB PO SCH (10:30)
[2020-04-21] MEDS: CHOLECALCIFEROL 1,000 UNIT TAB PO SCH (10:30)
[2020-04-21] MEDS: CHLORTHALIDONE 25 MG TAB PO SCH (10:30)
[2020-04-21] MEDS: TOPIRAMATE 25 MG TAB PO SCH ×2 (10:30→21:44)
[2020-04-21] MEDS: ENOXAPARIN 40 MG/0.4 ML SYRINGE SQ SCH (10:31)
[2020-04-21] MEDS: dexAMETHasone 2 MG TAB PO SCH (10:31)
[2020-04-21] MEDS: ZINC SULFATE 220 MG CAP PO SCH (10:31)
[2020-04-21 12:20] LABS: Glucose,Whole Blood 165 mg/dL (75-99)
[2020-04-21] MEDS: SODIUM CHLORIDE 0.9% 1,000 ML IV SCH (12:28)
--- NOTE | 2020-04-21 13:50 | P.PN ---
Subjective Progress Note Date: 04/21/20 Principal diagnosis: Acute CoVID 19 related to pneumonia 44-year-old female patient, morbidly obese a BMI of 54.9, also known to have COPD on home oxygen at 2-3 L per minute nasal cannula, obstructive sleep apnea diabetes mellitus and hypertension. The patient came into the ED with worsening shortness of breath and she was concerned about coronavirus, 19 infection. The patient has been having a congested cough with worsening shortness of breath over the past few days. She was also feeling weak and tired and fatigued. The patient had a white cell count of 5.5, she did have lymphopenia with a lymphocyte count of 0.6, the patient's LDH was 846, CRP was 53, d-dimer was at 0.27, and she checked positive for covid 19. The patient's chest x-ray showed bilateral pneumonia along with cardiomegaly. The patient's pulse ox is currently on 92% on 4 liters NC and the patient is currently afebrile with a T- max of 101.9 in the emergency department. She has been given 1.5 liters od NSS in the ED and she is on a maintenance of 200 cc/hr and she is on insulin drip at 13 U/hr for BS control. She was started on oral Decadron. Most recent blood sugar is at 358. The patient is seen today 04/16/2020 in follow-up on the selective care unit. She was seen and evaluated in consultation yesterday. She was found have CoVID 19 pneumonia. She is currently sitting up in a chair at the bedside. Awake and alert in no acute distress. Maintaining O2 saturation in the low 90s on 5 L/m per nasal cannula. She's been afebrile. Slightly tachycardic. Blood pressure stable. White count 4.4. Hemoglobin 12.0. Lymphocytes 0.9. Sodium 136. Potassium 3.3. Creatinine 0.55. LDH 767. C-reactive protein 62.6. She is on day 2 of Remdesivir. Continued on Protonix, Lovenox, dexamethasone, vitamin C, vitamin D, zinc. The patient is seen today 04/17/2020 in follow-up on the selective care unit. She is currently resting comfortably in bed. Awake and alert in no acute di stress. She is down to 3 L/m per nasal cannula to maintain O2 saturation in the 90s. Her inflammatory markers are on the decline. This is day #3 of her Remdesivir. She remains on vitamin C, vitamin D, Lovenox, Topamax, Decadron, zinc. White count 6.2. Hemoglobin 11.8. Sodium 137. Potassium 3.6. Creatinine 0.60. LDH 750. C-reactive protein 36. The patient is seen today 04/18/2020 in follow-up on the selective care unit. He is currently sitting up in a chair at the bedside. Awake and alert in no acute distress. Eriberto quite dyspneic with minimal exertion. She is currently on 5 L nasal cannula to maintain O2 saturations in the 90s. She did utilize CPAP last night. She's been afebrile. Hemodynamically stable. White count 5.8. Hemoglobin 11.1. Sodium 138. Potassium 3.4. Creatinine 0.73. LDH 81 C- reactive protein 31. She is receiving her fourth dose of Remdesivir today. 0.9 normal saline at MLS per hour. Tesleandra Perles for her cough. is seen today 04/21/2020 in follow-up on the selective care unit. She is awake and alert in no acute distress. She is utilizing CPAP throughout the evening. She is currently on 5 L high flow nasal cannula and maintaining O2 saturation in the 90s. She's afebrile. Sodium 134. Potassium 4.3. Creatinine 0.63. D-dimer 0.19. Follow-up blood cultures revealed no growth. Urine culture pending. Currently on ceftriaxone. She has completed her course of Remdesivir. She remains on zinc, vitamin C, vitamin D. Continued on Lovenox and dexamethasone. Objective - Vital Signs Vital signs: Vital Signs Temp 97.6 F 04/21/20 04:00 Pulse 64 04/21/20 04:00 Resp 17 04/21/20 04:00 BP 113/75 04/21/20 04:00 Pulse Ox 94 L 04/21/20 04:00 Intake & Output 04/20/20 04/21/20 04/21/20 18:59 06:59 18:59 Intake Total 1432.8 240 Output Total 3501 790 9056 Balance -367.2 -220 -1760 Weight 150 kg Intake: Intake, IV Titration 952.8 Amount Insulin Regular 100 unit 2.8 In Sodium Chloride 0.9% 100 ml @ Titrate IV .Q0M [facility] Rx#:[id number] Magnesium Sulfate-D5w Pmx 200 1 gm In Dextrose/Water 1 100ml.bag @ 100 mls/hr IVPB Q1H [facility] Rx#: [id number] Sodium Chloride 0.9% 1, 750 000 ml @ 50 mls/hr IV . Q20H [facility] Rx#:[id number] Oral 480 240 Output: Urine 1701 570 5909 Other: Voiding Method Indwelling Catheter Indwelling Catheter # Voids 0 0 # Bowel Movements 0 0 - Exam General appearance. Awake alert 44-year-old female patient, morbidly obese, with a BMI of 60.5 kg/m, calm comfortable not in acute respiratory distress. On 5 L nasal cannula. Not using excessive muscle breathing. Head exam was generally normal. There was no scleral icterus or corneal arcus. Mucous membranes were moist. Neck was supple and without jugular venous distension, thyromegaly, or carotid bruits. Carotids were easily palpable bilaterally. There was no adenopathy.Mal lampati class IV Lung sounds are diminished and overall breath sounds are quite distant and the examination is limited because of her morbid obesity. Cardiac exam revealed the PMI to be normally situated and sized. The rhythm was regular and no extrasystoles were noted during several minutes of auscultation. The first and second heart sounds were normal and physiologic splitting of the second heart sound was noted. There were no murmurs, rubs, clicks, or gallops. Abdominal exam revealed normal bowel sounds. The abdomen was soft, non-tender, and without masses, organomegaly, or appreciable enlargement of the abdominal aorta.Abdominal organs cannot be accurately palpated and the patient is no direct tenderness rebound tensile guarding. Examination of the extremities revealed easily palpable radial, femoral and pedal pulses. There was no cyanosis, clubbing or edema. Examination of the skin revealed no evidence of significant rashes, suspicious appearing nevi or other concerning lesions. Neurologically, the patient is awake and alert and the patient does not have any focal neurological deficit. Cranial nerves are essentially intact. - Labs CBC & Chem 7: 04/20/20 09:26 04/21/20 07:28 Labs: Abnormal Lab Results - Last 24 Hours (Table) 04/20/20 04/20/20 04/20/20 Range/Units 11:53 16:56 20:08 Sodium (137-145) mmol/L Chloride (98-107) mmol/L Carbon Dioxide (22-30) mmol/L BUN (7-17) mg/dL Glucose (74-99) mg/dL POC Glucose (mg/dL) 287 H 312 H (75-99) mg/dL Magnesium (1.6-2.3) mg/dL Urine Appearance Cloudy H (Clear) Urine pH 8.5 H (5.0-8.0) Urine Protein 1+ H (Negative) Urine Blood Small H (Negative) Urine Nitrite Positive H (Negative) Ur Leukocyte Esterase Large H (Negative) Urine RBC 114 H (0-5) /hpf Urine WBC 11 H (0-5) /hpf Triple Phos Crystals Rare H (None) /hpf Urine Bacteria Few H (None) /hpf Urine Mucus Occasional H (None) /hpf 04/21/20 04/21/20 04/21/20 Range/Units 06:53 07:28 12:18 Sodium 134 L (137-145) mmol/L Chloride 94 L (98-107) mmol/L Carbon Dioxide 33 H (22-30) mmol/L BUN 20 H (7-17) mg/dL Glucose 154 H (74-99) mg/dL POC Glucose (mg/dL) 154 H 165 H (75-99) mg/dL Magnesium 1.4 L (1.6-2.3) mg/dL Urine Appearance (Clear) Urine pH (5.0-8.0) Urine Protein (Negative) Urine Blood (Negative) Urine Nitrite (Negative) Ur Leukocyte Esterase (Negative) Urine RBC (0-5) /hpf Urine WBC (0-5) /hpf Triple Phos Crystals (None) /hpf Urine Bacteria (None) /hpf Urine Mucus (None) /hpf Microbiology - Last 24 Hours (Table) 04/16/20 15:51 Blood Culture - Preliminary Blood No Growth after 96 hours 04/20/20 11:53 Urine Culture - Preliminary Urine,Catheterized Assessment and Plan Assessment: 1 acute Covid 19 related pneumonia with bilateral pulmonary infiltrates and worsening shortness of breath. Today's chest x-ray today reveals improving bilateral multifocal infiltrates. 2 acute on top of chronic hypoxic respiratory failure, currently on 5L of oxygen by nasal cannula 3 chronic dyspnea 4 morbid obesity with a BMI of 54.9 along with component of obstructive sleep apnea and obesity hypoventilation syndrome 5 chronic metabolic alkalosis probably related to chronic hypercapnic respiratory failure 6 diabetes mellitus, insulin-dependent, with quite elevated blood sugars and currently the patient on insulin drip for blood sugar control. 7 hypertension 8 hyperlipidemia 9 hypothyroidism 10 chronic venous insufficiency 11 peripheral neuropathy 12 migraines 13. Irritable bowel syndrome 14 fatty liver related to obesity plan The patient was seen and evaluated by Dr. Avila Chest x-ray and labs reviewed Completed Remdesivir Continue Lovenox, dexamethasone, vitamin C, vitamin D, zinc Titrate down the FiO2 as tolerated, currently at 5 L/m per nasal cannula We'll continue to follow I, the cosigning physician, performed a history & physical examination of the patient. Lungs sounds are clear, diminished. Maintaining good O2 saturations in the 90s on 5 L/m per nasal cannula. I discussed the assessment and plan of care with my nurse practitioner, Bonnie Guevara. I attest to the above note as dictated by her.
[2020-04-21 17:13] LABS: Glucose,Whole Blood 258 mg/dL (75-99)
[2020-04-21 20:44] LABS: Glucose,Whole Blood 278 mg/dL (75-99)
[2020-04-21] MEDS: FENOFIBRATE 160 MG TAB PO SCH (21:44)
--- NOTE | 2020-04-22 00:12 | PN ---
PROGRESS NOTE DATE OF SERVICE: 04/21/2020 REASON FOR FOLLOW UP: 1. Positive blood culture contamination. 2. UTI. 3. Pneumonia. INTERVAL HISTORY: Patient is currently afebrile. The patient is breathing slightly comfortably. Denies any chest pain. Minimal cough. No abdominal pain. No diarrhea. PHYSICAL EXAMINATION: Blood pressure is 115/78 with a pulse of 80, temperature 97.7. She is 95% on 3 L nasal cannula. General description is a middle-aged female lying in bed in no distress. Respiratory system: Unlabored breathing, decreased intensity in breath sounds. Heart S1, S2. Regular rate and rhythm. Abdomen soft, no tenderness. LABS: BUN of 22, creatinine 0.6. Urine showing Gram-negative bacilli. DIAGNOSTIC IMPRESSION/PLAN: 1. Patient acute COVID-19 pneumonia patient has completed her Remdesivir therapy and currently on Dexamethasone and Lovenox, to continue. 2. Patient with a positive skin contamination vancomycin. 3. Gram-negative urinary tract infection covered with Rocephin. MMODL / IJN: [id number] /
[2020-04-22 02:46] VITALS: RESP 18
[2020-04-22] MEDS ORDERED: Magnesium Replacement Protocol 1 EACH MISC MISCELLANE PRN (03:29)
[2020-04-22] MEDS: MAGNESIUM SULFATE-D5W PMX 1 GM in DEXTROSE/WATER 1 100ML.BAG IVPB SCH ×3 (03:35→06:12)
[2020-04-22 06:06] LABS: Glucose,Whole Blood 260 mg/dL (75-99)
[2020-04-22] MEDS: BISMUTH SUBSALICYLATE 4,192 MG/240 ML BOTTLE PO SCH (06:53)
[2020-04-22] MEDS: PANTOPRAZOLE 40 MG TABLET PO SCH (06:53)
[2020-04-22] MEDS: metFORMIN 500 MG TAB PO SCH (06:53)
[2020-04-22] MEDS: LEVOTHYROXINE 88 MCG TAB PO SCH (06:53)
[2020-04-22] MEDS: INSULIN DETEMIR (LEVEMIR) 100 UNIT/ML SYR SQ SCH (06:54)
[2020-04-22] MEDS: INSULIN ASPART (NovoLOG) 100 UNIT/ML VIAL SQ SCH (06:54)
[2020-04-22] MEDS: SODIUM CHLORIDE 0.9% 1,000 ML IV SCH (06:54)
[2020-04-22 10:13] VITALS: BP 117/56; PULSE 65; TEMP 97.9
[2020-04-22] MEDS: IBUPROFEN 600 MG TAB PO PRN (10:13)
[2020-04-22] MEDS: ASCORBIC ACID 500 MG TAB PO SCH (10:14)
[2020-04-22] MEDS: amLODIPine 10 MG TAB PO SCH (10:14)
[2020-04-22] MEDS: dexAMETHasone 2 MG TAB PO SCH (10:16)
[2020-04-22] MEDS: ATORVASTATIN 40 MG TAB PO SCH (10:16)
[2020-04-22] MEDS: CHLORTHALIDONE 25 MG TAB PO SCH (10:16)
[2020-04-22] MEDS: CHOLECALCIFEROL 1,000 UNIT TAB PO SCH (10:16)
[2020-04-22] MEDS: DIVALPROEX 500 MG TABLET.DR PO SCH (10:17)
[2020-04-22] MEDS: GABAPENTIN 300 MG CAP PO SCH (10:17)
[2020-04-22] MEDS: HYDROPHILIC CREAM 180 GM TUBE TOPICAL SCH (10:18)
[2020-04-22] MEDS: hydrALAZINE HCL 50 MG TAB PO SCH (10:18)
[2020-04-22] MEDS: lisinopriL 20 MG TAB PO SCH (10:18)
[2020-04-22] MEDS: MULTIVITAMINS, THERA 1 EACH TAB PO SCH (10:19)
[2020-04-22] MEDS: SERTRALINE 100 MG TAB PO SCH (10:19)
[2020-04-22] MEDS: ZINC SULFATE 220 MG CAP PO SCH (10:19)
[2020-04-22] MEDS: TOPIRAMATE 25 MG TAB PO SCH (10:19)
[2020-04-22] MEDS: ENOXAPARIN 40 MG/0.4 ML SYRINGE SQ SCH (10:20)
== END 2020-04-22 11:24 | disposition home or self-care (01) | DRG 871 ==
LOC: EC 12:51 → 3SCARD 16:24
PROVIDERS: ADMIT Family Medicine; ATTEND Family Medicine
PROC: XW033E5 Introduction of Remdesivir Anti-infective into Peripheral Vein, Percutaneous Approach, New Technology Group 5 (ICD-10-PCS; principal; 2020-04-15)
PROC: 5A09457 Assistance with Respiratory Ventilation, 24-96 Consecutive Hours, Continuous Positive Airway Pressure (ICD-10-PCS; 2020-04-16)
DX: A41.89 Other specified sepsis (principal); E11.10 Type 2 diabetes mellitus with ketoacidosis without coma; U07.1 COVID-19; J96.21 Acute and chronic respiratory failure with hypoxia; J96.22 Acute and chronic respiratory failure with hypercapnia; J12.89 Other viral pneumonia; E87.3 Alkalosis; J44.0 Chronic obstructive pulmonary disease with (acute) lower respiratory infection; Z68.43 Body mass index [BMI] 50.0-59.9, adult; E66.2 Morbid (severe) obesity with alveolar hypoventilation; N39.0 Urinary tract infection, site not specified; L89.312 Pressure ulcer of right buttock, stage 2; L98.429 Non-pressure chronic ulcer of back with unspecified severity; E11.42 Type 2 diabetes mellitus with diabetic polyneuropathy; Z99.81 Dependence on supplemental oxygen; K76.0 Fatty (change of) liver, not elsewhere classified; E11.622 Type 2 diabetes mellitus with other skin ulcer; E11.65 Type 2 diabetes mellitus with hyperglycemia; Z79.4 Long term (current) use of insulin; I10 Essential (primary) hypertension; E78.5 Hyperlipidemia, unspecified; M19.90 Unspecified osteoarthritis, unspecified site; G43.909 Migraine, unspecified, not intractable, without status migrainosus; F32.9 Major depressive disorder, single episode, unspecified; J45.20 Mild intermittent asthma, uncomplicated; E03.9 Hypothyroidism, unspecified; I87.2 Venous insufficiency (chronic) (peripheral); D72.810 Lymphocytopenia; K58.0 Irritable bowel syndrome with diarrhea; E83.42 Hypomagnesemia; E87.6 Hypokalemia; R00.1 Bradycardia, unspecified; T38.0X5A Adverse effect of glucocorticoids and synthetic analogues, initial encounter; R31.9 Hematuria, unspecified; Z71.3 Dietary counseling and surveillance; Z79.899 Other long term (current) drug therapy; Z79.890 Hormone replacement therapy; Z86.14 Personal history of Methicillin resistant Staphylococcus aureus infection; Z90.49 Acquired absence of other specified parts of digestive tract; Z98.51 Tubal ligation status; Z87.891 Personal history of nicotine dependence; Z88.8 Allergy status to other drugs, medicaments and biological substances; Z88.1 Allergy status to other antibiotic agents; Z91.041 Radiographic dye allergy status; Z82.49 Family history of ischemic heart disease and other diseases of the circulatory system; Z83.438 Family history of other disorder of lipoprotein metabolism and other lipidemia
CPT/HCPCS: 36415; 51702; 71045; 80048; 80051; 80053; 81001; 82009; 82565; 82728; 82947; 83036; 83605; 83615; 83735; 84100; 84145; 84443; 84484; 84520; 85025; 85027; 85379; 85610; 85730; 86140; 87040; 87077; 87086; 87186; 87635; 93005; 93306; 94640; 96365; 96366; 96367; 99291

== ENCOUNTER 2021-11-16 17:14 | Inpatient (IN) | payer MEDICARE, OTHER ==
--- NOTE | 2021-11-16 20:11 | XR ---
EXAMINATION TYPE: XR chest 2V DATE OF EXAM: 11/16/2021 COMPARISON: NONE HISTORY: Cough and congestion TECHNIQUE: 2 views FINDINGS: Heart and mediastinum are normal. Lungs are clear. Diaphragm is normal. Bony thorax is inta ct. IMPRESSION: Normal chest. Inspiration is improved compared to old exam
[2021-11-16 23:59] LABS: Glucose,Whole Blood 143 mg/dL (70-110)
[2021-11-17] MEDS ORDERED: ALBUTEROL HFA INHALER INHALATION STA (00:12)
[2021-11-17] MEDS ORDERED: KETOROLAC 15 MG/ML 1 ML VIAL IVP STA (00:12)
[2021-11-17] MEDS ORDERED: ACETAMINOPHEN TAB 325 MG TAB PO PRN (00:12)
[2021-11-17] MEDS ORDERED: ACETAMINOPHEN TAB 500 MG TAB PO STA (00:12)
[2021-11-17] MEDS ORDERED: DEXAMETHASONE SOD PHOSPHATE 10 MG/ML 1 ML VIAL IVP STA (00:12)
[2021-11-17] MEDS ORDERED: MORPHINE SULFATE 4 MG/ML SYRINGE IV PRN (00:14)
[2021-11-17] MEDS ORDERED: NALOXONE 0.4 MG/ML 1 ML VIAL IV PRN (00:14)
[2021-11-17] MEDS ORDERED: LORazepam 2 MG/ML INJ IV PRN (00:14)
[2021-11-17] MEDS ORDERED: ONDANSETRON 4 MG/2 ML VIAL IVP PRN (00:14)
--- NOTE | 2021-11-17 00:18 | ED ---
SOB HPI - General Chief Complaint: Shortness of Breath Stated Complaint: SOB Time Seen by Provider: 11/17/21 00:03 Source: patient Mode of arrival: wheelchair Limitations: physical limitation - History of Present Illness Initial Comments: Patient is weak - Related Data Home Medications Medication Instructions Recorded Confirmed hydrALAZINE HCL [Apresoline] 50 mg PO TID 10/07/13 04/15/20 Atenolol/Chlorthalidone 1 tab PO QAM 06/25/15 04/15/20 [Atenolol/Chlorthalidone 100-25] Divalproex [Depakote] 1,000 mg PO BID 06/25/15 04/15/20 Gabapentin [Neurontin] 300 mg PO TID 06/25/15 04/15/20 amLODIPine BESYLATE/BENAZEPRIL 1 cap PO QAM 06/26/15 04/15/20 [Lotrel 10-40 MG] Cetirizine HCl 10 mg PO HS 10/21/15 04/15/20 Multivitamins, Thera [Multivitamin 1 tab PO DAILY 10/21/15 04/15/20 (formulary)] metFORMIN HCL [Glucophage] 1,000 mg PO BID-W/MEALS 10/21/15 04/15/20 [place]-3 Fatty Acids/Fish Oil [Fish 2 tab PO BID 12/01/15 04/15/20 Oil 1,000 mg Softgel] SUMAtriptan succinate [Imitrex] 100 mg PO BID PRN 05/17/16 04/15/20 Fenofibrate [Lofibra] 160 mg PO HS 12/07/16 04/15/20 Atorvastatin [Lipitor] 40 mg PO DAILY 07/15/18 04/15/20 Cyclobenzaprine [Flexeril] 10 mg PO TID PRN 07/15/18 04/15/20 Levothyroxine Sodium [Synthroid] 88 mcg PO DAILY 07/15/18 04/15/20 Topiramate [Topamax] 50 mg PO BID 07/15/18 04/15/20 Albuterol Sulfate [Ventolin HFA] 1 - 2 puff INHALATION RT-Q6H PRN 04/15/20 04/15/20 Ascorbic Acid [Vitamin C] 1,000 mg PO DAILY 04/15/20 04/15/20 Glucos Sul 2Kcl/MSM/Chond/C/Mn 2 cap PO DAILY 04/15/20 04/15/20 [Glucosamine Chondroitin Cap] Ibuprofen 600 mg PO Q8H PRN 04/15/20 04/15/20 Insulin Glargine,Hum.rec.anlog 60 unit SQ BID 04/15/20 04/15/20 [Basaglar Kwikpen U-100] Insulin Lispro [Admelog] 15 unit SQ AC-TID 04/15/20 04/16/20 Insulin Lispro [Admelog] See Protocol SQ ACHS PRN 04/15/20 04/15/20 Ipratropium-Albuterol Nebulize 3 ml INHALATION RT-QID PRN 04/15/20 04/15/20 [Duoneb 0.5 mg-3 mg/3 ml Soln] Omeprazole 40 mg PO BID 04/15/20 04/15/20 Sertraline [Zoloft] 100 mg PO DAILY 04/15/20 04/15/20 traMADol HCL 50 mg PO Q8H PRN 04/15/20 04/15/20 Previous Rx's Medication Instructions Recorded Aspirin EC [Ecotrin] 325 mg PO DAILY #30 tablet. 04/22/20 Benzonatate [Tessalon Perles] 100 mg PO TID PRN #12 cap 04/22/20 Cholecalciferol [Vitamin D3 (25 2,000 unit PO DAILY #30 tab 04/22/20 Mcg = 1000 Iu)] Hydrophilic Cream [Triad Cream] 1 applic TOPICAL DAILY applic 04/22/20 INSULIN ASPART (NovoLOG) [NovoLOG 0 unit SQ ACHS vial 04/22/20 (formulary)] Sulfamethox-Tmp 800-160Mg [Bactrim 1 tab PO Q12HR #6 tab 04/22/20 DS 800-160 mg] Zinc Sulfate [Orazinc] 220 mg PO DAILY #30 cap 04/22/20 dexAMETHasone ORAL [Hexadrol] 6 mg PO DAILY #5 tab 04/22/20 Allergies Allergy/AdvReac Type Severity Reaction Status Date / Time Iodinated Contrast Media Allergy Mild Rash/Hives Verified 11/16/21 19:36 [Iodinated Contrast Media - IV Dye] enalapril Allergy Rash/Hives Verified 11/16/21 19:36 levofloxacin Allergy Rash/Hives Verified 11/16/21 19:36 Review of Systems ROS Statement: Those systems with pertinent positive or pertinent negative responses have been documented in the HPI. ROS Other: All systems not noted in ROS Statement are negative. Past Medical History Past Medical History: Asthma, COPD, Diabetes Mellitus, Hyperlipidemia, Hypertension, Osteoarthritis (OA), Sleep Apnea/CPAP/BIPAP, Thyroid Disorder Additional Past Medical History / Comment(s): chronic venous insufficiency, neuropathy, migraines, IBS, fatty liver History of Any Multi-Drug Resistant Organisms: MRSA Date of last positivie culture/infection: 07/15/18 MDRO Source:: MRSA BUTTOCK Past Surgical History: Section, Cholecystectomy, Tubal Ligation Additional Past Surgical History / Comment(s): recent colonoscopy Past Anesthesia/Blood Transfusion Reactions: No Reported Reaction Past Psychological History: Bipolar, Depression Smoking Status: Never smoker Past Alcohol Use History: None Reported Past Drug Use History: None Reported - Past Family History Mother Family Medical History: Hypertension Father Family Medical History: Hyperlipidemia General Exam Limitations: physical limitation Course Vital Signs 11/16/21 11/17/21 19:31 01:29 Temperature 98.2 F Pulse Rate 102 H Respiratory 22 Rate Blood Pressure 174/79 149/83 O2 Sat by Pulse 92 L 98 Oximetry Medical Decision Making - Lab Data Result diagrams: 11/17/21 02:33 11/17/21 02:33 Lab Results 11/16/21 11/16/21 Range/Units 19:41 23:57 POC Glucose (mg/dL) 143 H (70-110) mg/dL POC Glu [employer] Product Manager ID Isabel Galeano Coronavirus (PCR) Detected A (Not Detectd) - EKG Data -: EKG Interpreted by Me (EKG is sinus tachycardia 106 OK 155 QRS 84 QTc 407) Disposition Clinical Impression: Upper respiratory infection, COPD (chronic obstructive pulmonary disease), Acute exacerbation of chronic obstructive pulmonary disease, Coronavirus infection, Fever Disposition: ADMITTED IP TO THIS HOSP Condition: Fair Is patient prescribed a controlled substance at d/c from ED?: No
[2021-11-17] MEDS: SODIUM CHLORIDE 0.9% 1,000 ML IV SCH ×3 (01:24→16:15)
[2021-11-17 03:08] LABS: Basophils # (A) 0.1 k/uL (0-0.2); Basophils % (A) 1 %; Eosinophils # (A) 0.3 k/uL (0-0.7); Eosinophils % (A) 3 %; HCT 38.2 % (34.0-46.0); HGB 12.2 gm/dL (11.4-16.0); Lymphocytes # (A) 1.1 k/uL (1.0-4.8); Lymphocytes % (A) 13 %; MCH 27.9 pg (25.0-35.0); MCV 87.2 fL (80.0-100.0); Mean Platelet Volume 8.5; Monocytes # (A) 0.6 k/uL (0-1.0); Monocytes % (A) 7 %; Neutrophils # (A) 6.5 k/uL (1.3-7.7); Neutrophils % (A) 74 %; Platelet Count 227 k/uL (150-450); RBC 4.38 m/uL (3.80-5.40); RDW 14.1 % (11.5-15.5); WBC 8.8 k/uL (3.8-10.6)
[2021-11-17 03:18] LABS: INR 0.9 (<1.2); Partial Thromboplastin Time 24.9 sec (22.0-30.0); Prothrombin Time 9.9 sec (9.0-12.0)
[2021-11-17 03:28] LABS: ALT 39 U/L (4-34); AST 54 U/L (14-36); African American GFR (CKD) >90 (>60 ml/min/1.73 sqM); Albumin 4.1 g/dL (3.5-5.0); Alkaline Phosphatase 108 U/L (38-126); Anion Gap 9 mmol/L; Blood Urea Nitrogen 12 mg/dL (7-17); C Reactive Protein 8.1 mg/dL (<1.0); Calcium 8.5 mg/dL (8.4-10.2); Carbon Dioxide 32 mmol/L (22-30); Chloride 97 mmol/L (98-107); Glucose 195 mg/dL (74-99); LDH 490 U/L (313-618); Magnesium 1.3 mg/dL (1.6-2.3); Non-African American GFR(CKD) >90 (>60 ml/min/1.73 sqM); Sodium 138 mmol/L (137-145); Total Bilirubin 0.5 mg/dL (0.2-1.3); Total Protein 7.1 g/dL (6.3-8.2)
[2021-11-17] MEDS ORDERED: MAGNESIUM OXIDE 400 MG TAB PO STA (03:56)
[2021-11-17] MEDS: ALBUTEROL HFA INHALER INHALATION SCH ×3 (07:22→16:14)
[2021-11-17] MEDS ORDERED: FAMOTIDINE 20 MG/2 ML VIAL IV ONE (08:13)
[2021-11-17] MEDS ORDERED: diphenhydrAMINE 50 MG CAP PO ONE (08:13)
[2021-11-17] MEDS ORDERED: predniSONE 50 MG TAB PO ONE (08:13)
[2021-11-17] MEDS ORDERED: REMDESIVIR 200 MG in SODIUM CHLORIDE 0.9% 250 ML IVPB ONE (09:00)
[2021-11-17] MEDS ORDERED: DEXAMETHASONE SOD PHOSPHATE 10 MG/ML 1 ML VIAL IVP SCH (09:00)
[2021-11-17] MEDS ORDERED: ENOXAPARIN 40 MG/0.4 ML SYRINGE SQ SCH (09:00)
[2021-11-17] MEDS ORDERED: Magnesium Replacement Protocol 1 EACH MISC MISCELLANE PRN (09:32)
--- NOTE | 2021-11-17 10:09 | P.CNPUL ---
History of Present Illness Consult date: 11/17/21 Requesting physician: Chapo Guzman Jr Reason for consult: dyspnea, COPD, abnormal CXR/CT Chief complaint: Shortness of breath, cough, congestion History of present illness: This is a pleasant 46-year-old female patient With history of morbid obesity, obstructive sleep apnea, bipolar/depression, hyperlipidemia, hypertension, diabetes mellitus, hypothyroidism, previous alcoholism, previous heavy tobacco dependence, oxygen dependent COPD. She presented here to the emergency room with complaints of increasing shortness of breath. Her pulse oximeter home was reading less than 90% and she bumped her normal oxygen from 3 L up to 5 L without much improvement and presented here to the emergency room for the same. She started having symptoms on 11/12/2021. Chest x-ray reveals a normal chest with clear lungs. White count 8.8. Hemoglobin 12.2. Platelet count 227. Lymphocytes 1.1. D-dimer 0.36. Sodium 138. Potassium 4.0. BUN 12. Creatinine 0.50. Glucose 195. AST 54. ALT 39. LDH 490. C-reactive protein 8.1. Currently virus by PCR is positive. The patient also had CoVID in the past. She is not vaccinated. She is seen today in consultation on the emergency department. She is currently resting comfortably in a stretcher. Awake and alert in no acute distress. She is maintaining O2 saturation in the mid 90s on 4 L/m per nasal cannula. She's afebrile. Hemodynamically stable. No IV fluids. She's been initiated on Decadron 6 mg daily. Lovenox for DVT prophylaxis. Review of Systems REVIEW OF SYSTEMS: CONSTITUTIONAL: Denies any recent significant weight loss or weight gain. EYES: Denies change in vision. EARS, NOSE, MOUTH, THROAT: Denies headaches, denies sore throat. CARDIOVASCULAR: Denies chest pain, palpitations or syncopal episodes. RESPIRATORY: Positive for shortness of breath, cough, congestion no hemoptysis. GASTROINTESTINAL: Denies change in appetite, denies abdominal pain GENITOURINARY: Denies hematuria, denies infections. MUSKULOSKELETAL: Denies pain, denies swelling. INTEGUMENTARY: Denies rash, denies eczema. NEUROLOGICAL: Denies recent memory loss, no recent seizure activity. PSYCHIATRIC: Denies anxiety, denies depression. HEMATOLOGIC/LYMPHATIC: Denies anemia, denies enlarged lymph nodes. Past Medical History Past Medical History: Asthma, COPD, Diabetes Mellitus, Hyperlipidemia, Hypertension, Osteoarthritis (OA), Sleep Apnea/CPAP/BIPAP, Thyroid Disorder Additional Past Medical History / Comment(s): chronic venous insufficiency, neuropathy, migraines, IBS, fatty liver History of Any Multi-Drug Resistant Organisms: MRSA Date of last positivie culture/infection: 07/15/18 MDRO Source:: MRSA BUTTOCK Past Surgical History: Section, Cholecystectomy, Tubal Ligation Additional Past Surgical History / Comment(s): recent colonoscopy Past Anesthesia/Blood Transfusion Reactions: No Reported Reaction Past Psychological History: Bipolar, Depression Smoking Status: Never smoker Past Alcohol Use History: None Reported Past Drug Use History: None Reported - Past Family History Mother Family Medical History: Hypertension Father Family Medical History: Hyperlipidemia Medications and Allergies Home Medications Medication Instructions Recorded Confirmed Type hydrALAZINE HCL [Apresoline] 50 mg PO TID 10/07/13 11/17/21 History Atenolol/Chlorthalidone 1 tab PO DAILY 06/25/15 11/17/21 History [Atenolol/Chlorthalidone 100-25] Divalproex [Depakote] 500 mg PO BID 06/25/15 11/17/21 History Gabapentin [Neurontin] 300 mg PO BID 06/25/15 11/17/21 History amLODIPine BESYLATE/BENAZEPRIL 1 cap PO DAILY 06/26/15 11/17/21 History [Lotrel 10-40 MG] Multivitamins, Thera [Multivitamin 1 tab PO DAILY 10/21/15 11/17/21 History (formulary)] Fenofibrate [Lofibra] 160 mg PO HS 12/07/16 11/17/21 History Atorvastatin [Lipitor] 40 mg PO DAILY 07/15/18 11/17/21 History Levothyroxine Sodium [Synthroid] 88 mcg PO DAILY 07/15/18 11/17/21 History Ascorbic Acid [Vitamin C] 1,000 mg PO DAILY 04/15/20 11/17/21 History Ibuprofen 600 mg PO Q8H PRN 04/15/20 11/17/21 History Omeprazole 40 mg PO DAILY 04/15/20 11/17/21 History traMADol HCL 50 mg PO DAILY PRN 04/15/20 11/17/21 History Aspirin EC [Ecotrin] 325 mg PO DAILY #30 tablet. 04/22/20 11/17/21 Rx Cholecalciferol [Vitamin D3 (25 2,000 unit PO DAILY #30 tab 04/22/20 11/17/21 Rx Mcg = 1000 Iu)] Beclomethasone Dip 80 Mcg/Puff 2 puff INHALATION RT-Q12H 11/17/21 11/17/21 History [Qvar 80 mcg] Dulaglutide [Trulicity] 1.5 mg SQ MO 11/17/21 11/17/21 History Empagliflozin [Jardiance] 25 mg PO DAILY 11/17/21 11/17/21 History INSULIN ASPART (NovoLOG) [NovoLOG 20 unit SQ ACHS 11/17/21 11/17/21 History (formulary)] Insulin Glargine [Lantus Vial] 60 unit SQ BID 11/17/21 11/17/21 History Zinc 50 mg PO DAILY 11/17/21 11/17/21 History metFORMIN HCL 1,000 mg PO BID 11/17/21 11/17/21 History Allergies Allergy/AdvReac Type Severity Reaction Status Date / Time Iodinated Contrast Media Allergy Mild Rash/Hives Verified 11/17/21 07:57 [Iodinated Contrast Media - IV Dye] enalapril Allergy Rash/Hives Verified 11/17/21 07:57 levofloxacin Allergy Rash/Hives Verified 11/17/21 07:57 Physical Exam Vitals: Vital Signs Temp Pulse Pulse Resp BP BP Pulse Ox 11/17/21 08:00 97.8 F 93 16 139/80 95 11/17/21 06:00 94 L 11/17/21 05:00 99 133/72 96 11/17/21 01:29 149/83 98 11/16/21 19:31 98.2 F 102 H 22 174/79 92 L Intake and Output 11/16/21 11/17/21 11/17/21 22:59 06:59 14:59 Other: Weight 145.15 kg GENERAL EXAM: Alert, morbidly obese, pleasant 46-year-old female, on 4 L nasal cannula, comfortable in no apparent distress. HEAD: Normocephalic. EYES: Normal reaction of pupils, equal size. NOSE: Clear with pink turbinates. THROAT: No erythema or exudates. NECK: No masses, no JVD. CHEST: No chest wall deformity. LUNGS: Equal air entry with no crackles, wheeze, rhonchi or dullness. CVS: S1 and S2 normal with no audible murmur, regular rhythm. ABDOMEN: No hepatosplenomegaly, normal bowel sounds, no guarding or rigidity. SPINE: No scoliosis or deformity SKIN: No rashes CENTRAL NERVOUS SYSTEM: No focal deficits, tone is normal in all 4 extremities. EXTREMITIES: There is no peripheral edema. No clubbing, no cyanosis. Peripheral pulses are intact. Results - Laboratory Findings CBC and BMP: 11/17/21 02:33 11/17/21 02:33 PT/INR, D-dimer PT 9.9 sec (9.0-12.0) 11/17/21 02:33 INR 0.9 (<1.2) 11/17/21 02:33 D-Dimer 0.36 mg/L FEU (<0.60) 11/17/21 09:14 Abnormal lab findings: Abnormal Labs 11/16/21 11/16/21 11/17/21 19:41 23:57 02:33 Chloride 97 L Carbon Dioxide 32 H Creatinine 0.50 L Glucose 195 H POC Glucose (mg/dL) 143 H Magnesium 1.3 L AST 54 H ALT 39 H C-Reactive Protein 8.1 H Coronavirus (PCR) Detected A - Diagnostic Findings Chest x-ray: image reviewed Assessment and Plan Assessment: 1 Acute on chronic hypoxemic respiratory failure secondary to COVID-19 infection. The patient is not vaccinated. Symptoms started 11/12/2021. Initiated on Remdesivir. 2 Previous history of COVID-19 infection 3 Chronic hypoxemic respiratory failure secondary to chronic obstructive pulmonary disease 4 History of chronic tobacco dependence 5 History of alcoholism Obesity 7 History of obstructive sleep apnea 8 Hypothyroidism 9 Diabetes mellitus 10 Hyperlipidemia 11 Hypertension 12 History of bipolar/depression Plan: The patient was seen and evaluated Chest x-ray, medications and labs reviewed Initiate Remdesivir, vitamin supplements Continue with Decadron, Lovenox Obtain a d-dimer Obtain a pro-calcitonin Obtain a CT angiogram of the chest Titrate the FiO2 as tolerated We will continue to follow and make further recommendations based on her clinical status I have personally seen and examined the patient, performed the documentation and the assessment and plan as written. Number of minutes spent on the visit: 20.
[2021-11-17] MEDS ORDERED: ASCORBIC ACID 500 MG TAB PO SCH (10:15)
[2021-11-17] MEDS ORDERED: CHOLECALCIFEROL 125 MCG (5000 IU) TABLET PO SCH (10:15)
[2021-11-17] MEDS ORDERED: ZINC SULFATE 220 MG CAP PO SCH (10:15)
[2021-11-17] MEDS: MAGNESIUM OXIDE 400 MG TAB PO SCH ×2 (10:17→13:45)
[2021-11-17] MEDS ORDERED: PANTOPRAZOLE 40 MG/10 ML VIAL IVP SCH (11:00)
[2021-11-17 11:27] LABS: Glucose,Whole Blood 380 mg/dL (70-110)
[2021-11-17] MEDS ORDERED: INSULIN DETEMIR (LEVEMIR) 100 UNIT/ML SYR SQ SCH ×3 (11:54→12:00)
[2021-11-17] MEDS ORDERED: LEVOTHYROXINE 88 MCG TAB PO SCH (12:00)
[2021-11-17] MEDS ORDERED: PATIENT'S OWN (Empagliflozin [Jardiance] 25 MG Tablet) PO SCH (12:00)
[2021-11-17] MEDS ORDERED: DIVALPROEX 500 MG TABLET.DR PO SCH (12:00)
[2021-11-17] MEDS ORDERED: GABAPENTIN 300 MG CAP PO SCH (12:00)
[2021-11-17] MEDS ORDERED: INSULIN ASPART (NovoLOG) 100 UNIT/ML VIAL SQ ONE ×2 (13:24→17:13)
--- NOTE | 2021-11-17 13:31 | P.HPIM ---
History of Present Illness H&P Date: 11/17/21 Chief Complaint: Worsening shortness of breath History and Physical and Discharge Summary This is a 46-year-old female with past medical history of chronic intermittent asthma, COPD, diabetes mellitus, hyperlipidemia, hypertension, osteoarthritis, obstructive sleep apneawears CPAP, chronic hypoxic respiratory failure-wears 3 L nasal cannula at home hypothyroidism, morbid obesity, bipolar, depression, former nicotine dependence, history of MRSA of buttock ulcer presented to the ER with worsening shortness of breath, initiated about 4-5 days prior concerned about possibly having Covid infection. Reports her pulse ox at home reported less than 90% and proceeded to increase her oxygen up to 5 L with minimal improvement. On arrival patient was satting 92% on 3 L nasal cannula, afebrile, pulse rate 102, respiratory rate 22, blood pressure 174/79. Chest x-ray repo rted normal chest with inspiration improved compared to prior exam. Normal WBC/hematology unremarkable, coagulation panel negative including d-dimer 0.36, sodium 138 potassium 4, bicarb 32 BUN 12, creatinine 0.5, blood sugars 140s to 190s, magnesium 1.3, AST 54, ALT 39 LDH 490 C-reactive protein 8.1. Denies chest pain, palpitations or shortness of breath. Denies lightheadedness dizziness or focal deficits. Denies syncope. Denies nausea vomiting or diarrhea. Denies abdominal pain. Review of Systems ROS Statement: Those systems with pertinent positive or pertinent negative responses have been documented in the HPI. ROS Other: All systems not noted in ROS Statement are negative. Past Medical History Past Medical History: Asthma, COPD, Diabetes Mellitus, Hyperlipidemia, Hypertension, Osteoarthritis (OA), Sleep Apnea/CPAP/BIPAP, Thyroid Disorder Additional Past Medical History / Comment(s): chronic venous insufficiency, neuropathy, migraines, IBS, fatty liver History of Any Multi-Drug Resistant Organisms: MRSA Date of last positivie culture/infection: 07/15/18 MDRO Source:: MRSA BUTTOCK Past Surgical History: Section, Cholecystectomy, Tubal Ligation Additional Past Surgical History / Comment(s): recent colonoscopy Past Anesthesia/Blood Transfusion Reactions: No Reported Reaction Past Psychological History: Bipolar, Depression Smoking Status: Never smoker Past Alcohol Use History: None Reported Past Drug Use History: None Reported - Past Family History Mother Family Medical History: Hypertension Father Family Medical History: Hyperlipidemia Medications and Allergies Home Medications Medication Instructions Recorded Confirmed Type hydrALAZINE HCL [Apresoline] 50 mg PO TID 10/07/13 11/17/21 History Atenolol/Chlorthalidone 1 tab PO DAILY 06/25/15 11/17/21 History [Atenolol/Chlorthalidone 100-25] Divalproex [Depakote] 500 mg PO BID 06/25/15 11/17/21 History Gabapentin [Neurontin] 300 mg PO BID 06/25/15 11/17/21 History amLODIPine BESYLATE/BENAZEPRIL 1 cap PO DAILY 06/26/15 11/17/21 History [Lotrel 10-40 MG] Multivitamins, Thera [Multivitamin 1 tab PO DAILY 10/21/15 11/17/21 History (formulary)] Fenofibrate [Lofibra] 160 mg PO HS 12/07/16 11/17/21 History Atorvastatin [Lipitor] 40 mg PO DAILY 07/15/18 11/17/21 History Levothyroxine Sodium [Synthroid] 88 mcg PO DAILY 07/15/18 11/17/21 History Ascorbic Acid [Vitamin C] 1,000 mg PO DAILY 04/15/20 11/17/21 History Ibuprofen 600 mg PO Q8H PRN 04/15/20 11/17/21 History Omeprazole 40 mg PO DAILY 04/15/20 11/17/21 History traMADol HCL 50 mg PO DAILY PRN 04/15/20 11/17/21 History Aspirin EC [Ecotrin] 325 mg PO DAILY #30 tablet. 04/22/20 11/17/21 Rx Cholecalciferol [Vitamin D3 (25 2,000 unit PO DAILY #30 tab 04/22/20 11/17/21 Rx Mcg = 1000 Iu)] Beclomethasone Dip 80 Mcg/Puff 2 puff INHALATION RT-Q12H 11/17/21 11/17/21 History [Qvar 80 mcg] Dulaglutide [Trulicity] 1.5 mg SQ MO 11/17/21 11/17/21 History Empagliflozin [Jardiance] 25 mg PO DAILY 11/17/21 11/17/21 History INSULIN ASPART (NovoLOG) [NovoLOG 20 unit SQ ACHS 11/17/21 11/17/21 History (formulary)] Insulin Glargine [Lantus Vial] 60 unit SQ BID 11/17/21 11/17/21 History Nirmatrelvir/Ritonavir [Paxlovid 1 each PO DIRECTED #1 pack 11/17/21 Rx 2X150 mg-100 mg (Eua)] Zinc Sulfate [Orazinc] 220 mg PO DAILY #30 capsule 11/17/21 Rx dexAMETHasone [Decadron] 6 mg PO DAILY #8 tablet 11/17/21 Rx metFORMIN HCL 1,000 mg PO BID 11/17/21 11/17/21 History Allergies Allergy/AdvReac Type Severity Reaction Status Date / Time Iodinated Contrast Media Allergy Mild Rash/Hives Verified 11/17/21 07:57 [Iodinated Contrast Media - IV Dye] enalapril Allergy Rash/Hives Verified 11/17/21 07:57 levofloxacin Allergy Rash/Hives Verified 11/17/21 07:57 Physical Exam Vitals: Vital Signs Temp Pulse Pulse Resp BP BP Pulse Ox 11/17/21 08:00 97.8 F 93 16 139/80 95 11/17/21 06:00 94 L 11/17/21 05:00 99 133/72 96 11/17/21 01:29 149/83 98 11/16/21 19:31 98.2 F 102 H 22 174/79 92 L Intake and Output 11/16/21 11/17/21 11/17/21 22:59 06:59 14:59 Other: Weight 145.15 kg PHYSICAL EXAM: VITAL SIGNS: [As above] GENERAL: Sitting up in bed, no acute distress HEENT: Conjunctivae normal. eyes normal. NECK: No JVD. No thyroid enlargement. No LNs CARDIOVASCULAR: S1, S2 regular.. No murmur RESPIRATION: Breath sounds diminished in the bases. No rhonchi or crackles. No bronchial breathing. ABDOMEN: Soft, nontender . No guarding. no masses palpable. No ascites, No h epatosplenomegaly.Bowel sounds heard. LEGS: No edema. no swelling PSYCHIATRY: Alert and oriented X3, mood and affect normal. NERVOUS SYSTEM: Cranial N 2-12 grossly normal. No focal deficits. Strength and sensation grossly intact. Skin: Warm and dry, no rash Results CBC & Chem 7: 11/17/21 02:33 11/17/21 02:33 Labs: Abnormal Lab Results - Last 24 Hours (Table) 11/16/21 11/16/21 11/17/21 Range/Units 19:41 23:57 02:33 Chloride 97 L (98-107) mmol/L Carbon Dioxide 32 H (22-30) mmol/L Creatinine 0.50 L (0.52-1.04) mg/dL Glucose 195 H (74-99) mg/dL POC Glucose (mg/dL) 143 H (70-110) mg/dL Magnesium 1.3 L (1.6-2.3) mg/dL AST 54 H (14-36) U/L ALT 39 H (4-34) U/L C-Reactive Protein 8.1 H (<1.0) mg/dL Coronavirus (PCR) Detected A (Not Detectd) Assessment and Plan Assessment: Acute COVID-19 infection, symptoms started 11/12/2021, in a patient with previous history of COVID-19 pneumonia 04/16 Acute on chronic hypoxic respiratory failure secondary to the above.wears 3 lNC o2 at home. DM insulin-dependent, hyperglycemic, recent hemoglobin A1c 12.4, recheck in progress. History of MRSA of buttock Hypomagnesemia COPD Chronic intermittent asthma Hypertension Hyperlipidemia Osteoarthritis Obstructive sleep apnea, wears CPAP Hypothyroidism Chronic venous insufficiency Bipolar Depression Former nicotine dependence Morbid obesity, BMI 58.5 History of noncompliance Plan: Continue on current medication regime ,monitoring and symptomatic treatment. Evaluated by pulmonary, recommendations noted and appreciated. Remdesevir and Covid cocktail initiated. Close monitoring of renal function with repeat labs ordered for a.m. Inflammatory markers ordered.CTA pending. Magnesium supplementation as per replacement protocol ordered. Oxygen being titrated to 3 L which is patient's baseline. Patient will be discharged home in a stable condition today, pending magnesium supplemented, recheck WNL, CT results, final DC recommendations and clearance per pulmonary. Discussed with pulmonary discharging on Paxlovid. Discharge Medication List hydrALAZINE HCL [Apresoline] 50 mg PO TID 10/07/13 [History] Atenolol/Chlorthalidone [Atenolol/Chlorthalidone 100-25] 1 tab PO DAILY 06/25/15 [History] Divalproex [Depakote] 500 mg PO BID 06/25/15 [History] Gabapentin [Neurontin] 300 mg PO BID 06/25/15 [History] amLODIPine BESYLATE/BENAZEPRIL [Lotrel 10-40 MG] 1 cap PO DAILY 06/26/15 [History] Multivitamins, Thera [Multivitamin (formulary)] 1 tab PO DAILY 10/21/15 [ History] Fenofibrate [Lofibra] 160 mg PO HS 12/07/16 [History] Atorvastatin [Lipitor] 40 mg PO DAILY 07/15/18 [History] Levothyroxine Sodium [Synthroid] 88 mcg PO DAILY 07/15/18 [History] Ascorbic Acid [Vitamin C] 1,000 mg PO DAILY 04/15/20 [History] Ibuprofen 600 mg PO Q8H PRN 04/15/20 [History] Omeprazole 40 mg PO DAILY 04/15/20 [History] traMADol HCL 50 mg PO DAILY PRN 04/15/20 [History] Aspirin EC [Ecotrin] 325 mg PO DAILY #30 tablet. 04/22/20 [Rx] Cholecalciferol [Vitamin D3 (25 Mcg = 1000 Iu)] 2,000 unit PO DAILY #30 tab 04/22/20 [Rx] Beclomethasone Dip 80 Mcg/Puff [Qvar 80 mcg] 2 puff INHALATION RT-Q12H 11/17/21 [History] Dulaglutide [Trulicity] 1.5 mg SQ MO 11/17/21 [History] Empagliflozin [Jardiance] 25 mg PO DAILY 11/17/21 [History] INSULIN ASPART (NovoLOG) [NovoLOG (formulary)] 20 unit SQ ACHS 11/17/21 [History] Insulin Glargine [Lantus Vial] 60 unit SQ BID 11/17/21 [History] Nirmatrelvir/Ritonavir [Paxlovid 2X150 mg-100 mg (Eua)] 1 each PO DIRECTED #1 pack 11/17/21 [Rx] Zinc Sulfate [Orazinc] 220 mg PO DAILY #30 capsule 11/17/21 [Rx] dexAMETHasone [Decadron] 6 mg PO DAILY #8 tablet 11/17/21 [Rx] metFORMIN HCL 1,000 mg PO BID 11/17/21 [History] The impression and plan of care has been dictated as directed. : I performed a history and examination of this patient, discussed the same with the dictator. I agree with the dictator's note ,documented as a scribe. Any additional findings or plans will be noted.
[2021-11-17] MEDS ORDERED: methylPREDNISolone SOD SUCCI 125 MG/2 ML VIAL IV STA (13:32)
[2021-11-17] MEDS ORDERED: diphenhydrAMINE 50 MG/ML 1 ML VIAL IVP STA (13:33)
[2021-11-17] MEDS: INSULIN ASPART (NovoLOG) 100 UNIT/ML VIAL SQ SCH ×2 (13:45→18:09)
[2021-11-17] MEDS: hydrALAZINE HCL 50 MG TAB PO SCH ×2 (13:45→16:15)
[2021-11-17] MEDS: amLODIPine 10 MG TAB PO SCH ×2 (14:03→16:10)
[2021-11-17 14:26] VITALS: RESP 18
[2021-11-17] MEDS ORDERED: MAGNESIUM SULFATE-D5W PMX 1 GM in DEXTROSE/WATER 1 100ML.BAG IVPB ONE (15:00)
--- NOTE | 2021-11-17 15:01 | CT ---
EXAMINATION TYPE: CT angio chest DATE OF EXAM: 11/17/2021 COMPARISON: CT dated 01/08/2016 HISTORY: Acute respiratory distress CT DLP: 406 mGy.cm. Automated Exposure Control for Dose Reduction was Utilized. TECHNIQUE AND CONTRAST: CTA scan of the thorax is performed with IV Contrast, patient injected with 100, wasted 27 ml mL of I sovue 370, pulmonary embolism protocol. MIP Images are created on an independent workstation and re viewed. FINDINGS: Suboptimal pulmonary angiogram with suboptimal enhancement of the pulmonary arteries and multiple art ifacts. No definite filling defect within the pulmonary trunk, main pulmonary arteries, lobar and pro ximal segmental branches to suggest pulmonary embolism. Distal segmental and subsegmental branches ar e suboptimally assessed. The pulmonary trunk measures 3.3 cm cm suggestive of pulmonary hypertension. No gross cardiomegaly. Stable 4 mm nodule along the transverse fissure. Bilateral lower lobe subpleural pulmonary reticulati ons. Subsegmental atelectasis at the medial aspect of the left lower lobe. Patent trachea and main br onchi. No pleural or pericardial effusion. Prominent hilar and mediastinal lymph nodes, predominantly subcentimeter in size and grossly stable c ompared to the previous CT scan. Markedly enlarged liver with suspected hepatic steatosis. Bulky sple en. Degenerative changes of the thoracic spine. IMPRESSION: Suboptimal CT pulmonary angiogram as described above. With this limitation, no major or central pulmo nary embolism. Peripheral pulmonary embolism cannot be excluded. Other findings as described above.
[2021-11-17] MEDS: MAGNESIUM SULFATE-D5W PMX 1 GM in DEXTROSE/WATER 1 100ML.BAG IVPB SCH ×2 (15:05→16:09)
[2021-11-17] MEDS ORDERED: LORazepam 0.5 MG TAB PO PRN (15:05)
[2021-11-17 15:59] VITALS: BP 163/93; PULSE 110; TEMP 98.1
[2021-11-17 16:58] LABS: Glucose,Whole Blood 441 mg/dL (70-110)
[2021-11-17] MEDS ORDERED: FENOFIBRATE 160 MG TAB PO SCH (21:00)
[2021-11-18] MEDS ORDERED: PANTOPRAZOLE 40 MG TABLET PO SCH (07:30)
[2021-11-18] MEDS ORDERED: REMDESIVIR 100 MG in SODIUM CHLORIDE 0.9% 250 ML IVPB SCH (09:00)
== END 2021-11-17 19:35 | disposition home or self-care (01) | DRG 177 ==
LOC: EC 17:14 → 4SSUR 11-17 00:14 → 6NMEDSUR 11-17 08:53
PROVIDERS: ADMIT Family Medicine; ATTEND Family Medicine
PROC: XW043E5 Introduction of Remdesivir Anti-infective into Central Vein, Percutaneous Approach, New Technology Group 5 (ICD-10-PCS; principal; 2021-11-17)
DX: U07.1 COVID-19 (principal); J96.21 Acute and chronic respiratory failure with hypoxia; Z68.43 Body mass index [BMI] 50.0-59.9, adult; J44.1 Chronic obstructive pulmonary disease with (acute) exacerbation; M19.90 Unspecified osteoarthritis, unspecified site; K76.0 Fatty (change of) liver, not elsewhere classified; E03.9 Hypothyroidism, unspecified; E11.65 Type 2 diabetes mellitus with hyperglycemia; E66.01 Morbid (severe) obesity due to excess calories; E78.5 Hyperlipidemia, unspecified; F31.9 Bipolar disorder, unspecified; G47.33 Obstructive sleep apnea (adult) (pediatric); I10 Essential (primary) hypertension; I87.2 Venous insufficiency (chronic) (peripheral); J06.9 Acute upper respiratory infection, unspecified; J45.20 Mild intermittent asthma, uncomplicated; E83.42 Hypomagnesemia; F10.21 Alcohol dependence, in remission; Z99.81 Dependence on supplemental oxygen; Z86.16 Personal history of COVID-19; Z28.310 Unvaccinated for COVID-19; Z79.4 Long term (current) use of insulin; Z79.82 Long term (current) use of aspirin; Z79.84 Long term (current) use of oral hypoglycemic drugs; Z79.890 Hormone replacement therapy; Z79.899 Other long term (current) drug therapy; Z82.49 Family history of ischemic heart disease and other diseases of the circulatory system; Z86.14 Personal history of Methicillin resistant Staphylococcus aureus infection; Z87.01 Personal history of pneumonia (recurrent); Z87.891 Personal history of nicotine dependence; Z91.19 Patient's noncompliance with other medical treatment and regimen; Z98.890 Other specified postprocedural states; Z88.8 Allergy status to other drugs, medicaments and biological substances; Z88.1 Allergy status to other antibiotic agents; Z91.041 Radiographic dye allergy status; Z90.49 Acquired absence of other specified parts of digestive tract; Z98.51 Tubal ligation status
CPT/HCPCS: 36415; 71046; 71275; 80053; 83036; 83615; 83735; 84145; 85025; 85379; 85610; 85730; 86140; 87635; 93005; 94640

== ENCOUNTER → 2023-03-06 | Outpatient (CLI) | payer MEDICARE, OTHER ==
--- NOTE | 2023-03-07 21:14 | MM ---
Reason for Exam: Screening (asymptomatic). Last mammogram was performed 1 year(s) and 2 month(s) ago. Patient History: Menarche at age 11. First Full-Term at age 13. Postmenopausal. Maternal grandmother had breast cancer, age 40. Risk Values: Lavern 5 year model risk: 0.7%. NCI Lifetime model risk: 7.5%. Prior Study Comparison: 03/10/2019 Bilateral Screening Mammogram, [facility]. 01/13/2022 Bilateral MG 3D screening mammo w/cad, [facility]. Tissue Density: There are scattered fibroglandular densities. Findings: Analyzed By CAD. There is no suspicious group of microcalcifications or new suspicious mass in either breast. Overall Assessment: Negative, BI-RAD 1 Management: Screening Mammogram of both breasts in 1 year. . Patient should continue monthly self-breast exams. A clinical breast exam by your physician is recommended on an annual basis. This exam should not preclude additional follow-up of suspicious palpable abnormalities. Note on Lavern scores and lifetime risk: 1. A Lavern score greater than 3% is considered moderate risk. If this is the case, consider specialist referral to assess eligibility for a risk reducing agent. 2. If overall lifetime risk for the development of breast cancer is 20% or higher, the patient may qualify for future screening with alternating mammogram and breast MRI. Electronically signed and approved by: Rangel Osborn M.D. Radiologist
== END | disposition home or self-care (01) ==
LOC: RADMAMWWP 14:43
PROVIDERS: ATTEND Family Medicine
DX: Z12.31 Encounter for screening mammogram for malignant neoplasm of breast (principal); Z78.0 Asymptomatic menopausal state; Z80.3 Family history of malignant neoplasm of breast
CPT/HCPCS: 77067